=== PATIENT | male | born 1940 | race African-American/Black ===

== ENCOUNTER 2016-07-28 17:50 | Inpatient (IN) | payer MEDICARE, OTHER ==
[~2016-07-28] VITALS: Ht 170.2 cm; Wt 78.5 kg
[~2016-07-28 17:50] MED LIST: DILT180C64 PO; FAMO40TA4 PO; FENO134C PO; NIAC10002 PO; TELM80TA5 PO
[2016-07-28 18:26] LABS: BASO % 1 % (0-3); EOS % 0 % (0-3); HEMATOCRIT 35.8 % (39.0-53.0); HEMOGLOBIN 11.7 g/dL (13.0-17.5); LYMPH % 11 % (24-48); MEAN CORPUSCULAR HEMOGLOBIN 28 pg (25-35); MEAN CORPUSCULAR HGB CONC 33 g/dL (31-37); MEAN CORPUSCULAR VOLUME 85 fL (79-100); MONO % 11 % (0-9); NEUT % 78 % (31-73); PLATELET COUNT 336 x10^3/uL (140-400); RED BLOOD COUNT 4.19 x10^6/uL (4.30-5.70); RED CELL DISTRIBUTION WIDTH 14.9 % (11.5-14.5); WHITE BLOOD COUNT 8.9 x10^3/uL (4.0-11.0)
[2016-07-28] MEDS ORDERED: HEPARIN for IV BOLUS 10,000 UNIT/10 ML VIAL. IV ONE (18:30)
[2016-07-28] MEDS ORDERED: HEPARIN for IV BOLUS 10,000 UNIT/10 ML VIAL. IV PRN (18:30)
[2016-07-28] MEDS ORDERED: ASPIRIN 81 MG TAB.CHEW PO ONE (18:30)
[2016-07-28] MEDS ORDERED: NITROGLYCERIN SUBLINGUAL 0.4 MG BOTTLE OF 25. SL PRN (18:30)
[2016-07-28] MEDS ORDERED: IOHEXOL 350 MG/ML 100ML VIAL. ONE (18:36)
[2016-07-28] MEDS ORDERED: IOHEXOL 350 MG/ML 100ML VIAL. IV ONE (18:45)
[2016-07-28] MEDS ORDERED: CONTRAST GIVEN MC PRN (18:45)
[2016-07-28 18:48] LABS: CALCIUM 9.1 mg/dL (8.5-10.1); CREATININE 2.9 mg/dL (0.7-1.3); GFR 25.9; POTASSIUM 4.5 mmol/L (3.5-5.1)
[2016-07-28 18:57] LABS: INR 1.2 (0.8-1.1); PROTHROMBIN TIME PATIENT 14.7 SEC (11.7-14.0)
[2016-07-28] MEDS ORDERED: IV NORMAL SALINE 1000ML BAG 1,000 ML IV ONE (19:00)
[2016-07-28] MEDS ORDERED: NITROGLYCERIN PREMIX 250 ML IV ONE (19:00)
[2016-07-28] MEDS ORDERED: IV NORMAL SALINE 1000ML BAG 1,000 ML IV SCH (19:14)
[2016-07-28] MEDS ORDERED: MORPHINE SULFATE 4 MG/ML DISP.SYRIN. IV PRN (19:15)
[2016-07-28] MEDS ORDERED: ACETAMINOPHEN 325 MG TABLET. PO PRN (19:15)
[2016-07-28] MEDS ORDERED: ONDANSETRON PF 4 MG/2 ML VIAL. IV PRN (19:15)
--- NOTE | 2016-07-28 19:25 | PHYS DOC ---
Past Medical History Past Medical History: A-Fib, GERD, Hypertension, Kidney Stone, Other Additional Past Medical Histor: chronic kidney disease Past Surgical History: Other Additional Past Surgical Histo: hernia repair, shoulder, foot Alcohol Use: None Drug Use: None Adult General Chief Complaint Chief Complaint: CHEST PAIN HPI HPI Patient is a 76 year old male who presents with chest discomfort. Patient said since awaking this morning he has had a dull ache on the left side of his chest that radiates to his back. When asked about shortness of breath, he says it does not wear any worse than it usually is. No clear inciting or mitigating factors. He has taken a baby aspirin today as well as an oxycodone with insufficient relief. Patient reports she has had similar symptoms to a lesser degree in the past, but not this bad. He denies cardiac history other than A. fib. He is a smoker. Review of Systems Review of Systems Constitutional: Denies fever or chills Eyes: Denies change in visual acuity or eye pain HENT: Denies nasal congestion or sore throat Respiratory: Shortness of breath at baseline Cardiovascular: L chest ache GI: Denies abdominal pain, nausea, vomiting, bloody stools or diarrhea : Denies dysuria or hematuria Musculoskeletal: Pain across upper back Integument: Denies rash or skin lesions Neurologic: Denies headache, focal weakness or sensory changes Current Medications Current Medications Current Medications Medications (Trade) Dose Ordered Sig/Prabha Start Time Stop Time Status Last Admin Dose Admin Acetaminophen (Tylenol) 650 mg PRN Q4HRS PRN 07/28/16 19:15 07/29/16 19:14 Aspirin (Children'S Aspirin) 324 mg 1X ONCE 07/28/16 18:30 07/28/16 18:31 DC 07/28/16 18:27 324 MG Heparin Sodium (Porcine) 1,950 unit PRN Q6HRS PRN 07/28/16 18:30 Heparin Sodium (Porcine) 4000 unit 4,000 unit 1X ONCE 07/28/16 18:30 07/28/16 18:32 DC Heparin Sodium/ Dextrose 500 ml @ 0 mls/hr CONT PRN 07/28/16 18:30 Info (Do NOT chart on this entry -- for MONITORING) 1 each PRN DAILY PRN 07/28/16 18:45 07/30/16 18:44 Iohexol (Omnipaque 350 Mg/ml) 90 ml 1X ONCE 07/28/16 18:45 07/28/16 18:46 DC 07/28/16 18:45 90 ML Iohexol 100 ml 100 ml STK-MED ONCE 07/28/16 18:36 07/28/16 18:37 DC Morphine Sulfate 4 mg 4 mg PRN Q2HR PRN 07/28/16 19:15 07/29/16 19:14 Nitroglycerin (Nitrostat) 0.4 mg PRN Q5MIN PRN 07/28/16 18:30 07/29/16 18:29 07/28/16 18:27 0.4 MG Nitroglycerin/ Dextrose (Nitroglycerin Drip) 250 ml @ 0 mls/hr 1X ONCE 07/28/16 19:00 07/28/16 19:01 DC 07/28/16 19:15 1.5 MLS/HR Ondansetron HCl (Zofran) 4 mg PRN Q8HRS PRN 07/28/16 19:15 07/29/16 19:14 Sodium Chloride (Iv Sodium Chloride 0.9% 1000ml Bag) 1,000 ml @ 125 mls/hr Q8H 07/28/16 19:14 07/29/16 19:13 Allergies Allergies Allergies Coded Allergies Type Severity Reaction Last Updated Verified No Known Drug Allergies 02/12/14 No Physical Exam Physical Exam Constitutional: Well developed, well nourished, no acute distress, non-toxic appearance HENT: Normocephalic, atraumatic, bilateral external ears normal Eyes: EOMI, conjunctiva normal, no discharge Neck: Normal range of motion, no stridor Cardiovascular: Heart rate normal, regular rhythm, no murmur; equal radial pulses b/l Lungs & Thorax: Bilateral breath sounds clear to auscultation Abdomen: Bowel sounds normal, soft, non-distended, no TTP Skin: Warm, dry, no erythema, no rash Back: No tenderness, no deformity or skin lesion Extremities: No obvious deformity, no edema Neurologic: Alert and oriented X 3, no gross deficits noted Psychologic: Affect normal, judgement normal, mood normal Current Patient Data Vital Signs Vital Signs Date Time Temp Pulse Resp B/P Pulse Ox O2 Delivery O2 Flow Rate FiO2 07/28/16 18:46 87 20 148/73 92 Nasal Cannula 3 07/28/16 17:55 98.5 98.5 Lab Values Laboratory Tests Test 07/28/16 18:05 07/28/16 18:13 White Blood Count 8.9x10^3/uL (4.0-11.0) Red Blood Count 4.19x10^6/uL (4.30-5.70) L Hemoglobin 11.7g/dL (13.0-17.5) L Hematocrit 35.8% (39.0-53.0) L Mean Corpuscular Volume 85fL (79-100) Mean Corpuscular Hemoglobin 28pg (25-35) Mean Corpuscular Hemoglobin Concent 33g/dL (31-37) Red Cell Distribution Width 14.9% (11.5-14.5) H Platelet Count 336x10^3/uL (140-400) Neutrophils (%) (Auto) 78% (31-73) H Lymphocytes (%) (Auto) 11% (24-48) L Monocytes (%) (Auto) 11% (0-9) H Eosinophils (%) (Auto) 0% (0-3) Basophils (%) (Auto) 1% (0-3) Neutrophils # (Auto) 6.9x10^3uL (1.8-7.7) Lymphocytes # (Auto) 1.0x10^3/uL (1.0-4.8) Monocytes # (Auto) 0.9x10^3/uL (0.0-1.1) Eosinophils # (Auto) 0.0x10^3/uL (0.0-0.7) Basophils # (Auto) 0.0x10^3/uL (0.0-0.2) Prothrombin Time 14.7SEC (11.7-14.0) H Prothrombin Time INR 1.2 (0.8-1.1) H PTT 31SEC (24-38) Sodium Level 140mmol/L (136-145) Potassium Level 4.5mmol/L (3.5-5.1) Chloride Level 104mmol/L (98-107) Carbon Dioxide Level 22mmol/L (21-32) Anion Gap 14 (6-14) Blood Urea Nitrogen 27mg/dL (8-26) H Creatinine 2.9mg/dL (0.7-1.3) H Estimated GFR (Cockcroft-Gault) 25.9 Glucose Level 134mg/dL (70-99) H Calcium Level 9.1mg/dL (8.5-10.1) Troponin I Quantitative 4.362ng/mL (0.000-0.055) TV-Iso-X-Type Natriuretic Peptide 1842pg/mL (0-124) H POC Troponin I 3.25ng/ml (<0.08) Laboratory Tests 07/28/16 18:05 Laboratory Tests 07/28/16 18:05 EKG EKG EKG (my read): sinus rhythm, rate 84, RBBB, 1mm ST elevation in aVR, ST depression in leads I/V2-6, scattered TWI; no prior to compare Radiology/Procedures Radiology/Procedures CXR (my read): Diffuse interstitial markings CTA chest: IMPRESSION No acute abnormality is seen. Course & Med Decision Making Course & Med Decision Making Pertinent Labs and Imaging studies reviewed. (See chart for details) Patient is 76-year-old male who presents with chest pain radiating to his back. Concern for ACS, aortic dissection also on differential. EKG concerning with ST depression and flipped T waves. Does have [address] elevation in aVR, but does not meet criteria for STEMI activation. Aspirin, nitroglycerin, EKG, chest x-ray , labs, CTA chest ordered. I spoke emergently with Dr. Dawn; will heparanize after CTA assuming no dissection seen. CTA results as above. [id number] troponin 3.25, troponin from lab results at 4.362. Labs also notable for elevated creatinine. I spoke again with Dr. Dawn; will hydrate patient overnight with tentative plan for catheter lab tomorrow morning. I discussed the results with patient and the plan. Discussed with Dr. Avery (covering for Dr. Amin); will admit under his care for further evaluation and treatment. Dragon Disclaimer Dragon Disclaimer This electronic medical record was generated, in whole or in part, using a voice recognition dictation system. Departure Departure Impression: Primary Impression: Non-ST elevation IN (NSTEMI) Disposition: 09 ADMITTED INPATIENT Admitting Physician: Shruthi Avery Condition: GUARDED Referrals: SEGUNDO AMIN MD (PCP) LISA ROSS MD Jul 28, 2016 19:25
--- NOTE | 2016-07-28 19:31 | RAD ---
PROCEDURE CTA of the chest without and with contrast 07/28/2016 HISTORY Burning chest and back pain since this morning. TECHNIQUE Unenhanced contiguous, 2 millimeter axial sections were obtained through the chest. After the intravenous administration of 90 cc of Omnipaque 350, contiguous, 0.625 millimeter axial sections were obtained through the chest and upper abdomen. Multiplanar 3D MIP and volume rendered 3D reconstructed images were obtained. One or more of the following individualized dose reduction techniques were utilized for this study: 1. Automated exposure control. 2. Adjustment of the mA and/or kV according to patient size. 3. Use of iterative reconstruction technique. FINDINGS The unenhanced images demonstrate scattered atherosclerotic plaque formation involving the thoracic aorta and its branches. Scattered atherosclerotic plaque formation is seen involving the coronary arteries. Calcified right hilar and mediastinal lymph nodes are seen which measure 3 millimeters to 1.5 centimeters in size. On the post-contrast images mild to moderate atheromatous/atherosclerotic plaque formation is seen involving the thoracic aorta and its branches. The thoracic aorta is tortuous but tapers normally. No dissection or aneurysm is seen. The origins of the brachiocephalic, left common carotid and left subclavian arteries from the thoracic aortic arch are patent. Enlarged hilar and mediastinal lymph nodes are seen which measure 1 centimeter to 2 centimeters in size. They may be reactive. There is mild cardiomegaly. No filling defect is seen within the visualized portions of either pulmonary artery. Moderate bullous emphysematous changes are seen involving both lungs, particularly both upper lobes. Dependent subsegmental atelectasis is seen bilaterally. No area of consolidation is noted. No pneumothorax or pleural effusion is seen. Images through the upper abdomen demonstrate multiple low-attenuation lesions scattered throughout both kidneys. These measure 5 millimeters to 10 centimeters in size. They likely represent cysts. IMPRESSION No acute abnormality is seen. Electronically signed by: Nabil Schumacher MD (Jul 28, 2016 19:30:19)
[2016-07-28] MEDS: HEPARIN 25,000UTS/500ML PREMIX 500 ML IV PRN (19:45)
--- NOTE | 2016-07-28 20:15 | ACF ---
Admit Criteria Forms Admit Criteria Forms Admit Criteria Forms MYOCARDIAL INFARCTION Clinical Indications for Admission to Inpatient Care (Place 'X' for any and all applicable criteria): Admission is indicated for ANY ONE of the following (1)(2)(3)(4): [X]I. Acute [place] [ ]II. Contraindications and/or Inappropriate clinical situations for Observational Care in patients with Myocardial Infarction, when ANY ONE of the following is required: [ ]a) Patient with High risk of cardiac embolism (e.g, patients with previous cardiac embolism, LVEF < 40%, age >75 and patients with prosthetic valve) 18 [ ]b) Patient with Moderate risk including DM patient, CAD and patient aged 65-75 18 [ ]c) Patient with any change in cardiac biomarker especially troponin should be managed as high risk in an inpatient setting 19 [ ]d) Physician judgement irrespective of ECG and other diagnostic findings 20 [ ]III.General contraindications and/or Inappropriate clinical situations for Observational Care in patients with Myocardial Infarction, when ANY ONE of the following is required: [ ]a) Prediction of prolongation of LOS based on ANY ONE of the following may be considered as a contraindication for observational care 2, 3, 4, 5, 6, 7, 8, 9, 10, 11 [ ]i) Age > 65 yrs. [ ]ii) Patient arriving by ambulance [ ]iii) Patient with high acuity [ ]iv) Patient requiring vital sign monitoring [ ]v) Patient on IV medication [ ]b) Systolic blood pressures 180mmHg 3,12 [ ]c) Patient with altered mental status including delirium and other alteration of consciousness, (3) [ ]d) Patient whose discharge disposition will be to a intermediate home or rehabilitation home should not be managed in Emergency Department Observation Unit. CMS rule requires 3 days hospital stay before such placement. 3,13 [ ]e) Patient with failure to thrive due to broad array of etiologies 3 ,16,17 [ ]f) Inability to ambulate 3,14 Extended stay beyond goal length of stay may be needed for (1)(18)(20)(24)(25): [ ]a) Hemodynamic instability, persisting symptoms after intensive medical management, or recurring severe, prolonged symptoms [ ]b) Intravascular procedural complications such as acute vessel closure, stent thrombosis, stent malposition, or vessel dissection (26)(27)(28) [ ]c) Extravascular procedural complications such as retroperitoneal hematoma , pericardial effusion, or cardiac tamponade [ ]d) Entry site complications causing bleeding, hematoma or distal ischemia and requiring ongoing monitoring, surgical repair or surgical thrombectomy(29) [ ]e) Dangerous arrhythmia [ ]f) Complicated percutaneous coronary intervention (e.g., unsuccessful percutaneous coronary intervention or percutaneous coronary intervention of non- [place] vessel) [ ]g) Urgent or emergent surgery for complications of [place] (e.g., ventricular rupture, valvular insufficiency) [ ]h) Surgical revascularization via coronary artery bypass graft [ ]i) Heart failure (e.g., pulmonary edema) [ ]j) Unstable pulmonary comorbidities, including COPD or pneumonia (31) [ ]k) Acute renal failure The original [employer] content created by [email or web address] has been revised. The portions of the content which have been revised are identified through the use of italic text or in bold, and [facility] has neither reviewed nor approved the modified material. All other unmodified content is copyright [facility] Please see references footnoted in the original [facility] edition 2016 TRESA GROSS Jul 28, 2016 20:15
[2016-07-28 20:30] VITALS: BP 108/67
[2016-07-28 21:00] VITALS: BP 135/66
[2016-07-28 22:00] VITALS: BP 122/67
[2016-07-28] MEDS ORDERED: FUROSEMIDE 20 MG/2 ML VIAL IVP ONE (22:15)
[2016-07-28] MEDS ORDERED: IPRATRPIUM/ALBUTEROL 0.5/2.5MG 3 ML NEBU. ONE (22:49)
[2016-07-28 23:00] VITALS: BP 122/69
[2016-07-28] MEDS ORDERED: TAMS0.4C2 PO (23:21)
[2016-07-28] MEDS ORDERED: DOXA4TAB3 PO (23:21)
[2016-07-28] MEDS ORDERED: ONDA4TAB12 PO (23:21)
[2016-07-28] MEDS ORDERED: OXYC-323 PO (23:21)
[2016-07-28] MEDS ORDERED: AMLO10TA2 PO (23:21)
[2016-07-28] MEDS: IPRATRPIUM/ALBUTEROL 0.5/2.5MG 3 ML NEBU. NEB SCH (23:32)
[2016-07-28 23:45] LABS: HCO3 ABG 23 mmol/L (21-28); PCO2 ABG 38 mmHg (35-46); SAT O2 ABG 85 % (92-99)
[2016-07-28 23:55] LABS: FIO2 ABG 100; PO2 ABG 50 mmHg (65-108)
[2016-07-29] VITALS (26 sets, daily range): BP systolic 108–145; BP diastolic 59–75
[2016-07-29] MEDS ORDERED: FUROSEMIDE 20 MG/2 ML VIAL IVP ONE ×3 (00:30→15:00)
[2016-07-29] MEDS: LORAZEPAM 0.5 MG TABLET. PO PRN (01:05)
[2016-07-29] MEDS ORDERED: IV NORMAL SALINE 1000ML BAG 1,000 ML IV SCH ×2 (01:15→05:30)
[2016-07-29 05:16] LABS: BASO % 1 % (0-3); EOS % 0 % (0-3); HEMATOCRIT 35.8 % (39.0-53.0); HEMOGLOBIN 11.4 g/dL (13.0-17.5); LYMPH # 0.8 x10^3/uL (1.0-4.8); LYMPH % 9 % (24-48); MEAN CORPUSCULAR HEMOGLOBIN 27 pg (25-35); MEAN CORPUSCULAR HGB CONC 32 g/dL (31-37); MEAN CORPUSCULAR VOLUME 86 fL (79-100); MONO % 9 % (0-9); NEUT % 82 % (31-73); PLATELET COUNT 318 x10^3/uL (140-400); RED BLOOD COUNT 4.18 x10^6/uL (4.30-5.70); RED CELL DISTRIBUTION WIDTH 14.8 % (11.5-14.5); WHITE BLOOD COUNT 9.7 x10^3/uL (4.0-11.0)
[2016-07-29 05:38] LABS: CALCIUM 8.7 mg/dL (8.5-10.1); CREATININE 2.8 mg/dL (0.7-1.3); GFR 26.9; POTASSIUM 4.8 mmol/L (3.5-5.1)
[2016-07-29 05:41] LABS: MAGNESIUM 2.3 mg/dL (1.8-2.4)
[2016-07-29 05:48] LABS: CHOLESTEROL/HDL RATIO 6.9
[2016-07-29] MEDS: IPRATRPIUM/ALBUTEROL 0.5/2.5MG 3 ML NEBU. NEB SCH ×4 (08:03→19:27)
--- NOTE | 2016-07-29 08:27 | RAD ---
Examination: Ultrasound kidneys History: History of stage III renal disease, renal cyst Comparison: 06/20/2010 Findings: The right kidney measures 12.0 x 6.1 x 7.0 cm. The left kidney measures 15.3 x 8.7 x 1.1 cm The visualized urinary bladder is mildly distended. Bilateral ureteral jets are identified. There is a cystic structure identified in the right kidney measuring 3.6 x 3.5 x 2.2 cm. There is a large cystic structure identified in the left kidney measures 11.2 x 10.2 x 6.5 cm. There is a 6.3 mm echogenicity identified in the inferior right kidney likely an intrarenal collecting system calculus No evidence of hydronephrosis. Impression: 1. Bilateral renal cysts with the largest measuring 11.2 cm on the left, which is mildly increased compared to prior exam. 2. 6.3 mm intrarenal collecting system calculus identified in the right kidney. No evidence of hydronephrosis.
--- NOTE | 2016-07-29 08:59 | RAD ---
Examination: Ultrasound bilateral lower extremity venous duplex History: History of shortness of breath Comparison: None available Technique: Grayscale, color Doppler 2-D, spectral waveform analysis of the bilateral lower extremity venous system was performed Findings: The visualized common femoral vein, superficial femoral vein, popliteal vein demonstrate normal compression augmentation of flow. The visualized calf veins are patent. Impression: No evidence of deep venous thrombosis identified in the visualized bilateral lower extremity venous system.
--- NOTE | 2016-07-29 09:14 | EKG ---
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
[2016-07-29] MEDS ORDERED: ONDANSETRON ODT 4 MG TAB.RAPDIS PO PRN (09:30)
[2016-07-29] MEDS ORDERED: OXYCODONE/APAP 5/325 TABLET. PO PRN (09:30)
--- NOTE | 2016-07-29 09:31 | RAD ---
Examination: Single frontal view the chest. History: History of atrial fibrillation, left chest pain Comparison: 09/26/2004 Findings: The cardiomediastinal silhouette demonstrates mild cardiomegaly. Emphysematous changes identified in the bilateral lungs. There is prominence of bilateral interstitial lung markings likely chronic fibrosis given CT findings. Impression: Diffuse prominent appearing bilateral interstitial lung markings likely interstitial fibrosis.
[2016-07-29 09:35] LABS: HCO3 ABG 23 mmol/L (21-28); PCO2 ABG 38 mmHg (35-46); PO2 ABG 69 mmHg (65-108); SAT O2 ABG 94 % (92-99)
[2016-07-29] MEDS ORDERED: ASPI81TA9 PO (09:39)
[2016-07-29 09:41] LABS: FIO2 ABG 100
[2016-07-29] MEDS: ASPIRIN 325 MG TABLET PO SCH (10:07)
[2016-07-29] MEDS: DOXAZOSIN MESYLATE 4 MG TABLET PO SCH (10:08)
[2016-07-29] MEDS: METOPROLOL TART IMMED RELEASE 25 MG TABLET PO SCH ×2 (10:08→20:49)
--- NOTE | 2016-07-29 10:20 | RAD ---
Examination: Single frontal view the chest. History: History of wheezing Comparison: 08/14/2016 Findings: Mild cardiomegaly is unchanged. Mild increase in prominence of diffuse bilateral interstitial lung markings likely chronic interstitial changes with overlying congestive changes with interval increase in patchy bibasal lung airspace opacities likely atelectasis or infiltrate. Trace bilateral pleural effusions Impression: 1. Interval mild increase in bilateral interstitial lung markings likely chronic interstitial changes with overlying mild congestive changes. 2. Mild bibasal lung airspace opacities likely atelectasis or infiltrates. Follow-up to resolution. 3. Trace bilateral pleural effusions.
--- NOTE | 2016-07-29 10:27 | EKG ---
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
--- NOTE | 2016-07-29 11:21 | PDOC ---
Provider Note Provider Note Pt seen in ICU .H&P dictated. #[id number]. spoke with cardiology . SHARLA KOWALSKI MD Jul 29, 2016 11:21
--- NOTE | 2016-07-29 11:50 | PDOC2 ---
CONSULT Date of Consult Date of Consult DATE: 07/29/16 TIME: 11:39 Reason for Consult Reason for Consult: Chest pain Referring Physician Referring Physician: Dr. Avery Identification/Chief Complaint Chief Complaint Chest pain History of Present Illness Reason for Visit: The patient is a 76-year-old male with episodes of chest pain that brought him to the emergency room last night. The patient states he has had 3-4 days of the discomfort. It increased last night and so he came to the emergency room. He describes it as a pain in his left upper chest that goes through his chest and is most severe in his back between his shoulder blades. The patient EKG showed a sinus rhythm with ST segment depression consistent with ischemia but not an ST elevated myocardial infarction. CT scanning of his chest showed no aortic dissection and the patient was started on aspirin and heparin. Overnight his pain has improved but he has had increasing shortness of breath requiring higher levels of oxygen. 20 mg of Lasix improved his shortness of breath but he also has kidney injury with a initial initial creatinine of 2.9. He was discharged from approximately a week ago after being followed for reported renal stones. In addition his d-dimer is elevated at 3.38. Initial report of an echocardiogram done this morning shows an ejection fraction mildly decreased at 45%. Overall the patient reports being more comfortable today. He continues however to be short of breath. Past Medical History Cardiovascular: HTN Musculoskeletal: low back pain Renal/: Chronic renal insuff Past Surgical History Past Surgical History: No pertinent history Family History Family History: Hypertension Social History Quit Current Problem List Problem List Problems Medical Problems: (1) Non-ST elevation [place] (NSTEMI) Status: Acute Current Medications Current Medications Current Medications Aspirin (Children'S Aspirin) 324 mg 1X ONCE PO Last administered on 07/28/16 18:27; Start 07/28/16 at 18:30; Stop 07/28/16 at 18:31; Status DC Nitroglycerin (Nitrostat) 0.4 mg PRN Q5MIN PRN SL CP RATING > 1/10 Last administered on 07/28/16 18:27; Start 07/28/16 at 18:30; Stop 07/29/16 at 18:29 Heparin Sodium (Porcine) 4000 unit 4,000 unit 1X ONCE IV Last administered on 07/28/16 19:43; Start 07/28/16 at 18:30; Stop 07/28/16 at 18:32; Status DC Heparin Sodium/ Dextrose 500 ml @ 0 mls/hr CONT PRN IV SEE I/O RECORD Last administered on 07/28/16 19:45; Start 07/28/16 at 18:30 Heparin Sodium (Porcine) 1,950 unit PRN Q6HRS PRN IV FOR UFH LEVEL LESS THAN 0.2 Last administered on 07/29/16 05:33; Start 07/28/16 at 18:30 Iohexol (Omnipaque 350 Mg/ml) 90 ml 1X ONCE IV Last administered on 07/28/16 18:45; Start 07/28/16 at 18:45; Stop 07/28/16 at 18:46; Status DC Info (Do NOT chart on this entry -- for MONITORING) 1 each PRN DAILY PRN MC SEE COMMENTS; Start 07/28/16 at 18:45; Stop 07/30/16 at 18:44 Iohexol 100 ml 100 ml STK-MED ONCE .ROUTE ; Start 07/28/16 at 18:36; Stop at 18:37; Status DC Nitroglycerin/ Dextrose 250 ml @ 0 mls/hr 1X ONCE IV Last administered on 19:15; Start 07/28/16 at 19:00; Stop 07/28/16 at 19:01; Status DC Sodium Chloride (Iv Sodium Chloride 0.9% 1000ml Bag) 1,000 ml @ 1,000 mls/hr 1X ONCE IV Last administered on 07/28/16 19:00; Start 07/28/16 at 19:00; Stop 07/28/16 at 19:59; Status DC Ondansetron HCl (Zofran) 4 mg PRN Q8HRS PRN IV NAUSEA/VOMITING; Start 07/28/16 at 19:15; Stop 07/29/16 at 19:14 Morphine Sulfate 4 mg 4 mg PRN Q2HR PRN IV PAIN Last administered on 07/28/16 23:32; Start 07/28/16 at 19:15; Stop 07/29/16 at 19:14 Sodium Chloride (Iv Sodium Chloride 0.9% 1000ml Bag) 1,000 ml @ 125 mls/hr Q8H IV Last administered on 07/28/16 19:14; Start 07/28/16 at 19:14; Stop 07/29/16 at 01:16; Status DC Acetaminophen (Tylenol) 650 mg PRN Q4HRS PRN PO FEVER; Start 07/28/16 at 19:15; Stop 07/29/16 at 19:14 Furosemide (Lasix) 20 mg 1X ONCE IVP Last administered on 07/28/16 22:41; Start 07/28/16 at 22:15; Stop 07/28/16 at 22:16; Status DC Albuterol/ Ipratropium (Duoneb) 3 ml STK-MED ONCE .ROUTE ; Start 07/28/16 at 22: 49; Stop 07/28/16 at 22:50; Status DC Albuterol/ Ipratropium (Duoneb) 3 ml RTQID NEB Last administered on 07/29/16 08 :03; Start 07/29/16 at 08:00 Lorazepam (Ativan) 0.25 mg PRN Q6HRS PRN PO ANXIETY / AGITATION Last administered on 07/29/16 01:05; Start 07/28/16 at 23:00 Furosemide (Lasix) 20 mg 1X ONCE IVP Last administered on 07/29/16 01:04; Start 07/29/16 at 00:30; Stop 07/29/16 at 00:31; Status DC Furosemide 20 mg 20 mg 1X ONCE IVP ; Start 07/29/16 at 01:00; Stop 07/29/16 at 01 :01; Status DC Sodium Chloride 1,000 ml @ 80 mls/hr [id number] IV ; Start 07/29/16 at 01:15; Stop 07/29/16 at 01:29; Status DC Sodium Chloride (Iv Sodium Chloride 0.9% 1000ml Bag) 1,000 ml @ 80 mls/hr [id number] IV Last administered on 07/29/16 05:48; Start 07/29/16 at 05:30 Aspirin (Lionel Aspirin) 325 mg [id number] PO Last administered on 07/29/16 10: 07; Start 07/29/16 at 09:45 Metoprolol Tartrate (Lopressor) 12.5 mg BID PO Last administered on 07/29/16 10 :08; Start 07/29/16 at 09:45 Doxazosin Mesylate (Cardura) 4 mg DAILY PO Last administered on 07/29/16t 10:08 ; Start 07/29/16 at 09:00 Ondansetron HCl (Zofran Odt) 4 mg PRN Q8HRS PRN PO NAUSEA/VOMITING; Start at 09:30 Oxycodone/ Acetaminophen (Percocet 5/325) 1 tab PRN Q6HRS PRN PO PAIN; Start at 09:30 Tamsulosin HCl (Flomax) 0.4 mg HS PO ; Start 07/29/16 at 21:00 Famotidine 40 mg 40 mg HS PO ; Start 07/29/16 at 21:00 Nitroglycerin/ Dextrose (Nitroglycerin Drip) 250 ml @ 0 mls/hr CONT PRN IV SEE I/O RECORD; Start 07/29/16 at 09:45 Atorvastatin Calcium (Lipitor) 20 mg QHS PO ; Start 07/29/16 at 21:00 Losartan Potassium (Cozaar) 50 mg DAILY PO ; Start 07/29/16 at 11:15 Active Scripts Active Reported Aspirin Ec (Aspirin) 81 Mg Tablet.dr 81 Mg PO DAILY Amlodipine Besylate 10 Mg Tablet 10 Mg PO DAILY Percocet 5-325 Mg Tablet (Oxycodone/Acetaminophen) 1 Each Tablet 1 Tab PO PRN Q6HRS PRN Doxazosin Mesylate 4 Mg Tablet 1 Tab PO DAILY Tamsulosin Hcl 0.4 Mg Cap.er.24h 1 Cap PO DAILY Ondansetron Odt (Ondansetron) 4 Mg Tab.rapdis 1 Tab PO PRN Q8HRS PRN Famotidine 40 Mg Tablet 40 Mg PO HS Telmisartan 80 Mg Tablet 80 Mg PO Allergies Allergies: Coded Allergies: No Known Drug Allergies (Unverified , 02/12/14) ROS Respiratory: YES: Shortness of breath Cardiovascular: yes Chest Pain Genitourinary: YES Flank Pain Physical Exam General: mild distress Lungs: Clear to auscultation Heart: Regular rate Abdomen: Normal bowel sounds Vitals VITALS Vital Signs Date Time Temp Pulse Resp B/P Pulse Ox O2 Delivery O2 Flow Rate FiO2 07/29/16 10:08 80 137/65 07/29/16 10:00 34 91 NonRebreather Mask 07/29/16 08:03 15.0 07/29/16 07:00 97.9 97.9 Labs Labs Laboratory Tests Test 07/28/16 18:05 07/28/16 18:13 07/28/16 23:45 07/29/16 04:30 White Blood Count 8.9x10^3/uL (4.0-11.0) 9.7x10^3/uL (4.0-11.0) Red Blood Count 4.19x10^6/uL (4.30-5.70) 4.18x10^6/uL (4.30-5.70) Hemoglobin 11.7g/dL (13.0-17.5) 11.4g/dL (13.0-17.5) Hematocrit 35.8% (39.0-53.0) 35.8% (39.0-53.0) Mean Corpuscular Volume 85fL (79-100) 86fL (79-100) Mean Corpuscular Hemoglobin 28pg (25-35) 27pg (25-35) Mean Corpuscular Hemoglobin Concent 33g/dL (31-37) 32g/dL (31-37) Red Cell Distribution Width 14.9% (11.5-14.5) 14.8% (11.5-14.5) Platelet Count 336x10^3/uL (140-400) 318x10^3/uL (140-400) Neutrophils (%) (Auto) 78% (31-73) 82% (31-73) Lymphocytes (%) (Auto) 11% (24-48) 9% (24-48) Monocytes (%) (Auto) 11% (0-9) 9% (0-9) Eosinophils (%) (Auto) 0% (0-3) 0% (0-3) Basophils (%) (Auto) 1% (0-3) 1% (0-3) Neutrophils # (Auto) 6.9x10^3uL (1.8-7.7) 7.9x10^3uL (1.8-7.7) Lymphocytes # (Auto) 1.0x10^3/uL (1.0-4.8) 0.8x10^3/uL (1.0-4.8) Monocytes # (Auto) 0.9x10^3/uL (0.0-1.1) 0.9x10^3/uL (0.0-1.1) Eosinophils # (Auto) 0.0x10^3/uL (0.0-0.7) 0.0x10^3/uL (0.0-0.7) Basophils # (Auto) 0.0x10^3/uL (0.0-0.2) 0.0x10^3/uL (0.0-0.2) Prothrombin Time 14.7SEC (11.7-14.0) Prothromb Time International Ratio 1.2 (0.8-1.1) Activated Partial Thromboplast Time 31SEC (24-38) Sodium Level 140mmol/L (136-145) 139mmol/L (136-145) Potassium Level 4.5mmol/L (3.5-5.1) 4.8mmol/L (3.5-5.1) Chloride Level 104mmol/L (98-107) 105mmol/L (98-107) Carbon Dioxide Level 22mmol/L (21-32) 22mmol/L (21-32) Anion Gap 14 (6-14) 12 (6-14) Blood Urea Nitrogen 27mg/dL (8-26) 25mg/dL (8-26) Creatinine 2.9mg/dL (0.7-1.3) 2.8mg/dL (0.7-1.3) Estimated GFR (Cockcroft-Gault) 25.9 26.9 Glucose Level 134mg/dL (70-99) 128mg/dL (70-99) Calcium Level 9.1mg/dL (8.5-10.1) 8.7mg/dL (8.5-10.1) Troponin I Quantitative 4.362ng/mL (0.000-0.055) 21.220ng/mL (0.000-0.055) YL-Dec-T-Type Natriuretic Peptide 1842pg/mL (0-124) Bedside Troponin I 3.25ng/ml (<0.08) O2 Saturation 85% (92-99) Arterial Blood pH 7.40 (7.35-7.45) Arterial Blood pCO2 at Patient Temp 38mmHg (35-46) Arterial Blood pO2 at Patient Temp 50mmHg (65-108) Arterial Blood HCO3 23mmol/L (21-28) Arterial Blood Base Excess -2mmol/L (-3-3) FiO2 100 D-Dimer (Rachel) 3.38ug/mlFEU (0.00-0.50) Heparin Anti-Xa Act, Unfractionated 0.14IU/mL (0.30-0.70) Magnesium Level 2.3mg/dL (1.8-2.4) Triglycerides Level 111mg/dL (0-150) Cholesterol Level 193mg/dL (0-200) LDL Cholesterol, Calculated 143mg/dL (0-100) VLDL Cholesterol, Calculated 22mg/dL (0-40) HDL Cholesterol 28mg/dL (40-60) Cholesterol/HDL Ratio 6.9 Test 07/29/16 09:22 O2 Saturation 94% (92-99) Arterial Blood pH 7.40 (7.35-7.45) Arterial Blood pCO2 at Patient Temp 38mmHg (35-46) Arterial Blood pO2 at Patient Temp 69mmHg (65-108) Arterial Blood HCO3 23mmol/L (21-28) Arterial Blood Base Excess -1mmol/L (-3-3) FiO2 100 Laboratory Tests Test 07/28/16 18:05 07/28/16 18:13 07/28/16 23:45 07/29/16 04:30 White Blood Count 8.9x10^3/uL (4.0-11.0) 9.7x10^3/uL (4.0-11.0) Red Blood Count 4.19x10^6/uL (4.30-5.70) 4.18x10^6/uL (4.30-5.70) Hemoglobin 11.7g/dL (13.0-17.5) 11.4g/dL (13.0-17.5) Hematocrit 35.8% (39.0-53.0) 35.8% (39.0-53.0) Mean Corpuscular Volume 85fL (79-100) 86fL (79-100) Mean Corpuscular Hemoglobin 28pg (25-35) 27pg (25-35) Mean Corpuscular Hemoglobin Concent 33g/dL (31-37) 32g/dL (31-37) Red Cell Distribution Width 14.9% (11.5-14.5) 14.8% (11.5-14.5) Platelet Count 336x10^3/uL (140-400) 318x10^3/uL (140-400) Neutrophils (%) (Auto) 78% (31-73) 82% (31-73) Lymphocytes (%) (Auto) 11% (24-48) 9% (24-48) Monocytes (%) (Auto) 11% (0-9) 9% (0-9) Eosinophils (%) (Auto) 0% (0-3) 0% (0-3) Basophils (%) (Auto) 1% (0-3) 1% (0-3) Neutrophils # (Auto) 6.9x10^3uL (1.8-7.7) 7.9x10^3uL (1.8-7.7) Lymphocytes # (Auto) 1.0x10^3/uL (1.0-4.8) 0.8x10^3/uL (1.0-4.8) Monocytes # (Auto) 0.9x10^3/uL (0.0-1.1) 0.9x10^3/uL (0.0-1.1) Eosinophils # (Auto) 0.0x10^3/uL (0.0-0.7) 0.0x10^3/uL (0.0-0.7) Basophils # (Auto) 0.0x10^3/uL (0.0-0.2) 0.0x10^3/uL (0.0-0.2) Prothrombin Time 14.7SEC (11.7-14.0) Prothromb Time International Ratio 1.2 (0.8-1.1) Activated Partial Thromboplast Time 31SEC (24-38) Sodium Level 140mmol/L (136-145) 139mmol/L (136-145) Potassium Level 4.5mmol/L (3.5-5.1) 4.8mmol/L (3.5-5.1) Chloride Level 104mmol/L (98-107) 105mmol/L (98-107) Carbon Dioxide Level 22mmol/L (21-32) 22mmol/L (21-32) Anion Gap 14 (6-14) 12 (6-14) Blood Urea Nitrogen 27mg/dL (8-26) 25mg/dL (8-26) Creatinine 2.9mg/dL (0.7-1.3) 2.8mg/dL (0.7-1.3) Estimated GFR (Cockcroft-Gault) 25.9 26.9 Glucose Level 134mg/dL (70-99) 128mg/dL (70-99) Calcium Level 9.1mg/dL (8.5-10.1) 8.7mg/dL (8.5-10.1) Troponin I Quantitative 4.362ng/mL (0.000-0.055) 21.220ng/mL (0.000-0.055) VO-Cwy-X-Type Natriuretic Peptide 1842pg/mL (0-124) Bedside Troponin I 3.25ng/ml (<0.08) O2 Saturation 85% (92-99) Arterial Blood pH 7.40 (7.35-7.45) Arterial Blood pCO2 at Patient Temp 38mmHg (35-46) Arterial Blood pO2 at Patient Temp 50mmHg (65-108) Arterial Blood HCO3 23mmol/L (21-28) Arterial Blood Base Excess -2mmol/L (-3-3) FiO2 100 D-Dimer (Rachel) 3.38ug/mlFEU (0.00-0.50) Heparin Anti-Xa Act, Unfractionated 0.14IU/mL (0.30-0.70) Magnesium Level 2.3mg/dL (1.8-2.4) Triglycerides Level 111mg/dL (0-150) Cholesterol Level 193mg/dL (0-200) LDL Cholesterol, Calculated 143mg/dL (0-100) VLDL Cholesterol, Calculated 22mg/dL (0-40) HDL Cholesterol 28mg/dL (40-60) Cholesterol/HDL Ratio 6.9 Test 07/29/16 09:22 O2 Saturation 94% (92-99) Arterial Blood pH 7.40 (7.35-7.45) Arterial Blood pCO2 at Patient Temp 38mmHg (35-46) Arterial Blood pO2 at Patient Temp 69mmHg (65-108) Arterial Blood HCO3 23mmol/L (21-28) Arterial Blood Base Excess -1mmol/L (-3-3) FiO2 [address] scan of the chest shows no dissection. Assessment/Plan Assessment/Plan 1. Chest pain. Non-ST elevated myocardial infarction. Pain has largely resolved. CT chest scan shows no dissection. Patient has been treated with heparin and aspirin and is being started on beta blockers. The patient will require cardiac catheterization but will have the renal service evaluate his kidney disease prior to further contrast unless his pain increases. Shortness of breath is not consistent with an ejection fraction of 45%. D-dimer is elevated and a VQ scan looking for possible PE is pending. 2. Chronic kidney disease with reported kidney stones. Creatinine this morning is 2.8. Patient was recently admitted at for kidney stones and will attempt to obtain old records. Renal consult has been requested. 3. Hypoxia. Pulmonary echocardiogram shows an ejection fraction of 45%. Improved with low-dose Lasix. VQ scan is pending. Continuing on anticoagulation. Pulmonary consult is pending. Thank you for allowing us to participate in the care of your patient. VENTURA GHOTRA MD Jul 29, 2016 11:50
--- NOTE | 2016-07-29 12:53 | CARD ---
APPROVED REPORT EXAM: Two-dimensional and M-mode echocardiogram with Doppler and color Doppler. Other Information Quality : Average Rhythm : NSR INDICATION Chest Pain 2D DIMENSIONS Left Atrium(2D)4.0 (1.6-4.0cm)IVSd1.1 (0.7-1.1cm) Aortic Root(2D)3.0 (2.0-3.7cm)LVDd5.7 (3.9-5.9cm) LVOT Diameter2.2 (1.8-2.4cm)PWd1.1 (0.7-1.1cm) LVDs4.5 (2.5-4.0cm)FS (%) 21.2 % SV67.5 ml Aortic Valve AoV Peak Bruce.120.1cm/sAoV VTI20.1cm AO Peak GR.5.8mmHgLVOT VTI 16.04cm AO Mean GR.4mmHgAVA (VTI)3.10cm2 Mitral Valve MV E Bzfykjst64.0cm/sMV E Peak Gr.123mmHg MV DECEL [id number] A Wwuqgbkc42.2cm/s MV E Mean Gr.2mmHgMV [id number] E/A Ratio2.1MV A [id number] MVA (PHT)6.11cm2 TDI Lateral E' P. V11.97cm/sMedial E' P. V5.28cm/s E/Lateral E'6.7E/Medial E'15.2 Tricuspid Valve TR P. [id number]/sRAP [id number] TR Peak Gr.64hpIbUKWM05tlFd LEFT VENTRICLE The left ventricle is normal size. There is borderline to mild concentric left ventricular hypertroph y. Left ventricle systolic function is low normal. The Ejection Fraction is estimated at 50%. There i s mild basal posterior hypokinesis. The left ventricular diastolic function and filling is normal for age. RIGHT VENTRICLE The right ventricle is normal size. The right ventricular systolic function is normal. ATRIA The left atrium size is normal. The right atrium size is normal. The interatrial septum is intact wit h no evidence for an atrial septal defect or patent foramen ovale as noted on 2-D or Doppler imaging. AORTIC VALVE The aortic valve is normal in structure and function. The aortic valve is trileaflet. Doppler and Col or Flow revealed no significant aortic regurgitation. There is no significant aortic valvular stenosi s. MITRAL VALVE The mitral valve is normal in structure. There is no mitral valve stenosis. Doppler and Color Flow re vealed eccentric moderate mitral regurgitation. TRICUSPID VALVE The tricuspid valve is normal in structure and function. Doppler and Color Flow revealed mild to mode rate tricuspid regurgitation. The PA pressure was estimated at 39 mmHg. There is no tricuspid valve s tenosis. PULMONIC VALVE The pulmonic valve is not well visualized. Doppler and Color Flow revealed no pulmonic valvular regur gitation. There is no pulmonic valvular stenosis. GREAT VESSELS The aortic root is normal in size. The IVC is normal in size and collapses >50% with inspiration. PERICARDIAL EFFUSION There is no evidence of significant pericardial effusion. Critical Notification Date: 07/29/2016 Time: 09:04 Other Discipline : CATRACHITO Watts Critical Value: Yes <Conclusion> The left ventricle is normal size. Left ventricle systolic function is low normal. The Ejection Fraction is estimated at 50%. There is mild basal posterior hypokinesis. There is borderline to mild concentric left ventricular hypertrophy. There is no significant aortic valvular stenosis. Doppler and Color Flow revealed no significant aortic regurgitation. Doppler and Color Flow revealed eccentric moderate mitral regurgitation. Doppler and Color Flow revealed mild to moderate tricuspid regurgitation. The PA pressure was estimated at 39 mmHg.
[2016-07-29] MEDS: LOSARTAN POTASSIUM 50 MG TABLET. PO SCH (14:17)
--- NOTE | 2016-07-29 14:32 | HP ---
ADMIT DATE: 07/28/2016 LOCATION: 104 ICU. REASON FOR ADMISSION TO THE HOSPITAL: Pain in the chest, non-STEMI. HISTORY OF PRESENT ILLNESS: The patient is a 76-year-old male, patient of Dr. Segundo Amin. The patient has a history of atrial fibrillation, sees Dr. Gauthier, Cardiology at ; hypertension and chronic kidney disease stage 3 and he was at Emergency Room last week, had some kidney stones. The patient has a history of kidney problems, sees .A renal doctor. He was having pain since Sunday in the back and then came to the Emergency Room. He had a slightly elevated troponin and ST depression and the patient was seen in the Emergency Room, had a CT angiogram of the chest, negative for PE. Venous Doppler was negative. Ultrasound of the kidney shows no hydronephrosis, was admitted to the ICU. The patient was having shortness of breath, was seen by Pulmonology, was placed on oxygen mask, getting breathing treatments. PAST MEDICAL HISTORY: As mentioned above, atrial fibrillation, reflux disease, hypertension, kidney stones. PAST SURGICAL HISTORY: Hernia repair, surgery on the shoulder and the foot, chronic kidney disease. ALLERGIES: No known drug allergies. MEDICATIONS AT HOME: He is on 325 mg of aspirin, amlodipine 10 mg daily, telmisartan 80 mg daily, Cardura 4 mg daily, Pepcid 40 mg daily, Zofran for nausea, oxycodone for pain, Flomax 0.4 for prostate. PERSONAL HISTORY: Smoked for at least 50 years, 1 pack, still smokes. Denies alcohol or street drugs. FAMILY HISTORY: Positive for hypertension, heart disease. REVIEW OF SYSTEMS: A 14-system review: CARDIAC: Complains of pain in the back. GASTROINTESTINAL: No nausea or vomiting. NEUROLOGICAL: No weakness. There is some back pain, there is some kidney stones. Rest of the 14 systems was reviewed and negative. PHYSICAL EXAMINATION: GENERAL: The patient is in the ICU on oxygen mask, slight problem with breathing. VITAL SIGNS: Temperature 98, pulse 78, respirations 22, blood pressure 108/67, on ____ Ventimask, now 92% saturation. HEENT: Head is atraumatic. Pupils equal. Oral cavity, slight congestion, posterior pharynx. NECK: Supple. Thyroid not enlarged. JVD not elevated. CHEST: Symmetrical. CARDIOVASCULAR: S1, S2. No murmurs. LUNGS: Bilateral wheezing with crackles. ABDOMEN: Soft, bowel sounds present, no mass palpable. EXTERNAL GENITALIA: No Jamil. RECTAL: Deferred. EXTREMITIES: No calf tenderness, no edema. Pulses 1+. NEUROLOGIC: Cranial nerves intact. Power 5/5 in all extremities. LABORATORY DATA: Shows a white count of 9, hemoglobin 11.7, platelets 336. Electrolytes show sodium 140, potassium 4.5, chloride 104, bicarb 22, BUN 14, creatinine 2.9. BNP was 1842. INR is 1.2. Blood gas; pH 7.43, pCO2 38, pO2 50, 85% saturation on 100% initially. Chest x-ray shows bilateral interstitial lung markings. CT angiogram of chest negative for PE. Venous Doppler negative for pulmonary embolism. Ultrasound of the kidneys; no hydronephrosis, some kidney stones small, less than 5 mm. EKG report is not available. Echo was done, report is pending. FINAL IMPRESSION: 1. Chest pain, non-ST elevation myocardial infarction. 2. Chronic emphysema. 3. Chronic atrial fibrillation. 4. Chronic kidney disease, between stage 3 and 4. 5. Benign prostatic hyperplasia. 6. Hypertension. 7. Kidney stones. 8. Respiratory failure secondary to combination of emphysema and heart attack. PLAN: At this time, admit to hospital, seen by Cardiology, started on heparin drip, was given aspirin, beta blockers, cholesterol and ATNOINETTE inhibitors and also renal consult and pulmonary consult, oxygen, Ventimask breathing treatments, DuoNeb and the patient is started on heparin for anticoagulation and see how the patient's condition improves. Discussed with Dr. Yanez, Cardiology and at some point would need a cardiac cath once his condition stabilizes. SHARLA KOWALSKI MD DR: FARRUKH/moise JOB#: [id number] / [id number] SEGUNDO Mcrae MD
--- NOTE | 2016-07-29 15:59 | PDOC ---
PULMONARY PROGRESS NOTES Vitals Vital Signs Date Time Temp Pulse Resp B/P Pulse Ox O2 Delivery O2 Flow Rate FiO2 07/29/16 15:00 74 25 135/66 94 BiPAP/CPAP 07/29/16 14:00 8.0 07/29/16 12:00 98.0 98.0 Labs Laboratory Tests Test 07/28/16 18:05 07/28/16 18:13 07/28/16 23:45 07/29/16 04:30 White Blood Count 8.9x10^3/uL (4.0-11.0) 9.7x10^3/uL (4.0-11.0) Red Blood Count 4.19x10^6/uL (4.30-5.70) 4.18x10^6/uL (4.30-5.70) Hemoglobin 11.7g/dL (13.0-17.5) 11.4g/dL (13.0-17.5) Hematocrit 35.8% (39.0-53.0) 35.8% (39.0-53.0) Mean Corpuscular Volume 85fL (79-100) 86fL (79-100) Mean Corpuscular Hemoglobin 28pg (25-35) 27pg (25-35) Mean Corpuscular Hemoglobin Concent 33g/dL (31-37) 32g/dL (31-37) Red Cell Distribution Width 14.9% (11.5-14.5) 14.8% (11.5-14.5) Platelet Count 336x10^3/uL (140-400) 318x10^3/uL (140-400) Neutrophils (%) (Auto) 78% (31-73) 82% (31-73) Lymphocytes (%) (Auto) 11% (24-48) 9% (24-48) Monocytes (%) (Auto) 11% (0-9) 9% (0-9) Eosinophils (%) (Auto) 0% (0-3) 0% (0-3) Basophils (%) (Auto) 1% (0-3) 1% (0-3) Neutrophils # (Auto) 6.9x10^3uL (1.8-7.7) 7.9x10^3uL (1.8-7.7) Lymphocytes # (Auto) 1.0x10^3/uL (1.0-4.8) 0.8x10^3/uL (1.0-4.8) Monocytes # (Auto) 0.9x10^3/uL (0.0-1.1) 0.9x10^3/uL (0.0-1.1) Eosinophils # (Auto) 0.0x10^3/uL (0.0-0.7) 0.0x10^3/uL (0.0-0.7) Basophils # (Auto) 0.0x10^3/uL (0.0-0.2) 0.0x10^3/uL (0.0-0.2) Prothrombin Time 14.7SEC (11.7-14.0) Prothromb Time International Ratio 1.2 (0.8-1.1) Activated Partial Thromboplast Time 31SEC (24-38) Sodium Level 140mmol/L (136-145) 139mmol/L (136-145) Potassium Level 4.5mmol/L (3.5-5.1) 4.8mmol/L (3.5-5.1) Chloride Level 104mmol/L (98-107) 105mmol/L (98-107) Carbon Dioxide Level 22mmol/L (21-32) 22mmol/L (21-32) Anion Gap 14 (6-14) 12 (6-14) Blood Urea Nitrogen 27mg/dL (8-26) 25mg/dL (8-26) Creatinine 2.9mg/dL (0.7-1.3) 2.8mg/dL (0.7-1.3) Estimated GFR (Cockcroft-Gault) 25.9 26.9 Glucose Level 134mg/dL (70-99) 128mg/dL (70-99) Calcium Level 9.1mg/dL (8.5-10.1) 8.7mg/dL (8.5-10.1) Troponin I Quantitative 4.362ng/mL (0.000-0.055) 21.220ng/mL (0.000-0.055) PM-Wtx-C-Type Natriuretic Peptide 1842pg/mL (0-124) Bedside Troponin I 3.25ng/ml (<0.08) O2 Saturation 85% (92-99) Arterial Blood pH 7.40 (7.35-7.45) Arterial Blood pCO2 at Patient Temp 38mmHg (35-46) Arterial Blood pO2 at Patient Temp 50mmHg (65-108) Arterial Blood HCO3 23mmol/L (21-28) Arterial Blood Base Excess -2mmol/L (-3-3) FiO2 100 D-Dimer (Rachel) 3.38ug/mlFEU (0.00-0.50) Heparin Anti-Xa Act, Unfractionated 0.14IU/mL (0.30-0.70) Magnesium Level 2.3mg/dL (1.8-2.4) Triglycerides Level 111mg/dL (0-150) Cholesterol Level 193mg/dL (0-200) LDL Cholesterol, Calculated 143mg/dL (0-100) VLDL Cholesterol, Calculated 22mg/dL (0-40) HDL Cholesterol 28mg/dL (40-60) Cholesterol/HDL Ratio 6.9 Test 07/29/16 09:22 07/29/16 11:35 O2 Saturation 94% (92-99) Arterial Blood pH 7.40 (7.35-7.45) Arterial Blood pCO2 at Patient Temp 38mmHg (35-46) Arterial Blood pO2 at Patient Temp 69mmHg (65-108) Arterial Blood HCO3 23mmol/L (21-28) Arterial Blood Base Excess -1mmol/L (-3-3) FiO2 100 Heparin Anti-Xa Act, Unfractionated 0.31IU/mL (0.30-0.70) Laboratory Tests Test 07/28/16 18:05 07/28/16 18:13 07/28/16 23:45 07/29/16 04:30 White Blood Count 8.9x10^3/uL (4.0-11.0) 9.7x10^3/uL (4.0-11.0) Red Blood Count 4.19x10^6/uL (4.30-5.70) 4.18x10^6/uL (4.30-5.70) Hemoglobin 11.7g/dL (13.0-17.5) 11.4g/dL (13.0-17.5) Hematocrit 35.8% (39.0-53.0) 35.8% (39.0-53.0) Mean Corpuscular Volume 85fL (79-100) 86fL (79-100) Mean Corpuscular Hemoglobin 28pg (25-35) 27pg (25-35) Mean Corpuscular Hemoglobin Concent 33g/dL (31-37) 32g/dL (31-37) Red Cell Distribution Width 14.9% (11.5-14.5) 14.8% (11.5-14.5) Platelet Count 336x10^3/uL (140-400) 318x10^3/uL (140-400) Neutrophils (%) (Auto) 78% (31-73) 82% (31-73) Lymphocytes (%) (Auto) 11% (24-48) 9% (24-48) Monocytes (%) (Auto) 11% (0-9) 9% (0-9) Eosinophils (%) (Auto) 0% (0-3) 0% (0-3) Basophils (%) (Auto) 1% (0-3) 1% (0-3) Neutrophils # (Auto) 6.9x10^3uL (1.8-7.7) 7.9x10^3uL (1.8-7.7) Lymphocytes # (Auto) 1.0x10^3/uL (1.0-4.8) 0.8x10^3/uL (1.0-4.8) Monocytes # (Auto) 0.9x10^3/uL (0.0-1.1) 0.9x10^3/uL (0.0-1.1) Eosinophils # (Auto) 0.0x10^3/uL (0.0-0.7) 0.0x10^3/uL (0.0-0.7) Basophils # (Auto) 0.0x10^3/uL (0.0-0.2) 0.0x10^3/uL (0.0-0.2) Prothrombin Time 14.7SEC (11.7-14.0) Prothromb Time International Ratio 1.2 (0.8-1.1) Activated Partial Thromboplast Time 31SEC (24-38) Sodium Level 140mmol/L (136-145) 139mmol/L (136-145) Potassium Level 4.5mmol/L (3.5-5.1) 4.8mmol/L (3.5-5.1) Chloride Level 104mmol/L (98-107) 105mmol/L (98-107) Carbon Dioxide Level 22mmol/L (21-32) 22mmol/L (21-32) Anion Gap 14 (6-14) 12 (6-14) Blood Urea Nitrogen 27mg/dL (8-26) 25mg/dL (8-26) Creatinine 2.9mg/dL (0.7-1.3) 2.8mg/dL (0.7-1.3) Estimated GFR (Cockcroft-Gault) 25.9 26.9 Glucose Level 134mg/dL (70-99) 128mg/dL (70-99) Calcium Level 9.1mg/dL (8.5-10.1) 8.7mg/dL (8.5-10.1) Troponin I Quantitative 4.362ng/mL (0.000-0.055) 21.220ng/mL (0.000-0.055) OM-Fik-D-Type Natriuretic Peptide 1842pg/mL (0-124) Bedside Troponin I 3.25ng/ml (<0.08) O2 Saturation 85% (92-99) Arterial Blood pH 7.40 (7.35-7.45) Arterial Blood pCO2 at Patient Temp 38mmHg (35-46) Arterial Blood pO2 at Patient Temp 50mmHg (65-108) Arterial Blood HCO3 23mmol/L (21-28) Arterial Blood Base Excess -2mmol/L (-3-3) FiO2 100 D-Dimer (Rachel) 3.38ug/mlFEU (0.00-0.50) Heparin Anti-Xa Act, Unfractionated 0.14IU/mL (0.30-0.70) Magnesium Level 2.3mg/dL (1.8-2.4) Triglycerides Level 111mg/dL (0-150) Cholesterol Level 193mg/dL (0-200) LDL Cholesterol, Calculated 143mg/dL (0-100) VLDL Cholesterol, Calculated 22mg/dL (0-40) HDL Cholesterol 28mg/dL (40-60) Cholesterol/HDL Ratio 6.9 Test 07/29/16 09:22 07/29/16 11:35 O2 Saturation 94% (92-99) Arterial Blood pH 7.40 (7.35-7.45) Arterial Blood pCO2 at Patient Temp 38mmHg (35-46) Arterial Blood pO2 at Patient Temp 69mmHg (65-108) Arterial Blood HCO3 23mmol/L (21-28) Arterial Blood Base Excess -1mmol/L (-3-3) FiO2 100 Heparin Anti-Xa Act, Unfractionated 0.31IU/mL (0.30-0.70) Medications Active Scripts Medications Dose Route/Sig Days Date Category Aspirin Ec (Aspirin) 81 Mg Tablet.dr 81 Mg PO DAILY 07/29/16 Reported Amlodipine Besylate 10 Mg Tablet 10 Mg PO DAILY 07/28/16 Reported Percocet 5-325 Mg Tablet (Oxycodone/Acetaminophen) 1 Each Tablet 1 Tab PO PRN Q6HRS PRN 07/28/16 Reported Doxazosin Mesylate 4 Mg Tablet 1 Tab PO DAILY 07/28/16 Reported Tamsulosin Hcl 0.4 Mg Cap.er.24h 1 Cap PO DAILY 07/28/16 Reported Ondansetron Odt (Ondansetron) 4 Mg Tab.rapdis 1 Tab PO PRN Q8HRS PRN 07/28/16 Reported Famotidine 40 Mg Tablet 40 Mg PO HS 02/12/14 Reported Telmisartan 80 Mg Tablet 80 Mg PO 02/12/14 Reported Impression . ACUTE RESP FAILURE SEC TO IN, BULLOUS EMPHYSEMA, FIBROSIS WILL ADD STEROIDS THANKS GAURAV FERRARI MD Jul 29, 2016 15:59
[2016-07-29] MEDS: methylPREDNISolone SOD SUCC PF 125 MG/2 ML VIAL. IV SCH ×2 (16:28→21:41)
[2016-07-29] MEDS: NITROGLYCERIN PREMIX 250 ML IV PRN (16:28)
[2016-07-29] MEDS: HEPARIN 25,000UTS/500ML PREMIX 500 ML IV PRN (16:30)
[2016-07-29] MEDS: ATORVASTATIN CALCIUM 20 MG TABLET PO SCH (20:49)
[2016-07-29] MEDS: TAMSULOSIN 0.4 MG CAP.ER.24H. PO SCH (20:49)
[2016-07-29] MEDS ORDERED: FAMOTIDINE 20 MG TABLET. PO SCH (21:00)
[2016-07-30] VITALS (15 sets, daily range): BP systolic 102–133; BP diastolic 53–76
[2016-07-30] MEDS: ALBUTEROL SULFATE 2.5 MG/3 ML NEBU. IH PRN ×2 (03:39→21:34)
[2016-07-30] MEDS: LORAZEPAM 0.5 MG TABLET. PO PRN ×3 (03:57→19:19)
[2016-07-30] MEDS: methylPREDNISolone SOD SUCC PF 125 MG/2 ML VIAL. IV SCH ×3 (06:18→22:21)
[2016-07-30 06:44] LABS: BASO % 0 % (0-3); EOS % 0 % (0-3); HEMATOCRIT 32.8 % (39.0-53.0); HEMOGLOBIN 10.7 g/dL (13.0-17.5); LYMPH # 0.5 x10^3/uL (1.0-4.8); LYMPH % 5 % (24-48); MEAN CORPUSCULAR HEMOGLOBIN 27 pg (25-35); MEAN CORPUSCULAR HGB CONC 33 g/dL (31-37); MEAN CORPUSCULAR VOLUME 84 fL (79-100); MONO % 2 % (0-9); NEUT % 92 % (31-73); PLATELET COUNT 330 x10^3/uL (140-400); RED BLOOD COUNT 3.92 x10^6/uL (4.30-5.70); WHITE BLOOD COUNT 10.6 x10^3/uL (4.0-11.0)
[2016-07-30 06:55] LABS: CALCIUM 8.6 mg/dL (8.5-10.1); CREATININE 3.1 mg/dL (0.7-1.3); MAGNESIUM 2.2 mg/dL (1.8-2.4); POTASSIUM 4.5 mmol/L (3.5-5.1)
[2016-07-30] MEDS: LOSARTAN POTASSIUM 50 MG TABLET. PO SCH (07:35)
[2016-07-30] MEDS: ASPIRIN 325 MG TABLET PO SCH (07:35)
[2016-07-30] MEDS: METOPROLOL TART IMMED RELEASE 25 MG TABLET PO SCH ×2 (07:36→20:20)
[2016-07-30] MEDS: DOXAZOSIN MESYLATE 4 MG TABLET PO SCH (07:36)
[2016-07-30 07:43] LABS: ANISOCYTOSIS SLIGHT; PLT ESTIMATE ADEQUATE (ADEQUATE)
--- NOTE | 2016-07-30 07:44 | PDOC ---
PROGRESS NOTES Subjective Subjective Patient seen and examined. The patient denies chest pain, remains SOB. Objective Objective Vital Signs Date Time Temp Pulse Resp B/P Pulse Ox O2 Delivery O2 Flow Rate FiO2 07/30/16 07:36 86 119/65 07/30/16 07:00 98.4 29 91 Nasal Cannula 10.0 98.4 Intake and Output 07/30/16 07:00 Intake Total 2163 ml Output Total 1300 ml Balance 863 ml Intake Oral 1080 ml IV Total 1083 ml Output Urine Total 1300 ml Physical Exam Abdomen: Normal bowel sounds Heart: Regular rate General: Other (mild to moderate distress from SOB) Lungs: Other (decreased breath sounds) Assessment Assessment Problems Medical Problems: (1) Non-ST elevation CT (NSTEMI) Status: Acute Assessment/Plan Assessment/Plan 1. Chest pain. Non-ST elevated myocardial infarction. Pain has resolved. CT chest scan shows no dissection. Patient has been treated with heparin and aspirin and is being started on low dose beta blockers. Echocardiogram unofficial reading shows an ejection fraction estimated at 50% with moderate mitral regurgitation. D-dimer was elevated with the patient was unable to perform a VQ scan yesterday secondary to shortness of breath. We'll continue present medications including heparin. The patient will require cardiac catheterization in the next several days. Will keep nothing by mouth overnight and reevaluate renal function and the patient's ability to lie flat tomorrow. This was discussed with the patient. 2. Chronic kidney disease with reported kidney stones. Patient was recently admitted at for kidney stones and will attempt to obtain old records. Renal consult has been requested. Monitoring lab. 3. Hypoxia. 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 Start on steroids yesterday by the pulmonary service. Comment Review of Relevant I have reviewed the following items janeen (where applicable) has been applied. Labs Laboratory Tests Test 07/28/16 18:05 07/28/16 18:13 07/28/16 22:00 07/28/16 23:45 White Blood Count 8.9x10^3/uL (4.0-11.0) Red Blood Count 4.19x10^6/uL (4.30-5.70) Hemoglobin 11.7g/dL (13.0-17.5) Hematocrit 35.8% (39.0-53.0) Mean Corpuscular Volume 85fL (79-100) Mean Corpuscular Hemoglobin 28pg (25-35) Mean Corpuscular Hemoglobin Concent 33g/dL (31-37) Red Cell Distribution Width 14.9% (11.5-14.5) Platelet Count 336x10^3/uL (140-400) Neutrophils (%) (Auto) 78% (31-73) Lymphocytes (%) (Auto) 11% (24-48) Monocytes (%) (Auto) 11% (0-9) Eosinophils (%) (Auto) 0% (0-3) Basophils (%) (Auto) 1% (0-3) Neutrophils # (Auto) 6.9x10^3uL (1.8-7.7) Lymphocytes # (Auto) 1.0x10^3/uL (1.0-4.8) Monocytes # (Auto) 0.9x10^3/uL (0.0-1.1) Eosinophils # (Auto) 0.0x10^3/uL (0.0-0.7) Basophils # (Auto) 0.0x10^3/uL (0.0-0.2) Prothrombin Time 14.7SEC (11.7-14.0) Prothromb Time International Ratio 1.2 (0.8-1.1) Activated Partial Thromboplast Time 31SEC (24-38) Sodium Level 140mmol/L (136-145) Potassium Level 4.5mmol/L (3.5-5.1) Chloride Level 104mmol/L (98-107) Carbon Dioxide Level 22mmol/L (21-32) Anion Gap 14 (6-14) Blood Urea Nitrogen 27mg/dL (8-26) Creatinine 2.9mg/dL (0.7-1.3) Estimated GFR (Cockcroft-Gault) 25.9 Glucose Level 134mg/dL (70-99) Calcium Level 9.1mg/dL (8.5-10.1) Troponin I Quantitative 4.362ng/mL (0.000-0.055) DK-Zjw-F-Type Natriuretic Peptide 1842pg/mL (0-124) Bedside Troponin I 3.25ng/ml (<0.08) Nasal Screen MRSA (PCR) Negative (Negative) O2 Saturation 85% (92-99) Arterial Blood pH 7.40 (7.35-7.45) Arterial Blood pCO2 at Patient Temp 38mmHg (35-46) Arterial Blood pO2 at Patient Temp 50mmHg (65-108) Arterial Blood HCO3 23mmol/L (21-28) Arterial Blood Base Excess -2mmol/L (-3-3) FiO2 100 Test 07/29/16 04:30 07/29/16 09:22 07/29/16 11:35 07/29/16 17:40 White Blood Count 9.7x10^3/uL (4.0-11.0) Red Blood Count 4.18x10^6/uL (4.30-5.70) Hemoglobin 11.4g/dL (13.0-17.5) Hematocrit 35.8% (39.0-53.0) Mean Corpuscular Volume 86fL (79-100) Mean Corpuscular Hemoglobin 27pg (25-35) Mean Corpuscular Hemoglobin Concent 32g/dL (31-37) Red Cell Distribution Width 14.8% (11.5-14.5) Platelet Count 318x10^3/uL (140-400) Neutrophils (%) (Auto) 82% (31-73) Lymphocytes (%) (Auto) 9% (24-48) Monocytes (%) (Auto) 9% (0-9) Eosinophils (%) (Auto) 0% (0-3) Basophils (%) (Auto) 1% (0-3) Neutrophils # (Auto) 7.9x10^3uL (1.8-7.7) Lymphocytes # (Auto) 0.8x10^3/uL (1.0-4.8) Monocytes # (Auto) 0.9x10^3/uL (0.0-1.1) Eosinophils # (Auto) 0.0x10^3/uL (0.0-0.7) Basophils # (Auto) 0.0x10^3/uL (0.0-0.2) D-Dimer (Rachel) 3.38ug/mlFEU (0.00-0.50) Heparin Anti-Xa Act, Unfractionated 0.14IU/mL (0.30-0.70) 0.31IU/mL (0.30-0.70) 0.21IU/mL (0.30-0.70) Sodium Level 139mmol/L (136-145) Potassium Level 4.8mmol/L (3.5-5.1) Chloride Level 105mmol/L (98-107) Carbon Dioxide Level 22mmol/L (21-32) Anion Gap 12 (6-14) Blood Urea Nitrogen 25mg/dL (8-26) Creatinine 2.8mg/dL (0.7-1.3) Estimated GFR (Cockcroft-Gault) 26.9 Glucose Level 128mg/dL (70-99) Calcium Level 8.7mg/dL (8.5-10.1) Magnesium Level 2.3mg/dL (1.8-2.4) Troponin I Quantitative 21.220ng/mL (0.000-0.055) Triglycerides Level 111mg/dL (0-150) Cholesterol Level 193mg/dL (0-200) LDL Cholesterol, Calculated 143mg/dL (0-100) VLDL Cholesterol, Calculated 22mg/dL (0-40) HDL Cholesterol 28mg/dL (40-60) Cholesterol/HDL Ratio 6.9 O2 Saturation 94% (92-99) Arterial Blood pH 7.40 (7.35-7.45) Arterial Blood pCO2 at Patient Temp 38mmHg (35-46) Arterial Blood pO2 at Patient Temp 69mmHg (65-108) Arterial Blood HCO3 23mmol/L (21-28) Arterial Blood Base Excess -1mmol/L (-3-3) FiO2 100 Erythrocyte Sedimentation Rate 107 (0-15) Test 07/30/16 00:40 07/30/16 06:30 Heparin Anti-Xa Act, Unfractionated 0.33IU/mL (0.30-0.70) 0.37IU/mL (0.30-0.70) White Blood Count 10.6x10^3/uL (4.0-11.0) Red Blood Count 3.92x10^6/uL (4.30-5.70) Hemoglobin 10.7g/dL (13.0-17.5) Hematocrit 32.8% (39.0-53.0) Mean Corpuscular Volume 84fL (79-100) Mean Corpuscular Hemoglobin 27pg (25-35) Mean Corpuscular Hemoglobin Concent 33g/dL (31-37) Red Cell Distribution Width 15.0% (11.5-14.5) Platelet Count 330x10^3/uL (140-400) Neutrophils (%) (Auto) 92% (31-73) Lymphocytes (%) (Auto) 5% (24-48) Monocytes (%) (Auto) 2% (0-9) Eosinophils (%) (Auto) 0% (0-3) Basophils (%) (Auto) 0% (0-3) Neutrophils # (Auto) 9.8x10^3uL (1.8-7.7) Lymphocytes # (Auto) 0.5x10^3/uL (1.0-4.8) Monocytes # (Auto) 0.2x10^3/uL (0.0-1.1) Eosinophils # (Auto) 0.0x10^3/uL (0.0-0.7) Basophils # (Auto) 0.0x10^3/uL (0.0-0.2) Sodium Level 137mmol/L (136-145) Potassium Level 4.5mmol/L (3.5-5.1) Chloride Level 103mmol/L (98-107) Carbon Dioxide Level 20mmol/L (21-32) Anion Gap 14 (6-14) Blood Urea Nitrogen 35mg/dL (8-26) Creatinine 3.1mg/dL (0.7-1.3) Estimated GFR (Cockcroft-Gault) 24.0 Glucose Level 166mg/dL (70-99) Calcium Level 8.6mg/dL (8.5-10.1) Magnesium Level 2.2mg/dL (1.8-2.4) Laboratory Tests Test 07/29/16 09:22 07/29/16 11:35 07/29/16 17:40 07/30/16 00:40 O2 Saturation 94% (92-99) Arterial Blood pH 7.40 (7.35-7.45) Arterial Blood pCO2 at Patient Temp 38mmHg (35-46) Arterial Blood pO2 at Patient Temp 69mmHg (65-108) Arterial Blood HCO3 23mmol/L (21-28) Arterial Blood Base Excess -1mmol/L (-3-3) FiO2 100 Heparin Anti-Xa Act, Unfractionated 0.31IU/mL (0.30-0.70) 0.21IU/mL (0.30-0.70) 0.33IU/mL (0.30-0.70) Erythrocyte Sedimentation Rate 107 (0-15) Test 07/30/16 06:30 White Blood Count 10.6x10^3/uL (4.0-11.0) Red Blood Count 3.92x10^6/uL (4.30-5.70) Hemoglobin 10.7g/dL (13.0-17.5) Hematocrit 32.8% (39.0-53.0) Mean Corpuscular Volume 84fL (79-100) Mean Corpuscular Hemoglobin 27pg (25-35) Mean Corpuscular Hemoglobin Concent 33g/dL (31-37) Red Cell Distribution Width 15.0% (11.5-14.5) Platelet Count 330x10^3/uL (140-400) Neutrophils (%) (Auto) 92% (31-73) Lymphocytes (%) (Auto) 5% (24-48) Monocytes (%) (Auto) 2% (0-9) Eosinophils (%) (Auto) 0% (0-3) Basophils (%) (Auto) 0% (0-3) Neutrophils # (Auto) 9.8x10^3uL (1.8-7.7) Lymphocytes # (Auto) 0.5x10^3/uL (1.0-4.8) Monocytes # (Auto) 0.2x10^3/uL (0.0-1.1) Eosinophils # (Auto) 0.0x10^3/uL (0.0-0.7) Basophils # (Auto) 0.0x10^3/uL (0.0-0.2) Heparin Anti-Xa Act, Unfractionated 0.37IU/mL (0.30-0.70) Sodium Level 137mmol/L (136-145) Potassium Level 4.5mmol/L (3.5-5.1) Chloride Level 103mmol/L (98-107) Carbon Dioxide Level 20mmol/L (21-32) Anion Gap 14 (6-14) Blood Urea Nitrogen 35mg/dL (8-26) Creatinine 3.1mg/dL (0.7-1.3) Estimated GFR (Cockcroft-Gault) 24.0 Glucose Level 166mg/dL (70-99) Calcium Level 8.6mg/dL (8.5-10.1) Magnesium Level 2.2mg/dL (1.8-2.4) Medications Current Medications Aspirin (Children'S Aspirin) 324 mg 1X ONCE PO Last administered on 07/28/16 18:27; Start 07/28/16 at 18:30; Stop 07/28/16 at 18:31; Status DC Nitroglycerin (Nitrostat) 0.4 mg PRN Q5MIN PRN SL CP RATING > 1/10 Last administered on 07/28/16 18:27; Start 07/28/16 at 18:30; Stop 07/29/16 at 18:29; Status DC Heparin Sodium (Porcine) 4000 unit 4,000 unit 1X ONCE IV Last administered on 07/28/16 19:43; Start 07/28/16 at 18:30; Stop 07/28/16 at 18:32; Status DC Heparin Sodium/ Dextrose 500 ml @ 0 mls/hr CONT PRN IV SEE I/O RECORD Last administered on 07/29/16 16:30; Start 07/28/16 at 18:30 Heparin Sodium (Porcine) 1,950 unit PRN Q6HRS PRN IV FOR UFH LEVEL LESS THAN 0.2 Last administered on 07/29/16 05:33; Start 07/28/16 at 18:30 Iohexol (Omnipaque 350 Mg/ml) 90 ml 1X ONCE IV Last administered on 07/28/16 18:45; Start 07/28/16 at 18:45; Stop 07/28/16 at 18:46; Status DC Info (Do NOT chart on this entry -- for MONITORING) 1 each PRN DAILY PRN MC SEE COMMENTS; Start 07/28/16 at 18:45; Stop 07/30/16 at 18:44 Iohexol 100 ml 100 ml STK-MED ONCE .ROUTE ; Start 07/28/16 at 18:36; Stop at 18:37; Status DC Nitroglycerin/ Dextrose 250 ml @ 0 mls/hr 1X ONCE IV Last administered on 19:15; Start 07/28/16 at 19:00; Stop 07/28/16 at 19:01; Status DC Sodium Chloride (Iv Sodium Chloride 0.9% 1000ml Bag) 1,000 ml @ 1,000 mls/hr 1X ONCE IV Last administered on 07/28/16 19:00; Start 07/28/16 at 19:00; Stop 07/28/16 at 19:59; Status DC Ondansetron HCl (Zofran) 4 mg PRN Q8HRS PRN IV NAUSEA/VOMITING; Start 07/28/16 at 19:15; Stop 07/29/16 at 19:14; Status DC Morphine Sulfate 4 mg 4 mg PRN Q2HR PRN IV PAIN Last administered on 07/28/16 23:32; Start 07/28/16 at 19:15; Stop 07/29/16 at 19:14; Status DC Sodium Chloride (Iv Sodium Chloride 0.9% 1000ml Bag) 1,000 ml @ 125 mls/hr Q8H IV Last administered on 07/28/16 19:14; Start 07/28/16 at 19:14; Stop 07/29/16 at 01:16; Status DC Acetaminophen (Tylenol) 650 mg PRN Q4HRS PRN PO FEVER; Start 07/28/16 at 19:15; Stop 07/29/16 at 19:14; Status DC Furosemide (Lasix) 20 mg 1X ONCE IVP Last administered on 07/28/16 22:41; Start 07/28/16 at 22:15; Stop 07/28/16 at 22:16; Status DC Albuterol/ Ipratropium (Duoneb) 3 ml STK-MED ONCE .ROUTE ; Start 07/28/16 at 22: 49; Stop 07/28/16 at 22:50; Status DC Albuterol/ Ipratropium (Duoneb) 3 ml RTQID NEB Last administered on 07/29/16 19 :27; Start 07/29/16 at 08:00 Lorazepam (Ativan) 0.25 mg PRN Q6HRS PRN PO ANXIETY / AGITATION Last administered on 07/30/16 03:57; Start 07/28/16 at 23:00 Furosemide (Lasix) 20 mg 1X ONCE IVP Last administered on 07/29/16 01:04; Start 07/29/16 at 00:30; Stop 07/29/16 at 00:31; Status DC Furosemide 20 mg 20 mg 1X ONCE IVP ; Start 07/29/16 at 01:00; Stop 07/29/16 at 01 :01; Status DC Sodium Chloride 1,000 ml @ 80 mls/hr [id number] IV ; Start 07/29/16 at 01:15; Stop 07/29/16 at 01:29; Status DC Sodium Chloride (Iv Sodium Chloride 0.9% 1000ml Bag) 1,000 ml @ 80 mls/hr [id number] IV Last administered on 07/29/16 05:48; Start 07/29/16 at 05:30; Stop at 14:30; Status DC Aspirin (Lionel Aspirin) 325 mg [id number] PO Last administered on 07/30/16 07: 35; Start 07/29/16 at 09:45 Metoprolol Tartrate (Lopressor) 12.5 mg BID PO Last administered on 07/30/16 07 :36; Start 07/29/16 at 09:45 Doxazosin Mesylate (Cardura) 4 mg DAILY PO Last administered on 07/30/16 07:36 ; Start 07/29/16 at 09:00 Ondansetron HCl (Zofran Odt) 4 mg PRN Q8HRS PRN PO NAUSEA/VOMITING; Start at 09:30 Oxycodone/ Acetaminophen (Percocet 5/325) 1 tab PRN Q6HRS PRN PO PAIN; Start at 09:30 Tamsulosin HCl (Flomax) 0.4 mg HS PO Last administered on 07/29/16 20:49; Start 07/29/16 at 21:00 Famotidine 40 mg 40 mg HS PO Last administered on 07/29/16 20:49; Start at 21:00 Nitroglycerin/ Dextrose (Nitroglycerin Drip) 250 ml @ 0 mls/hr CONT PRN IV SEE I/O RECORD Last administered on 07/29/16 16:28; Start 07/29/16 at 09:45 Atorvastatin Calcium (Lipitor) 20 mg QHS PO Last administered on 07/29/16 20:49 ; Start 07/29/16 at 21:00 Losartan Potassium (Cozaar) 50 mg DAILY PO Last administered on 07/30/16 07:35 ; Start 07/29/16 at 11:15 Furosemide (Lasix) 20 mg 1X ONCE IVP Last administered on 07/29/16 15:27; Start 07/29/16 at 15:00; Stop 07/29/16 at 15:04; Status DC Methylprednisolone Sodium Succinate (Solu-Medrol 125mg Vial) 125 mg Q8HRS IV Last administered on 07/30/16 06:18; Start 07/29/16 at 16:00 Albuterol Sulfate (Ventolin Neb Soln) 2.5 mg PRN Q2HR PRN IH SHORTNESS OF BREATH Last administered on 07/30/16 03:39; Start 07/30/16 at 03:30 Active Scripts Active Reported Aspirin Ec (Aspirin) 81 Mg Tablet.dr 81 Mg PO DAILY Amlodipine Besylate 10 Mg Tablet 10 Mg PO DAILY Percocet 5-325 Mg Tablet (Oxycodone/Acetaminophen) 1 Each Tablet 1 Tab PO PRN Q6HRS PRN Doxazosin Mesylate 4 Mg Tablet 1 Tab PO DAILY Tamsulosin Hcl 0.4 Mg Cap.er.24h 1 Cap PO DAILY Ondansetron Odt (Ondansetron) 4 Mg Tab.rapdis 1 Tab PO PRN Q8HRS PRN Famotidine 40 Mg Tablet 40 Mg PO HS Telmisartan 80 Mg Tablet 80 Mg PO Vitals/I & O Vital Sign - Last 24 Hours 07/29/16 07/29/16 07/29/16 07/29/16 08:00 08:00 08:03 09:00 Pulse 81 80 Resp 34 34 B/P 140/70 137/65 Pulse Ox 93 95 95 O2 Delivery NonRebreather Mask Non-Rebreather NonRebreather Mask NonRebreather Mask O2 Flow Rate 15.0 15.0 07/29/16 07/29/16 07/29/16 07/29/16 10:00 10:08 10:08 11:00 Pulse 86 80 80 74 Resp 34 34 B/P 136/64 137/65 137/65 110/64 Pulse Ox 91 91 O2 Delivery NonRebreather Mask NonRebreather Mask 07/29/16 07/29/16 07/29/16 07/29/16 12:00 12:00 12:14 12:53 Temp 98.0 98.0 Pulse 70 Resp 24 B/P 111/61 Pulse Ox 96 97 96 O2 Delivery BiPAP/CPAP Bi-pap BiPAP/CPAP 07/29/16 07/29/16 07/29/16 07/29/16 13:00 14:00 14:17 15:00 Pulse 77 81 77 74 Resp 25 28 25 B/P 116/59 130/68 116/59 135/66 Pulse Ox 95 87 94 O2 Delivery BiPAP/CPAP Nasal Cannula BiPAP/CPAP O2 Flow Rate 8.0 07/29/16 07/29/16 07/29/16 07/29/16 16:00 16:00 17:00 18:00 Temp 99.2 99.2 Pulse 86 78 87 Resp 25 25 28 B/P 140/63 135/62 135/63 Pulse Ox 90 92 91 O2 Delivery Non-Rebreather NonRebreather Mask NonRebreather Mask NonRebreather Mask 07/29/16 07/29/16 07/29/16 07/29/16 19:00 20:00 20:00 20:49 Temp 99.2 99.2 Pulse 78 74 84 Resp 25 19 B/P 124/67 133/64 133/64 Pulse Ox 91 94 O2 Delivery NonRebreather Mask Non-Rebreather NonRebreather Mask O2 Flow Rate 8.0 8.0 8.0 07/29/16 07/29/16 07/29/16 07/30/16 21:00 22:00 23:00 00:00 Pulse 83 76 72 Resp 33 23 23 B/P 137/66 110/65 109/63 Pulse Ox 95 92 92 O2 Delivery NonRebreather Mask NonRebreather Mask NonRebreather Mask Non- Rebreather O2 Flow Rate 8.0 8.0 8.0 8.0 07/30/16 07/30/16 07/30/16 07/30/16 00:00 00:00 01:00 02:00 Temp 99.0 99.0 Pulse 80 74 74 70 Resp 33 28 28 31 B/P 119/64 119/63 119/63 102/53 Pulse Ox 92 97 97 97 O2 Delivery NonRebreather Mask NonRebreather Mask NonRebreather Mask NonRebreather Mask O2 Flow Rate 8.0 8.0 8.0 8.0 07/30/16 07/30/16 07/30/16 07/30/16 03:00 03:39 04:00 04:00 Temp 99.0 99.0 Pulse 68 84 Resp 28 21 B/P 103/54 119/66 Pulse Ox 95 93 92 O2 Delivery NonRebreather Mask NonRebreather Mask Non-Rebreather NonRebreather Mask O2 Flow Rate 8.0 15.0 8.0 8.0 07/30/16 07/30/16 07/30/16 07/30/16 05:00 06:00 07:00 07:35 Temp 98.4 98.4 Pulse 79 82 80 79 Resp 28 28 29 B/P 123/65 119/65 119/65 119/65 Pulse Ox 92 92 91 O2 Delivery Nasal Cannula Nasal Cannula Nasal Cannula O2 Flow Rate 10.0 10.0 10.0 07/30/16 07/30/16 07:36 07:36 Pulse 86 86 B/P 119/65 119/65 Intake and Output 07/29/16 07/29/16 07/30/16 15:00 23:00 07:00 Intake Total 710 ml 483 ml 970 ml Output Total 700 ml 300 ml 300 ml Balance 10 ml 183 ml 670 ml VENTURA GHOTRA MD Jul 30, 2016 07:44
[2016-07-30] MEDS: IPRATRPIUM/ALBUTEROL 0.5/2.5MG 3 ML NEBU. NEB SCH ×4 (08:42→19:22)
--- NOTE | 2016-07-30 11:08 | CONS ---
DATE OF CONSULTATION: 07/29/2016 ATTENDING PHYSICIAN: Shruthi Avery MD REASON FOR CONSULTATION: The patient seen in pulmonary consultation at the request of Dr. Avery for acute respiratory failure requiring noninvasive ventilation. HISTORY OF PRESENT ILLNESS: The patient is a 76-year-old male that presented to [facility] with chest pain, was evaluated, had a non-ST segment elevation myocardial infarction. The patient is currently being followed by Cardiology. Throughout the day, he became more short of breath, he became severely hypoxic, in fact last I was called with his clinical presentation. He had an arterial blood gas revealing a pH of 7.40, PaCO2 of 38, and pO2 of 50. The patient was placed on 100% FiO2 with no significant improvement in ____ tachypneic. He was then placed on BiPAP. His repeat arterial blood gas revealed pH of 7.40, PaCO2 of 38, and pO2 of 69. I reviewed his chest x-ray and chest x-ray and CT of the chest. The patient had a CT angiogram to rule out aortic dissection. There was no evidence of dissection. There was enlarged hilar mediastinal adenopathy. There was no filling defects seen ____ the portion of either pulmonary arteries. There was bullous emphysematous changes and some areas that to me look like there is pulmonary fibrosis. The patient currently smokes. He was not on oxygen supplementation. He is currently on BiPAP. I took him off of his BiPAP. 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 PAST MEDICAL HISTORY: 1. COPD. 2. Tobacco dependent. 3. Atrial fibrillation. 4. Hypertension. 5. Kidney stone. 6. Chronic kidney disease. PAST SURGICAL HISTORY: Status post hernia repair and shoulder surgery. ALLERGIES: No known drug allergies. HOME MEDICATIONS: List was reviewed. FAMILY, SOCIAL HISTORY: Continues to smoke, has been smoking 1 pack of cigarettes a day for over 50 years, denies any illicit drugs or significant alcohol intake. FAMILY HISTORY: Hypertension and coronary artery disease. REVIEW OF SYSTEMS: As indicated above, otherwise, a 10-point system was reviewed and negative. PHYSICAL EXAMINATION: VITAL SIGNS: The patient required BiPAP, his O2 saturation was anywhere between 87% and 94%. HEENT: Eyes, the sclerae were nonicteric. NECK: Jugular venous distention, was not elevated. No lymphadenopathy. CHEST: Full expansion. LUNGS: Fine crackles compatible with fibrosis, no wheezes. CARDIOVASCULAR: Regular rate and rhythm with S1, S2, no S3. ABDOMEN: Soft, nontender and nondistended. EXTREMITIES: No clubbing, cyanosis or edema. NEUROLOGIC: The patient was awake, alert, following commands. A detailed neuro exam was not performed. LABORATORY DATA: White count was normal. Hemoglobin and hematocrit were noted. D-dimer was elevated. Electrolytes were noted. BUN and creatinine were elevated. IMAGING STUDIES: As indicated above. IMPRESSION: 1. Acute respiratory failure, multifactorial secondary to recent non-ST segment elevation myocardial infarction, severe bullous emphysema and pulmonary fibrosis. 2. Chronic obstructive pulmonary disease with exacerbation. 3. Chronic atrial fibrillation. 4. Chronic kidney disease. 5. Benign prostatic hyperplasia. 6. Hypertension. 7. Kidney stones. PLAN: 1. Recommend continue BiPAP. 2. Diurese. 3. We will initiate steroids, hopefully this will help some of his pulmonary symptoms. 4. Check sedimentation rate 5. The patient instructed on the importance of discontinuing tobacco use. I do appreciate the privilege in sharing the patient's care, total cumulative critical care time of 40 minutes. GAURAV FERRARI MD DR: OSMAN/moise JOB#: [id number] / [id number]
--- NOTE | 2016-07-30 11:09 | CONS ---
DATE OF CONSULTATION: REQUESTING PHYSICIAN: Hospitalist. REASON FOR CONSULTATION: Renal failure. HISTORY OF PRESENT ILLNESS: This is a 76-year-old gentleman who presents to the hospital with chest pain. This felt to be ____ from myocardial function. There was also concern for possibility of aortic dissection. With this in mind, he underwent CT angiogram. This was not revealed. He has had continued shortness of breath. He continues on IV fluid at [address] angiogram was not done for PE protocol. They attempted VQ scan, but the patient was unable to ____. At this time, he remains short of breath. The patient is felt to have nephrolithiasis although one kidney, apparently evaluated at ____ [facility] one week prior to this evaluation leading to subsequent discharge with pain medications and "____." Due to increased level of azotemia, Nephrology evaluation requested. PAST MEDICAL HISTORY: Hypertension, back pain, nephrolithiasis. ALLERGIES: None. MEDICATIONS: Noted. FAMILY HISTORY: Noncontributory. SOCIAL HISTORY: The patient resides independently. REVIEW OF SYSTEMS: No headaches, sinus problem, nasal drainage, epistaxis, change in vision or hearing. No difficulty swallowing. No fever, chills, cough, sputum production, or hemoptysis. He did present with chest pain. He does have ongoing shortness of breath. He cannot lie flat ____ orthopnea. No abdominal pain or upper or lower gastrointestinal blood loss. No nausea, vomiting, diarrhea, seizures or malignancies. PHYSICAL EXAMINATION: GENERAL: The patient is awake, conversant. HEENT: Clear, oxygen mask in place. NECK: No increased JVD. No thyromegaly, mass, or adenopathy. LUNGS: Clear anteriorly. CARDIAC: Without S3 or rub. ABDOMEN: Soft, nontender, no bruits. EXTREMITIES: Without edema. NEUROLOGIC: Nonfocal localizing. PSYCHIATRIC: Fair attention to detail, appropriate affect. LABORATORY DATA: White count 8.9, hemoglobin 11.7, hematocrit 35.8. Sodium 139, potassium 4.8, chloride 105, CO2 of 22, BUN 25, creatinine 2.8, GFR 26.9, troponin 21.22. IMPRESSION: 1. 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 2. Acute myocardial infarction. 3. Shortness of breath, likely due to pulmonary edema, cardiac decompensation. RECOMMENDATIONS: 1. He is to continue on IV fluid. 2. Maintain fluid and electrolyte balance. We will follow. ANTONIO REYES MD DR: SHREYA/moise JOB#: [id number] / [id number]
--- NOTE | 2016-07-30 11:49 | PDOC ---
PULMONARY PROGRESS NOTES Subjective PT FEELS BETTER COUGH SOME PRODUCTIVE Vitals Vital Signs Date Time Temp Pulse Resp B/P Pulse Ox O2 Delivery O2 Flow Rate FiO2 07/30/16 11:00 74 24 125/60 89 Nasal Cannula 10.0 07/30/16 07:00 98.4 98.4 ROS: No Nausea, No Chest Pain, No Abdominal Pain, No Increase Cough General: Alert Lungs: Crackles Cardiovascular: S1, S2 Abdomen: Soft Neuro Exam: Alert Extremities: No Edema Skin: Warm Labs Laboratory Tests Test 07/28/16 18:05 07/28/16 18:13 07/28/16 22:00 07/28/16 23:45 White Blood Count 8.9x10^3/uL (4.0-11.0) Red Blood Count 4.19x10^6/uL (4.30-5.70) Hemoglobin 11.7g/dL (13.0-17.5) Hematocrit 35.8% (39.0-53.0) Mean Corpuscular Volume 85fL (79-100) Mean Corpuscular Hemoglobin 28pg (25-35) Mean Corpuscular Hemoglobin Concent 33g/dL (31-37) Red Cell Distribution Width 14.9% (11.5-14.5) Platelet Count 336x10^3/uL (140-400) Neutrophils (%) (Auto) 78% (31-73) Lymphocytes (%) (Auto) 11% (24-48) Monocytes (%) (Auto) 11% (0-9) Eosinophils (%) (Auto) 0% (0-3) Basophils (%) (Auto) 1% (0-3) Neutrophils # (Auto) 6.9x10^3uL (1.8-7.7) Lymphocytes # (Auto) 1.0x10^3/uL (1.0-4.8) Monocytes # (Auto) 0.9x10^3/uL (0.0-1.1) Eosinophils # (Auto) 0.0x10^3/uL (0.0-0.7) Basophils # (Auto) 0.0x10^3/uL (0.0-0.2) Prothrombin Time 14.7SEC (11.7-14.0) Prothromb Time International Ratio 1.2 (0.8-1.1) Activated Partial Thromboplast Time 31SEC (24-38) Sodium Level 140mmol/L (136-145) Potassium Level 4.5mmol/L (3.5-5.1) Chloride Level 104mmol/L (98-107) Carbon Dioxide Level 22mmol/L (21-32) Anion Gap 14 (6-14) Blood Urea Nitrogen 27mg/dL (8-26) Creatinine 2.9mg/dL (0.7-1.3) Estimated GFR (Cockcroft-Gault) 25.9 Glucose Level 134mg/dL (70-99) Calcium Level 9.1mg/dL (8.5-10.1) Troponin I Quantitative 4.362ng/mL (0.000-0.055) CX-Dsh-Q-Type Natriuretic Peptide 1842pg/mL (0-124) Bedside Troponin I 3.25ng/ml (<0.08) Nasal Screen MRSA (PCR) Negative (Negative) O2 Saturation 85% (92-99) Arterial Blood pH 7.40 (7.35-7.45) Arterial Blood pCO2 at Patient Temp 38mmHg (35-46) Arterial Blood pO2 at Patient Temp 50mmHg (65-108) Arterial Blood HCO3 23mmol/L (21-28) Arterial Blood Base Excess -2mmol/L (-3-3) FiO2 100 Test 07/29/16 04:30 07/29/16 09:22 07/29/16 11:35 07/29/16 17:40 White Blood Count 9.7x10^3/uL (4.0-11.0) Red Blood Count 4.18x10^6/uL (4.30-5.70) Hemoglobin 11.4g/dL (13.0-17.5) Hematocrit 35.8% (39.0-53.0) Mean Corpuscular Volume 86fL (79-100) Mean Corpuscular Hemoglobin 27pg (25-35) Mean Corpuscular Hemoglobin Concent 32g/dL (31-37) Red Cell Distribution Width 14.8% (11.5-14.5) Platelet Count 318x10^3/uL (140-400) Neutrophils (%) (Auto) 82% (31-73) Lymphocytes (%) (Auto) 9% (24-48) Monocytes (%) (Auto) 9% (0-9) Eosinophils (%) (Auto) 0% (0-3) Basophils (%) (Auto) 1% (0-3) Neutrophils # (Auto) 7.9x10^3uL (1.8-7.7) Lymphocytes # (Auto) 0.8x10^3/uL (1.0-4.8) Monocytes # (Auto) 0.9x10^3/uL (0.0-1.1) Eosinophils # (Auto) 0.0x10^3/uL (0.0-0.7) Basophils # (Auto) 0.0x10^3/uL (0.0-0.2) D-Dimer (Rachel) 3.38ug/mlFEU (0.00-0.50) Heparin Anti-Xa Act, Unfractionated 0.14IU/mL (0.30-0.70) 0.31IU/mL (0.30-0.70) 0.21IU/mL (0.30-0.70) Sodium Level 139mmol/L (136-145) Potassium Level 4.8mmol/L (3.5-5.1) Chloride Level 105mmol/L (98-107) Carbon Dioxide Level 22mmol/L (21-32) Anion Gap 12 (6-14) Blood Urea Nitrogen 25mg/dL (8-26) Creatinine 2.8mg/dL (0.7-1.3) Estimated GFR (Cockcroft-Gault) 26.9 Glucose Level 128mg/dL (70-99) Calcium Level 8.7mg/dL (8.5-10.1) Magnesium Level 2.3mg/dL (1.8-2.4) Troponin I Quantitative 21.220ng/mL (0.000-0.055) Triglycerides Level 111mg/dL (0-150) Cholesterol Level 193mg/dL (0-200) LDL Cholesterol, Calculated 143mg/dL (0-100) VLDL Cholesterol, Calculated 22mg/dL (0-40) HDL Cholesterol 28mg/dL (40-60) Cholesterol/HDL Ratio 6.9 O2 Saturation 94% (92-99) Arterial Blood pH 7.40 (7.35-7.45) Arterial Blood pCO2 at Patient Temp 38mmHg (35-46) Arterial Blood pO2 at Patient Temp 69mmHg (65-108) Arterial Blood HCO3 23mmol/L (21-28) Arterial Blood Base Excess -1mmol/L (-3-3) FiO2 100 Erythrocyte Sedimentation Rate 107 (0-15) Test 07/30/16 00:40 07/30/16 06:30 Heparin Anti-Xa Act, Unfractionated 0.33IU/mL (0.30-0.70) 0.37IU/mL (0.30-0.70) White Blood Count 10.6x10^3/uL (4.0-11.0) Red Blood Count 3.92x10^6/uL (4.30-5.70) Hemoglobin 10.7g/dL (13.0-17.5) Hematocrit 32.8% (39.0-53.0) Mean Corpuscular Volume 84fL (79-100) Mean Corpuscular Hemoglobin 27pg (25-35) Mean Corpuscular Hemoglobin Concent 33g/dL (31-37) Red Cell Distribution Width 15.0% (11.5-14.5) Platelet Count 330x10^3/uL (140-400) Neutrophils (%) (Auto) 92% (31-73) Lymphocytes (%) (Auto) 5% (24-48) Monocytes (%) (Auto) 2% (0-9) Eosinophils (%) (Auto) 0% (0-3) Basophils (%) (Auto) 0% (0-3) Neutrophils # (Auto) 9.8x10^3uL (1.8-7.7) Lymphocytes # (Auto) 0.5x10^3/uL (1.0-4.8) Monocytes # (Auto) 0.2x10^3/uL (0.0-1.1) Eosinophils # (Auto) 0.0x10^3/uL (0.0-0.7) Basophils # (Auto) 0.0x10^3/uL (0.0-0.2) Segmented Neutrophils % 94% (35-66) Band Neutrophils % 1% (0-9) Lymphocytes % 3% (24-48) Monocytes % 2% (0-10) Platelet Estimate Adequate (ADEQUATE) Anisocytosis Slight Sodium Level 137mmol/L (136-145) Potassium Level 4.5mmol/L (3.5-5.1) Chloride Level 103mmol/L (98-107) Carbon Dioxide Level 20mmol/L (21-32) Anion Gap 14 (6-14) Blood Urea Nitrogen 35mg/dL (8-26) Creatinine 3.1mg/dL (0.7-1.3) Estimated GFR (Cockcroft-Gault) 24.0 Glucose Level 166mg/dL (70-99) Calcium Level 8.6mg/dL (8.5-10.1) Magnesium Level 2.2mg/dL (1.8-2.4) Laboratory Tests Test 07/29/16 17:40 07/30/16 00:40 07/30/16 06:30 Erythrocyte Sedimentation Rate 107 (0-15) Heparin Anti-Xa Act, Unfractionated 0.21IU/mL (0.30-0.70) 0.33IU/mL (0.30-0.70) 0.37IU/mL (0.30-0.70) White Blood Count 10.6x10^3/uL (4.0-11.0) Red Blood Count 3.92x10^6/uL (4.30-5.70) Hemoglobin 10.7g/dL (13.0-17.5) Hematocrit 32.8% (39.0-53.0) Mean Corpuscular Volume 84fL (79-100) Mean Corpuscular Hemoglobin 27pg (25-35) Mean Corpuscular Hemoglobin Concent 33g/dL (31-37) Red Cell Distribution Width 15.0% (11.5-14.5) Platelet Count 330x10^3/uL (140-400) Neutrophils (%) (Auto) 92% (31-73) Lymphocytes (%) (Auto) 5% (24-48) Monocytes (%) (Auto) 2% (0-9) Eosinophils (%) (Auto) 0% (0-3) Basophils (%) (Auto) 0% (0-3) Neutrophils # (Auto) 9.8x10^3uL (1.8-7.7) Lymphocytes # (Auto) 0.5x10^3/uL (1.0-4.8) Monocytes # (Auto) 0.2x10^3/uL (0.0-1.1) Eosinophils # (Auto) 0.0x10^3/uL (0.0-0.7) Basophils # (Auto) 0.0x10^3/uL (0.0-0.2) Segmented Neutrophils % 94% (35-66) Band Neutrophils % 1% (0-9) Lymphocytes % 3% (24-48) Monocytes % 2% (0-10) Platelet Estimate Adequate (ADEQUATE) Anisocytosis Slight Sodium Level 137mmol/L (136-145) Potassium Level 4.5mmol/L (3.5-5.1) Chloride Level 103mmol/L (98-107) Carbon Dioxide Level 20mmol/L (21-32) Anion Gap 14 (6-14) Blood Urea Nitrogen 35mg/dL (8-26) Creatinine 3.1mg/dL (0.7-1.3) Estimated GFR (Cockcroft-Gault) 24.0 Glucose Level 166mg/dL (70-99) Calcium Level 8.6mg/dL (8.5-10.1) Magnesium Level 2.2mg/dL (1.8-2.4) Medications Active Scripts Medications Dose Route/Sig Days Date Category Aspirin Ec (Aspirin) 81 Mg Tablet.dr 81 Mg PO DAILY 07/29/16 Reported Amlodipine Besylate 10 Mg Tablet 10 Mg PO DAILY 07/28/16 Reported Percocet 5-325 Mg Tablet (Oxycodone/Acetaminophen) 1 Each Tablet 1 Tab PO PRN Q6HRS PRN 07/28/16 Reported Doxazosin Mesylate 4 Mg Tablet 1 Tab PO DAILY 07/28/16 Reported Tamsulosin Hcl 0.4 Mg Cap.er.24h 1 Cap PO DAILY 07/28/16 Reported Ondansetron Odt (Ondansetron) 4 Mg Tab.rapdis 1 Tab PO PRN Q8HRS PRN 07/28/16 Reported Famotidine 40 Mg Tablet 40 Mg PO HS 02/12/14 Reported Telmisartan 80 Mg Tablet 80 Mg PO 02/12/14 Reported Impression . 1. Acute respiratory failure, multifactorial secondary to recent non-ST segment elevation myocardial infarction, severe bullous emphysema and pulmonary fibrosis. 2. Chronic obstructive pulmonary disease with exacerbation. 3. Chronic atrial fibrillation. 4. Chronic kidney disease. 5. Benign prostatic hyperplasia. 6. Hypertension. 7. Kidney stones 8. NON STEMI Plan . 1. prn continue BiPAP, antibx nebs 2. Diurese per card 3. We will initiate steroids, hopefully this will help some of his pulmonary symptoms, sed rate elevated 4. ok to transfer out of icu 5. The patient instructed on the importance of discontinuing tobacco use. GAURAV FERRARI MD Jul 30, 2016 11:49
[2016-07-30] MEDS: HEPARIN 25,000UTS/500ML PREMIX 500 ML IV PRN (12:32)
[2016-07-30] MEDS: DOXYCYCLINE HYCLATE 100 MG TABLET PO SCH ×2 (13:00→20:19)
--- NOTE | 2016-07-30 13:22 | PDOC ---
PROGRESS NOTES Subjective Subjective seen in ICU ,less sob on nasal canula Objective Objective Vital Signs Date Time Temp Pulse Resp B/P Pulse Ox O2 Delivery O2 Flow Rate FiO2 07/30/16 11:00 74 24 125/60 89 Nasal Cannula 10.0 07/30/16 07:00 98.4 98.4 Intake and Output 07/30/16 07:00 Intake Total 2163 ml Output Total 1300 ml Balance 863 ml Intake Oral 1080 ml IV Total 1083 ml Output Urine Total 1300 ml Physical Exam Abdomen: Normal bowel sounds Heart: Regular rate General: Other (mild to moderate distress from SOB) Lungs: Other (decreased breath sounds) MUSCULOSKELETAL: No deformity Neck: Supple Neuro: Normal speech Psych/Mental Status: Mental status NL Skin: No breakdown Diagnosis Problem List Problems Medical Problems: (1) Non-ST elevation RI (NSTEMI) Status: Acute Assessment Assessment Problems Medical Problems: (1) Non-ST elevation RI (NSTEMI) Status: Acute FINAL IMPRESSION: 1. Chest pain, non-ST elevation myocardial infarction. 2. Chronic emphysema. 3. ? Chronic atrial fibrillation. 4. Chronic kidney disease, between stage 3 and 4. 5. Benign prostatic hyperplasia. 6. Hypertension. 7. Kidney stones. 8. Respiratory failure secondary to combination of emphysema and heart attack. PLAN: on oxygen nasal canula pt condition improving . CTA -neg for PE Pul fibrosisi and ILD. cr 3.2 after contrast. echo 50% ejf. renal consult. cardiac cath soon. spoke with pulmonary today. At this time, admit to hospital, seen by Cardiology, started on heparin drip, was given aspirin, beta blockers, cholesterol and ANTOINETTE inhibitors and also renal consult and pulmonary consult, oxygen, Ventimask breathing treatments, DuoNeb and the patient is started on heparin for anticoagulation and see how the patient's condition improves. Discussed with Cardiology and at some point would need a cardiac cath once his condition stabilizes. Problems: Plan Plan of Care Problems Medical Problems: (1) Non-ST elevation RI (NSTEMI) Status: Acute Comment Review of Relevant I have reviewed the following items janeen (where applicable) has been applied. Labs Laboratory Tests Test 07/29/16 17:40 07/30/16 00:40 07/30/16 06:30 Erythrocyte Sedimentation Rate 107 (0-15) Heparin Anti-Xa Act, Unfractionated 0.21IU/mL (0.30-0.70) 0.33IU/mL (0.30-0.70) 0.37IU/mL (0.30-0.70) White Blood Count 10.6x10^3/uL (4.0-11.0) Red Blood Count 3.92x10^6/uL (4.30-5.70) Hemoglobin 10.7g/dL (13.0-17.5) Hematocrit 32.8% (39.0-53.0) Mean Corpuscular Volume 84fL (79-100) Mean Corpuscular Hemoglobin 27pg (25-35) Mean Corpuscular Hemoglobin Concent 33g/dL (31-37) Red Cell Distribution Width 15.0% (11.5-14.5) Platelet Count 330x10^3/uL (140-400) Neutrophils (%) (Auto) 92% (31-73) Lymphocytes (%) (Auto) 5% (24-48) Monocytes (%) (Auto) 2% (0-9) Eosinophils (%) (Auto) 0% (0-3) Basophils (%) (Auto) 0% (0-3) Neutrophils # (Auto) 9.8x10^3uL (1.8-7.7) Lymphocytes # (Auto) 0.5x10^3/uL (1.0-4.8) Monocytes # (Auto) 0.2x10^3/uL (0.0-1.1) Eosinophils # (Auto) 0.0x10^3/uL (0.0-0.7) Basophils # (Auto) 0.0x10^3/uL (0.0-0.2) Segmented Neutrophils % 94% (35-66) Band Neutrophils % 1% (0-9) Lymphocytes % 3% (24-48) Monocytes % 2% (0-10) Platelet Estimate Adequate (ADEQUATE) Anisocytosis Slight Sodium Level 137mmol/L (136-145) Potassium Level 4.5mmol/L (3.5-5.1) Chloride Level 103mmol/L (98-107) Carbon Dioxide Level 20mmol/L (21-32) Anion Gap 14 (6-14) Blood Urea Nitrogen 35mg/dL (8-26) Creatinine 3.1mg/dL (0.7-1.3) Estimated GFR (Cockcroft-Gault) 24.0 Glucose Level 166mg/dL (70-99) Calcium Level 8.6mg/dL (8.5-10.1) Magnesium Level 2.2mg/dL (1.8-2.4) Medications Current Medications Albuterol Sulfate (Ventolin Neb Soln) 2.5 mg PRN Q2HR PRN IH SHORTNESS OF BREATH Last administered on 07/30/16 03:39; Start 07/30/16 at 03:30 Atorvastatin Calcium (Lipitor) 20 mg QHS PO Last administered on 07/29/16 20:49 ; Start 07/29/16 at 21:00 Doxycycline Hyclate (Vibra-Tab) 100 mg BID PO Last administered on 07/30/16 13: 00; Start 07/30/16 at 14:00 Famotidine (Pepcid) 20 mg HS PO ; Start 07/30/16 at 21:00 Famotidine (Pepcid) 40 mg HS PO Last administered on 07/29/16 20:49; Start 07/29 at 21:00; Stop 07/30/16 at 07:52; Status DC Furosemide (Lasix) 20 mg 1X ONCE IVP Last administered on 07/29/16 15:27; Start 07/29/16 at 15:00; Stop 07/29/16 at 15:04; Status DC Methylprednisolone Sodium Succinate (Solu-Medrol 125mg Vial) 125 mg Q8HRS IV Last administered on 07/30/16 13:00; Start 07/29/16 at 16:00 Tamsulosin HCl (Flomax) 0.4 mg HS PO Last administered on 07/29/16 20:49; Start 07/29/16 at 21:00 Vitals/I & O Vital Sign - Last 24 Hours 07/29/16 07/29/16 07/29/16 07/29/16 14:00 14:17 15:00 16:00 Pulse 81 77 74 Resp 28 25 B/P 130/68 116/59 135/66 Pulse Ox 87 94 O2 Delivery Nasal Cannula BiPAP/CPAP Non-Rebreather O2 Flow Rate 8.0 07/29/16 07/29/16 07/29/16 07/29/16 16:00 17:00 18:00 19:00 Temp 99.2 99.2 Pulse 86 78 87 78 Resp 25 28 25 B/P 140/63 135/62 135/63 124/67 Pulse Ox 90 92 91 91 O2 Delivery NonRebreather Mask NonRebreather Mask NonRebreather Mask NonRebreather Mask O2 Flow Rate 8.0 07/29/16 07/29/16 07/29/16 07/29/16 20:00 20:00 20:49 21:00 Temp 99.2 99.2 Pulse 74 84 83 Resp 19 33 B/P 133/64 133/64 137/66 Pulse Ox 94 95 O2 Delivery Non-Rebreather NonRebreather Mask NonRebreather Mask O2 Flow Rate 8.0 8.0 8.0 07/29/16 07/29/16 07/30/16 07/30/16 22:00 23:00 00:00 00:00 Temp 99.0 99.0 Pulse 76 72 80 Resp 33 B/P 110/65 109/63 119/64 Pulse Ox 92 92 92 O2 Delivery NonRebreather Mask NonRebreather Mask Non-Rebreather NonRebreather Mask O2 Flow Rate 8.0 8.0 8.0 8.0 07/30/16 07/30/16 07/30/16 07/30/16 00:00 01:00 02:00 03:00 Pulse 74 74 70 68 Resp 31 28 B/P 119/63 119/63 102/53 103/54 Pulse Ox 97 97 97 95 O2 Delivery NonRebreather Mask NonRebreather Mask NonRebreather Mask NonRebreather Mask O2 Flow Rate 8.0 8.0 8.0 8.0 07/30/16 07/30/16 07/30/16 07/30/16 03:39 04:00 04:00 05:00 Temp 99.0 99.0 Pulse 84 79 Resp 21 28 B/P 119/66 123/65 Pulse Ox 93 92 92 O2 Delivery NonRebreather Mask Non-Rebreather NonRebreather Mask Nasal Cannula O2 Flow Rate 15.0 8.0 8.0 10.0 07/30/16 07/30/16 07/30/16 07/30/16 06:00 07:00 07:35 07:36 Temp 98.4 98.4 Pulse 82 80 79 86 Resp 28 29 B/P 119/65 119/65 119/65 119/65 Pulse Ox 92 91 O2 Delivery Nasal Cannula Nasal Cannula O2 Flow Rate 10.0 10.0 07/30/16 07/30/16 07/30/16 07/30/16 07:36 08:00 08:00 08:42 Pulse 86 77 Resp 27 B/P 119/65 119/65 Pulse Ox 89 90 O2 Delivery Nasal Cannula Non-Rebreather Simple Mask O2 Flow Rate 12.0 12.0 10.0 07/30/16 07/30/16 07/30/16 07/30/16 09:00 10:00 10:59 11:00 Pulse 77 79 74 Resp 25 23 24 B/P 118/62 120/63 125/60 Pulse Ox 98 90 88 89 O2 Delivery Nasal Cannula Nasal Cannula Nasal Cannula O2 Flow Rate 10.0 10.0 10.0 Intake and Output 07/29/16 07/29/16 07/30/16 15:00 23:00 07:00 Intake Total 710 ml 483 ml 970 ml Output Total 700 ml 300 ml 300 ml Balance 10 ml 183 ml 670 ml SHARLA KOWALSKI MD Jul 30, 2016 13:22
--- NOTE | 2016-07-30 13:28 | PDOC ---
PROGRESS NOTES Subjective Subjective SEEN IN FOLLOW UP OF CKD4 Objective Objective Vital Signs Date Time Temp Pulse Resp B/P Pulse Ox O2 Delivery O2 Flow Rate FiO2 07/30/16 11:00 74 24 125/60 89 Nasal Cannula 10.0 07/30/16 07:00 98.4 98.4 Intake and Output 07/30/16 07:00 Intake Total 2163 ml Output Total 1300 ml Balance 863 ml Intake Oral 1080 ml IV Total 1083 ml Output Urine Total 1300 ml Physical Exam Abdomen: Normal bowel sounds, Soft, No tenderness, No hepatosplenomegaly, No masses Heart: Regular rate, Normal S1, Normal S2, No murmurs, Gallops Extremities: No clubbing, No cyanosis, No edema, Normal pulses, No tenderness/ swelling General: Alert, Oriented X3, Cooperative, No acute distress Lungs: Clear to auscultation, Normal air movement Psych/Mental Status: Mental status NL, Mood NL Diagnosis RENAL FAILURE: Chronic (CKD stage IV), Other (DUE TO HTN) Assessment Assessment Problems Medical Problems: (1) Non-ST elevation MS (NSTEMI) Status: Acute Plan Plan of Care OVERALL BETTER, RENAL FUNCTION WORSENING SLIGHTLY. CONT FLUID BALANCE PER CARDIOPULMONARY DEMANDS. Comment Review of Relevant I have reviewed the following items janeen (where applicable) has been applied. Labs Laboratory Tests Test 07/28/16 18:05 07/28/16 18:13 07/28/16 22:00 07/28/16 23:45 White Blood Count 8.9x10^3/uL (4.0-11.0) Red Blood Count 4.19x10^6/uL (4.30-5.70) Hemoglobin 11.7g/dL (13.0-17.5) Hematocrit 35.8% (39.0-53.0) Mean Corpuscular Volume 85fL (79-100) Mean Corpuscular Hemoglobin 28pg (25-35) Mean Corpuscular Hemoglobin Concent 33g/dL (31-37) Red Cell Distribution Width 14.9% (11.5-14.5) Platelet Count 336x10^3/uL (140-400) Neutrophils (%) (Auto) 78% (31-73) Lymphocytes (%) (Auto) 11% (24-48) Monocytes (%) (Auto) 11% (0-9) Eosinophils (%) (Auto) 0% (0-3) Basophils (%) (Auto) 1% (0-3) Neutrophils # (Auto) 6.9x10^3uL (1.8-7.7) Lymphocytes # (Auto) 1.0x10^3/uL (1.0-4.8) Monocytes # (Auto) 0.9x10^3/uL (0.0-1.1) Eosinophils # (Auto) 0.0x10^3/uL (0.0-0.7) Basophils # (Auto) 0.0x10^3/uL (0.0-0.2) Prothrombin Time 14.7SEC (11.7-14.0) Prothromb Time International Ratio 1.2 (0.8-1.1) Activated Partial Thromboplast Time 31SEC (24-38) Sodium Level 140mmol/L (136-145) Potassium Level 4.5mmol/L (3.5-5.1) Chloride Level 104mmol/L (98-107) Carbon Dioxide Level 22mmol/L (21-32) Anion Gap 14 (6-14) Blood Urea Nitrogen 27mg/dL (8-26) Creatinine 2.9mg/dL (0.7-1.3) Estimated GFR (Cockcroft-Gault) 25.9 Glucose Level 134mg/dL (70-99) Calcium Level 9.1mg/dL (8.5-10.1) Troponin I Quantitative 4.362ng/mL (0.000-0.055) SZ-Bva-W-Type Natriuretic Peptide 1842pg/mL (0-124) Bedside Troponin I 3.25ng/ml (<0.08) Nasal Screen MRSA (PCR) Negative (Negative) O2 Saturation 85% (92-99) Arterial Blood pH 7.40 (7.35-7.45) Arterial Blood pCO2 at Patient Temp 38mmHg (35-46) Arterial Blood pO2 at Patient Temp 50mmHg (65-108) Arterial Blood HCO3 23mmol/L (21-28) Arterial Blood Base Excess -2mmol/L (-3-3) FiO2 100 Test 07/29/16 04:30 07/29/16 09:22 07/29/16 11:35 07/29/16 17:40 White Blood Count 9.7x10^3/uL (4.0-11.0) Red Blood Count 4.18x10^6/uL (4.30-5.70) Hemoglobin 11.4g/dL (13.0-17.5) Hematocrit 35.8% (39.0-53.0) Mean Corpuscular Volume 86fL (79-100) Mean Corpuscular Hemoglobin 27pg (25-35) Mean Corpuscular Hemoglobin Concent 32g/dL (31-37) Red Cell Distribution Width 14.8% (11.5-14.5) Platelet Count 318x10^3/uL (140-400) Neutrophils (%) (Auto) 82% (31-73) Lymphocytes (%) (Auto) 9% (24-48) Monocytes (%) (Auto) 9% (0-9) Eosinophils (%) (Auto) 0% (0-3) Basophils (%) (Auto) 1% (0-3) Neutrophils # (Auto) 7.9x10^3uL (1.8-7.7) Lymphocytes # (Auto) 0.8x10^3/uL (1.0-4.8) Monocytes # (Auto) 0.9x10^3/uL (0.0-1.1) Eosinophils # (Auto) 0.0x10^3/uL (0.0-0.7) Basophils # (Auto) 0.0x10^3/uL (0.0-0.2) D-Dimer (Rachel) 3.38ug/mlFEU (0.00-0.50) Heparin Anti-Xa Act, Unfractionated 0.14IU/mL (0.30-0.70) 0.31IU/mL (0.30-0.70) 0.21IU/mL (0.30-0.70) Sodium Level 139mmol/L (136-145) Potassium Level 4.8mmol/L (3.5-5.1) Chloride Level 105mmol/L (98-107) Carbon Dioxide Level 22mmol/L (21-32) Anion Gap 12 (6-14) Blood Urea Nitrogen 25mg/dL (8-26) Creatinine 2.8mg/dL (0.7-1.3) Estimated GFR (Cockcroft-Gault) 26.9 Glucose Level 128mg/dL (70-99) Calcium Level 8.7mg/dL (8.5-10.1) Magnesium Level 2.3mg/dL (1.8-2.4) Troponin I Quantitative 21.220ng/mL (0.000-0.055) Triglycerides Level 111mg/dL (0-150) Cholesterol Level 193mg/dL (0-200) LDL Cholesterol, Calculated 143mg/dL (0-100) VLDL Cholesterol, Calculated 22mg/dL (0-40) HDL Cholesterol 28mg/dL (40-60) Cholesterol/HDL Ratio 6.9 O2 Saturation 94% (92-99) Arterial Blood pH 7.40 (7.35-7.45) Arterial Blood pCO2 at Patient Temp 38mmHg (35-46) Arterial Blood pO2 at Patient Temp 69mmHg (65-108) Arterial Blood HCO3 23mmol/L (21-28) Arterial Blood Base Excess -1mmol/L (-3-3) FiO2 100 Erythrocyte Sedimentation Rate 107 (0-15) Test 07/30/16 00:40 07/30/16 06:30 Heparin Anti-Xa Act, Unfractionated 0.33IU/mL (0.30-0.70) 0.37IU/mL (0.30-0.70) White Blood Count 10.6x10^3/uL (4.0-11.0) Red Blood Count 3.92x10^6/uL (4.30-5.70) Hemoglobin 10.7g/dL (13.0-17.5) Hematocrit 32.8% (39.0-53.0) Mean Corpuscular Volume 84fL (79-100) Mean Corpuscular Hemoglobin 27pg (25-35) Mean Corpuscular Hemoglobin Concent 33g/dL (31-37) Red Cell Distribution Width 15.0% (11.5-14.5) Platelet Count 330x10^3/uL (140-400) Neutrophils (%) (Auto) 92% (31-73) Lymphocytes (%) (Auto) 5% (24-48) Monocytes (%) (Auto) 2% (0-9) Eosinophils (%) (Auto) 0% (0-3) Basophils (%) (Auto) 0% (0-3) Neutrophils # (Auto) 9.8x10^3uL (1.8-7.7) Lymphocytes # (Auto) 0.5x10^3/uL (1.0-4.8) Monocytes # (Auto) 0.2x10^3/uL (0.0-1.1) Eosinophils # (Auto) 0.0x10^3/uL (0.0-0.7) Basophils # (Auto) 0.0x10^3/uL (0.0-0.2) Segmented Neutrophils % 94% (35-66) Band Neutrophils % 1% (0-9) Lymphocytes % 3% (24-48) Monocytes % 2% (0-10) Platelet Estimate Adequate (ADEQUATE) Anisocytosis Slight Sodium Level 137mmol/L (136-145) Potassium Level 4.5mmol/L (3.5-5.1) Chloride Level 103mmol/L (98-107) Carbon Dioxide Level 20mmol/L (21-32) Anion Gap 14 (6-14) Blood Urea Nitrogen 35mg/dL (8-26) Creatinine 3.1mg/dL (0.7-1.3) Estimated GFR (Cockcroft-Gault) 24.0 Glucose Level 166mg/dL (70-99) Calcium Level 8.6mg/dL (8.5-10.1) Magnesium Level 2.2mg/dL (1.8-2.4) Laboratory Tests Test 07/29/16 17:40 07/30/16 00:40 07/30/16 06:30 Erythrocyte Sedimentation Rate 107 (0-15) Heparin Anti-Xa Act, Unfractionated 0.21IU/mL (0.30-0.70) 0.33IU/mL (0.30-0.70) 0.37IU/mL (0.30-0.70) White Blood Count 10.6x10^3/uL (4.0-11.0) Red Blood Count 3.92x10^6/uL (4.30-5.70) Hemoglobin 10.7g/dL (13.0-17.5) Hematocrit 32.8% (39.0-53.0) Mean Corpuscular Volume 84fL (79-100) Mean Corpuscular Hemoglobin 27pg (25-35) Mean Corpuscular Hemoglobin Concent 33g/dL (31-37) Red Cell Distribution Width 15.0% (11.5-14.5) Platelet Count 330x10^3/uL (140-400) Neutrophils (%) (Auto) 92% (31-73) Lymphocytes (%) (Auto) 5% (24-48) Monocytes (%) (Auto) 2% (0-9) Eosinophils (%) (Auto) 0% (0-3) Basophils (%) (Auto) 0% (0-3) Neutrophils # (Auto) 9.8x10^3uL (1.8-7.7) Lymphocytes # (Auto) 0.5x10^3/uL (1.0-4.8) Monocytes # (Auto) 0.2x10^3/uL (0.0-1.1) Eosinophils # (Auto) 0.0x10^3/uL (0.0-0.7) Basophils # (Auto) 0.0x10^3/uL (0.0-0.2) Segmented Neutrophils % 94% (35-66) Band Neutrophils % 1% (0-9) Lymphocytes % 3% (24-48) Monocytes % 2% (0-10) Platelet Estimate Adequate (ADEQUATE) Anisocytosis Slight Sodium Level 137mmol/L (136-145) Potassium Level 4.5mmol/L (3.5-5.1) Chloride Level 103mmol/L (98-107) Carbon Dioxide Level 20mmol/L (21-32) Anion Gap 14 (6-14) Blood Urea Nitrogen 35mg/dL (8-26) Creatinine 3.1mg/dL (0.7-1.3) Estimated GFR (Cockcroft-Gault) 24.0 Glucose Level 166mg/dL (70-99) Calcium Level 8.6mg/dL (8.5-10.1) Magnesium Level 2.2mg/dL (1.8-2.4) Medications Current Medications Aspirin (Children'S Aspirin) 324 mg 1X ONCE PO Last administered on 07/28/16t 18:27; Start 07/28/16 at 18:30; Stop 07/28/16 at 18:31; Status DC Nitroglycerin (Nitrostat) 0.4 mg PRN Q5MIN PRN SL CP RATING > 1/10 Last administered on 07/28/16 18:27; Start 07/28/16 at 18:30; Stop 07/29/16 at 18:29; Status DC Heparin Sodium (Porcine) 4000 unit 4,000 unit 1X ONCE IV Last administered on 07/28/16 19:43; Start 07/28/16 at 18:30; Stop 07/28/16 at 18:32; Status DC Heparin Sodium/ Dextrose 500 ml @ 0 mls/hr CONT PRN IV SEE I/O RECORD Last administered on 07/30/16 12:32; Start 07/28/16 at 18:30 Heparin Sodium (Porcine) 1,950 unit PRN Q6HRS PRN IV FOR UFH LEVEL LESS THAN 0.2 Last administered on 07/29/16 05:33; Start 07/28/16 at 18:30 Iohexol (Omnipaque 350 Mg/ml) 90 ml 1X ONCE IV Last administered on 07/28/16 18:45; Start 07/28/16 at 18:45; Stop 07/28/16 at 18:46; Status DC Info (Do NOT chart on this entry -- for MONITORING) 1 each PRN DAILY PRN MC SEE COMMENTS; Start 07/28/16 at 18:45; Stop 07/30/16 at 18:44 Iohexol 100 ml 100 ml STK-MED ONCE .ROUTE ; Start 07/28/16 at 18:36; Stop at 18:37; Status DC Nitroglycerin/ Dextrose 250 ml @ 0 mls/hr 1X ONCE IV Last administered on 19:15; Start 07/28/16 at 19:00; Stop 07/28/16 at 19:01; Status DC Sodium Chloride (Iv Sodium Chloride 0.9% 1000ml Bag) 1,000 ml @ 1,000 mls/hr 1X ONCE IV Last administered on 07/28/16 19:00; Start 07/28/16 at 19:00; Stop 07/28/16 at 19:59; Status DC Ondansetron HCl (Zofran) 4 mg PRN Q8HRS PRN IV NAUSEA/VOMITING; Start 07/28/16 at 19:15; Stop 07/29/16 at 19:14; Status DC Morphine Sulfate 4 mg 4 mg PRN Q2HR PRN IV PAIN Last administered on 07/28/16 23:32; Start 07/28/16 at 19:15; Stop 07/29/16 at 19:14; Status DC Sodium Chloride (Iv Sodium Chloride 0.9% 1000ml Bag) 1,000 ml @ 125 mls/hr Q8H IV Last administered on 07/28/16 19:14; Start 07/28/16 at 19:14; Stop 07/29/16 at 01:16; Status DC Acetaminophen (Tylenol) 650 mg PRN Q4HRS PRN PO FEVER; Start 07/28/16 at 19:15; Stop 07/29/16 at 19:14; Status DC Furosemide (Lasix) 20 mg 1X ONCE IVP Last administered on 07/28/16 22:41; Start 07/28/16 at 22:15; Stop 07/28/16 at 22:16; Status DC Albuterol/ Ipratropium (Duoneb) 3 ml STK-MED ONCE .ROUTE ; Start 07/28/16 at 22: 49; Stop 07/28/16 at 22:50; Status DC Albuterol/ Ipratropium (Duoneb) 3 ml RTQID NEB Last administered on 07/30/16 10 :58; Start 07/29/16 at 08:00 Lorazepam (Ativan) 0.25 mg PRN Q6HRS PRN PO ANXIETY / AGITATION Last administered on 07/30/16 03:57; Start 07/28/16 at 23:00 Furosemide (Lasix) 20 mg 1X ONCE IVP Last administered on 07/29/16 01:04; Start 07/29/16 at 00:30; Stop 07/29/16 at 00:31; Status DC Furosemide 20 mg 20 mg 1X ONCE IVP ; Start 07/29/16 at 01:00; Stop 07/29/16 at 01 :01; Status DC Sodium Chloride 1,000 ml @ 80 mls/hr [id number] IV ; Start 07/29/16 at 01:15; Stop 07/29/16 at 01:29; Status DC Sodium Chloride (Iv Sodium Chloride 0.9% 1000ml Bag) 1,000 ml @ 80 mls/hr [id number] IV Last administered on 07/29/16 05:48; Start 07/29/16 at 05:30; Stop at 14:30; Status DC Aspirin (Lionel Aspirin) 325 mg [id number] PO Last administered on 07/30/16 07: 35; Start 07/29/16 at 09:45 Metoprolol Tartrate (Lopressor) 12.5 mg BID PO Last administered on 07/30/16 07 :36; Start 07/29/16 at 09:45 Doxazosin Mesylate (Cardura) 4 mg DAILY PO Last administered on 07/30/16 07:36 ; Start 07/29/16 at 09:00 Ondansetron HCl (Zofran Odt) 4 mg PRN Q8HRS PRN PO NAUSEA/VOMITING; Start at 09:30 Oxycodone/ Acetaminophen (Percocet 5/325) 1 tab PRN Q6HRS PRN PO PAIN; Start at 09:30 Tamsulosin HCl (Flomax) 0.4 mg HS PO Last administered on 07/29/16 20:49; Start 07/29/16 at 21:00 Famotidine 40 mg 40 mg HS PO Last administered on 07/29/16 20:49; Start at 21:00; Stop 07/30/16 at 07:52; Status DC Nitroglycerin/ Dextrose (Nitroglycerin Drip) 250 ml @ 0 mls/hr CONT PRN IV SEE I/O RECORD Last administered on 07/29/16 16:28; Start 07/29/16 at 09:45 Atorvastatin Calcium (Lipitor) 20 mg QHS PO Last administered on 07/29/16 20:49 ; Start 07/29/16 at 21:00 Losartan Potassium (Cozaar) 50 mg DAILY PO Last administered on 07/30/16 07:35 ; Start 07/29/16 at 11:15 Furosemide (Lasix) 20 mg 1X ONCE IVP Last administered on 07/29/16 15:27; Start 07/29/16 at 15:00; Stop 07/29/16 at 15:04; Status DC Methylprednisolone Sodium Succinate (Solu-Medrol 125mg Vial) 125 mg Q8HRS IV Last administered on 07/30/16 13:00; Start 07/29/16 at 16:00 Albuterol Sulfate (Ventolin Neb Soln) 2.5 mg PRN Q2HR PRN IH SHORTNESS OF BREATH Last administered on 07/30/16 03:39; Start 07/30/16 at 03:30 Famotidine (Pepcid) 20 mg HS PO ; Start 07/30/16 at 21:00 Doxycycline Hyclate (Vibra-Tab) 100 mg BID PO Last administered on 07/30/16 13: 00; Start 07/30/16 at 14:00 Active Scripts Active Reported Aspirin Ec (Aspirin) 81 Mg Tablet.dr 81 Mg PO DAILY Amlodipine Besylate 10 Mg Tablet 10 Mg PO DAILY Percocet 5-325 Mg Tablet (Oxycodone/Acetaminophen) 1 Each Tablet 1 Tab PO PRN Q6HRS PRN Doxazosin Mesylate 4 Mg Tablet 1 Tab PO DAILY Tamsulosin Hcl 0.4 Mg Cap.er.24h 1 Cap PO DAILY Ondansetron Odt (Ondansetron) 4 Mg Tab.rapdis 1 Tab PO PRN Q8HRS PRN Famotidine 40 Mg Tablet 40 Mg PO HS Telmisartan 80 Mg Tablet 80 Mg PO Vitals/I & O Vital Sign - Last 24 Hours 07/29/16 07/29/16 07/29/16 07/29/16 14:00 14:17 15:00 16:00 Pulse 81 77 74 Resp 25 B/P 130/68 116/59 135/66 Pulse Ox 87 94 O2 Delivery Nasal Cannula BiPAP/CPAP Non-Rebreather O2 Flow Rate 8.0 07/29/16 07/29/16 07/29/16 07/29/16 16:00 17:00 18:00 19:00 Temp 99.2 99.2 Pulse 86 78 87 78 Resp 25 25 28 25 B/P 140/63 135/62 135/63 124/67 Pulse Ox 90 92 91 91 O2 Delivery NonRebreather Mask NonRebreather Mask NonRebreather Mask NonRebreather Mask O2 Flow Rate 8.0 07/29/16 07/29/16 07/29/16 07/29/16 20:00 20:00 20:49 21:00 Temp 99.2 99.2 Pulse 74 84 83 Resp 19 33 B/P 133/64 133/64 137/66 Pulse Ox 94 95 O2 Delivery Non-Rebreather NonRebreather Mask NonRebreather Mask O2 Flow Rate 8.0 8.0 8.0 07/29/16 07/29/16 07/30/16 07/30/16 22:00 23:00 00:00 00:00 Temp 99.0 99.0 Pulse 76 72 80 Resp 23 23 33 B/P 110/65 109/63 119/64 Pulse Ox 92 92 92 O2 Delivery NonRebreather Mask NonRebreather Mask Non-Rebreather NonRebreather Mask O2 Flow Rate 8.0 8.0 8.0 8.0 07/30/16 07/30/16 07/30/16 07/30/16 00:00 01:00 02:00 03:00 Pulse 74 74 70 68 Resp 28 28 31 28 B/P 119/63 119/63 102/53 103/54 Pulse Ox 97 97 97 95 O2 Delivery NonRebreather Mask NonRebreather Mask NonRebreather Mask NonRebreather Mask O2 Flow Rate 8.0 8.0 8.0 8.0 07/30/16 07/30/16 07/30/16 07/30/16 03:39 04:00 04:00 05:00 Temp 99.0 99.0 Pulse 84 79 Resp 21 28 B/P 119/66 123/65 Pulse Ox 93 92 92 O2 Delivery NonRebreather Mask Non-Rebreather NonRebreather Mask Nasal Cannula O2 Flow Rate 15.0 8.0 8.0 10.0 07/30/16 07/30/16 07/30/16 07/30/16 06:00 07:00 07:35 07:36 Temp 98.4 98.4 Pulse 82 80 79 86 Resp 28 29 B/P 119/65 119/65 119/65 119/65 Pulse Ox 92 91 O2 Delivery Nasal Cannula Nasal Cannula O2 Flow Rate 10.0 10.0 07/30/16 07/30/16 07/30/16 07/30/16 07:36 08:00 08:00 08:42 Pulse 86 77 Resp 27 B/P 119/65 119/65 Pulse Ox 89 90 O2 Delivery Nasal Cannula Non-Rebreather Simple Mask O2 Flow Rate 12.0 12.0 10.0 07/30/16 07/30/16 07/30/16 07/30/16 09:00 10:00 10:59 11:00 Pulse 77 79 74 Resp 25 23 24 B/P 118/62 120/63 125/60 Pulse Ox 98 90 88 89 O2 Delivery Nasal Cannula Nasal Cannula Nasal Cannula O2 Flow Rate 10.0 10.0 10.0 Intake and Output 07/29/16 07/29/16 07/30/16 15:00 23:00 07:00 Intake Total 710 ml 483 ml 970 ml Output Total 700 ml 300 ml 300 ml Balance 10 ml 183 ml 670 ml ANTONIO REYES MD Jul 30, 2016 13:28
[2016-07-30] MEDS: NITROGLYCERIN PREMIX 250 ML IV PRN (19:19)
[2016-07-30] MEDS: TAMSULOSIN 0.4 MG CAP.ER.24H. PO SCH (20:19)
[2016-07-30] MEDS: ATORVASTATIN CALCIUM 20 MG TABLET PO SCH (20:19)
[2016-07-30] MEDS: FAMOTIDINE 20 MG TABLET. PO SCH (20:19)
[2016-07-30] MEDS ORDERED: FENTANYL PF 100 MCG/2 ML VIAL. IV PRN (23:00)
[2016-07-30] MEDS: LORAZEPAM 2 MG/ML VIAL IV PRN (23:11)
[2016-07-31] VITALS (13 sets, daily range): BP systolic 104–132; BP diastolic 46–71
[2016-07-31 04:44] LABS: BASO % 0 % (0-3); EOS % 0 % (0-3); HEMATOCRIT 31.6 % (39.0-53.0); HEMOGLOBIN 10.2 g/dL (13.0-17.5); LYMPH # 0.4 x10^3/uL (1.0-4.8); LYMPH % 3 % (24-48); MEAN CORPUSCULAR HEMOGLOBIN 27 pg (25-35); MEAN CORPUSCULAR HGB CONC 32 g/dL (31-37); MEAN CORPUSCULAR VOLUME 84 fL (79-100); MONO % 4 % (0-9); NEUT % 93 % (31-73); PLATELET COUNT 313 x10^3/uL (140-400); RED BLOOD COUNT 3.74 x10^6/uL (4.30-5.70); RED CELL DISTRIBUTION WIDTH 14.8 % (11.5-14.5); WHITE BLOOD COUNT 14.3 x10^3/uL (4.0-11.0)
[2016-07-31 04:57] LABS: CALCIUM 8.4 mg/dL (8.5-10.1); CREATININE 3.7 mg/dL (0.7-1.3); GFR 19.5; MAGNESIUM 2.2 mg/dL (1.8-2.4); POTASSIUM 4.5 mmol/L (3.5-5.1)
[2016-07-31] MEDS: methylPREDNISolone SOD SUCC PF 125 MG/2 ML VIAL. IV SCH ×3 (05:08→20:57)
[2016-07-31] MEDS: IPRATRPIUM/ALBUTEROL 0.5/2.5MG 3 ML NEBU. NEB SCH ×4 (07:54→19:21)
[2016-07-31] MEDS: HEPARIN 25,000UTS/500ML PREMIX 500 ML IV PRN (09:11)
--- NOTE | 2016-07-31 09:31 | PDOC ---
MALDONADOChuckyLC JACOB ACCOUNT MANAGEMENT ASSISTANT 07/31/16 0931: IM PROGRESS NOTES- Subjective Subjective no chest pain Objective Objective alert no distress Vitals Vital Signs Date Time Temp Pulse Resp B/P Pulse Ox O2 Delivery O2 Flow Rate FiO2 07/31/16 08:35 Non-Rebreather 10.0 07/31/16 08:00 97.4 86 20 118/68 96 97.4 Input & Output Intake and Output 07/31/16 07:00 Intake Total 1149 ml Output Total 765 ml Balance 384 ml Intake Oral 1010 ml IV Total 139 ml Output Urine Total 765 ml Physical Exam Physical Exam General appearance - alert, ill appearing, and in no distress Mental Status - alert, oriented to person, place, and time, affect appropriate to mood Head - normal Chest - clear to auscultation, no wheezes, rales or rhonchi Heart - S1 and S2 normal Abdomen - soft, nontender, nondistended, BS+ Neurological - no acute neurological deficit noted Musculoskeletal - no muscular tenderness noted Extremities - no pedal edema Skin - warm and dry Labs Laboratory Tests Test 07/29/16 09:22 07/29/16 11:35 07/29/16 17:40 07/30/16 00:40 O2 Saturation 94% (92-99) Arterial Blood pH 7.40 (7.35-7.45) Arterial Blood pCO2 at Patient Temp 38mmHg (35-46) Arterial Blood pO2 at Patient Temp 69mmHg (65-108) Arterial Blood HCO3 23mmol/L (21-28) Arterial Blood Base Excess -1mmol/L (-3-3) FiO2 100 Heparin Anti-Xa Act, Unfractionated 0.31IU/mL (0.30-0.70) 0.21IU/mL (0.30-0.70) 0.33IU/mL (0.30-0.70) Erythrocyte Sedimentation Rate 107 (0-15) Test 07/30/16 06:30 07/31/16 04:00 White Blood Count 10.6x10^3/uL (4.0-11.0) 14.3x10^3/uL (4.0-11.0) Red Blood Count 3.92x10^6/uL (4.30-5.70) 3.74x10^6/uL (4.30-5.70) Hemoglobin 10.7g/dL (13.0-17.5) 10.2g/dL (13.0-17.5) Hematocrit 32.8% (39.0-53.0) 31.6% (39.0-53.0) Mean Corpuscular Volume 84fL (79-100) 84fL (79-100) Mean Corpuscular Hemoglobin 27pg (25-35) 27pg (25-35) Mean Corpuscular Hemoglobin Concent 33g/dL (31-37) 32g/dL (31-37) Red Cell Distribution Width 15.0% (11.5-14.5) 14.8% (11.5-14.5) Platelet Count 330x10^3/uL (140-400) 313x10^3/uL (140-400) Neutrophils (%) (Auto) 92% (31-73) 93% (31-73) Lymphocytes (%) (Auto) 5% (24-48) 3% (24-48) Monocytes (%) (Auto) 2% (0-9) 4% (0-9) Eosinophils (%) (Auto) 0% (0-3) 0% (0-3) Basophils (%) (Auto) 0% (0-3) 0% (0-3) Neutrophils # (Auto) 9.8x10^3uL (1.8-7.7) 13.3x10^3uL (1.8-7.7) Lymphocytes # (Auto) 0.5x10^3/uL (1.0-4.8) 0.4x10^3/uL (1.0-4.8) Monocytes # (Auto) 0.2x10^3/uL (0.0-1.1) 0.6x10^3/uL (0.0-1.1) Eosinophils # (Auto) 0.0x10^3/uL (0.0-0.7) 0.0x10^3/uL (0.0-0.7) Basophils # (Auto) 0.0x10^3/uL (0.0-0.2) 0.0x10^3/uL (0.0-0.2) Segmented Neutrophils % 94% (35-66) Band Neutrophils % 1% (0-9) Lymphocytes % 3% (24-48) Monocytes % 2% (0-10) Platelet Estimate Adequate (ADEQUATE) Anisocytosis Slight Heparin Anti-Xa Act, Unfractionated 0.37IU/mL (0.30-0.70) 0.40IU/mL (0.30-0.70) Sodium Level 137mmol/L (136-145) 134mmol/L (136-145) Potassium Level 4.5mmol/L (3.5-5.1) 4.5mmol/L (3.5-5.1) Chloride Level 103mmol/L (98-107) 99mmol/L (98-107) Carbon Dioxide Level 20mmol/L (21-32) 23mmol/L (21-32) Anion Gap 14 (6-14) 12 (6-14) Blood Urea Nitrogen 35mg/dL (8-26) 51mg/dL (8-26) Creatinine 3.1mg/dL (0.7-1.3) 3.7mg/dL (0.7-1.3) Estimated GFR (Cockcroft-Gault) 24.0 19.5 Glucose Level 166mg/dL (70-99) 154mg/dL (70-99) Calcium Level 8.6mg/dL (8.5-10.1) 8.4mg/dL (8.5-10.1) Magnesium Level 2.2mg/dL (1.8-2.4) 2.2mg/dL (1.8-2.4) Laboratory Tests Test 07/31/16 04:00 White Blood Count 14.3x10^3/uL (4.0-11.0) Red Blood Count 3.74x10^6/uL (4.30-5.70) Hemoglobin 10.2g/dL (13.0-17.5) Hematocrit 31.6% (39.0-53.0) Mean Corpuscular Volume 84fL (79-100) Mean Corpuscular Hemoglobin 27pg (25-35) Mean Corpuscular Hemoglobin Concent 32g/dL (31-37) Red Cell Distribution Width 14.8% (11.5-14.5) Platelet Count 313x10^3/uL (140-400) Neutrophils (%) (Auto) 93% (31-73) Lymphocytes (%) (Auto) 3% (24-48) Monocytes (%) (Auto) 4% (0-9) Eosinophils (%) (Auto) 0% (0-3) Basophils (%) (Auto) 0% (0-3) Neutrophils # (Auto) 13.3x10^3uL (1.8-7.7) Lymphocytes # (Auto) 0.4x10^3/uL (1.0-4.8) Monocytes # (Auto) 0.6x10^3/uL (0.0-1.1) Eosinophils # (Auto) 0.0x10^3/uL (0.0-0.7) Basophils # (Auto) 0.0x10^3/uL (0.0-0.2) Heparin Anti-Xa Act, Unfractionated 0.40IU/mL (0.30-0.70) Sodium Level 134mmol/L (136-145) Potassium Level 4.5mmol/L (3.5-5.1) Chloride Level 99mmol/L (98-107) Carbon Dioxide Level 23mmol/L (21-32) Anion Gap 12 (6-14) Blood Urea Nitrogen 51mg/dL (8-26) Creatinine 3.7mg/dL (0.7-1.3) Estimated GFR (Cockcroft-Gault) 19.5 Glucose Level 154mg/dL (70-99) Calcium Level 8.4mg/dL (8.5-10.1) Magnesium Level 2.2mg/dL (1.8-2.4) Meds Current Medications Doxycycline Hyclate (Vibra-Tab) 100 mg BID PO Last administered on 07/30/16 20: 19; Start 07/30/16 at 14:00 Famotidine (Pepcid) 20 mg HS PO Last administered on 07/30/16 20:19; Start 07/30 at 21:00 Fentanyl Citrate (Fentanyl 2ml Vial) 25 mcg PRN Q2HR PRN IV SEVERE PAIN; Start 07/30/16 at 23:00 Lorazepam (Ativan) 0.5 mg PRN Q4HRS PRN IV ANXIETY / AGITATION Last administered on 3/5/17at 23:11; Start 07/30/16 at 23:00 Assessment Assessment Problems Medical Problems: (1) Non-ST elevation CA (NSTEMI) Status: Acute FINAL IMPRESSION: 1. Chest pain, acute non-ST elevation myocardial infarction with elevated troponin 2. AECOPD with undelrying bullous emphysema/ILD-fibrosis 3. Acute hypoxic respiratory failure with underlying COPD/ILD/ acute NSTEMI 4. ARF with Chronic kidney disease, between stage 3 and 4. 5. Benign prostatic hyperplasia. 6. Hypertension. 7. Kidney stones recently diagnosed at 8. steroid induced DM II with hyperglycemia 9, Afib chronic h/o 10. a/c systolic CHF POA EF 50% mod MR 11. acute bronchitis POA PLAN: acute NSTEMI cardiology consult Max troponin 21.220 ECHO EF 50% neg CT PE or dissection venous doppler negative cardiac cath is planned PT-cardiac rehab ordered Heparin/NTG infusions acute respiratory failure pulmonary consult Desat 07/30 evening-tolerated BIPAP 30 min, Non rebreather Sat 6.-84% acute bronchitis-doxycycline AECOPD-solumedrol 125mg IV bullous emphysema/ILD ARF with CKD nephrology consult Admit BUN 27 07/31 51 Cr 2.9 3.7 K 4.5 4.5 A/C systolic CHF with EF 50% mod MR daily wt Admit wt 183# 07/31 190.31 I/O hyperlipidemia LDL 142 anemia renal disease Admit Hgb 11.7 07/31 10.2 monitor DVT/GI prophylaxis Hep gtt Pepcid For further plan of care, please refer to the orders. RENAL FAILURE: Chronic (CKD stage IV), Other (DUE TO HTN) Plan Plan For more details regarding further plans, please refer to the orders. SEGUNDO STOCK MD 07/31/16 1002: IM PROGRESS NOTES- Assessment Assessment condition treatment,options d/w the patient extensively. The patient was seen and examined by me. Chart reviewed and plan of care formulated. Discussed with, reviewed and agree with FLORIST MANAGER's notes, plan of care and orders with modifications as necessary. For more details regarding further plans, please refer to the orders. LC RUSSELL APRN Jul 31, 2016 09:31 SEGUNDO STOCK MD Jul 31, 2016 10:02
[2016-07-31] MEDS: DOXYCYCLINE HYCLATE 100 MG TABLET PO SCH ×2 (09:58→20:57)
[2016-07-31] MEDS: ASPIRIN 325 MG TABLET PO SCH (09:59)
[2016-07-31] MEDS: METOPROLOL TART IMMED RELEASE 25 MG TABLET PO SCH ×2 (09:59→20:59)
[2016-07-31] MEDS: DOXAZOSIN MESYLATE 4 MG TABLET PO SCH (09:59)
[2016-07-31] MEDS: LOSARTAN POTASSIUM 50 MG TABLET. PO SCH (10:03)
[2016-07-31] MEDS: LORAZEPAM 0.5 MG TABLET. PO PRN (10:03)
--- NOTE | 2016-07-31 11:25 | PDOC ---
CARDIO Progress Notes Date and Time Date of Service Time of Evaluation 1114 Subjective Subjective: No Chest Pain, No Palpitations, No Dizziness, Other (dyspneic with NRB mask) Vitals Vitals Vital Signs Date Time Temp Pulse Resp B/P Pulse Ox O2 Delivery O2 Flow Rate FiO2 07/31/16 10:03 86 118/68 07/31/16 08:35 Non-Rebreather 10.0 07/31/16 08:00 97.4 20 96 97.4 Weight Weight [ ] Stability Assessment Stability Assess.: unstable for transfer (Intesive V. sign monit. req) Input and Output Intake and Output Intake and Output 07/31/16 07:00 Intake Total 1149 ml Output Total 765 ml Balance 384 ml Intake Oral 1010 ml IV Total 139 ml Output Urine Total 765 ml Laboratory Labs Laboratory Tests Test 07/31/16 04:00 White Blood Count 14.3x10^3/uL (4.0-11.0) Red Blood Count 3.74x10^6/uL (4.30-5.70) Hemoglobin 10.2g/dL (13.0-17.5) Hematocrit 31.6% (39.0-53.0) Mean Corpuscular Volume 84fL (79-100) Mean Corpuscular Hemoglobin 27pg (25-35) Mean Corpuscular Hemoglobin Concent 32g/dL (31-37) Red Cell Distribution Width 14.8% (11.5-14.5) Platelet Count 313x10^3/uL (140-400) Neutrophils (%) (Auto) 93% (31-73) Lymphocytes (%) (Auto) 3% (24-48) Monocytes (%) (Auto) 4% (0-9) Eosinophils (%) (Auto) 0% (0-3) Basophils (%) (Auto) 0% (0-3) Neutrophils # (Auto) 13.3x10^3uL (1.8-7.7) Lymphocytes # (Auto) 0.4x10^3/uL (1.0-4.8) Monocytes # (Auto) 0.6x10^3/uL (0.0-1.1) Eosinophils # (Auto) 0.0x10^3/uL (0.0-0.7) Basophils # (Auto) 0.0x10^3/uL (0.0-0.2) Heparin Anti-Xa Act, Unfractionated 0.40IU/mL (0.30-0.70) Sodium Level 134mmol/L (136-145) Potassium Level 4.5mmol/L (3.5-5.1) Chloride Level 99mmol/L (98-107) Carbon Dioxide Level 23mmol/L (21-32) Anion Gap 12 (6-14) Blood Urea Nitrogen 51mg/dL (8-26) Creatinine 3.7mg/dL (0.7-1.3) Estimated GFR (Cockcroft-Gault) 19.5 Glucose Level 154mg/dL (70-99) Calcium Level 8.4mg/dL (8.5-10.1) Magnesium Level 2.2mg/dL (1.8-2.4) Physical Exam HEENT: Neck Supple W Full Motion Chest: Symmetric LUNGS: Other (crackles all the way up posteriorly as well as anteriorly; exp wheezing present) Heart: S1S2, RRR, other (tele: SR with bigeminal PVCs) Abdomen: Soft N/T Extremities: 2+ Dorsalis Pedis, No Edema Neurology: alert, oriented, follow commands Assessment Assessment 1. NSTEMI troponin peaked @ 21.22 CT chest negative for dissection echo with mild basal posterior hypokinesis remains on heparin gtt, low dose beta-blockers, ARBs and statin therapy cardiac cath postponed today due to increased BUN/Cr of 51 and 3.7 ? benefit from temporary hemodialysis 2. acute CHF, likely systolic, LVEF 50% crackles all the way up posteriorly as well as anteriorly - unable to diurese due to renal function ? temp hemodialysis 3. acute respiratory failure with AECOPD currently on NRB mask with scattered exp wheezing - ? need to hold beta- blockers treated with abx and steroids 4. acute on CKD - 4 BUN and Cr increasing per nephrology 5. Hyperlipidemia LDLS = 143 has been started on statin therapy HUMA GRIGSBY APRN Jul 31, 2016 11:25
[2016-07-31] MEDS: INSULIN ASPART 300 UNITS/3 ML INSULN.PEN SQ SCH ×2 (12:15→16:30)
[2016-07-31] MEDS ORDERED: MAGNESIUM SULFATE 2GM 50 ML IV PRN (13:00)
--- NOTE | 2016-07-31 13:12 | PDOC ---
SUBJECTIVE ROS miryam/ ckd iii reportedly doing better today but still appears SOB CVS: + Orthopnea, no current CP RESP: + SOB, + SALEEM GI: no Nausea, no Vomiting : no Dysuria, no Urgency OBJECTIVE Vital Signs Vital Signs Date Time Temp Pulse Resp B/P Pulse Ox O2 Delivery O2 Flow Rate FiO2 07/31/16 11:50 95 NonRebreather Mask 15.0 07/31/16 11:49 82 22 121/70 07/31/16 08:00 97.4 97.4 I & 0 Intake and Output 07/31/16 07:00 Intake Total 1149 ml Output Total 765 ml Balance 384 ml Intake Oral 1010 ml IV Total 139 ml Output Urine Total 765 ml PHYSICAL EXAM Physical Exam GEN: Awake, Oriented x 3, In min- mod distress EYES: Vision Unchanged, Conjunctiva Normal EN: No EN Drainage, Mucous Membranes moist NECK: no JVD, + JVP, Supple, no Thyromegaly CVS: S1S2, ? Murmur, No Gallop, No Rub,no Edema RESP: + Rales, occ Rhonchi,min Acc. Muscle Use GI: BS + ve, NO Bruit, Non Tender, Non Distended : no CVA tenderness, no Suprapubic Tenderness DIAGNOSIS/ASSESSMENT Assessment & Plan MIRYAM - ? CAN from CTA; ? related to stone, ^ed ESR asso phenomenon. Current fluid and E-lyte status does not necessitate emergent need for dialysis, unless resp status worsens. Will re-evaluate for dialysis in the am. Upcoming need vs high risk for same was explained to pt and daughter. CKD III - HTnsive / NS Renal Cysts - Chronic kidney Stone - No reported [place], not sure he can lay flat for Nuc Med scan. ( was unable to do VQ scan either) NSTEMI - needs [facility] as discussed with Dr Dawn. no current ongoing CP. may have to proceed if CP reccurs. ANEMIA; no Aranap ordered yet. Transfuse needed HTN: Current BP meds as reviewed; remains on NTG gtt. Discussed Plan of Care with family (daughter) and Dr Dawn at bedside Problems: COMMENT/RELEVANT DATA Meds Current Medications Medications (Trade) Dose Ordered Sig/Prabha Start Time Stop Time Status Last Admin Dose Admin Acetaminophen (Tylenol) 650 mg PRN Q4HRS PRN 07/28/16 19:15 07/29/16 19:14 DC Albuterol Sulfate (Ventolin Neb Soln) 2.5 mg PRN Q2HR PRN 07/30/16 03:30 07/30/16 21:34 2.5 MG Albuterol/ Ipratropium (Duoneb) 3 ml RTQID 07/29/16 08:00 07/31/16 11:50 3 ML Aspirin (Lionel Aspirin) 325 mg [id number] 07/29/16 09:45 07/31/16 09:59 325 MG Aspirin (Children'S Aspirin) 324 mg 1X ONCE 07/28/16 18:30 07/28/16 18:31 DC 07/28/16 18:27 324 MG Atorvastatin Calcium (Lipitor) 20 mg QHS 07/29/16 21:00 07/30/16 20:19 20 MG Doxazosin Mesylate (Cardura) 4 mg DAILY 07/29/16 09:00 07/31/16 09:59 4 MG Doxycycline Hyclate (Vibra-Tab) 100 mg BID 07/30/16 14:00 07/31/16 09:58 100 MG Famotidine (Pepcid) 20 mg HS 07/30/16 21:00 07/30/16 20:19 20 MG Famotidine 40 mg 40 mg HS 07/29/16 21:00 07/30/16 07:52 DC 07/29/16 20:49 40 MG Fentanyl Citrate (Fentanyl 2ml Vial) 25 mcg PRN Q2HR PRN 07/30/16 23:00 Furosemide (Lasix) 20 mg 1X ONCE 07/29/16 15:00 07/29/16 15:04 DC 07/29/16 15:27 20 MG Furosemide 20 mg 20 mg 1X ONCE 07/29/16 01:00 07/29/16 01:01 DC Heparin Sodium (Porcine) 1,950 unit PRN Q6HRS PRN 07/28/16 18:30 07/29/16 05:33 1,950 UNIT Heparin Sodium (Porcine) 4000 unit 4,000 unit 1X ONCE 07/28/16 18:30 07/28/16 18:32 DC 07/28/16 19:43 4,000 UNIT Heparin Sodium/ Dextrose 500 ml @ 0 mls/hr CONT PRN 07/28/16 18:30 07/31/16 09:11 25.8 MLS/HR Info (Do NOT chart on this entry -- for MONITORING) 1 each PRN DAILY PRN 07/28/16 18:45 07/30/16 18:44 DC Insulin Aspart (Novolog) TIDAC 07/31/16 11:30 07/31/16 12:15 2 UNITS Iohexol (Omnipaque 350 Mg/ml) 100 ml STK-MED ONCE 07/28/16 18:36 07/28/16 18:37 DC Lorazepam (Ativan) 0.5 mg PRN Q4HRS PRN 07/30/16 23:00 07/30/16 23:11 0.5 MG Losartan Potassium (Cozaar) 50 mg DAILY 07/29/16 11:15 07/31/16 10:03 50 MG Methylprednisolone Sodium Succinate (Solu-Medrol 125mg Vial) 125 mg Q8HRS 07/29/16 16:00 07/31/16 05:08 125 MG Metoprolol Tartrate (Lopressor) 12.5 mg BID 07/29/16 09:45 07/31/16 09:59 12.5 MG Morphine Sulfate 4 mg PRN Q2HR PRN 07/28/16 19:15 07/29/16 19:14 DC 07/28/16 23:32 4 MG Nitroglycerin (Nitrostat) 0.4 mg PRN Q5MIN PRN 07/28/16 18:30 07/29/16 18:29 DC 07/28/16 18:27 0.4 MG Nitroglycerin/ Dextrose (Nitroglycerin Drip) 250 ml @ 0 mls/hr CONT PRN 07/29/16 09:45 07/30/16 19:19 9 MLS/HR Ondansetron HCl (Zofran Odt) 4 mg PRN Q8HRS PRN 07/29/16 09:30 Ondansetron HCl (Zofran) 4 mg PRN Q8HRS PRN 07/28/16 19:15 07/29/16 19:14 DC Oxycodone/ Acetaminophen (Percocet 5/325) 1 tab PRN Q6HRS PRN 07/29/16 09:30 07/30/16 23:03 DC 07/30/16 22:22 1 TAB Sodium Chloride (Iv Sodium Chloride 0.9% 1000ml Bag) 1,000 ml @ 80 mls/hr [id number] 07/29/16 05:30 07/29/16 14:30 DC 07/29/16 05:48 80 MLS/HR Tamsulosin HCl (Flomax) 0.4 mg HS 07/29/16 21:00 07/30/16 20:19 0.4 MG Lab Laboratory Tests Test 07/31/16 04:00 07/31/16 12:01 White Blood Count 14.3x10^3/uL (4.0-11.0) Red Blood Count 3.74x10^6/uL (4.30-5.70) Hemoglobin 10.2g/dL (13.0-17.5) Hematocrit 31.6% (39.0-53.0) Mean Corpuscular Volume 84fL (79-100) Mean Corpuscular Hemoglobin 27pg (25-35) Mean Corpuscular Hemoglobin Concent 32g/dL (31-37) Red Cell Distribution Width 14.8% (11.5-14.5) Platelet Count 313x10^3/uL (140-400) Neutrophils (%) (Auto) 93% (31-73) Lymphocytes (%) (Auto) 3% (24-48) Monocytes (%) (Auto) 4% (0-9) Eosinophils (%) (Auto) 0% (0-3) Basophils (%) (Auto) 0% (0-3) Neutrophils # (Auto) 13.3x10^3uL (1.8-7.7) Lymphocytes # (Auto) 0.4x10^3/uL (1.0-4.8) Monocytes # (Auto) 0.6x10^3/uL (0.0-1.1) Eosinophils # (Auto) 0.0x10^3/uL (0.0-0.7) Basophils # (Auto) 0.0x10^3/uL (0.0-0.2) Heparin Anti-Xa Act, Unfractionated 0.40IU/mL (0.30-0.70) Sodium Level 134mmol/L (136-145) Potassium Level 4.5mmol/L (3.5-5.1) Chloride Level 99mmol/L (98-107) Carbon Dioxide Level 23mmol/L (21-32) Anion Gap 12 (6-14) Blood Urea Nitrogen 51mg/dL (8-26) Creatinine 3.7mg/dL (0.7-1.3) Estimated GFR (Cockcroft-Gault) 19.5 Glucose Level 154mg/dL (70-99) Calcium Level 8.4mg/dL (8.5-10.1) Magnesium Level 2.2mg/dL (1.8-2.4) Glucose (Fingerstick) 187mg/dL (70-99) Other 1. Bilateral renal cysts with the largest measuring 11.2 cm on the left, which is mildly increased compared to prior exam. 2. 6.3 mm intrarenal collecting system calculus identified in the right kidney. No evidence of hydronephrosis. BERNICE CASTILLO MD Jul 31, 2016 13:12
[2016-07-31 13:26] LABS: % SAT IRON 14 % (15-34); IRON,SERUM 25 ug/dL (65-175)
--- NOTE | 2016-07-31 14:10 | PDOC ---
PULMONARY PROGRESS NOTES Subjective remains on 100%FIO2 Vitals Vital Signs Date Time Temp Pulse Resp B/P Pulse Ox O2 Delivery O2 Flow Rate FiO2 07/31/16 11:50 95 NonRebreather Mask 15.0 07/31/16 11:49 82 22 121/70 07/31/16 08:00 97.4 97.4 ROS: No Nausea, No Chest Pain, No Abdominal Pain, No Increase Cough General: Alert, Mild Distress Lungs: Crackles (bases) Cardiovascular: S1, S2 Abdomen: Soft Neuro Exam: Alert Extremities: No Edema Skin: Warm Labs Laboratory Tests Test 07/29/16 17:40 07/30/16 00:40 07/30/16 06:30 07/31/16 04:00 Erythrocyte Sedimentation Rate 107 (0-15) Heparin Anti-Xa Act, Unfractionated 0.21IU/mL (0.30-0.70) 0.33IU/mL (0.30-0.70) 0.37IU/mL (0.30-0.70) 0.40IU/mL (0.30-0.70) White Blood Count 10.6x10^3/uL (4.0-11.0) 14.3x10^3/uL (4.0-11.0) Red Blood Count 3.92x10^6/uL (4.30-5.70) 3.74x10^6/uL (4.30-5.70) Hemoglobin 10.7g/dL (13.0-17.5) 10.2g/dL (13.0-17.5) Hematocrit 32.8% (39.0-53.0) 31.6% (39.0-53.0) Mean Corpuscular Volume 84fL (79-100) 84fL (79-100) Mean Corpuscular Hemoglobin 27pg (25-35) 27pg (25-35) Mean Corpuscular Hemoglobin Concent 33g/dL (31-37) 32g/dL (31-37) Red Cell Distribution Width 15.0% (11.5-14.5) 14.8% (11.5-14.5) Platelet Count 330x10^3/uL (140-400) 313x10^3/uL (140-400) Neutrophils (%) (Auto) 92% (31-73) 93% (31-73) Lymphocytes (%) (Auto) 5% (24-48) 3% (24-48) Monocytes (%) (Auto) 2% (0-9) 4% (0-9) Eosinophils (%) (Auto) 0% (0-3) 0% (0-3) Basophils (%) (Auto) 0% (0-3) 0% (0-3) Neutrophils # (Auto) 9.8x10^3uL (1.8-7.7) 13.3x10^3uL (1.8-7.7) Lymphocytes # (Auto) 0.5x10^3/uL (1.0-4.8) 0.4x10^3/uL (1.0-4.8) Monocytes # (Auto) 0.2x10^3/uL (0.0-1.1) 0.6x10^3/uL (0.0-1.1) Eosinophils # (Auto) 0.0x10^3/uL (0.0-0.7) 0.0x10^3/uL (0.0-0.7) Basophils # (Auto) 0.0x10^3/uL (0.0-0.2) 0.0x10^3/uL (0.0-0.2) Segmented Neutrophils % 94% (35-66) Band Neutrophils % 1% (0-9) Lymphocytes % 3% (24-48) Monocytes % 2% (0-10) Platelet Estimate Adequate (ADEQUATE) Anisocytosis Slight Sodium Level 137mmol/L (136-145) 134mmol/L (136-145) Potassium Level 4.5mmol/L (3.5-5.1) 4.5mmol/L (3.5-5.1) Chloride Level 103mmol/L (98-107) 99mmol/L (98-107) Carbon Dioxide Level 20mmol/L (21-32) 23mmol/L (21-32) Anion Gap 14 (6-14) 12 (6-14) Blood Urea Nitrogen 35mg/dL (8-26) 51mg/dL (8-26) Creatinine 3.1mg/dL (0.7-1.3) 3.7mg/dL (0.7-1.3) Estimated GFR (Cockcroft-Gault) 24.0 19.5 Glucose Level 166mg/dL (70-99) 154mg/dL (70-99) Calcium Level 8.6mg/dL (8.5-10.1) 8.4mg/dL (8.5-10.1) Magnesium Level 2.2mg/dL (1.8-2.4) 2.2mg/dL (1.8-2.4) Reticulocyte Count (auto) 1.3% (0.5-2.5) Iron Level 25ug/dL (65-175) Total Iron Binding Capacity 176ug/dL (250-450) Iron Saturation 14% (15-34) Ferritin 250ng/mL (26-388) Test 07/31/16 12:01 Glucose (Fingerstick) 187mg/dL (70-99) Laboratory Tests Test 07/31/16 04:00 07/31/16 12:01 White Blood Count 14.3x10^3/uL (4.0-11.0) Red Blood Count 3.74x10^6/uL (4.30-5.70) Hemoglobin 10.2g/dL (13.0-17.5) Hematocrit 31.6% (39.0-53.0) Mean Corpuscular Volume 84fL (79-100) Mean Corpuscular Hemoglobin 27pg (25-35) Mean Corpuscular Hemoglobin Concent 32g/dL (31-37) Red Cell Distribution Width 14.8% (11.5-14.5) Platelet Count 313x10^3/uL (140-400) Neutrophils (%) (Auto) 93% (31-73) Lymphocytes (%) (Auto) 3% (24-48) Monocytes (%) (Auto) 4% (0-9) Eosinophils (%) (Auto) 0% (0-3) Basophils (%) (Auto) 0% (0-3) Neutrophils # (Auto) 13.3x10^3uL (1.8-7.7) Lymphocytes # (Auto) 0.4x10^3/uL (1.0-4.8) Monocytes # (Auto) 0.6x10^3/uL (0.0-1.1) Eosinophils # (Auto) 0.0x10^3/uL (0.0-0.7) Basophils # (Auto) 0.0x10^3/uL (0.0-0.2) Reticulocyte Count (auto) 1.3% (0.5-2.5) Heparin Anti-Xa Act, Unfractionated 0.40IU/mL (0.30-0.70) Sodium Level 134mmol/L (136-145) Potassium Level 4.5mmol/L (3.5-5.1) Chloride Level 99mmol/L (98-107) Carbon Dioxide Level 23mmol/L (21-32) Anion Gap 12 (6-14) Blood Urea Nitrogen 51mg/dL (8-26) Creatinine 3.7mg/dL (0.7-1.3) Estimated GFR (Cockcroft-Gault) 19.5 Glucose Level 154mg/dL (70-99) Calcium Level 8.4mg/dL (8.5-10.1) Magnesium Level 2.2mg/dL (1.8-2.4) Iron Level 25ug/dL (65-175) Total Iron Binding Capacity 176ug/dL (250-450) Iron Saturation 14% (15-34) Ferritin 250ng/mL (26-388) Glucose (Fingerstick) 187mg/dL (70-99) Medications Active Scripts Medications Dose Route/Sig Days Date Category Aspirin Ec (Aspirin) 81 Mg Tablet.dr 81 Mg PO DAILY 07/29/16 Reported Amlodipine Besylate 10 Mg Tablet 10 Mg PO DAILY 07/28/16 Reported Percocet 5-325 Mg Tablet (Oxycodone/Acetaminophen) 1 Each Tablet 1 Tab PO PRN Q6HRS PRN 07/28/16 Reported Doxazosin Mesylate 4 Mg Tablet 1 Tab PO DAILY 07/28/16 Reported Tamsulosin Hcl 0.4 Mg Cap.er.24h 1 Cap PO DAILY 07/28/16 Reported Ondansetron Odt (Ondansetron) 4 Mg Tab.rapdis 1 Tab PO PRN Q8HRS PRN 07/28/16 Reported Famotidine 40 Mg Tablet 40 Mg PO HS 02/12/14 Reported Telmisartan 80 Mg Tablet 80 Mg PO 02/12/14 Reported Impression . 1. 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 superimposed CHF (cxr worse /6) 2. Chronic obstructive pulmonary disease with exacerbation. 3. Chronic atrial fibrillation. 4. Chronic kidney disease. 5. Benign prostatic hyperplasia. 6. Hypertension. 7. Kidney stones 8. NON STEMI Plan . 1. 100%FIO2 / prn BiPAP, 2. d/w Dr Kenny and patient/family. We have to make a quick decision to help him breathe better. CXR today with worsening CHF/ will try IV lasix, If no improvement ,HD 3. High dose steroids, sed rate elevated 4. MIRYAM, suspect contrast induced 5. The patient instructed on the importance of discontinuing tobacco use 6. d/w RN 7. cath once stable ZACKARY FARFAN MD Jul 31, 2016 14:09
[2016-07-31] MEDS ORDERED: FUROSEMIDE 40 MG/4 ML VIAL IVP ONE ×2 (14:15)
[2016-07-31] MEDS: LORAZEPAM 2 MG/ML VIAL IV PRN ×2 (14:36→20:57)
--- NOTE | 2016-07-31 16:07 | RAD ---
EXAM: Chest one view. HISTORY: Interstitial lung disease versus congestive heart failure. COMPARISON: 07/28/2016, 07/29/2016. FINDINGS: A frontal view of the chest is obtained. Interstitial opacities with upper lobe and mid lung predominance correspond with cystic changes on prior CT. Right greater than left perihilar opacities have increased. Lung volumes are smaller. Small pleural effusions are suspected. There is no pneumothorax. The heart is not clearly enlarged given this projection. There is mild bilateral glenohumeral osteoarthritis with a loose body on the right. IMPRESSION: 1. Interstitial opacities bilaterally correspond with emphysematous changes versus cystic changes in the upper lobes, better demonstrated on CT. These may reflect either centrilobular emphysema, cystic lung diseases such as Langerhans cell histiocytosis, or combination thereof. There are increasing superimposed interstitial opacities consistent with pulmonary edema, possibly with pneumonia on the right.
[2016-07-31 16:51] LABS: BILIRUBIN,URINE NEGATIVE (NEG); GLUCOSE,URINE NEGATIVE (NEG); NITRITE,URINE NEGATIVE (NEG); PH,URINE 5.5; PROTEIN,URINE NEGATIVE (NEG-TRACE); UROBILINOGEN,URINE 0.2 mg/dL (0.2 mg/dL)
[2016-07-31 17:25] LABS: RBC,URINE 0 /HPF (0-2)
[2016-07-31 17:26] LABS: BACTERIA,URINE 0 /HPF (0-FEW); SQUAMOUS EPITHELIAL CELL,UR OCC /LPF; WBC,URINE OCC /HPF (0-4)
[2016-07-31] MEDS: FAMOTIDINE 20 MG TABLET. PO SCH (20:57)
[2016-07-31] MEDS: TAMSULOSIN 0.4 MG CAP.ER.24H. PO SCH (20:57)
[2016-07-31] MEDS: ATORVASTATIN CALCIUM 20 MG TABLET PO SCH (20:57)
[2016-07-31] MEDS: NITROGLYCERIN PREMIX 250 ML IV PRN (23:56)
[2016-08-01] VITALS (14 sets, daily range): BP systolic 91–132; BP diastolic 53–81
[2016-08-01] MEDS: LORAZEPAM 2 MG/ML VIAL IV PRN (00:53)
[2016-08-01 04:45] LABS: BASO % 0 % (0-3); EOS % 0 % (0-3); HEMATOCRIT 30.2 % (39.0-53.0); HEMOGLOBIN 9.7 g/dL (13.0-17.5); LYMPH # 0.4 x10^3/uL (1.0-4.8); LYMPH % 3 % (24-48); MEAN CORPUSCULAR HEMOGLOBIN 27 pg (25-35); MEAN CORPUSCULAR HGB CONC 32 g/dL (31-37); MEAN CORPUSCULAR VOLUME 85 fL (79-100); MONO % 4 % (0-9); NEUT % 92 % (31-73); PLATELET COUNT 321 x10^3/uL (140-400); RED BLOOD COUNT 3.58 x10^6/uL (4.30-5.70); RED CELL DISTRIBUTION WIDTH 14.9 % (11.5-14.5); WHITE BLOOD COUNT 12.8 x10^3/uL (4.0-11.0)
[2016-08-01 05:01] LABS: ALBUMIN 2.3 g/dL (3.4-5.0); CALCIUM 8.1 mg/dL (8.5-10.1); GFR 17.8; MAGNESIUM 2.4 mg/dL (1.8-2.4); PHOSPHORUS 7.2 mg/dL (2.6-4.7); POTASSIUM 4.7 mmol/L (3.5-5.1)
[2016-08-01] MEDS: HEPARIN 25,000UTS/500ML PREMIX 500 ML IV PRN (05:29)
[2016-08-01] MEDS: methylPREDNISolone SOD SUCC PF 125 MG/2 ML VIAL. IV SCH ×3 (05:30→21:58)
[2016-08-01] MEDS: INSULIN ASPART 300 UNITS/3 ML INSULN.PEN SQ SCH ×3 (07:30→16:30)
[2016-08-01] MEDS: IPRATRPIUM/ALBUTEROL 0.5/2.5MG 3 ML NEBU. NEB SCH ×3 (08:00→19:38)
[2016-08-01] MEDS: DOXAZOSIN MESYLATE 4 MG TABLET PO SCH (09:00)
[2016-08-01] MEDS: LOSARTAN POTASSIUM 50 MG TABLET. PO SCH (09:00)
[2016-08-01] MEDS: ASPIRIN 325 MG TABLET PO SCH (09:04)
[2016-08-01] MEDS: DOXYCYCLINE HYCLATE 100 MG TABLET PO SCH ×2 (09:05→21:58)
--- NOTE | 2016-08-01 09:07 | PDOC ---
LC RUSSELL WRAPPER OFF 08/01/16 0907: IM PROGRESS NOTES- Subjective Subjective no chest pain Objective Objective alert no distress Vitals Vital Signs Date Time Temp Pulse Resp B/P Pulse Ox O2 Delivery O2 Flow Rate FiO2 08/01/16 08:07 Nasal Cannula 15.0 08/01/16 08:02 90 08/01/16 07:29 97.4 79 23 120/57 97.4 Input & Output Intake and Output 08/01/16 07:00 Intake Total 973 ml Output Total 1600 ml Balance -627 ml Intake Oral 350 ml IV Total 623 ml Output Urine Total 1600 ml # Bowel Movements 1 Physical Exam Physical Exam General appearance - alert, ill appearing, and in no distress Mental Status - alert, oriented to person, place, and time, affect appropriate to mood Head - normal Chest - clear to auscultation, no wheezes, rales or rhonchi Heart - S1 and S2 normal Abdomen - soft, nontender, nondistended, BS+ Neurological - no acute neurological deficit noted Musculoskeletal - no muscular tenderness noted Extremities - no pedal edema Skin - warm and dry Labs Laboratory Tests Test 07/31/16 04:00 07/31/16 12:01 07/31/16 14:50 07/31/16 17:34 White Blood Count 14.3x10^3/uL (4.0-11.0) Red Blood Count 3.74x10^6/uL (4.30-5.70) Hemoglobin 10.2g/dL (13.0-17.5) Hematocrit 31.6% (39.0-53.0) Mean Corpuscular Volume 84fL (79-100) Mean Corpuscular Hemoglobin 27pg (25-35) Mean Corpuscular Hemoglobin Concent 32g/dL (31-37) Red Cell Distribution Width 14.8% (11.5-14.5) Platelet Count 313x10^3/uL (140-400) Neutrophils (%) (Auto) 93% (31-73) Lymphocytes (%) (Auto) 3% (24-48) Monocytes (%) (Auto) 4% (0-9) Eosinophils (%) (Auto) 0% (0-3) Basophils (%) (Auto) 0% (0-3) Neutrophils # (Auto) 13.3x10^3uL (1.8-7.7) Lymphocytes # (Auto) 0.4x10^3/uL (1.0-4.8) Monocytes # (Auto) 0.6x10^3/uL (0.0-1.1) Eosinophils # (Auto) 0.0x10^3/uL (0.0-0.7) Basophils # (Auto) 0.0x10^3/uL (0.0-0.2) Reticulocyte Count (auto) 1.3% (0.5-2.5) Heparin Anti-Xa Act, Unfractionated 0.40IU/mL (0.30-0.70) Sodium Level 134mmol/L (136-145) Potassium Level 4.5mmol/L (3.5-5.1) Chloride Level 99mmol/L (98-107) Carbon Dioxide Level 23mmol/L (21-32) Anion Gap 12 (6-14) Blood Urea Nitrogen 51mg/dL (8-26) Creatinine 3.7mg/dL (0.7-1.3) Estimated GFR (Cockcroft-Gault) 19.5 Glucose Level 154mg/dL (70-99) Calcium Level 8.4mg/dL (8.5-10.1) Magnesium Level 2.2mg/dL (1.8-2.4) Iron Level 25ug/dL (65-175) Total Iron Binding Capacity 176ug/dL (250-450) Iron Saturation 14% (15-34) Ferritin 250ng/mL (26-388) Procalcitonin 0.39ng/mL (0.00-0.10) Glucose (Fingerstick) 187mg/dL (70-99) 149mg/dL (70-99) Urine Color Yellow Urine Clarity Clear Urine pH 5.5 Urine Specific [place] 1.010 Urine Protein Negativemg/dL (NEG-TRACE) Urine Glucose (UA) Negativemg/dL (NEG) Urine Ketones (Stick) Negativemg/dL (NEG) Urine Blood Negative (NEG) Urine Nitrite Negative (NEG) Urine Bilirubin Negative (NEG) Urine Urobilinogen Dipstick 0.2mg/dL (0.2 mg/dL) Urine Leukocyte Esterase Negative (NEG) Urine RBC 0/HPF (0-2) Urine WBC Occ/HPF (0-4) Urine Squamous Epithelial Cells Occ/LPF Urine Bacteria 0/HPF (0-FEW) Urine Mucus Slight/LPF Test 08/01/16 04:20 08/01/16 06:00 08/01/16 07:38 White Blood Count 12.8x10^3/uL (4.0-11.0) Red Blood Count 3.58x10^6/uL (4.30-5.70) Hemoglobin 9.7g/dL (13.0-17.5) Hematocrit 30.2% (39.0-53.0) Mean Corpuscular Volume 85fL (79-100) Mean Corpuscular Hemoglobin 27pg (25-35) Mean Corpuscular Hemoglobin Concent 32g/dL (31-37) Red Cell Distribution Width 14.9% (11.5-14.5) Platelet Count 321x10^3/uL (140-400) Neutrophils (%) (Auto) 92% (31-73) Lymphocytes (%) (Auto) 3% (24-48) Monocytes (%) (Auto) 4% (0-9) Eosinophils (%) (Auto) 0% (0-3) Basophils (%) (Auto) 0% (0-3) Neutrophils # (Auto) 11.9x10^3uL (1.8-7.7) Lymphocytes # (Auto) 0.4x10^3/uL (1.0-4.8) Monocytes # (Auto) 0.5x10^3/uL (0.0-1.1) Eosinophils # (Auto) 0.0x10^3/uL (0.0-0.7) Basophils # (Auto) 0.0x10^3/uL (0.0-0.2) Sodium Level 136mmol/L (136-145) Potassium Level 4.7mmol/L (3.5-5.1) Chloride Level 101mmol/L (98-107) Carbon Dioxide Level 22mmol/L (21-32) Anion Gap 13 (6-14) Blood Urea Nitrogen 67mg/dL (8-26) Creatinine 4.0mg/dL (0.7-1.3) Estimated GFR (Cockcroft-Gault) 17.8 Glucose Level 137mg/dL (70-99) Calcium Level 8.1mg/dL (8.5-10.1) Phosphorus Level 7.2mg/dL (2.6-4.7) Magnesium Level 2.4mg/dL (1.8-2.4) Albumin 2.3g/dL (3.4-5.0) Heparin Anti-Xa Act, Unfractionated 0.44IU/mL (0.30-0.70) Glucose (Fingerstick) 138mg/dL (70-99) Laboratory Tests Test 07/31/16 12:01 07/31/16 14:50 07/31/16 17:34 08/01/16 04:20 Glucose (Fingerstick) 187mg/dL (70-99) 149mg/dL (70-99) Urine Color Yellow Urine Clarity Clear Urine pH 5.5 Urine Specific [place] 1.010 Urine Protein Negativemg/dL (NEG-TRACE) Urine Glucose (UA) Negativemg/dL (NEG) Urine Ketones (Stick) Negativemg/dL (NEG) Urine Blood Negative (NEG) Urine Nitrite Negative (NEG) Urine Bilirubin Negative (NEG) Urine Urobilinogen Dipstick 0.2mg/dL (0.2 mg/dL) Urine Leukocyte Esterase Negative (NEG) Urine RBC 0/HPF (0-2) Urine WBC Occ/HPF (0-4) Urine Squamous Epithelial Cells Occ/LPF Urine Bacteria 0/HPF (0-FEW) Urine Mucus Slight/LPF White Blood Count 12.8x10^3/uL (4.0-11.0) Red Blood Count 3.58x10^6/uL (4.30-5.70) Hemoglobin 9.7g/dL (13.0-17.5) Hematocrit 30.2% (39.0-53.0) Mean Corpuscular Volume 85fL (79-100) Mean Corpuscular Hemoglobin 27pg (25-35) Mean Corpuscular Hemoglobin Concent 32g/dL (31-37) Red Cell Distribution Width 14.9% (11.5-14.5) Platelet Count 321x10^3/uL (140-400) Neutrophils (%) (Auto) 92% (31-73) Lymphocytes (%) (Auto) 3% (24-48) Monocytes (%) (Auto) 4% (0-9) Eosinophils (%) (Auto) 0% (0-3) Basophils (%) (Auto) 0% (0-3) Neutrophils # (Auto) 11.9x10^3uL (1.8-7.7) Lymphocytes # (Auto) 0.4x10^3/uL (1.0-4.8) Monocytes # (Auto) 0.5x10^3/uL (0.0-1.1) Eosinophils # (Auto) 0.0x10^3/uL (0.0-0.7) Basophils # (Auto) 0.0x10^3/uL (0.0-0.2) Sodium Level 136mmol/L (136-145) Potassium Level 4.7mmol/L (3.5-5.1) Chloride Level 101mmol/L (98-107) Carbon Dioxide Level 22mmol/L (21-32) Anion Gap 13 (6-14) Blood Urea Nitrogen 67mg/dL (8-26) Creatinine 4.0mg/dL (0.7-1.3) Estimated GFR (Cockcroft-Gault) 17.8 Glucose Level 137mg/dL (70-99) Calcium Level 8.1mg/dL (8.5-10.1) Phosphorus Level 7.2mg/dL (2.6-4.7) Magnesium Level 2.4mg/dL (1.8-2.4) Albumin 2.3g/dL (3.4-5.0) Test 08/01/16 06:00 08/01/16 07:38 Heparin Anti-Xa Act, Unfractionated 0.44IU/mL (0.30-0.70) Glucose (Fingerstick) 138mg/dL (70-99) Meds Current Medications Furosemide (Lasix) 40 mg 1X ONCE IVP Last administered on 07/31/16 14:21; Start 07/31/16 at 14:15; Stop 07/31/16 at 14:18; Status DC Furosemide (Lasix) 40 mg 1X ONCE IVP ; Start 07/31/16 at 14:15; Stop 07/31/16 at 14:18; Status DC Insulin Aspart TIDAC SQ Last administered on 07/31/16 12:15; Start 07/31/16 at 11:30 Magnesium Sulfate/ Dextrose (Magnesium Sulfate PREMIX 2GM) 50 ml @ 25 mls/hr PRN DAILY PRN IV for Mag < 1.7 on am labs; Start 07/31/16 at 13:00 Assessment Assessment IMPRESSION: 1. Chest pain, acute non-ST elevation myocardial infarction with elevated troponin 2. AECOPD with undelrying bullous emphysema/ILD-fibrosis 3. Acute hypoxic respiratory failure with underlying COPD/ILD/ acute NSTEMI 4. 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 Benign prostatic hyperplasia. 6. Hypertension. 7. Kidney stone R intrarenal collect sx 6.3mm 8. steroid induced DM II with hyperglycemia 9. bilateral renal cyst 9, Afib chronic h/o 10. a/c systolic CHF POA EF 50% mod MR 11. acute bronchitis POA PLAN: acute NSTEMI cardiology consult Max troponin 21.220 ECHO EF 50% neg CT PE or dissection venous doppler negative cardiac cath is planned PT-cardiac rehab ordered Heparin/NTG infusions CC on hold due to ARF acute respiratory failure pulmonary consult Desat 07/30 evening-tolerated BIPAP 30 min, Non rebreather Sat 6.-84% acute bronchitis-doxycycline AECOPD-solumedrol 125mg IV bullous emphysema/ILD ESR elevated -steroids cardio note wheezing w/? hold BB- CHF, has agreed to HD, will continue BB ARF with CKD nephrology consult Admit BUN 27 08/01 67 Cr 2.9 4.0 K 4.5 4.7 Na 136 PO4 7.2 Has agreed to dialysis, consent completed. Await order from nephrology A/C systolic CHF with EF 50% mod MR daily wt Admit wt 183# 03/06 191# I/O to begin dialysis hyperlipidemia LDL 142 anemia renal disease Admit Hgb 11.7 08/01 9.7 monitor Fe 25 TIBC 176 FeSo4 14 Ferritn 250 DVT/GI prophylaxis Hep gtt Pepcid DM steroid induced FSBS no ssi BS 137-187 For further plan of care, please refer to the orders. condition treatment,options d/w the patient extensively. The patient was seen and examined by me. Chart reviewed and plan of care formulated. Discussed with, reviewed and agree with WEED INSPECTOR's notes, plan of care and orders with modifications as necessary. For more details regarding further plans, please refer to the orders. Plan Plan For more details regarding further plans, please refer to the orders. SEGUNDO STOCK MD 08/01/16 1000: IM PROGRESS NOTES- Assessment Assessment D/w patient,.He is agreeable to HD. The patient was seen and examined by me. Chart reviewed and plan of care formulated. Discussed with, reviewed and agree with WEED INSPECTOR's notes, plan of care and orders with modifications as necessary. For more details regarding further plans, please refer to the orders. LC RUSSELL APRN Aug 01, 2016 09:07 SEGUNDO STOCK MD Aug 01, 2016 10:00
--- NOTE | 2016-08-01 09:10 | PDOC ---
PULMONARY PROGRESS NOTES Subjective remains on 15 litres high flow canula Vitals Vital Signs Date Time Temp Pulse Resp B/P Pulse Ox O2 Delivery O2 Flow Rate FiO2 08/01/16 08:07 Nasal Cannula 15.0 08/01/16 08:02 90 08/01/16 07:29 97.4 79 23 120/57 97.4 ROS: No Nausea, No Chest Pain, No Abdominal Pain, No Increase Cough General: Alert Lungs: Crackles (bases) Cardiovascular: S1, S2 Abdomen: Soft Neuro Exam: Alert Extremities: No Edema Skin: Warm Labs Laboratory Tests Test 07/31/16 04:00 07/31/16 12:01 07/31/16 14:50 07/31/16 17:34 White Blood Count 14.3x10^3/uL (4.0-11.0) Red Blood Count 3.74x10^6/uL (4.30-5.70) Hemoglobin 10.2g/dL (13.0-17.5) Hematocrit 31.6% (39.0-53.0) Mean Corpuscular Volume 84fL (79-100) Mean Corpuscular Hemoglobin 27pg (25-35) Mean Corpuscular Hemoglobin Concent 32g/dL (31-37) Red Cell Distribution Width 14.8% (11.5-14.5) Platelet Count 313x10^3/uL (140-400) Neutrophils (%) (Auto) 93% (31-73) Lymphocytes (%) (Auto) 3% (24-48) Monocytes (%) (Auto) 4% (0-9) Eosinophils (%) (Auto) 0% (0-3) Basophils (%) (Auto) 0% (0-3) Neutrophils # (Auto) 13.3x10^3uL (1.8-7.7) Lymphocytes # (Auto) 0.4x10^3/uL (1.0-4.8) Monocytes # (Auto) 0.6x10^3/uL (0.0-1.1) Eosinophils # (Auto) 0.0x10^3/uL (0.0-0.7) Basophils # (Auto) 0.0x10^3/uL (0.0-0.2) Reticulocyte Count (auto) 1.3% (0.5-2.5) Heparin Anti-Xa Act, Unfractionated 0.40IU/mL (0.30-0.70) Sodium Level 134mmol/L (136-145) Potassium Level 4.5mmol/L (3.5-5.1) Chloride Level 99mmol/L (98-107) Carbon Dioxide Level 23mmol/L (21-32) Anion Gap 12 (6-14) Blood Urea Nitrogen 51mg/dL (8-26) Creatinine 3.7mg/dL (0.7-1.3) Estimated GFR (Cockcroft-Gault) 19.5 Glucose Level 154mg/dL (70-99) Calcium Level 8.4mg/dL (8.5-10.1) Magnesium Level 2.2mg/dL (1.8-2.4) Iron Level 25ug/dL (65-175) Total Iron Binding Capacity 176ug/dL (250-450) Iron Saturation 14% (15-34) Ferritin 250ng/mL (26-388) Procalcitonin 0.39ng/mL (0.00-0.10) Glucose (Fingerstick) 187mg/dL (70-99) 149mg/dL (70-99) Urine Color Yellow Urine Clarity Clear Urine pH 5.5 Urine Specific [place] 1.010 Urine Protein Negativemg/dL (NEG-TRACE) Urine Glucose (UA) Negativemg/dL (NEG) Urine Ketones (Stick) Negativemg/dL (NEG) Urine Blood Negative (NEG) Urine Nitrite Negative (NEG) Urine Bilirubin Negative (NEG) Urine Urobilinogen Dipstick 0.2mg/dL (0.2 mg/dL) Urine Leukocyte Esterase Negative (NEG) Urine RBC 0/HPF (0-2) Urine WBC Occ/HPF (0-4) Urine Squamous Epithelial Cells Occ/LPF Urine Bacteria 0/HPF (0-FEW) Urine Mucus Slight/LPF Test 08/01/16 04:20 08/01/16 06:00 08/01/16 07:38 White Blood Count 12.8x10^3/uL (4.0-11.0) Red Blood Count 3.58x10^6/uL (4.30-5.70) Hemoglobin 9.7g/dL (13.0-17.5) Hematocrit 30.2% (39.0-53.0) Mean Corpuscular Volume 85fL (79-100) Mean Corpuscular Hemoglobin 27pg (25-35) Mean Corpuscular Hemoglobin Concent 32g/dL (31-37) Red Cell Distribution Width 14.9% (11.5-14.5) Platelet Count 321x10^3/uL (140-400) Neutrophils (%) (Auto) 92% (31-73) Lymphocytes (%) (Auto) 3% (24-48) Monocytes (%) (Auto) 4% (0-9) Eosinophils (%) (Auto) 0% (0-3) Basophils (%) (Auto) 0% (0-3) Neutrophils # (Auto) 11.9x10^3uL (1.8-7.7) Lymphocytes # (Auto) 0.4x10^3/uL (1.0-4.8) Monocytes # (Auto) 0.5x10^3/uL (0.0-1.1) Eosinophils # (Auto) 0.0x10^3/uL (0.0-0.7) Basophils # (Auto) 0.0x10^3/uL (0.0-0.2) Sodium Level 136mmol/L (136-145) Potassium Level 4.7mmol/L (3.5-5.1) Chloride Level 101mmol/L (98-107) Carbon Dioxide Level 22mmol/L (21-32) Anion Gap 13 (6-14) Blood Urea Nitrogen 67mg/dL (8-26) Creatinine 4.0mg/dL (0.7-1.3) Estimated GFR (Cockcroft-Gault) 17.8 Glucose Level 137mg/dL (70-99) Calcium Level 8.1mg/dL (8.5-10.1) Phosphorus Level 7.2mg/dL (2.6-4.7) Magnesium Level 2.4mg/dL (1.8-2.4) Albumin 2.3g/dL (3.4-5.0) Heparin Anti-Xa Act, Unfractionated 0.44IU/mL (0.30-0.70) Glucose (Fingerstick) 138mg/dL (70-99) Laboratory Tests Test 07/31/16 12:01 07/31/16 14:50 07/31/16 17:34 08/01/16 04:20 Glucose (Fingerstick) 187mg/dL (70-99) 149mg/dL (70-99) Urine Color Yellow Urine Clarity Clear Urine pH 5.5 Urine Specific [place] 1.010 Urine Protein Negativemg/dL (NEG-TRACE) Urine Glucose (UA) Negativemg/dL (NEG) Urine Ketones (Stick) Negativemg/dL (NEG) Urine Blood Negative (NEG) Urine Nitrite Negative (NEG) Urine Bilirubin Negative (NEG) Urine Urobilinogen Dipstick 0.2mg/dL (0.2 mg/dL) Urine Leukocyte Esterase Negative (NEG) Urine RBC 0/HPF (0-2) Urine WBC Occ/HPF (0-4) Urine Squamous Epithelial Cells Occ/LPF Urine Bacteria 0/HPF (0-FEW) Urine Mucus Slight/LPF White Blood Count 12.8x10^3/uL (4.0-11.0) Red Blood Count 3.58x10^6/uL (4.30-5.70) Hemoglobin 9.7g/dL (13.0-17.5) Hematocrit 30.2% (39.0-53.0) Mean Corpuscular Volume 85fL (79-100) Mean Corpuscular Hemoglobin 27pg (25-35) Mean Corpuscular Hemoglobin Concent 32g/dL (31-37) Red Cell Distribution Width 14.9% (11.5-14.5) Platelet Count 321x10^3/uL (140-400) Neutrophils (%) (Auto) 92% (31-73) Lymphocytes (%) (Auto) 3% (24-48) Monocytes (%) (Auto) 4% (0-9) Eosinophils (%) (Auto) 0% (0-3) Basophils (%) (Auto) 0% (0-3) Neutrophils # (Auto) 11.9x10^3uL (1.8-7.7) Lymphocytes # (Auto) 0.4x10^3/uL (1.0-4.8) Monocytes # (Auto) 0.5x10^3/uL (0.0-1.1) Eosinophils # (Auto) 0.0x10^3/uL (0.0-0.7) Basophils # (Auto) 0.0x10^3/uL (0.0-0.2) Sodium Level 136mmol/L (136-145) Potassium Level 4.7mmol/L (3.5-5.1) Chloride Level 101mmol/L (98-107) Carbon Dioxide Level 22mmol/L (21-32) Anion Gap 13 (6-14) Blood Urea Nitrogen 67mg/dL (8-26) Creatinine 4.0mg/dL (0.7-1.3) Estimated GFR (Cockcroft-Gault) 17.8 Glucose Level 137mg/dL (70-99) Calcium Level 8.1mg/dL (8.5-10.1) Phosphorus Level 7.2mg/dL (2.6-4.7) Magnesium Level 2.4mg/dL (1.8-2.4) Albumin 2.3g/dL (3.4-5.0) Test 08/01/16 06:00 08/01/16 07:38 Heparin Anti-Xa Act, Unfractionated 0.44IU/mL (0.30-0.70) Glucose (Fingerstick) 138mg/dL (70-99) Medications Active Scripts Medications Dose Route/Sig Days Date Category Aspirin Ec (Aspirin) 81 Mg Tablet.dr 81 Mg PO DAILY 07/29/16 Reported Amlodipine Besylate 10 Mg Tablet 10 Mg PO DAILY 07/28/16 Reported Percocet 5-325 Mg Tablet (Oxycodone/Acetaminophen) 1 Each Tablet 1 Tab PO PRN Q6HRS PRN 07/28/16 Reported Doxazosin Mesylate 4 Mg Tablet 1 Tab PO DAILY 07/28/16 Reported Tamsulosin Hcl 0.4 Mg Cap.er.24h 1 Cap PO DAILY 07/28/16 Reported Ondansetron Odt (Ondansetron) 4 Mg Tab.rapdis 1 Tab PO PRN Q8HRS PRN 07/28/16 Reported Famotidine 40 Mg Tablet 40 Mg PO HS 02/12/14 Reported Telmisartan 80 Mg Tablet 80 Mg PO 02/12/14 Reported Impression . 1. 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 superimposed CHF (cxr worse 07/31) 2. Chronic obstructive pulmonary disease with exacerbation. 3. Chronic atrial fibrillation. 4. Acute MIRYAM on chronic kidney disease. 5. Benign prostatic hyperplasia. 6. Hypertension. 7. Kidney stones 8. NON STEMI Plan . 1. High flow oxygen/ prn BiPAP, 2. d/w Dr Kenny and patient/family. I strongly recommend proceeding with HD. CXR with worsening CHF/ no response to IV lasix, Pt agrees with ,HD 3. High dose steroids, sed rate elevated 4. MIRYAM, suspect contrast induced 5. The patient instructed on the importance of discontinuing tobacco use 6. d/w RN 7. cath once stable ZACKARY FARFAN MD Aug 01, 2016 09:10
[2016-08-01] MEDS: METOPROLOL TART IMMED RELEASE 25 MG TABLET PO SCH ×2 (09:16→21:58)
--- NOTE | 2016-08-01 09:34 | PDOC ---
SUBJECTIVE ROS MIRYAM/ ATN Still SOB CVS: +Orthopnea, no CP RESP: + SOB, no SALEEM (not ambulated per se) GI: no Nausea, no Vomiting; + Anorexia : no Dysuria, no Urgency OBJECTIVE Vital Signs Vital Signs Date Time Temp Pulse Resp B/P Pulse Ox O2 Delivery O2 Flow Rate FiO2 08/01/16 09:16 79 120/57 08/01/16 08:07 Nasal Cannula 15.0 08/01/16 08:02 90 08/01/16 07:29 97.4 23 97.4 I & 0 Intake and Output 08/01/16 07:00 Intake Total 973 ml Output Total 1600 ml Balance -627 ml Intake Oral 350 ml IV Total 623 ml Output Urine Total 1600 ml # Bowel Movements 1 PHYSICAL EXAM Physical Exam GEN: Awake, Oriented x 3, In min- mod distress EYES: Vision Unchanged, Conjunctiva Normal EN: No EN Drainage, Mucous Membranes moist NECK: no JVD, + JVP, Supple, no Thyromegaly CVS: S1S2, ? Murmur, No Gallop, No Rub,no Edema RESP: + diffuse Rales, occ Rhonchi,min Acc. Muscle Use GI: BS + ve, NO Bruit, Non Tender, Non Distended : no CVA tenderness, no Suprapubic Tenderness No Asterixis DIAGNOSIS/ASSESSMENT Assessment & Plan MIRYAM - ? CAN from CTA; ? ARDS related to stone passage, ^ed ESR asso phenomenon. BUN/ Creat continue to trend upwards - will proceed with Hd and pt is agreeable. Temp HD Cath today due to Heparin Dialysis as below F 180 NR 3.0 Hrs 3 K 2.5 Ca 140 Na 40 HC03 Qb 350 + Qd 500+ Heparin on gtt Uf 2-3 Kgs as tolerated May give 25-50 gms of 25% Albumin if needed to maintain Hemodynamic stability Treatment plan reviewed and discussed with cutter and presser CKD III - HTnsive / NS ^ed Phos - start binders. Hypoxia - D/w Dr Tobar, CXR was worse yest and some possibility of pulm edema has been raised so will attempt Uf with HD Renal Cysts - Chronic kidney Stone - No reported [place], not sure he can lay flat for Nuc Med scan. ( was unable to do VQ scan either) NSTEMI - needs LHC as discussed with Dr Dawn/ [employer] DIVING INSTRUCTOR. no current ongoing CP. defer timing of same to cardiology ANEMIA; Aranesp as ordered . Transfuse if needed HTN: Current BP meds as reviewed; remains on NTG gtt. Discussed Plan of Care with family (daughter) and Dr Amin at bedside COMMENT/RELEVANT DATA Meds Current Medications Medications (Trade) Dose Ordered Sig/Prabha Start Time Stop Time Status Last Admin Dose Admin Acetaminophen (Tylenol) 650 mg PRN Q4HRS PRN 07/28/16 19:15 07/29/16 19:14 DC Albuterol Sulfate (Ventolin Neb Soln) 2.5 mg PRN Q2HR PRN 07/30/16 03:30 07/30/16 21:34 2.5 MG Albuterol/ Ipratropium (Duoneb) 3 ml RTQID 07/29/16 08:00 07/31/16 19:21 3 ML Aspirin (Lionel Aspirin) 325 mg [id number] 07/29/16 09:45 08/01/16 09:04 325 MG Aspirin (Children'S Aspirin) 324 mg 1X ONCE 07/28/16 18:30 07/28/16 18:31 DC 07/28/16 18:27 324 MG Atorvastatin Calcium (Lipitor) 20 mg QHS 07/29/16 21:00 07/31/16 20:57 20 MG Doxazosin Mesylate (Cardura) 4 mg DAILY 07/29/16 09:00 07/31/16 09:59 4 MG Doxycycline Hyclate (Vibra-Tab) 100 mg BID 07/30/16 14:00 08/01/16 09:05 100 MG Famotidine (Pepcid) 20 mg HS 07/30/16 21:00 07/31/16 20:57 20 MG Famotidine 40 mg 40 mg HS 07/29/16 21:00 07/30/16 07:52 DC 07/29/16 20:49 40 MG Fentanyl Citrate (Fentanyl 2ml Vial) 25 mcg PRN Q2HR PRN 07/30/16 23:00 Furosemide (Lasix) 40 mg 1X ONCE 07/31/16 14:15 07/31/16 14:18 DC Furosemide 20 mg 20 mg 1X ONCE 07/29/16 01:00 07/29/16 01:01 DC Heparin Sodium (Porcine) 1,950 unit PRN Q6HRS PRN 07/28/16 18:30 07/29/16 05:33 1,950 UNIT Heparin Sodium (Porcine) 4000 unit 4,000 unit 1X ONCE 07/28/16 18:30 07/28/16 18:32 DC 07/28/16 19:43 4,000 UNIT Heparin Sodium/ Dextrose 500 ml @ 0 mls/hr CONT PRN 07/28/16 18:30 08/01/16 05:29 0 MLS/HR Info (Do NOT chart on this entry -- for MONITORING) 1 each PRN DAILY PRN 07/28/16 18:45 07/30/16 18:44 DC Insulin Aspart TIDAC 07/31/16 11:30 07/31/16 12:15 2 UNITS Iohexol (Omnipaque 350 Mg/ml) 100 ml STK-MED ONCE 07/28/16 18:36 07/28/16 18:37 DC Lorazepam (Ativan) 0.5 mg PRN Q4HRS PRN 07/30/16 23:00 08/01/16 00:53 0.5 MG Losartan Potassium (Cozaar) 50 mg DAILY 07/29/16 11:15 07/31/16 10:03 50 MG Magnesium Sulfate/ Dextrose (Magnesium Sulfate PREMIX 2GM) 50 ml @ 25 mls/hr PRN DAILY PRN 07/31/16 13:00 Methylprednisolone Sodium Succinate (Solu-Medrol 125mg Vial) 125 mg Q8HRS 07/29/16 16:00 08/01/16 05:30 125 MG Metoprolol Tartrate (Lopressor) 12.5 mg BID 07/29/16 09:45 08/01/16 09:16 12.5 MG Morphine Sulfate 4 mg PRN Q2HR PRN 07/28/16 19:15 07/29/16 19:14 DC 07/28/16 23:32 4 MG Nitroglycerin (Nitrostat) 0.4 mg PRN Q5MIN PRN 07/28/16 18:30 07/29/16 18:29 DC 07/28/16 18:27 0.4 MG Nitroglycerin/ Dextrose (Nitroglycerin Drip) 250 ml @ 0 mls/hr CONT PRN 07/29/16 09:45 07/31/16 23:56 9 MLS/HR Ondansetron HCl (Zofran Odt) 4 mg PRN Q8HRS PRN 07/29/16 09:30 Ondansetron HCl (Zofran) 4 mg PRN Q8HRS PRN 07/28/16 19:15 07/29/16 19:14 DC Oxycodone/ Acetaminophen (Percocet 5/325) 1 tab PRN Q6HRS PRN 07/29/16 09:30 07/30/16 23:03 DC 07/30/16 22:22 1 TAB Sodium Chloride (Iv Sodium Chloride 0.9% 1000ml Bag) 1,000 ml @ 80 mls/hr [id number] 07/29/16 05:30 07/29/16 14:30 DC 07/29/16 05:48 80 MLS/HR Tamsulosin HCl (Flomax) 0.4 mg HS 07/29/16 21:00 07/31/16 20:57 0.4 MG Lab Laboratory Tests Test 07/31/16 12:01 07/31/16 14:50 07/31/16 17:34 08/01/16 04:20 Glucose (Fingerstick) 187mg/dL (70-99) 149mg/dL (70-99) Urine Color Yellow Urine Clarity Clear Urine pH 5.5 Urine Specific Ophiem 1.010 Urine Protein Negativemg/dL (NEG-TRACE) Urine Glucose (UA) Negativemg/dL (NEG) Urine Ketones (Stick) Negativemg/dL (NEG) Urine Blood Negative (NEG) Urine Nitrite Negative (NEG) Urine Bilirubin Negative (NEG) Urine Urobilinogen Dipstick 0.2mg/dL (0.2 mg/dL) Urine Leukocyte Esterase Negative (NEG) Urine RBC 0/HPF (0-2) Urine WBC Occ/HPF (0-4) Urine Squamous Epithelial Cells Occ/LPF Urine Bacteria 0/HPF (0-FEW) Urine Mucus Slight/LPF White Blood Count 12.8x10^3/uL (4.0-11.0) Red Blood Count 3.58x10^6/uL (4.30-5.70) Hemoglobin 9.7g/dL (13.0-17.5) Hematocrit 30.2% (39.0-53.0) Mean Corpuscular Volume 85fL (79-100) Mean Corpuscular Hemoglobin 27pg (25-35) Mean Corpuscular Hemoglobin Concent 32g/dL (31-37) Red Cell Distribution Width 14.9% (11.5-14.5) Platelet Count 321x10^3/uL (140-400) Neutrophils (%) (Auto) 92% (31-73) Lymphocytes (%) (Auto) 3% (24-48) Monocytes (%) (Auto) 4% (0-9) Eosinophils (%) (Auto) 0% (0-3) Basophils (%) (Auto) 0% (0-3) Neutrophils # (Auto) 11.9x10^3uL (1.8-7.7) Lymphocytes # (Auto) 0.4x10^3/uL (1.0-4.8) Monocytes # (Auto) 0.5x10^3/uL (0.0-1.1) Eosinophils # (Auto) 0.0x10^3/uL (0.0-0.7) Basophils # (Auto) 0.0x10^3/uL (0.0-0.2) Sodium Level 136mmol/L (136-145) Potassium Level 4.7mmol/L (3.5-5.1) Chloride Level 101mmol/L (98-107) Carbon Dioxide Level 22mmol/L (21-32) Anion Gap 13 (6-14) Blood Urea Nitrogen 67mg/dL (8-26) Creatinine 4.0mg/dL (0.7-1.3) Estimated GFR (Cockcroft-Gault) 17.8 Glucose Level 137mg/dL (70-99) Calcium Level 8.1mg/dL (8.5-10.1) Phosphorus Level 7.2mg/dL (2.6-4.7) Magnesium Level 2.4mg/dL (1.8-2.4) Albumin 2.3g/dL (3.4-5.0) Test 08/01/16 06:00 08/01/16 07:38 Heparin Anti-Xa Act, Unfractionated 0.44IU/mL (0.30-0.70) Glucose (Fingerstick) 138mg/dL (70-99) BERNICE CASTILLO MD Aug 01, 2016 09:34
--- NOTE | 2016-08-01 10:08 | PDOC ---
CARDIO Progress Notes Date and Time Date of Service 08/01/2016 Time of Evaluation 1008 Subjective Subjective: No Chest Pain, No Palpitations, No Dizziness, Other (dyspneic with conversation ) Vitals Vitals Vital Signs Date Time Temp Pulse Resp B/P Pulse Ox O2 Delivery O2 Flow Rate FiO2 08/01/16 09:16 79 120/57 08/01/16 08:07 Nasal Cannula 15.0 08/01/16 08:02 90 08/01/16 07:29 97.4 23 97.4 Weight Weight [ ] Stability Assessment Stability Assess.: unstable for transfer (Intesive V. sign monit. req) Input and Output Intake and Output Intake and Output 08/01/16 07:00 Intake Total 973 ml Output Total 1600 ml Balance -627 ml Intake Oral 350 ml IV Total 623 ml Output Urine Total 1600 ml # Bowel Movements 1 Laboratory Labs Laboratory Tests Test 07/31/16 12:01 07/31/16 14:50 07/31/16 17:34 08/01/16 04:20 Glucose (Fingerstick) 187mg/dL (70-99) 149mg/dL (70-99) Urine Color Yellow Urine Clarity Clear Urine pH 5.5 Urine Specific [place] 1.010 Urine Protein Negativemg/dL (NEG-TRACE) Urine Glucose (UA) Negativemg/dL (NEG) Urine Ketones (Stick) Negativemg/dL (NEG) Urine Blood Negative (NEG) Urine Nitrite Negative (NEG) Urine Bilirubin Negative (NEG) Urine Urobilinogen Dipstick 0.2mg/dL (0.2 mg/dL) Urine Leukocyte Esterase Negative (NEG) Urine RBC 0/HPF (0-2) Urine WBC Occ/HPF (0-4) Urine Squamous Epithelial Cells Occ/LPF Urine Bacteria 0/HPF (0-FEW) Urine Mucus Slight/LPF White Blood Count 12.8x10^3/uL (4.0-11.0) Red Blood Count 3.58x10^6/uL (4.30-5.70) Hemoglobin 9.7g/dL (13.0-17.5) Hematocrit 30.2% (39.0-53.0) Mean Corpuscular Volume 85fL (79-100) Mean Corpuscular Hemoglobin 27pg (25-35) Mean Corpuscular Hemoglobin Concent 32g/dL (31-37) Red Cell Distribution Width 14.9% (11.5-14.5) Platelet Count 321x10^3/uL (140-400) Neutrophils (%) (Auto) 92% (31-73) Lymphocytes (%) (Auto) 3% (24-48) Monocytes (%) (Auto) 4% (0-9) Eosinophils (%) (Auto) 0% (0-3) Basophils (%) (Auto) 0% (0-3) Neutrophils # (Auto) 11.9x10^3uL (1.8-7.7) Lymphocytes # (Auto) 0.4x10^3/uL (1.0-4.8) Monocytes # (Auto) 0.5x10^3/uL (0.0-1.1) Eosinophils # (Auto) 0.0x10^3/uL (0.0-0.7) Basophils # (Auto) 0.0x10^3/uL (0.0-0.2) Sodium Level 136mmol/L (136-145) Potassium Level 4.7mmol/L (3.5-5.1) Chloride Level 101mmol/L (98-107) Carbon Dioxide Level 22mmol/L (21-32) Anion Gap 13 (6-14) Blood Urea Nitrogen 67mg/dL (8-26) Creatinine 4.0mg/dL (0.7-1.3) Estimated GFR (Cockcroft-Gault) 17.8 Glucose Level 137mg/dL (70-99) Calcium Level 8.1mg/dL (8.5-10.1) Phosphorus Level 7.2mg/dL (2.6-4.7) Magnesium Level 2.4mg/dL (1.8-2.4) Albumin 2.3g/dL (3.4-5.0) Test 08/01/16 06:00 08/01/16 07:38 Heparin Anti-Xa Act, Unfractionated 0.44IU/mL (0.30-0.70) Glucose (Fingerstick) 138mg/dL (70-99) Case Discussion Case Discussed with: Physician (PCP and nephrology) Review of Systems Pulmonary: Yes cough dry, Yes dyspnea Cardiovascular: No chest pain Physical Exam HEENT: Neck Supple W Full Motion Chest: Symmetric LUNGS: Other (crackles all the way up posteriorly as well as anteriorly; exp wheezing present) Heart: S1S2, RRR, other (tele: SR with bigeminal PVCs) Abdomen: Soft N/T Extremities: 2+ Dorsalis Pedis, No Edema Neurology: alert, oriented, follow commands Assessment Assessment 1. NSTEMI troponin peaked @ 21.22 CT chest negative for dissection echo with mild basal posterior hypokinesis remains on heparin gtt, low dose beta-blockers, ARBs and statin therapy cardiac cath has been delayed due to renal function will tentatively schedule for tomorrow and re-evaluate pt in a.m. to determine if he can lie flat dialysis later today 2. acute CHF, likely systolic, LVEF 50% crackles all the way up posteriorly as well as anteriorly - unable to diurese due to renal function on IV NTG to dialyze later today 3. acute respiratory failure with AECOPD O2 stats variable treated with abx and steroids 4. acute on CKD - 4 BUN and Cr increasing per nephrology temp dialysis cath to be placed 5. Hyperlipidemia LDLS = 143 has been started on statin therapy HUMA GRIGSBY APRN Aug 01, 2016 10:08
[2016-08-01] MEDS ORDERED: LIDOCAINE 1% / SOD BICARB 8.4% 20 ML VIAL. IJ ONE (10:30)
--- NOTE | 2016-08-01 11:17 | PDOC ---
Exam Net Development Manager Net Development Manager Angelica Workforce Development Assistant Workforce Development Assistant Lucrecia Flowers Pre-Procedure Diagnosis Pre-Procedure Diagnosis MIRYAM on CKD ---needs HD Post-Procedure Diagnosis Post-Procedure Diagnosis Same Procedure Performed Procedure Performed Sono/fluoro guided temp HDC insertion Type of Anesthesia Type of Anesthesia Local Estimated Blood Loss EBL: Minimal Drain/Tubes Drains/Tubes Rt IJ 14F 20cm Schon Temp HDC Condition of Patient Condition of Patient Stable. No apparent complication Disposition Disposition From IR return to 266. F/u with Renal. OK to use temp HDC. Full report to follow. TESFAYE DELANEY MD Aug 01, 2016 11:17
[2016-08-01] MEDS: CALCIUM ACETATE 667 MG CAPSULE PO SCH ×2 (12:22→17:32)
[2016-08-01] MEDS ORDERED: IV NORMAL SALINE 1000ML BAG 1,000 ML IV PRN (17:23)
[2016-08-01] MEDS ORDERED: DIALYSIS PATIENT. MC PRN ×2 (17:30)
[2016-08-01] MEDS ORDERED: 0.9 % SODIUM CHLORIDE 10 ML DISP.SYRIN. IV PRN ×2 (17:30)
[2016-08-01] MEDS ORDERED: DARBEPOETIN ALFA 60 MCG/0.3 ML DISP.SYRIN. SQ SCH (21:00)
[2016-08-01] MEDS: TAMSULOSIN 0.4 MG CAP.ER.24H. PO SCH (21:58)
[2016-08-01] MEDS: FAMOTIDINE 20 MG TABLET. PO SCH (21:59)
[2016-08-01] MEDS: ATORVASTATIN CALCIUM 20 MG TABLET PO SCH (21:59)
[2016-08-01] MEDS: ALBUTEROL SULFATE 2.5 MG/3 ML NEBU. IH PRN (22:20)
[2016-08-02] VITALS (17 sets, daily range): BP systolic 113–151; BP diastolic 56–82
[2016-08-02] MEDS: HEPARIN 25,000UTS/500ML PREMIX 500 ML IV PRN (01:21)
[2016-08-02 04:06] LABS: BASO % 0 % (0-3); EOS % 0 % (0-3); HEMATOCRIT 32.7 % (39.0-53.0); HEMOGLOBIN 10.8 g/dL (13.0-17.5); LYMPH # 0.4 x10^3/uL (1.0-4.8); LYMPH % 3 % (24-48); MEAN CORPUSCULAR HEMOGLOBIN 27 pg (25-35); MEAN CORPUSCULAR HGB CONC 33 g/dL (31-37); MEAN CORPUSCULAR VOLUME 82 fL (79-100); MONO % 5 % (0-9); NEUT % 91 % (31-73); PLATELET COUNT 373 x10^3/uL (140-400); RED CELL DISTRIBUTION WIDTH 14.9 % (11.5-14.5); WHITE BLOOD COUNT 12.3 x10^3/uL (4.0-11.0)
[2016-08-02 04:23] LABS: ALBUMIN 2.3 g/dL (3.4-5.0); CALCIUM 8.2 mg/dL (8.5-10.1); CREATININE 2.3 mg/dL (0.7-1.3); GFR 33.8; PHOSPHORUS 5.2 mg/dL (2.6-4.7); POTASSIUM 4.4 mmol/L (3.5-5.1)
[2016-08-02] MEDS: methylPREDNISolone SOD SUCC PF 125 MG/2 ML VIAL. IV SCH ×3 (07:08→22:09)
[2016-08-02] MEDS: INSULIN ASPART 300 UNITS/3 ML INSULN.PEN SQ SCH ×3 (07:30→16:30)
--- NOTE | 2016-08-02 07:39 | RAD ---
Ultrasound and fluoro guided right IJ temporary hemodialysis catheter Indication: 76-year-old male with acute kidney injury on chronic kidney disease. Temporary dialysis catheter insertion has been requested for hemodialysis. Fluoro time: 0.1 Kerma-Area Product: 1 Gycm2 Anesthesia: Local only Sterility: All elements of maximal sterile barrier technique, including the use of a cap, mask, sterile gown, sterile gloves, large sterile sheet, appropriate hand hygiene, and 2% chlorhexidine for cutaneous antisepsis (or acceptable alternative antiseptic per current guidelines) were utilized. Procedure: Informed consent was obtained from the patient. He was placed supine on the angiography table. Preliminary ultrasound examination of right neck revealed patency of right internal jugular vein, which was documented with a single hard copy ultrasound image. Right neck was then prepped and draped in the usual sterile fashion, utilizing all elements of maximal sterile barrier technique, as described above. Using aseptic technique, local anesthesia, direct ultrasound guidance, and the micropuncture system, successful percutaneous entry was achieved into right internal jugular vein. The right IJ venostomy tract was then dilated and a 14 Cymraes 20cm Schon temporary hemodialysis catheter was easily advanced centrally over an angiographic guidewire, and was positioned with its tip at the level of upper right atrium utilizing fluoroscopic guidance. This catheter was documented to flush and aspirate normally, was packed, and was secured at the right neck exit site utilizing suture and sterile dressing. Patient tolerated the procedure well without apparent complication. Satisfactory position of the dialysis catheter was confirmed with a single fluoroscopic spot image. Impression: Successful, uneventful ultrasound and fluoro guided placement of right IJ 14 Cymraes 20cm Schon temporary hemodialysis catheter, as described.
[2016-08-02] MEDS: IPRATRPIUM/ALBUTEROL 0.5/2.5MG 3 ML NEBU. NEB SCH ×4 (07:56→19:32)
[2016-08-02] MEDS: CALCIUM ACETATE 667 MG CAPSULE PO SCH ×3 (08:00→17:00)
--- NOTE | 2016-08-02 08:09 | PDOC ---
MIESHANIDIALC COMMUNITY MIDWIFE 08/02/16 0809: IM PROGRESS NOTES- Subjective Subjective breathing some better, no chest pain, wanting to go home as soon as possible Objective Objective alert no distress Vitals Vital Signs Date Time Temp Pulse Resp B/P Pulse Ox O2 Delivery O2 Flow Rate FiO2 08/02/16 03:00 98.5 71 16 120/68 92 Nasal Cannula 14.0 98.5 Input & Output Intake and Output 08/02/16 07:00 Intake Total 2209 ml Output Total 2320 ml Balance -111 ml Intake Oral 1330 ml IV Total 879 ml Output Urine Total 2320 ml Physical Exam Physical Exam General appearance - alert, ill appearing, and in no distress Mental Status - alert, oriented to person, place, and time, affect appropriate to mood Head - normal Chest - clear to auscultation, no wheezes, rales or rhonchi Heart - S1 and S2 normal Abdomen - soft, nontender, nondistended, BS+ Neurological - no acute neurological deficit noted Musculoskeletal - no muscular tenderness noted Extremities - no pedal edema Skin - warm and dry Labs Laboratory Tests Test 07/31/16 12:01 07/31/16 14:50 07/31/16 17:34 08/01/16 04:20 Glucose (Fingerstick) 187mg/dL (70-99) 149mg/dL (70-99) Urine Color Yellow Urine Clarity Clear Urine pH 5.5 Urine Specific [place] 1.010 Urine Protein Negativemg/dL (NEG-TRACE) Urine Glucose (UA) Negativemg/dL (NEG) Urine Ketones (Stick) Negativemg/dL (NEG) Urine Blood Negative (NEG) Urine Nitrite Negative (NEG) Urine Bilirubin Negative (NEG) Urine Urobilinogen Dipstick 0.2mg/dL (0.2 mg/dL) Urine Leukocyte Esterase Negative (NEG) Urine RBC 0/HPF (0-2) Urine WBC Occ/HPF (0-4) Urine Squamous Epithelial Cells Occ/LPF Urine Bacteria 0/HPF (0-FEW) Urine Mucus Slight/LPF White Blood Count 12.8x10^3/uL (4.0-11.0) Red Blood Count 3.58x10^6/uL (4.30-5.70) Hemoglobin 9.7g/dL (13.0-17.5) Hematocrit 30.2% (39.0-53.0) Mean Corpuscular Volume 85fL (79-100) Mean Corpuscular Hemoglobin 27pg (25-35) Mean Corpuscular Hemoglobin Concent 32g/dL (31-37) Red Cell Distribution Width 14.9% (11.5-14.5) Platelet Count 321x10^3/uL (140-400) Neutrophils (%) (Auto) 92% (31-73) Lymphocytes (%) (Auto) 3% (24-48) Monocytes (%) (Auto) 4% (0-9) Eosinophils (%) (Auto) 0% (0-3) Basophils (%) (Auto) 0% (0-3) Neutrophils # (Auto) 11.9x10^3uL (1.8-7.7) Lymphocytes # (Auto) 0.4x10^3/uL (1.0-4.8) Monocytes # (Auto) 0.5x10^3/uL (0.0-1.1) Eosinophils # (Auto) 0.0x10^3/uL (0.0-0.7) Basophils # (Auto) 0.0x10^3/uL (0.0-0.2) Sodium Level 136mmol/L (136-145) Potassium Level 4.7mmol/L (3.5-5.1) Chloride Level 101mmol/L (98-107) Carbon Dioxide Level 22mmol/L (21-32) Anion Gap 13 (6-14) Blood Urea Nitrogen 67mg/dL (8-26) Creatinine 4.0mg/dL (0.7-1.3) Estimated GFR (Cockcroft-Gault) 17.8 Glucose Level 137mg/dL (70-99) Calcium Level 8.1mg/dL (8.5-10.1) Phosphorus Level 7.2mg/dL (2.6-4.7) Magnesium Level 2.4mg/dL (1.8-2.4) Albumin 2.3g/dL (3.4-5.0) Test 08/01/16 06:00 08/01/16 07:38 08/01/16 11:50 08/01/16 14:35 Heparin Anti-Xa Act, Unfractionated 0.44IU/mL (0.30-0.70) 0.55IU/mL (0.30-0.70) Glucose (Fingerstick) 138mg/dL (70-99) 175mg/dL (70-99) Test 08/01/16 17:30 08/02/16 03:38 Glucose (Fingerstick) 154mg/dL (70-99) White Blood Count 12.3x10^3/uL (4.0-11.0) Red Blood Count 4.00x10^6/uL (4.30-5.70) Hemoglobin 10.8g/dL (13.0-17.5) Hematocrit 32.7% (39.0-53.0) Mean Corpuscular Volume 82fL (79-100) Mean Corpuscular Hemoglobin 27pg (25-35) Mean Corpuscular Hemoglobin Concent 33g/dL (31-37) Red Cell Distribution Width 14.9% (11.5-14.5) Platelet Count 373x10^3/uL (140-400) Neutrophils (%) (Auto) 91% (31-73) Lymphocytes (%) (Auto) 3% (24-48) Monocytes (%) (Auto) 5% (0-9) Eosinophils (%) (Auto) 0% (0-3) Basophils (%) (Auto) 0% (0-3) Neutrophils # (Auto) 11.2x10^3uL (1.8-7.7) Lymphocytes # (Auto) 0.4x10^3/uL (1.0-4.8) Monocytes # (Auto) 0.7x10^3/uL (0.0-1.1) Eosinophils # (Auto) 0.0x10^3/uL (0.0-0.7) Basophils # (Auto) 0.0x10^3/uL (0.0-0.2) Heparin Anti-Xa Act, Unfractionated 0.46IU/mL (0.30-0.70) Sodium Level 138mmol/L (136-145) Potassium Level 4.4mmol/L (3.5-5.1) Chloride Level 101mmol/L (98-107) Carbon Dioxide Level 27mmol/L (21-32) Anion Gap 10 (6-14) Blood Urea Nitrogen 40mg/dL (8-26) Creatinine 2.3mg/dL (0.7-1.3) Estimated GFR (Cockcroft-Gault) 33.8 Glucose Level 145mg/dL (70-99) Calcium Level 8.2mg/dL (8.5-10.1) Phosphorus Level 5.2mg/dL (2.6-4.7) Magnesium Level 2.2mg/dL (1.8-2.4) Albumin 2.3g/dL (3.4-5.0) Laboratory Tests Test 08/01/16 11:50 08/01/16 14:35 08/01/16 17:30 08/02/16 03:38 Glucose (Fingerstick) 175mg/dL (70-99) 154mg/dL (70-99) Heparin Anti-Xa Act, Unfractionated 0.55IU/mL (0.30-0.70) 0.46IU/mL (0.30-0.70) White Blood Count 12.3x10^3/uL (4.0-11.0) Red Blood Count 4.00x10^6/uL (4.30-5.70) Hemoglobin 10.8g/dL (13.0-17.5) Hematocrit 32.7% (39.0-53.0) Mean Corpuscular Volume 82fL (79-100) Mean Corpuscular Hemoglobin 27pg (25-35) Mean Corpuscular Hemoglobin Concent 33g/dL (31-37) Red Cell Distribution Width 14.9% (11.5-14.5) Platelet Count 373x10^3/uL (140-400) Neutrophils (%) (Auto) 91% (31-73) Lymphocytes (%) (Auto) 3% (24-48) Monocytes (%) (Auto) 5% (0-9) Eosinophils (%) (Auto) 0% (0-3) Basophils (%) (Auto) 0% (0-3) Neutrophils # (Auto) 11.2x10^3uL (1.8-7.7) Lymphocytes # (Auto) 0.4x10^3/uL (1.0-4.8) Monocytes # (Auto) 0.7x10^3/uL (0.0-1.1) Eosinophils # (Auto) 0.0x10^3/uL (0.0-0.7) Basophils # (Auto) 0.0x10^3/uL (0.0-0.2) Sodium Level 138mmol/L (136-145) Potassium Level 4.4mmol/L (3.5-5.1) Chloride Level 101mmol/L (98-107) Carbon Dioxide Level 27mmol/L (21-32) Anion Gap 10 (6-14) Blood Urea Nitrogen 40mg/dL (8-26) Creatinine 2.3mg/dL (0.7-1.3) Estimated GFR (Cockcroft-Gault) 33.8 Glucose Level 145mg/dL (70-99) Calcium Level 8.2mg/dL (8.5-10.1) Phosphorus Level 5.2mg/dL (2.6-4.7) Magnesium Level 2.2mg/dL (1.8-2.4) Albumin 2.3g/dL (3.4-5.0) Meds Current Medications Calcium Acetate (Phoslo) 1,334 mg TIDWMEALS PO Last administered on 08/01/16 17 :32; Start 08/01/16 at 12:00 Darbepoetin Aleksey (Aranesp) 60 mcg WEEKLYHS SQ Last administered on 08/01/16 21: 59; Start 08/01/16 at 21:00 Heparin Sodium (Porcine) 2,500 unit 1X ONCE INT CAT Last administered on 11:17; Start 08/01/16 at 10:30; Stop 08/01/16 at 10:31; Status DC Heparin Sodium/ Sodium Chloride 60 unit 60 unit 1X ONCE IV Last administered on 08/01/16 11:16; Start 08/01/16 at 10:30; Stop 08/01/16 at 10:31; Status DC Info (PHARMACY MONITORING -- do not chart) 1 each PRN DAILY PRN MC SEE COMMENTS ; Start 08/01/16 at 17:30 Info (PHARMACY MONITORING -- do not chart) 1 each PRN DAILY PRN MC SEE COMMENTS ; Start 08/01/16 at 17:30 Iron Sucrose/ Sodium Chloride (Venofer/Iv Sodium Chloride 0.9% 100ml) 110 ml @ 55 mls/hr 3X/WEEK IV ; Start 08/02/16 at 09:00; Stop 08/11/16 at 10:59 Lidocaine/Sodium Bicarbonate (Buffered Lidocaine 1%) 3 ml 1X ONCE IJ Last administered on 08/01/16t 11:16; Start 08/01/16 at 10:30; Stop 08/01/16 at 10:31; Status DC Sodium Chloride (Iv Sodium Chloride 0.9% 1000ml Bag) 1,000 ml @ 1,000 mls/hr Q1H PRN IV hypotension; Start 08/01/16 at 17:23; Stop 08/01/16 at 23:22; Status DC Sodium Chloride (Normal Saline Flush) 10 ml 1X PRN PRN IV AP catheter pack; Start 08/01/16 at 17:30; Stop 08/02/16 at 17:29 Sodium Chloride (Normal Saline Flush) 10 ml 1X PRN PRN IV TRACTION POWER ENGINEER catheter pack; Start 08/01/16 at 17:30; Stop 08/02/16 at 17:29 Assessment Assessment IMPRESSION: 1. Chest pain, acute non-ST elevation myocardial infarction with elevated troponin 2. AECOPD with undelrying bullous emphysema/ILD-fibrosis 3. Acute hypoxic respiratory failure with underlying COPD/ILD/ acute NSTEMI 4. 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 Benign prostatic hyperplasia. 6. Hypertension. 7. Kidney stone R intrarenal collect sx 6.3mm 8. steroid induced DM II with hyperglycemia 9. bilateral renal cyst 9, Afib chronic h/o 10. a/c systolic CHF POA EF 50% mod MR 11. acute bronchitis POA PLAN: acute NSTEMI cardiology consult Max troponin 21.220 ECHO EF 50% neg CT PE or dissection venous doppler negative cardiac cath is planned PT-cardiac rehab ordered Heparin/NTG infusions CC pending 08/02/16 acute respiratory failure pulmonary consult Desat 07/30 evening-tolerated BIPAP 30 min, Non rebreather Sat 6.-84% acute bronchitis-doxycycline AECOPD-solumedrol 125mg IV bullous emphysema/ILD ESR elevated -steroids cardio note wheezing w/? hold BB- CHF, has agreed to HD, will continue BB improved after dialysis ARF with CKD nephrology consult Admit BUN 27 08/02 40 Cr 2.9 2.3 K 4.5 4.4 Na 138 03/07/17) PO4 7.2 2.2 Has agreed to dialysis, consent completed. Await order from nephrology Phoslo 1334mg tid 08/01/16 A/C systolic CHF with EF 50% mod MR daily wt Admit wt 183# 08/02 194# I/O to begin dialysis -HD initiated 08/01 with temp HDC placed 08/01 +ARB/BB hyperlipidemia LDL 142 on atorvastin anemia renal disease Admit Hgb 11.7 08/02 10.8 monitor Fe 25 TIBC 176 FeSo4 14 Ferritn 250 Venofer 200mg IV 3x/wk for 5 doses DVT/GI prophylaxis Hep gtt Pepcid DM steroid induced FSBS no ssi BS 130-175 leukocytosis steroid induced Admit WBC 8.9 08/02 12.3 For further plan of care, please refer to the orders. Plan Plan For more details regarding further plans, please refer to the orders. SEGUNDO STOCK MD 08/02/16 0949: IM PROGRESS NOTES- Assessment Assessment Patient went for cardiac cath. Chart reviewed and plan of care formulated. Discussed with, reviewed and agree with MAGAZINE REPAIRER's notes, plan of care and orders with modifications as necessary. For more details regarding further plans, please refer to the orders. LC RUSSELL APRN Aug 02, 2016 08:09 SEGUNDO STOCK MD Aug 02, 2016 09:49
[2016-08-02] MEDS: DOXAZOSIN MESYLATE 4 MG TABLET PO SCH (09:00)
[2016-08-02] MEDS: LOSARTAN POTASSIUM 50 MG TABLET. PO SCH (09:00)
[2016-08-02] MEDS: METOPROLOL TART IMMED RELEASE 25 MG TABLET PO SCH ×2 (09:00→22:11)
[2016-08-02] MEDS ORDERED: IOHEXOL 300 MG/ML 100ML VIAL. ONE ×3 (09:15→10:17)
[2016-08-02] MEDS ORDERED: LIDOCAINE 2% 20 ML VIAL. ONE (09:15)
[2016-08-02] MEDS ORDERED: FENTANYL PF 100 MCG/2 ML VIAL. ONE (09:39)
[2016-08-02] MEDS ORDERED: MIDAZOLAM HCL 2 MG/2 ML VIAL. ONE (09:40)
--- NOTE | 2016-08-02 09:49 | PDOC ---
MODERATE SEDATION ASSESSMENT RISKS/ALTERNATIVES Risks/Alternatives Risks and alternatives of this type of sedation and procedure discussed with: RISK/ALTERNATIVES: Patient H & P ON CHART H & P H & P on chart and reviewed for co-morbid conditions and appropriate labs. H&P ON CHART: Yes STATUS PREG STATUS ASSESSED: N/A MEDS/ALLERGIES REVIEWED Meds/Allergies Reviewed Medications and Allergies including time and route of recently administered narcotics and sedatives. MEDS/ALLERGIES REVIEWED: Yes ASA RATING ASA RATING: III AIRWAY ASSESSMENT Airway Assessment Airway patency, oral function limitations, presence of caps, crowns, dentures, partials, and ability to extend neck assessed. AIRWAY ASSESSMENT: Yes MALLAMPATI SCORE MALLAMPATI SCORE: III PRE-SEDATION ASSESSMENT PRE-SEDATION ASSESSMENT: Yes VENTURA GHOTRA MD Aug 02, 2016 09:49
[2016-08-02] MEDS ORDERED: LIDOCAINE 2% 20 ML VIAL. IJ ONE (10:00)
[2016-08-02] MEDS ORDERED: IOHEXOL 300 MG/ML 100ML VIAL. IART ONE (10:00)
[2016-08-02] MEDS ORDERED: MIDAZOLAM HCL 2 MG/2 ML VIAL. IV ONE (10:00)
[2016-08-02] MEDS ORDERED: CONTRAST GIVEN MC PRN (10:00)
[2016-08-02] MEDS ORDERED: FENTANYL PF 100 MCG/2 ML VIAL. IV ONE (10:00)
[2016-08-02] MEDS ORDERED: BIVALIRUDIN 250 MG VIAL IV ONE ×2 (10:15→10:17)
[2016-08-02] MEDS ORDERED: TIROFIBAN 12.5MG -0.9% NS 250 ML IV ONE (10:40)
[2016-08-02] MEDS ORDERED: NITROGLYCERIN 200 MCG/2 ML SYRINGE FOR CATH/VASC LAB. ONE (10:56)
[2016-08-02] MEDS ORDERED: TICAGRELOR 90 MG TABLET. ONE (10:58)
[2016-08-02] MEDS ORDERED: TIROFIBAN 5MG -0.9% NS 100 ML IV ONE ×2 (11:00→11:15)
[2016-08-02] MEDS ORDERED: TICAGRELOR 90 MG TABLET. PO ONE (11:00)
[2016-08-02] MEDS ORDERED: NITROGLYCERIN 200 MCG/2 ML SYRINGE FOR CATH/VASC LAB. IART ONE (11:00)
[2016-08-02] MEDS ORDERED: NS IV ONE (11:00)
[2016-08-02] MEDS ORDERED: TIROFIBAN IV ONE (11:00)
[2016-08-02] MEDS ORDERED: TIROFIBAN 12.5MG -0.9% NS 250 ML IV PRN ×2 (11:15→11:30)
[2016-08-02] MEDS ORDERED: ASPIRIN 81 MG TAB.CHEW PO ONE (11:15)
--- NOTE | 2016-08-02 11:18 | PDOC4 ---
Operative Note Operative Note Brief cath note. LV: 122/30, AO: 128/68 Greater than 95% mid LCX lesion. No other significant lesions. 3.5 x 18 bare metal stent to LCX with 0% residual. Post cath meds of Brilenta and 81 mg ASA. Discussed with the patient. No complications. Full report to follow. VENTURA GHOTRA MD Aug 02, 2016 11:18
[2016-08-02] MEDS ORDERED: FENTANYL PF 100 MCG/2 ML VIAL. IV PRN (11:30)
[2016-08-02] MEDS ORDERED: AMIODARONE 150 MG in IV DEXTROSE 5% 100 ML IV PRN (11:30)
[2016-08-02] MEDS ORDERED: 0.9 % SODIUM CHLORIDE 10 ML DISP.SYRIN. IV PRN ×3 (11:30→19:45)
[2016-08-02] MEDS ORDERED: ATROPINE 0.5 MG/5 ML DISP.SYRIN. IV PRN (11:30)
[2016-08-02] MEDS ORDERED: CYCLOBENZAPRINE 10 MG TABLET. PO PRN (11:30)
[2016-08-02] MEDS ORDERED: NITROGLYCERIN SUBLINGUAL 0.4 MG BOTTLE OF 25. SL PRN (11:30)
[2016-08-02] MEDS ORDERED: ACETAMINOPHEN 325 MG TABLET. PO PRN (11:30)
[2016-08-02] MEDS ORDERED: LIDOCAINE 2% 100 MG/5 ML DISP.SYRIN. IV PRN (11:30)
[2016-08-02] MEDS: DOXYCYCLINE HYCLATE 100 MG TABLET PO SCH ×2 (12:46→22:08)
--- NOTE | 2016-08-02 13:41 | PDOC ---
SUBJECTIVE ROS MIRYAM/ ATN (CAN) Doing much better overall ; had LHC today with PCI CVS: no Orthopnea, no CP RESP: min SOB, min SALEEM GI: no Nausea, no Vomiting : no Dysuria, no Urgency OBJECTIVE Vital Signs Vital Signs Date Time Temp Pulse Resp B/P Pulse Ox O2 Delivery O2 Flow Rate FiO2 08/02/16 11:38 98 Nasal Cannula 8.0 08/02/16 11:25 98.2 82 14 144/74 98.2 I & 0 Intake and Output 08/02/16 07:00 Intake Total 2209 ml Output Total 2320 ml Balance -111 ml Intake Oral 1330 ml IV Total 879 ml Output Urine Total 2320 ml PHYSICAL EXAM Physical Exam GEN: Awake, Oriented x 3, In min distress EYES: Vision Unchanged, Conjunctiva Normal EN: No EN Drainage, Mucous Membranes moist NECK: no JVD, + JVP, Supple, no Thyromegaly CVS: S1S2, ? Murmur, No Gallop, No Rub,no Edema RESP: + few Rales, occ Rhonchi,min Acc. Muscle Use GI: BS + ve, NO Bruit, Non Tender, Non Distended : no CVA tenderness, no Suprapubic Tenderness DIAGNOSIS/ASSESSMENT MIRYAM - ? CAN from CTA; Dialysis as below F 180 NR 3.0 Hrs 3 K 2.5 Ca 140 Na 30 HC03 Qb 350 + Qd 500+ Heparin on gtt Uf 2-3 Kgs as tolerated May give 25-50 gms of 25% Albumin if needed to maintain Hemodynamic stability Treatment plan reviewed and discussed with county ordinary CKD III - HTnsive / NS ^ed Phos - better after starting binders. Hypoxia - better after Uf. CXR on sunday to reval CHF.Currenlty much improved. Can lay flat too Renal Cysts - Chronic kidney Stone - No reported [place], not sure he can lay flat for Nuc Med scan. ( was unable to do VQ scan either) NSTEMI - S/p LHC and PCI ANEMIA; Aranesp as ordered . Transfuse if needed HTN: Current BP meds as reviewed; remains on NTG gtt. Discussed Plan of Care with Pt at bedside COMMENT/RELEVANT DATA Meds Current Medications Medications (Trade) Dose Ordered Sig/Prabha Start Time Stop Time Status Last Admin Dose Admin Acetaminophen (Tylenol) 650 mg PRN Q6HRS PRN 08/02/16 11:30 Albuterol Sulfate (Ventolin Neb Soln) 2.5 mg PRN Q2HR PRN 07/30/16 03:30 08/01/16 22:20 2.5 MG Albuterol/ Ipratropium (Duoneb) 3 ml RTQID 07/29/16 08:00 08/02/16 11:38 3 ML Amiodarone HCl/ Dextrose (Cordarone) 103 ml @ 10 mls/min 1X PRN PRN 08/02/16 11:30 Aspirin (Lionel Aspirin) 325 mg DAILYWBKFT 07/29/16 09:45 08/02/16 11:25 DC 08/01/16 09:04 325 MG Aspirin (Children'S Aspirin) 324 mg 1X ONCE 07/28/16 18:30 07/28/16 18:31 DC 07/28/16 18:27 324 MG Aspirin (Ecotrin) 81 mg DAILYWBKFT 08/03/16 08:00 Aspirin 81 mg 81 mg 1X ONCE 08/02/16 11:15 08/02/16 11:16 DC 08/02/16 11:11 81 MG Atorvastatin Calcium (Lipitor) 20 mg QHS 08/02/16 21:00 Cancel Atropine Sulfate 0.5 mg PRN 1X PRN 08/02/16 11:30 Bivalirudin (Angiomax) 250 mg 1X ONCE 08/02/16 10:15 08/02/16 10:24 DC 08/02/16 11:09 250 MG Calcium Acetate (Phoslo) 1,334 mg TIDWMEALS 08/01/16 12:00 08/02/16 12:46 1,334 MG Cyclobenzaprine HCl (Flexeril) 10 mg PRN TID PRN 08/02/16 11:30 Darbepoetin Aleksey (Aranesp) 60 mcg WEEKLYHS 08/01/16 21:00 08/01/16 21:59 60 MCG Doxazosin Mesylate (Cardura) 4 mg DAILY 07/29/16 09:00 07/31/16 09:59 4 MG Doxycycline Hyclate (Vibra-Tab) 100 mg BID 07/30/16 14:00 08/02/16 12:46 100 MG Famotidine (Pepcid) 20 mg HS 07/30/16 21:00 08/01/16 21:59 20 MG Famotidine 40 mg 40 mg HS 07/29/16 21:00 07/30/16 07:52 DC 07/29/16 20:49 40 MG Fentanyl Citrate (Fentanyl 2ml Vial) 50 mcg PRN Q1HR PRN 08/02/16 11:30 Furosemide (Lasix) 40 mg 1X ONCE 07/31/16 14:15 07/31/16 14:18 DC 07/31/16 14:21 40 MG Furosemide 40 mg 40 mg 1X ONCE 07/31/16 14:15 07/31/16 14:18 DC Heparin Sodium (Porcine) 2,500 unit 1X ONCE 08/01/16 10:30 08/01/16 10:31 DC 08/01/16 11:17 2,500 UNIT Heparin Sodium (Porcine) 4000 unit 4,000 unit 1X ONCE 07/28/16 18:30 07/28/16 18:32 DC 07/28/16 19:43 4,000 UNIT Heparin Sodium/ Dextrose 500 ml @ 0 mls/hr CONT PRN 07/28/16 18:30 08/02/16 01:21 0 MLS/HR Heparin Sodium/ Sodium Chloride 1,000 unit 1X ONCE 08/02/16 10:00 08/02/16 10:01 DC 08/02/16 11:09 1,000 UNIT Heparin Sodium/ Sodium Chloride 60 unit 60 unit 1X ONCE 08/01/16 10:30 08/01/16 10:31 DC 08/01/16 11:16 60 UNIT Info (Do NOT chart on this entry -- for MONITORING) 1 each PRN DAILY PRN 08/02/16 10:00 08/04/16 09:59 Info (PHARMACY MONITORING -- do not chart) 1 each PRN DAILY PRN 08/01/16 17:30 Insulin Aspart TIDAC 07/31/16 11:30 08/01/16 12:27 2 UNITS Iohexol (Omnipaque 300 Mg/ml) 100 ml STK-MED ONCE 08/02/16 10:17 08/02/16 10:18 DC Iohexol (Omnipaque 350 Mg/ml) 100 ml STK-MED ONCE 07/28/16 18:36 07/28/16 18:37 DC Iron Sucrose/ Sodium Chloride (Venofer/Iv Sodium Chloride 0.9% 100ml) 110 ml @ 55 mls/hr 3X/WEEK 08/02/16 09:00 08/11/16 10:59 Lidocaine HCl 100 mg 1X PRN PRN 08/02/16 11:30 Lidocaine/Sodium Bicarbonate (Buffered Lidocaine 1%) 3 ml 1X ONCE 08/01/16 10:30 08/01/16 10:31 DC 08/01/16 11:16 3 ML Lorazepam (Ativan) 0.5 mg PRN Q4HRS PRN 07/30/16 23:00 08/01/16 00:53 0.5 MG Losartan Potassium (Cozaar) 50 mg DAILY 08/03/16 09:00 Magnesium Sulfate/ Dextrose (Magnesium Sulfate PREMIX 2GM) 50 ml @ 25 mls/hr PRN DAILY PRN 07/31/16 13:00 Methylprednisolone Sodium Succinate (Solu-Medrol 125mg Vial) 125 mg Q8HRS 07/29/16 16:00 08/02/16 07:08 125 MG Metoprolol Tartrate (Lopressor) 12.5 mg BID 07/29/16 09:45 08/01/16 21:58 12.5 MG Midazolam HCl (Versed) 2 mg 1X ONCE 08/02/16 10:00 08/02/16 10:01 DC Morphine Sulfate 4 mg PRN Q2HR PRN 07/28/16 19:15 07/29/16 19:14 DC 07/28/16 23:32 4 MG Nitroglycerin (Nitroglycerin) 200 mcg 1X ONCE 08/02/16 11:00 08/02/16 11:01 DC 08/02/16 11:10 200 MCG Nitroglycerin (Nitrostat) 0.4 mg PRN Q5MIN PRN 07/28/16 18:30 07/29/16 18:29 DC 07/28/16 18:27 0.4 MG Nitroglycerin 0.4 mg 0.4 mg PRN Q5MIN PRN 08/02/16 11:30 Nitroglycerin/ Dextrose (Nitroglycerin Drip) 250 ml @ 0 mls/hr CONT PRN 07/29/16 09:45 07/31/16 23:56 9 MLS/HR Ondansetron HCl (Zofran Odt) 4 mg PRN Q8HRS PRN 07/29/16 09:30 Ondansetron HCl (Zofran) 4 mg PRN Q8HRS PRN 07/28/16 19:15 07/29/16 19:14 DC Oxycodone/ Acetaminophen (Percocet 5/325) 1 tab PRN Q6HRS PRN 07/29/16 09:30 07/30/16 23:03 DC 07/30/16 22:22 1 TAB Sodium Chloride (Iv Sodium Chloride 0.9% 1000ml Bag) 1,000 ml @ 1,000 mls/hr Q1H PRN 08/01/16 17:23 08/01/16 23:22 DC Sodium Chloride (Normal Saline Flush) 10 ml 1X PRN PRN 08/01/16 17:30 08/02/16 17:29 Sodium Chloride 3 ml 3 ml QSHIFT PRN 08/02/16 11:30 Tamsulosin HCl (Flomax) 0.4 mg HS 07/29/16 21:00 08/01/16 21:58 0.4 MG Ticagrelor (Brilinta) 90 mg BID 08/03/16 09:00 Tirofiban/Sodium Chloride (Aggrastat 12.5 Mg/250 ml Premix) 250 ml @ 0 mls/hr CONT PRN 08/02/16 11:30 08/03/16 05:29 Tirofiban/Sodium Chloride (Aggrastat 5 Mg/ 100 ml Premix) 100 ml @ 1,200 mls/hr 1X ONCE 08/02/16 11:15 08/02/16 11:19 DC Lab Laboratory Tests Test 08/01/16 14:35 08/01/16 17:30 08/02/16 03:38 08/02/16 08:06 Heparin Anti-Xa Act, Unfractionated 0.55IU/mL (0.30-0.70) 0.46IU/mL (0.30-0.70) Glucose (Fingerstick) 154mg/dL (70-99) 134mg/dL (70-99) White Blood Count 12.3x10^3/uL (4.0-11.0) Red Blood Count 4.00x10^6/uL (4.30-5.70) Hemoglobin 10.8g/dL (13.0-17.5) Hematocrit 32.7% (39.0-53.0) Mean Corpuscular Volume 82fL (79-100) Mean Corpuscular Hemoglobin 27pg (25-35) Mean Corpuscular Hemoglobin Concent 33g/dL (31-37) Red Cell Distribution Width 14.9% (11.5-14.5) Platelet Count 373x10^3/uL (140-400) Neutrophils (%) (Auto) 91% (31-73) Lymphocytes (%) (Auto) 3% (24-48) Monocytes (%) (Auto) 5% (0-9) Eosinophils (%) (Auto) 0% (0-3) Basophils (%) (Auto) 0% (0-3) Neutrophils # (Auto) 11.2x10^3uL (1.8-7.7) Lymphocytes # (Auto) 0.4x10^3/uL (1.0-4.8) Monocytes # (Auto) 0.7x10^3/uL (0.0-1.1) Eosinophils # (Auto) 0.0x10^3/uL (0.0-0.7) Basophils # (Auto) 0.0x10^3/uL (0.0-0.2) Sodium Level 138mmol/L (136-145) Potassium Level 4.4mmol/L (3.5-5.1) Chloride Level 101mmol/L (98-107) Carbon Dioxide Level 27mmol/L (21-32) Anion Gap 10 (6-14) Blood Urea Nitrogen 40mg/dL (8-26) Creatinine 2.3mg/dL (0.7-1.3) Estimated GFR (Cockcroft-Gault) 33.8 Glucose Level 145mg/dL (70-99) Calcium Level 8.2mg/dL (8.5-10.1) Phosphorus Level 5.2mg/dL (2.6-4.7) Magnesium Level 2.2mg/dL (1.8-2.4) Albumin 2.3g/dL (3.4-5.0) Test 08/02/16 11:51 Glucose (Fingerstick) 136mg/dL (70-99) BERNICE CASTILLO MD Aug 02, 2016 13:40
--- NOTE | 2016-08-02 13:57 | EKG ---
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
--- NOTE | 2016-08-02 14:25 | CARD ---
APPROVED REPORT Procedures Left heart catheterization. Selective coronary angiogram. Bare metal stent placement to the left circumflex vessel. The patient is a 76-year-old male who was admitted to the hospital with a non-ST elevated myocardial infarction. He had coexisting problems of acute renal failure and respiratory failure. After these pr oblems were treated, a cardiac catheterization was recommended. Risks and benefits were discussed wit h the patient. He agreed to proceed. After informed consent was obtained the patient was brought to the heart catheterization lab. The are a of the right femoral artery was prepared in the usual manner with Betadine, sterile draping and loc al anesthetic. An 18-gauge needle was used to enter the right femoral artery, a wire placed and a 6 F rench sheath placed over the wire. With the assistance of an angled wire, a 6 [place] JL4 diagnostic catheter was advanced the ascending aorta. This was used to engage the left coronary system and seque ntial injections in various views were obtained. Using an exchange wire a 6 [place] Jason right mane gnostic catheter was advanced the ascending aorta. It was then used to engage the right coronary jeanne ry and sequential injections in various views were obtained. Review of the images showed a subtotal m id left circumflex lesion. We proceeded to revascularize this lesion. Angiomax as per the protocol was administered. A 6 [place] XB 3.5 guide was advanced the ascending aor ta. This was then used to engage the left system. The left circumflex lesion was a complex lesion ini tially a PT choice wire would not cross the lesion. It was then crossed with a Hi-Torque wire. Initia l inflation was with a 3.0 x 15 Trek balloon with 2 inflations at 8 louisa for 20 seconds. A 3.5 x 18 Mu ltiLink vision bare metal stent was then deployed with one inflation at 15 louisa for 15 seconds. There was some distal embolization after the stent inflation. This was treated with IC NTG and the patient also was given Aggrastat. This resolved approximately 10 minutes. Final injection showed 0% residual lesion. This system was removed from the patient. A pigtail catheter was then advanced the ascending aorta. It was then advanced to the left ventricle. Pressures were obtained. No left ventricular gram was performed. Pullback pressures were measured. The catheter was removed from the patient. Injection the sheath showed normal placement. The sheath was removed and sealed with an Angio-Seal product. Th e patient was moved to the holding area in stable condition. Findings. Hemodynamics. LV pressure of 122/30, aortic root pressure 120/68. Coronaries. Left main. The left main had no lesions and was a large vessel. Left anterior descending. The LAD was a moderate size vessel with normal distribution. It had a mid 1 5% lesion. Left circumflex. The left circumflex was a large dominant vessel. It had a greater than 95% lesion ne ar the obtuse marginal 1 branch. Right coronary artery. The right coronary was a moderate size nondominant vessel. It had a proximal 3 5% lesion and a mid 30% lesion. <Conclusion> Severe single-vessel coronary disease in the left circumflex artery. Mild to moderate disease in the LAD and right coronary artery. Successful bare metal stent placement in the left circumflex lesion decreasing a 95% lesion to 0%.
--- NOTE | 2016-08-02 15:02 | PDOC ---
PULMONARY PROGRESS NOTES Subjective much better after HD Vitals Vital Signs Date Time Temp Pulse Resp B/P Pulse Ox O2 Delivery O2 Flow Rate FiO2 08/02/16 11:38 98 Nasal Cannula 8.0 08/02/16 11:25 98.2 82 14 144/74 98.2 General: Alert, No acute distress Lungs: Other (decrease bs) Cardiovascular: S1, S2 Abdomen: Soft Neuro Exam: Alert Extremities: No Edema Skin: Warm Labs Laboratory Tests Test 07/31/16 17:34 08/01/16 04:20 08/01/16 06:00 08/01/16 07:38 Glucose (Fingerstick) 149mg/dL (70-99) 138mg/dL (70-99) White Blood Count 12.8x10^3/uL (4.0-11.0) Red Blood Count 3.58x10^6/uL (4.30-5.70) Hemoglobin 9.7g/dL (13.0-17.5) Hematocrit 30.2% (39.0-53.0) Mean Corpuscular Volume 85fL (79-100) Mean Corpuscular Hemoglobin 27pg (25-35) Mean Corpuscular Hemoglobin Concent 32g/dL (31-37) Red Cell Distribution Width 14.9% (11.5-14.5) Platelet Count 321x10^3/uL (140-400) Neutrophils (%) (Auto) 92% (31-73) Lymphocytes (%) (Auto) 3% (24-48) Monocytes (%) (Auto) 4% (0-9) Eosinophils (%) (Auto) 0% (0-3) Basophils (%) (Auto) 0% (0-3) Neutrophils # (Auto) 11.9x10^3uL (1.8-7.7) Lymphocytes # (Auto) 0.4x10^3/uL (1.0-4.8) Monocytes # (Auto) 0.5x10^3/uL (0.0-1.1) Eosinophils # (Auto) 0.0x10^3/uL (0.0-0.7) Basophils # (Auto) 0.0x10^3/uL (0.0-0.2) Sodium Level 136mmol/L (136-145) Potassium Level 4.7mmol/L (3.5-5.1) Chloride Level 101mmol/L (98-107) Carbon Dioxide Level 22mmol/L (21-32) Anion Gap 13 (6-14) Blood Urea Nitrogen 67mg/dL (8-26) Creatinine 4.0mg/dL (0.7-1.3) Estimated GFR (Cockcroft-Gault) 17.8 Glucose Level 137mg/dL (70-99) Calcium Level 8.1mg/dL (8.5-10.1) Phosphorus Level 7.2mg/dL (2.6-4.7) Magnesium Level 2.4mg/dL (1.8-2.4) Albumin 2.3g/dL (3.4-5.0) Heparin Anti-Xa Act, Unfractionated 0.44IU/mL (0.30-0.70) Test 08/01/16 11:50 08/01/16 14:35 08/01/16 17:30 08/02/16 03:38 Glucose (Fingerstick) 175mg/dL (70-99) 154mg/dL (70-99) Heparin Anti-Xa Act, Unfractionated 0.55IU/mL (0.30-0.70) 0.46IU/mL (0.30-0.70) White Blood Count 12.3x10^3/uL (4.0-11.0) Red Blood Count 4.00x10^6/uL (4.30-5.70) Hemoglobin 10.8g/dL (13.0-17.5) Hematocrit 32.7% (39.0-53.0) Mean Corpuscular Volume 82fL (79-100) Mean Corpuscular Hemoglobin 27pg (25-35) Mean Corpuscular Hemoglobin Concent 33g/dL (31-37) Red Cell Distribution Width 14.9% (11.5-14.5) Platelet Count 373x10^3/uL (140-400) Neutrophils (%) (Auto) 91% (31-73) Lymphocytes (%) (Auto) 3% (24-48) Monocytes (%) (Auto) 5% (0-9) Eosinophils (%) (Auto) 0% (0-3) Basophils (%) (Auto) 0% (0-3) Neutrophils # (Auto) 11.2x10^3uL (1.8-7.7) Lymphocytes # (Auto) 0.4x10^3/uL (1.0-4.8) Monocytes # (Auto) 0.7x10^3/uL (0.0-1.1) Eosinophils # (Auto) 0.0x10^3/uL (0.0-0.7) Basophils # (Auto) 0.0x10^3/uL (0.0-0.2) Sodium Level 138mmol/L (136-145) Potassium Level 4.4mmol/L (3.5-5.1) Chloride Level 101mmol/L (98-107) Carbon Dioxide Level 27mmol/L (21-32) Anion Gap 10 (6-14) Blood Urea Nitrogen 40mg/dL (8-26) Creatinine 2.3mg/dL (0.7-1.3) Estimated GFR (Cockcroft-Gault) 33.8 Glucose Level 145mg/dL (70-99) Calcium Level 8.2mg/dL (8.5-10.1) Phosphorus Level 5.2mg/dL (2.6-4.7) Magnesium Level 2.2mg/dL (1.8-2.4) Albumin 2.3g/dL (3.4-5.0) Test 08/02/16 08:06 08/02/16 11:51 Glucose (Fingerstick) 134mg/dL (70-99) 136mg/dL (70-99) Laboratory Tests Test 08/01/16 17:30 08/02/16 03:38 08/02/16 08:06 08/02/16 11:51 Glucose (Fingerstick) 154mg/dL (70-99) 134mg/dL (70-99) 136mg/dL (70-99) White Blood Count 12.3x10^3/uL (4.0-11.0) Red Blood Count 4.00x10^6/uL (4.30-5.70) Hemoglobin 10.8g/dL (13.0-17.5) Hematocrit 32.7% (39.0-53.0) Mean Corpuscular Volume 82fL (79-100) Mean Corpuscular Hemoglobin 27pg (25-35) Mean Corpuscular Hemoglobin Concent 33g/dL (31-37) Red Cell Distribution Width 14.9% (11.5-14.5) Platelet Count 373x10^3/uL (140-400) Neutrophils (%) (Auto) 91% (31-73) Lymphocytes (%) (Auto) 3% (24-48) Monocytes (%) (Auto) 5% (0-9) Eosinophils (%) (Auto) 0% (0-3) Basophils (%) (Auto) 0% (0-3) Neutrophils # (Auto) 11.2x10^3uL (1.8-7.7) Lymphocytes # (Auto) 0.4x10^3/uL (1.0-4.8) Monocytes # (Auto) 0.7x10^3/uL (0.0-1.1) Eosinophils # (Auto) 0.0x10^3/uL (0.0-0.7) Basophils # (Auto) 0.0x10^3/uL (0.0-0.2) Heparin Anti-Xa Act, Unfractionated 0.46IU/mL (0.30-0.70) Sodium Level 138mmol/L (136-145) Potassium Level 4.4mmol/L (3.5-5.1) Chloride Level 101mmol/L (98-107) Carbon Dioxide Level 27mmol/L (21-32) Anion Gap 10 (6-14) Blood Urea Nitrogen 40mg/dL (8-26) Creatinine 2.3mg/dL (0.7-1.3) Estimated GFR (Cockcroft-Gault) 33.8 Glucose Level 145mg/dL (70-99) Calcium Level 8.2mg/dL (8.5-10.1) Phosphorus Level 5.2mg/dL (2.6-4.7) Magnesium Level 2.2mg/dL (1.8-2.4) Albumin 2.3g/dL (3.4-5.0) Medications Active Scripts Medications Dose Route/Sig Days Date Category Aspirin Ec (Aspirin) 81 Mg Tablet.dr 81 Mg PO DAILY 07/29/16 Reported Amlodipine Besylate 10 Mg Tablet 10 Mg PO DAILY 07/28/16 Reported Percocet 5-325 Mg Tablet (Oxycodone/Acetaminophen) 1 Each Tablet 1 Tab PO PRN Q6HRS PRN 07/28/16 Reported Doxazosin Mesylate 4 Mg Tablet 1 Tab PO DAILY 07/28/16 Reported Tamsulosin Hcl 0.4 Mg Cap.er.24h 1 Cap PO DAILY 07/28/16 Reported Ondansetron Odt (Ondansetron) 4 Mg Tab.rapdis 1 Tab PO PRN Q8HRS PRN 07/28/16 Reported Famotidine 40 Mg Tablet 40 Mg PO HS 02/12/14 Reported Telmisartan 80 Mg Tablet 80 Mg PO 02/12/14 Reported Impression . 1. 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 superimposed CHF (cxr worse 07/31) 2. Chronic obstructive pulmonary disease with exacerbation. 3. Chronic atrial fibrillation. 4. Acute MIRYAM on chronic kidney disease. 5. Benign prostatic hyperplasia. 6. Hypertension. 7. Kidney stones 8. NON STEMI 9. s/p cath , oozing of blood from HD catheter and epistaxis Plan . 1. s/p HD, much improved. off BiPAP, 2. continue with HD. f/u CXR 3. taper steroids, sed rate elevated 4. MIRYAM, suspect contrast induced 5. The patient instructed on the importance of discontinuing tobacco use 6. d/w RN 7. s/p cath , oozing of blood from HD catheter and epistaxis. cardiology following ZACKARY FARFAN MD Aug 02, 2016 15:02
[2016-08-02] MEDS: NITROGLYCERIN PREMIX 250 ML IV PRN (15:19)
[2016-08-02 17:16] LABS: HEP B SURFACE ABDY Non Reactive (.)
[2016-08-02] MEDS ORDERED: SODIUM CHLORIDE 0.65% NASAL SPRAY 45ML BOTTLE. NS PRN (19:00)
[2016-08-02] MEDS ORDERED: IV NORMAL SALINE 1000ML BAG 1,000 ML IV PRN ×2 (19:32)
[2016-08-02] MEDS ORDERED: DIPHENHYDRAMINE 50 MG/ML VIAL IV PRN ×2 (19:45)
[2016-08-02] MEDS ORDERED: ACETAMINOPHEN 500 MG TABLET PO PRN (19:45)
[2016-08-02] MEDS ORDERED: DIALYSIS PATIENT. MC PRN (19:45)
[2016-08-02 20:20] LABS: HEMATOCRIT 29.2 % (39.0-53.0); HEMOGLOBIN 9.6 g/dL (13.0-17.5)
[2016-08-02] MEDS ORDERED: ATORVASTATIN CALCIUM 20 MG TABLET PO SCH (21:00)
[2016-08-02] MEDS: IRON SUCROSE COMPLEX 200 MG in IV NORMAL SALINE 100ML 100 ML IV SCH (21:03)
[2016-08-02] MEDS: ATORVASTATIN CALCIUM 20 MG TABLET PO SCH (22:07)
[2016-08-02] MEDS: TAMSULOSIN 0.4 MG CAP.ER.24H. PO SCH (22:08)
[2016-08-02] MEDS: FAMOTIDINE 20 MG TABLET. PO SCH (22:08)
--- NOTE | 2016-08-02 22:35 | EKG ---
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
[2016-08-03 03:00] VITALS: BP 126/67
[2016-08-03 04:50] LABS: BASO % 0 % (0-3); EOS % 0 % (0-3); HEMATOCRIT 30.8 % (39.0-53.0); HEMOGLOBIN 10.1 g/dL (13.0-17.5); LYMPH # 0.3 x10^3/uL (1.0-4.8); LYMPH % 2 % (24-48); MEAN CORPUSCULAR HEMOGLOBIN 27 pg (25-35); MEAN CORPUSCULAR HGB CONC 33 g/dL (31-37); MEAN CORPUSCULAR VOLUME 83 fL (79-100); MONO % 7 % (0-9); NEUT % 91 % (31-73); PLATELET COUNT 341 x10^3/uL (140-400); RED BLOOD COUNT 3.72 x10^6/uL (4.30-5.70); RED CELL DISTRIBUTION WIDTH 14.7 % (11.5-14.5); WHITE BLOOD COUNT 14.2 x10^3/uL (4.0-11.0)
[2016-08-03 05:11] LABS: ALBUMIN 2.2 g/dL (3.4-5.0); CALCIUM 8.5 mg/dL (8.5-10.1); CREATININE 2.2 mg/dL (0.7-1.3); GFR 35.6; POTASSIUM 4.2 mmol/L (3.5-5.1)
[2016-08-03] MEDS: methylPREDNISolone SOD SUCC PF 125 MG/2 ML VIAL. IV SCH (05:31)
--- NOTE | 2016-08-03 06:50 | EKG ---
[facility] [address] [place] [address] Test Date: 2016-08-03 Test Time: 06:42:07 Pat Name: RUKHSANA GOMEZ Department: Room: 266 1 Gender: M Commission Associate: DEJAN : 1940 Requested By: VENTURA GHOTRA Order Number: [id number] Reading MD: Measurements Intervals [place] Rate: 61 P: 31 MT: 142 QRS: 156 QRSD: 136 T: 38 QT: 492 QTc: 497 Interpretive Statements SINUS RHYTHM VENTRICULAR PREMATURE COMPLEX(ES) ATRIAL PREMATURE COMPLEX(ES) LEFT ATRIAL ABNORMALITY RIGHT BUNDLE BRANCH BLOCK CONSIDER RIGHT VENTRICULAR HYPERTROPHY ABNORMAL ECG RI6.01 Compared to ECG 07/29/2016 09:20:15 Atrial abnormality now present Right bundle-branch block now present Right-axis deviation no longer present Early repolarization no longer present Possible ischemia no longer present
[2016-08-03] MEDS: IPRATRPIUM/ALBUTEROL 0.5/2.5MG 3 ML NEBU. NEB SCH ×4 (07:26→20:24)
[2016-08-03 07:40] VITALS: BP 122/60
[2016-08-03] MEDS: ASPIRIN ENTERIC COATED 81 MG TABLET.DR. PO SCH ×2 (08:00→13:24)
--- NOTE | 2016-08-03 08:22 | PDOC ---
SUBJECTIVE ROS MIRYAM/ CKD III Doigna nd feeling much better today CVS: no Orthopnea, no CP RESP: min SOB, min SALEEM GI: no Nausea, no Vomiting : no Dysuria, no Urgency OBJECTIVE Vital Signs Vital Signs Date Time Temp Pulse Resp B/P Pulse Ox O2 Delivery O2 Flow Rate FiO2 08/03/16 07:26 98 Nasal Cannula 2.0 08/03/16 03:00 98.1 73 20 126/67 98.1 I & 0 Intake and Output 08/03/16 07:00 Intake Total 1512 ml Output Total 1020 ml Balance 492 ml Intake Oral 970 ml IV Total 542 ml Output Urine Total 1020 ml PHYSICAL EXAM Physical Exam GEN: Awake, Oriented x 3, In min distress EYES: Vision Unchanged, Conjunctiva Normal EN: No EN Drainage, Mucous Membranes moist NECK: no JVD, + JVP, Supple, no Thyromegaly CVS: S1S2, ? Murmur, No Gallop, No Rub,no Edema RESP: + few Crackles, no Rhonchi,min Acc. Muscle Use GI: BS + ve, NO Bruit, Non Tender, Non Distended : no CVA tenderness, no Suprapubic Tenderness DIAGNOSIS/ASSESSMENT MIRYAM/ ATN - ? CAN from CTA; Dialysis as below F 180 NR 3.0 Hrs 3 K 2.5 Ca 140 Na 30 HC03 Qb 350 + Qd 500+ Heparin none Uf 1-2 Kgs as tolerated May give 25-50 gms of 25% Albumin if needed to maintain Hemodynamic stability Treatment plan reviewed and discussed with resource management planner CKD III - HTnsive / NS - baseline Creat is approx 1.8ish pre MIRYAM; Needs Permacath prior to starting Plavix etc ^ed Phos - better after starting binders. Renal diet education Hypoxia - resolved Renal Cysts - Chronic kidney Stone - No reported [place], URO eval as OP (at [facility] or here) NSTEMI - S/p LHC and PCI ANEMIA; Aranesp as ordered . Transfuse if needed HTN: Current BP meds as reviewed; defer to Cardiology to optimize - Hold ANTOINETTE-i / ARb for now due to MIRYAM - May resume once off of HD Discussed Plan of Care with Pt at bedside COMMENT/RELEVANT DATA Meds Current Medications Medications (Trade) Dose Ordered Sig/Prabha Start Time Stop Time Status Last Admin Dose Admin Acetaminophen (Tylenol) 500 mg 1X PRN PRN 08/02/16 19:45 08/03/16 19:44 Albuterol Sulfate (Ventolin Neb Soln) 2.5 mg PRN Q2HR PRN 07/30/16 03:30 08/01/16 22:20 2.5 MG Albuterol/ Ipratropium (Duoneb) 3 ml RTQID 07/29/16 08:00 08/03/16 07:26 3 ML Amiodarone HCl/ Dextrose (Cordarone) 103 ml @ 10 mls/min 1X PRN PRN 08/02/16 11:30 Aspirin (Lionel Aspirin) 325 mg DAILYWBKFT 07/29/16 09:45 08/02/16 11:25 DC 08/01/16 09:04 325 MG Aspirin (Children'S Aspirin) 324 mg 1X ONCE 07/28/16 18:30 07/28/16 18:31 DC 07/28/16 18:27 324 MG Aspirin (Ecotrin) 81 mg DAILYWBKFT 08/03/16 08:00 Aspirin 81 mg 81 mg 1X ONCE 08/02/16 11:15 08/02/16 11:16 DC 08/02/16 11:11 81 MG Atorvastatin Calcium (Lipitor) 20 mg QHS 08/02/16 21:00 Cancel Atropine Sulfate 0.5 mg PRN 1X PRN 08/02/16 11:30 Bivalirudin (Angiomax) 250 mg 1X ONCE 08/02/16 10:15 08/02/16 10:24 DC 08/02/16 11:09 250 MG Calcium Acetate (Phoslo) 1,334 mg TIDWMEALS 08/01/16 12:00 08/02/16 12:46 1,334 MG Cyclobenzaprine HCl (Flexeril) 10 mg PRN TID PRN 08/02/16 11:30 Darbepoetin Aleksey (Aranesp) 60 mcg WEEKLYHS 08/01/16 21:00 08/01/16 21:59 60 MCG Diphenhydramine HCl (Benadryl) 25 mg 1X PRN PRN 08/02/16 19:45 08/03/16 19:44 Doxazosin Mesylate (Cardura) 4 mg DAILY 07/29/16 09:00 07/31/16 09:59 4 MG Doxycycline Hyclate (Vibra-Tab) 100 mg BID 07/30/16 14:00 08/02/16 22:08 100 MG Famotidine (Pepcid) 20 mg Q48H 08/02/16 21:00 08/02/16 22:08 20 MG Famotidine 40 mg 40 mg HS 07/29/16 21:00 07/30/16 07:52 DC 07/29/16 20:49 40 MG Fentanyl Citrate (Fentanyl 2ml Vial) 50 mcg PRN Q1HR PRN 08/02/16 11:30 Furosemide (Lasix) 40 mg 1X ONCE 07/31/16 14:15 07/31/16 14:18 DC 07/31/16 14:21 40 MG Furosemide 40 mg 40 mg 1X ONCE 07/31/16 14:15 07/31/16 14:18 DC Heparin Sodium (Porcine) 2,500 unit 1X ONCE 08/01/16 10:30 08/01/16 10:31 DC 08/01/16 11:17 2,500 UNIT Heparin Sodium (Porcine) 4000 unit 4,000 unit 1X ONCE 07/28/16 18:30 07/28/16 18:32 DC 07/28/16 19:43 4,000 UNIT Heparin Sodium/ Dextrose 500 ml @ 0 mls/hr CONT PRN 07/28/16 18:30 08/02/16 01:21 0 MLS/HR Heparin Sodium/ Sodium Chloride 1,000 unit 1X ONCE 08/02/16 10:00 08/02/16 10:01 DC 08/02/16 11:09 1,000 UNIT Info (Do NOT chart on this entry -- for MONITORING) 1 each PRN DAILY PRN 08/02/16 10:00 08/04/16 09:59 Info (PHARMACY MONITORING -- do not chart) 1 each PRN DAILY PRN 08/02/16 19:45 UNV Insulin Aspart TIDAC 07/31/16 11:30 08/01/16 12:27 2 UNITS Iohexol (Omnipaque 300 Mg/ml) 100 ml STK-MED ONCE 08/02/16 10:17 08/02/16 10:18 DC Iohexol (Omnipaque 350 Mg/ml) 100 ml STK-MED ONCE 07/28/16 18:36 07/28/16 18:37 DC Iron Sucrose/ Sodium Chloride (Venofer/Iv Sodium Chloride 0.9% 100ml) 110 ml @ 55 mls/hr 3X/WEEK 08/02/16 09:00 08/11/16 10:59 08/02/16 21:03 55 MLS/HR Lidocaine HCl 100 mg 1X PRN PRN 08/02/16 11:30 Lidocaine/Sodium Bicarbonate (Buffered Lidocaine 1%) 3 ml 1X ONCE 08/01/16 10:30 08/01/16 10:31 DC 08/01/16 11:16 3 ML Lorazepam (Ativan) 0.5 mg PRN Q4HRS PRN 07/30/16 23:00 08/01/16 00:53 0.5 MG Losartan Potassium (Cozaar) 50 mg DAILY 08/03/16 09:00 Magnesium Sulfate/ Dextrose (Magnesium Sulfate PREMIX 2GM) 50 ml @ 25 mls/hr PRN DAILY PRN 07/31/16 13:00 Methylprednisolone Sodium Succinate (Solu-Medrol 125mg Vial) 125 mg Q8HRS 07/29/16 16:00 08/03/16 05:31 125 MG Metoprolol Tartrate (Lopressor) 12.5 mg BID 07/29/16 09:45 08/02/16 22:11 12.5 MG Midazolam HCl (Versed) 2 mg 1X ONCE 08/02/16 10:00 08/02/16 10:01 DC Morphine Sulfate 4 mg PRN Q2HR PRN 07/28/16 19:15 07/29/16 19:14 DC 07/28/16 23:32 4 MG Nitroglycerin (Nitroglycerin) 200 mcg 1X ONCE 08/02/16 11:00 08/02/16 11:01 DC 08/02/16 11:10 200 MCG Nitroglycerin (Nitrostat) 0.4 mg PRN Q5MIN PRN 07/28/16 18:30 07/29/16 18:29 DC 07/28/16 18:27 0.4 MG Nitroglycerin 0.4 mg 0.4 mg PRN Q5MIN PRN 08/02/16 11:30 Nitroglycerin/ Dextrose (Nitroglycerin Drip) 250 ml @ 0 mls/hr CONT PRN 07/29/16 09:45 08/02/16 15:19 9 MLS/HR Ondansetron HCl (Zofran Odt) 4 mg PRN Q8HRS PRN 07/29/16 09:30 Ondansetron HCl (Zofran) 4 mg PRN Q8HRS PRN 07/28/16 19:15 07/29/16 19:14 DC Oxycodone/ Acetaminophen (Percocet 5/325) 1 tab PRN Q6HRS PRN 07/29/16 09:30 07/30/16 23:03 DC 07/30/16 22:22 1 TAB Sodium Chloride (Iv Sodium Chloride 0.9% 1000ml Bag) 1,000 ml @ 400 mls/hr Q2H30M PRN 08/02/16 19:32 08/03/16 07:31 DC Sodium Chloride (Normal Saline Flush) 10 ml 1X PRN PRN 08/02/16 19:45 08/03/16 19:44 Sodium Chloride (Saline Mist Nasal) 1 nataliya PRN Q1HR PRN 08/02/16 19:00 Sodium Chloride 10 ml 10 ml 1X PRN PRN 08/02/16 19:45 08/03/16 19:44 Sodium Chloride 3 ml 3 ml QSHIFT PRN 08/02/16 11:30 Tamsulosin HCl (Flomax) 0.4 mg HS 07/29/16 21:00 08/02/16 22:08 0.4 MG Ticagrelor (Brilinta) 90 mg BID 08/03/16 09:00 Tirofiban/Sodium Chloride (Aggrastat 12.5 Mg/250 ml Premix) 250 ml @ 0 mls/hr CONT PRN 08/02/16 11:30 08/03/16 05:29 DC Tirofiban/Sodium Chloride (Aggrastat 5 Mg/ 100 ml Premix) 100 ml @ 1,200 mls/hr 1X ONCE 08/02/16 11:15 08/02/16 11:19 DC Lab Laboratory Tests Test 08/02/16 11:51 08/02/16 17:19 08/02/16 20:00 08/02/16 22:28 Glucose (Fingerstick) 136mg/dL (70-99) 154mg/dL (70-99) 122mg/dL (70-99) Hemoglobin 9.6g/dL (13.0-17.5) Hematocrit 29.2% (39.0-53.0) Test 08/03/16 04:10 White Blood Count 14.2x10^3/uL (4.0-11.0) Red Blood Count 3.72x10^6/uL (4.30-5.70) Hemoglobin 10.1g/dL (13.0-17.5) Hematocrit 30.8% (39.0-53.0) Mean Corpuscular Volume 83fL (79-100) Mean Corpuscular Hemoglobin 27pg (25-35) Mean Corpuscular Hemoglobin Concent 33g/dL (31-37) Red Cell Distribution Width 14.7% (11.5-14.5) Platelet Count 341x10^3/uL (140-400) Neutrophils (%) (Auto) 91% (31-73) Lymphocytes (%) (Auto) 2% (24-48) Monocytes (%) (Auto) 7% (0-9) Eosinophils (%) (Auto) 0% (0-3) Basophils (%) (Auto) 0% (0-3) Neutrophils # (Auto) 13.0x10^3uL (1.8-7.7) Lymphocytes # (Auto) 0.3x10^3/uL (1.0-4.8) Monocytes # (Auto) 0.9x10^3/uL (0.0-1.1) Eosinophils # (Auto) 0.0x10^3/uL (0.0-0.7) Basophils # (Auto) 0.0x10^3/uL (0.0-0.2) Heparin Anti-Xa Act, Unfractionated < 0.10IU/mL (0.30-0.70) Sodium Level 139mmol/L (136-145) Potassium Level 4.2mmol/L (3.5-5.1) Chloride Level 104mmol/L (98-107) Carbon Dioxide Level 25mmol/L (21-32) Anion Gap 10 (6-14) Blood Urea Nitrogen 33mg/dL (8-26) Creatinine 2.2mg/dL (0.7-1.3) Estimated GFR (Cockcroft-Gault) 35.6 Glucose Level 194mg/dL (70-99) Calcium Level 8.5mg/dL (8.5-10.1) Phosphorus Level 4.0mg/dL (2.6-4.7) Magnesium Level 1.9mg/dL (1.8-2.4) Albumin 2.2g/dL (3.4-5.0) BERNICE CASTILLO MD Aug 03, 2016 08:22
--- NOTE | 2016-08-03 08:49 | RAD ---
EXAM: Chest one view. HISTORY: Congestive heart failure. COMPARISON: 07/31/2016. FINDINGS: A frontal view of the chest is obtained. A right internal jugular hemodialysis catheter has its tip in the right atrium. Previously noted interstitial and airspace infiltrates have improved. The more confluent opacity at the right hilum has almost completely resolved with small residual nodular opacity along the minor fissure. There is no pneumothorax or clear pleural effusion. The heart is mildly enlarged. 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 IMPRESSION: 1. Interval improvement in previously noted pulmonary edema. 2. The right perihilar opacity has also completely resolved with a small residual nodule. Follow-up to resolution is recommended. 3. Mild cardiomegaly.
--- NOTE | 2016-08-03 08:56 | PDOC ---
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: IM PROGRESS NOTES- Subjective Subjective wanting to go home Objective Objective alert no distress Vitals Vital Signs Date Time Temp Pulse Resp B/P Pulse Ox O2 Delivery O2 Flow Rate FiO2 08/03/16 07:26 98 Nasal Cannula 2.0 08/03/16 03:00 98.1 73 20 126/67 98.1 Input & Output Intake and Output 08/03/16 07:00 Intake Total 1512 ml Output Total 1020 ml Balance 492 ml Intake Oral 970 ml IV Total 542 ml Output Urine Total 1020 ml Physical Exam Physical Exam General appearance - alert, ill appearing, and in no distress Mental Status - alert, oriented to person, place, and time, affect appropriate to mood Head - normal Chest - clear to auscultation, no wheezes, rales or rhonchi Heart - S1 and S2 normal Abdomen - soft, nontender, nondistended, BS+ Neurological - no acute neurological deficit noted Musculoskeletal - no muscular tenderness noted Extremities - no pedal edema Skin - warm and dry Labs Laboratory Tests Test 08/01/16 11:50 08/01/16 14:35 08/01/16 17:30 08/02/16 03:38 Glucose (Fingerstick) 175mg/dL (70-99) 154mg/dL (70-99) Heparin Anti-Xa Act, Unfractionated 0.55IU/mL (0.30-0.70) 0.46IU/mL (0.30-0.70) Hepatitis B Surface Antigen Negative (Negative) Hepatitis B Surface Antibody Non reactive (.) Hepatitis B Core IgM Antibody Negative (Negative) White Blood Count 12.3x10^3/uL (4.0-11.0) Red Blood Count 4.00x10^6/uL (4.30-5.70) Hemoglobin 10.8g/dL (13.0-17.5) Hematocrit 32.7% (39.0-53.0) Mean Corpuscular Volume 82fL (79-100) Mean Corpuscular Hemoglobin 27pg (25-35) Mean Corpuscular Hemoglobin Concent 33g/dL (31-37) Red Cell Distribution Width 14.9% (11.5-14.5) Platelet Count 373x10^3/uL (140-400) Neutrophils (%) (Auto) 91% (31-73) Lymphocytes (%) (Auto) 3% (24-48) Monocytes (%) (Auto) 5% (0-9) Eosinophils (%) (Auto) 0% (0-3) Basophils (%) (Auto) 0% (0-3) Neutrophils # (Auto) 11.2x10^3uL (1.8-7.7) Lymphocytes # (Auto) 0.4x10^3/uL (1.0-4.8) Monocytes # (Auto) 0.7x10^3/uL (0.0-1.1) Eosinophils # (Auto) 0.0x10^3/uL (0.0-0.7) Basophils # (Auto) 0.0x10^3/uL (0.0-0.2) Sodium Level 138mmol/L (136-145) Potassium Level 4.4mmol/L (3.5-5.1) Chloride Level 101mmol/L (98-107) Carbon Dioxide Level 27mmol/L (21-32) Anion Gap 10 (6-14) Blood Urea Nitrogen 40mg/dL (8-26) Creatinine 2.3mg/dL (0.7-1.3) Estimated GFR (Cockcroft-Gault) 33.8 Glucose Level 145mg/dL (70-99) Calcium Level 8.2mg/dL (8.5-10.1) Phosphorus Level 5.2mg/dL (2.6-4.7) Magnesium Level 2.2mg/dL (1.8-2.4) Albumin 2.3g/dL (3.4-5.0) Test 08/02/16 08:06 08/02/16 11:51 08/02/16 17:19 08/02/16 20:00 Glucose (Fingerstick) 134mg/dL (70-99) 136mg/dL (70-99) 154mg/dL (70-99) Hemoglobin 9.6g/dL (13.0-17.5) Hematocrit 29.2% (39.0-53.0) Test 08/02/16 22:28 08/03/16 04:10 Glucose (Fingerstick) 122mg/dL (70-99) White Blood Count 14.2x10^3/uL (4.0-11.0) Red Blood Count 3.72x10^6/uL (4.30-5.70) Hemoglobin 10.1g/dL (13.0-17.5) Hematocrit 30.8% (39.0-53.0) Mean Corpuscular Volume 83fL (79-100) Mean Corpuscular Hemoglobin 27pg (25-35) Mean Corpuscular Hemoglobin Concent 33g/dL (31-37) Red Cell Distribution Width 14.7% (11.5-14.5) Platelet Count 341x10^3/uL (140-400) Neutrophils (%) (Auto) 91% (31-73) Lymphocytes (%) (Auto) 2% (24-48) Monocytes (%) (Auto) 7% (0-9) Eosinophils (%) (Auto) 0% (0-3) Basophils (%) (Auto) 0% (0-3) Neutrophils # (Auto) 13.0x10^3uL (1.8-7.7) Lymphocytes # (Auto) 0.3x10^3/uL (1.0-4.8) Monocytes # (Auto) 0.9x10^3/uL (0.0-1.1) Eosinophils # (Auto) 0.0x10^3/uL (0.0-0.7) Basophils # (Auto) 0.0x10^3/uL (0.0-0.2) Heparin Anti-Xa Act, Unfractionated < 0.10IU/mL (0.30-0.70) Sodium Level 139mmol/L (136-145) Potassium Level 4.2mmol/L (3.5-5.1) Chloride Level 104mmol/L (98-107) Carbon Dioxide Level 25mmol/L (21-32) Anion Gap 10 (6-14) Blood Urea Nitrogen 33mg/dL (8-26) Creatinine 2.2mg/dL (0.7-1.3) Estimated GFR (Cockcroft-Gault) 35.6 Glucose Level 194mg/dL (70-99) Calcium Level 8.5mg/dL (8.5-10.1) Phosphorus Level 4.0mg/dL (2.6-4.7) Magnesium Level 1.9mg/dL (1.8-2.4) Albumin 2.2g/dL (3.4-5.0) Laboratory Tests Test 08/02/16 11:51 08/02/16 17:19 08/02/16 20:00 08/02/16 22:28 Glucose (Fingerstick) 136mg/dL (70-99) 154mg/dL (70-99) 122mg/dL (70-99) Hemoglobin 9.6g/dL (13.0-17.5) Hematocrit 29.2% (39.0-53.0) Test 08/03/16 04:10 White Blood Count 14.2x10^3/uL (4.0-11.0) Red Blood Count 3.72x10^6/uL (4.30-5.70) Hemoglobin 10.1g/dL (13.0-17.5) Hematocrit 30.8% (39.0-53.0) Mean Corpuscular Volume 83fL (79-100) Mean Corpuscular Hemoglobin 27pg (25-35) Mean Corpuscular Hemoglobin Concent 33g/dL (31-37) Red Cell Distribution Width 14.7% (11.5-14.5) Platelet Count 341x10^3/uL (140-400) Neutrophils (%) (Auto) 91% (31-73) Lymphocytes (%) (Auto) 2% (24-48) Monocytes (%) (Auto) 7% (0-9) Eosinophils (%) (Auto) 0% (0-3) Basophils (%) (Auto) 0% (0-3) Neutrophils # (Auto) 13.0x10^3uL (1.8-7.7) Lymphocytes # (Auto) 0.3x10^3/uL (1.0-4.8) Monocytes # (Auto) 0.9x10^3/uL (0.0-1.1) Eosinophils # (Auto) 0.0x10^3/uL (0.0-0.7) Basophils # (Auto) 0.0x10^3/uL (0.0-0.2) Heparin Anti-Xa Act, Unfractionated < 0.10IU/mL (0.30-0.70) Sodium Level 139mmol/L (136-145) Potassium Level 4.2mmol/L (3.5-5.1) Chloride Level 104mmol/L (98-107) Carbon Dioxide Level 25mmol/L (21-32) Anion Gap 10 (6-14) Blood Urea Nitrogen 33mg/dL (8-26) Creatinine 2.2mg/dL (0.7-1.3) Estimated GFR (Cockcroft-Gault) 35.6 Glucose Level 194mg/dL (70-99) Calcium Level 8.5mg/dL (8.5-10.1) Phosphorus Level 4.0mg/dL (2.6-4.7) Magnesium Level 1.9mg/dL (1.8-2.4) Albumin 2.2g/dL (3.4-5.0) Meds Current Medications Acetaminophen (Tylenol) 500 mg 1X PRN PRN PO MILD PAIN / TEMP; Start 08/02/16 at 19:45; Stop 08/03/16 at 19:44 Acetaminophen (Tylenol) 650 mg PRN Q6HRS PRN PO MILD PAIN / TEMP; Start at 11:30 Amiodarone HCl/ Dextrose (Cordarone) 103 ml @ 10 mls/min 1X PRN PRN IV FOR VENTRICULAR TACHYCARDIA; Start 08/02/16 at 11:30 Aspirin (Ecotrin) 81 mg DAILYWBKFT PO ; Start 08/03/16 at 08:00 Aspirin 81 mg 81 mg 1X ONCE PO Last administered on 08/02/16t 11:11; Start 08/02 at 11:15; Stop 08/02/16 at 11:16; Status DC Atorvastatin Calcium (Lipitor) 20 mg QHS PO ; Start 08/02/16 at 21:00; Status Cancel Atropine Sulfate 0.5 mg PRN 1X PRN IV BRADYCARDIA; Start 08/02/16 at 11:30 Bivalirudin (Angiomax) 250 mg STK-MED ONCE IV ; Start 08/02/16 at 10:17; Stop 08/02/16 at 10:18; Status DC Bivalirudin 250 mg 250 mg 1X ONCE IV Last administered on 08/02/16t 11:09; Start 08/02/16 at 10:15; Stop 08/02/16 at 10:24; Status DC Cyclobenzaprine HCl (Flexeril) 10 mg PRN TID PRN PO MUSCLE SPASMS; Start at 11:30 Diphenhydramine HCl (Benadryl) 25 mg 1X PRN PRN IV ITCHING; Start 08/02/16 at 19 :45; Stop 08/03/16 at 19:44 Diphenhydramine HCl (Benadryl) 25 mg 1X PRN PRN IV ITCHING; Start 08/02/16 at 19 :45; Stop 08/03/16 at 19:44 Famotidine (Pepcid) 20 mg Q48H PO Last administered on 08/02/16 22:08; Start at 21:00 Fentanyl Citrate (Fentanyl 2ml Vial) 50 mcg PRN Q1HR PRN IV MODERATE OR SEVERE PAIN; Start 08/02/16 at 11:30 Fentanyl Citrate (Fentanyl 2ml Vial) 100 mcg 1X ONCE IV Last administered on 10:00; Start 08/02/16 at 10:00; Stop 08/02/16 at 10:01; Status DC Fentanyl Citrate (Fentanyl 2ml Vial) 100 mcg STK-MED ONCE .ROUTE ; Start at 09:39; Stop 08/02/16 at 09:40; Status DC Heparin Sodium/ Sodium Chloride 500 ml @ As Directed STK-MED ONCE .ROUTE ; Start 08/02/16 at 09:22; Stop 08/02/16 at 09:23; Status DC Heparin Sodium/ Sodium Chloride 1,000 ml @ As Directed STK-MED ONCE .ROUTE ; Start 08/02/16 at 09:15; Stop 08/02/16 at 09:16; Status DC Heparin Sodium/ Sodium Chloride 1,000 unit 1X ONCE IART Last administered on 11:09; Start 08/02/16 at 10:00; Stop 08/02/16 at 10:01; Status DC Heparin Sodium/ Sodium Chloride 1,000 unit 1X ONCE IART Last administered on 11:09; Start 08/02/16 at 10:00; Stop 08/02/16 at 10:01; Status DC Info (Do NOT chart on this entry -- for MONITORING) 1 each PRN DAILY PRN MC SEE COMMENTS; Start 08/02/16 at 10:00; Stop 08/04/16 at 09:59 Info (PHARMACY MONITORING -- do not chart) 1 each PRN DAILY PRN MC SEE COMMENTS ; Start 08/02/16 at 19:45; Status UNV Iohexol (Omnipaque 300 Mg/ml) 100 ml 1X ONCE IART Last administered on 11:10; Start 08/02/16 at 10:00; Stop 08/02/16 at 10:01; Status DC Iohexol (Omnipaque 300 Mg/ml) 100 ml STK-MED ONCE .ROUTE ; Start 08/02/16 at 10: 17; Stop 08/02/16 at 10:18; Status DC Iohexol 100 ml 100 ml STK-MED ONCE .ROUTE ; Start 08/02/16 at 09:15; Stop at 09:16; Status DC Iohexol 100 ml 100 ml STK-MED ONCE .ROUTE ; Start 08/02/16 at 09:21; Stop at 09:22; Status DC Iron Sucrose/ Sodium Chloride (Venofer/Iv Sodium Chloride 0.9% 100ml) 110 ml @ 55 mls/hr 3X/WEEK IV Last administered on 08/02/16 21:03; Start 08/02/16 at 09: 00; Stop 08/11/16 at 10:59 Lidocaine HCl 20 ml 1X ONCE IJ Last administered on 08/02/16 11:13; Start 08/02 at 10:00; Stop 08/02/16 at 10:01; Status DC Lidocaine HCl 20 ml STK-MED ONCE .ROUTE ; Start 08/02/16 at 09:15; Stop 08/02/16 at 09:16; Status DC Lidocaine HCl 100 mg 1X PRN PRN IV FOR VENTRICULAR TACHYCARDIA; Start 08/02/16 at 11:30 Losartan Potassium (Cozaar) 50 mg DAILY PO ; Start 08/03/16 at 09:00 Methylprednisolone Sodium Succinate (Solu-Medrol 125mg Vial) 80 mg Q8HRS IV ; Start 08/03/16 at 14:00 Midazolam HCl (Versed) 2 mg 1X ONCE IV ; Start 08/02/16 at 10:00; Stop 08/02/16 at 10:01; Status DC Midazolam HCl (Versed) 2 mg STK-MED ONCE .ROUTE ; Start 08/02/16 at 09:40; Stop 08/02/16 at 09:41; Status DC Nitroglycerin (Nitroglycerin) 200 mcg 1X ONCE IART Last administered on t 11:10; Start 08/02/16 at 11:00; Stop 08/02/16 at 11:01; Status DC Nitroglycerin (Nitroglycerin) 200 mcg STK-MED ONCE .ROUTE ; Start 08/02/16 at 10: 56; Stop 08/02/16 at 10:57; Status DC Nitroglycerin 0.4 mg 0.4 mg PRN Q5MIN PRN SL CHEST PAIN; Start 08/02/16 at 11:30 Sodium Chloride (Iv Sodium Chloride 0.9% 1000ml Bag) 1,000 ml @ 400 mls/hr Q2H30M PRN IV PATENCY; Start 08/02/16 at 19:32; Stop 08/03/16 at 07:31; Status DC Sodium Chloride (Iv Sodium Chloride 0.9% 1000ml Bag) 1,000 ml @ 1,000 mls/hr Q1H PRN IV hypotension; Start 08/02/16 at 19:32; Stop 08/03/16 at 01:31; Status DC Sodium Chloride (Normal Saline Flush) 10 ml 1X PRN PRN IV AP catheter pack; Start 08/02/16 at 19:45; Stop 08/03/16 at 19:44 Sodium Chloride 10 ml 10 ml 1X PRN PRN IV DIRECTOR OF TRAUMA catheter pack; Start 08/02/16 at 19 :45; Stop 08/03/16 at 19:44 Sodium Chloride 1 nataliya 1 nataliya PRN Q1HR PRN NS NASAL CONGESTION; Start 08/02/16 at 19:00 Sodium Chloride 3 ml 3 ml QSHIFT PRN IV AFTER MEDS AND BLOOD DRAWS; Start at 11:30 Ticagrelor (Brilinta) 90 mg BID PO ; Start 08/03/16 at 09:00 Ticagrelor (Brilinta) 90 mg STK-MED ONCE .ROUTE ; Start 08/02/16 at 10:58; Stop 08/02/16 at 10:59; Status DC Ticagrelor (Brilinta) 180 mg 1X ONCE PO Last administered on 08/02/16 11:11; Start 08/02/16 at 11:00; Stop 08/02/16 at 11:04; Status DC Tirofiban/Sodium Chloride 100 ml @ 1,200 mls/hr 1X ONCE IV ; Start 08/02/16 at 11:00; Stop 08/02/16 at 11:00; Status DC Tirofiban/Sodium Chloride 250 ml @ As Directed STK-MED ONCE IV ; Start 08/02/16 at 10:40; Stop 08/02/16 at 10:41; Status DC Tirofiban/Sodium Chloride 250 ml @ 0 mls/hr CONT PRN IV PER PROTOCOL Last administered on 08/02/16t 11:16; Start 08/02/16 at 11:15 Tirofiban/Sodium Chloride (Aggrastat 12.5 Mg/250 ml Premix) 250 ml @ 0 mls/hr CONT PRN IV PER PROTOCOL; Start 08/02/16 at 11:30; Stop 08/03/16 at 05:29; Status DC Tirofiban/Sodium Chloride (Aggrastat 5 Mg/ 100 ml Premix) 22 ml @ 264 mls/hr 1X ONCE IV ; Start 08/02/16 at 11:00; Stop 08/02/16 at 11:04; Status DC Tirofiban/Sodium Chloride (Aggrastat 5 Mg/ 100 ml Premix) 100 ml @ 1,200 mls/ hr 1X ONCE IV ; Start 08/02/16 at 11:15; Stop 08/02/16 at 11:19; Status DC Assessment Assessment IMPRESSION: 1. Chest pain, acute non-ST elevation myocardial infarction with elevated troponin s/p bare metal stent L Cx08/02/16 2. AECOPD with undelrying bullous emphysema/ILD-fibrosis 3. Acute hypoxic respiratory failure with underlying COPD/ILD/ acute NSTEMI 4. 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 Benign prostatic hyperplasia. 6. Hypertension. 7. Kidney stone R intrarenal collect sx 6.3mm 8. steroid induced DM II with hyperglycemia 9. bilateral renal cyst 9, Afib chronic h/o 10. a/c systolic CHF POA EF 50% mod MR 11. acute bronchitis POA PLAN: acute NSTEMI cardiology consult Max troponin 21.220 ECHO EF 50% neg CT PE or dissection venous doppler negative cardiac cath is planned PT-cardiac rehab ordered Heparin/NTG infusions CC 08/02/16- LAD 15%, LCx >95% stenosis near OM, bare metal stent placed reduced to 0%, RCA non dominant 35% and 30% stenosis Heparin gtt stopped 08/02 Brilinta 90mg bid NTG gtt continues acute respiratory failure pulmonary consult Desat 07/30 evening-tolerated BIPAP 30 min, Non rebreather Sat 6.-84% acute bronchitis-doxycycline since 07/30 AECOPD-Solumedrol 125mg IV q8hr since 07/30--Decrease to 62.5mg q 8hr today, plan home with tapering steroids bullous emphysema/ILD ESR elevated -steroids cardio note wheezing w/? hold BB- CHF, has agreed to HD, will continue BB improved after dialysis ARF with CKD nephrology consult Admit BUN 27 08/03 33 Cr 2.9 2.2 K 4.5 4.2 Na 139 08/01/16) PO4 7.2 4.0 Has agreed to dialysis, consent completed. Await order from nephrology Phoslo 1334mg tid 08/01/16 Perma cath to be placed today A/C systolic CHF with EF 50% mod MR daily wt Admit wt 183# 08/02 194# I/O to begin dialysis -HD initiated 08/01 with temp HDC placed 08/01 +ARB/BB hyperlipidemia LDL 142 on atorvastin anemia renal disease Admit Hgb 11.7 08/03 10.1 monitor Fe 25 TIBC 176 FeSo4 14 Ferritn 250 Venofer 200mg IV 3x/wk for 5 doses DVT/GI prophylaxis Hep gtt Pepcid DM steroid induced FSBS no ssi BS 122-194 leukocytosis steroid induced Admit WBC 8.9 08/03 14.2 For further plan of care, please refer to the orders. Bleeding post procedure-1 dose Brilinta given +anticoags during procedure. If procedure held today, will need Heparin infusion until Perma cath placed. Plan Plan For more details regarding further plans, please refer to the orders. SEGUNDO STOCK MD 08/03/16 1054: IM PROGRESS NOTES- Assessment Assessment The patient was seen and examined by me. Chart reviewed and plan of care formulated. Discussed with, reviewed and agree with EMOTIONAL SUPPORT TEACHER's notes, plan of care and orders with modifications as necessary. For more details regarding further plans, please refer to the orders. LC RUSSELL APRN Aug 03, 2016 08:56 SEGUNDO STOCK MD Aug 03, 2016 10:54
[2016-08-03] MEDS: TICAGRELOR 90 MG TABLET. PO SCH ×2 (09:00→13:24)
[2016-08-03] MEDS ORDERED: LOSARTAN POTASSIUM 50 MG TABLET. PO SCH (09:00)
[2016-08-03] MEDS: INSULIN ASPART 300 UNITS/3 ML INSULN.PEN SQ SCH ×3 (09:34→18:01)
[2016-08-03] MEDS: CALCIUM ACETATE 667 MG CAPSULE PO SCH ×4 (10:19→18:01)
[2016-08-03] MEDS: DOXYCYCLINE HYCLATE 100 MG TABLET PO SCH ×2 (10:20→22:00)
[2016-08-03] MEDS: METOPROLOL TART IMMED RELEASE 25 MG TABLET PO SCH ×2 (10:20→22:00)
[2016-08-03] MEDS: DOXAZOSIN MESYLATE 4 MG TABLET PO SCH (10:22)
--- NOTE | 2016-08-03 11:21 | PDOC ---
PULMONARY PROGRESS NOTES Subjective much better after HD Vitals Vital Signs Date Time Temp Pulse Resp B/P Pulse Ox O2 Delivery O2 Flow Rate FiO2 08/03/16 10:22 73 126/67 08/03/16 07:40 98.2 18 98 Room Air 98.2 08/03/16 07:26 2.0 General: Alert, No acute distress Lungs: Other (decrease bs) Cardiovascular: S1, S2 Abdomen: Soft Neuro Exam: Alert Extremities: No Edema Skin: Warm Labs Laboratory Tests Test 08/01/16 11:50 08/01/16 14:35 08/01/16 17:30 08/02/16 03:38 Glucose (Fingerstick) 175mg/dL (70-99) 154mg/dL (70-99) Heparin Anti-Xa Act, Unfractionated 0.55IU/mL (0.30-0.70) 0.46IU/mL (0.30-0.70) Hepatitis B Surface Antigen Negative (Negative) Hepatitis B Surface Antibody Non reactive (.) Hepatitis B Core IgM Antibody Negative (Negative) White Blood Count 12.3x10^3/uL (4.0-11.0) Red Blood Count 4.00x10^6/uL (4.30-5.70) Hemoglobin 10.8g/dL (13.0-17.5) Hematocrit 32.7% (39.0-53.0) Mean Corpuscular Volume 82fL (79-100) Mean Corpuscular Hemoglobin 27pg (25-35) Mean Corpuscular Hemoglobin Concent 33g/dL (31-37) Red Cell Distribution Width 14.9% (11.5-14.5) Platelet Count 373x10^3/uL (140-400) Neutrophils (%) (Auto) 91% (31-73) Lymphocytes (%) (Auto) 3% (24-48) Monocytes (%) (Auto) 5% (0-9) Eosinophils (%) (Auto) 0% (0-3) Basophils (%) (Auto) 0% (0-3) Neutrophils # (Auto) 11.2x10^3uL (1.8-7.7) Lymphocytes # (Auto) 0.4x10^3/uL (1.0-4.8) Monocytes # (Auto) 0.7x10^3/uL (0.0-1.1) Eosinophils # (Auto) 0.0x10^3/uL (0.0-0.7) Basophils # (Auto) 0.0x10^3/uL (0.0-0.2) Sodium Level 138mmol/L (136-145) Potassium Level 4.4mmol/L (3.5-5.1) Chloride Level 101mmol/L (98-107) Carbon Dioxide Level 27mmol/L (21-32) Anion Gap 10 (6-14) Blood Urea Nitrogen 40mg/dL (8-26) Creatinine 2.3mg/dL (0.7-1.3) Estimated GFR (Cockcroft-Gault) 33.8 Glucose Level 145mg/dL (70-99) Calcium Level 8.2mg/dL (8.5-10.1) Phosphorus Level 5.2mg/dL (2.6-4.7) Magnesium Level 2.2mg/dL (1.8-2.4) Albumin 2.3g/dL (3.4-5.0) Test 08/02/16 08:06 08/02/16 11:51 08/02/16 17:19 08/02/16 20:00 Glucose (Fingerstick) 134mg/dL (70-99) 136mg/dL (70-99) 154mg/dL (70-99) Hemoglobin 9.6g/dL (13.0-17.5) Hematocrit 29.2% (39.0-53.0) Test 08/02/16 22:28 08/03/16 04:10 Glucose (Fingerstick) 122mg/dL (70-99) White Blood Count 14.2x10^3/uL (4.0-11.0) Red Blood Count 3.72x10^6/uL (4.30-5.70) Hemoglobin 10.1g/dL (13.0-17.5) Hematocrit 30.8% (39.0-53.0) Mean Corpuscular Volume 83fL (79-100) Mean Corpuscular Hemoglobin 27pg (25-35) Mean Corpuscular Hemoglobin Concent 33g/dL (31-37) Red Cell Distribution Width 14.7% (11.5-14.5) Platelet Count 341x10^3/uL (140-400) Neutrophils (%) (Auto) 91% (31-73) Lymphocytes (%) (Auto) 2% (24-48) Monocytes (%) (Auto) 7% (0-9) Eosinophils (%) (Auto) 0% (0-3) Basophils (%) (Auto) 0% (0-3) Neutrophils # (Auto) 13.0x10^3uL (1.8-7.7) Lymphocytes # (Auto) 0.3x10^3/uL (1.0-4.8) Monocytes # (Auto) 0.9x10^3/uL (0.0-1.1) Eosinophils # (Auto) 0.0x10^3/uL (0.0-0.7) Basophils # (Auto) 0.0x10^3/uL (0.0-0.2) Heparin Anti-Xa Act, Unfractionated < 0.10IU/mL (0.30-0.70) Sodium Level 139mmol/L (136-145) Potassium Level 4.2mmol/L (3.5-5.1) Chloride Level 104mmol/L (98-107) Carbon Dioxide Level 25mmol/L (21-32) Anion Gap 10 (6-14) Blood Urea Nitrogen 33mg/dL (8-26) Creatinine 2.2mg/dL (0.7-1.3) Estimated GFR (Cockcroft-Gault) 35.6 Glucose Level 194mg/dL (70-99) Calcium Level 8.5mg/dL (8.5-10.1) Phosphorus Level 4.0mg/dL (2.6-4.7) Magnesium Level 1.9mg/dL (1.8-2.4) Albumin 2.2g/dL (3.4-5.0) Laboratory Tests Test 08/02/16 11:51 08/02/16 17:19 08/02/16 20:00 08/02/16 22:28 Glucose (Fingerstick) 136mg/dL (70-99) 154mg/dL (70-99) 122mg/dL (70-99) Hemoglobin 9.6g/dL (13.0-17.5) Hematocrit 29.2% (39.0-53.0) Test 08/03/16 04:10 White Blood Count 14.2x10^3/uL (4.0-11.0) Red Blood Count 3.72x10^6/uL (4.30-5.70) Hemoglobin 10.1g/dL (13.0-17.5) Hematocrit 30.8% (39.0-53.0) Mean Corpuscular Volume 83fL (79-100) Mean Corpuscular Hemoglobin 27pg (25-35) Mean Corpuscular Hemoglobin Concent 33g/dL (31-37) Red Cell Distribution Width 14.7% (11.5-14.5) Platelet Count 341x10^3/uL (140-400) Neutrophils (%) (Auto) 91% (31-73) Lymphocytes (%) (Auto) 2% (24-48) Monocytes (%) (Auto) 7% (0-9) Eosinophils (%) (Auto) 0% (0-3) Basophils (%) (Auto) 0% (0-3) Neutrophils # (Auto) 13.0x10^3uL (1.8-7.7) Lymphocytes # (Auto) 0.3x10^3/uL (1.0-4.8) Monocytes # (Auto) 0.9x10^3/uL (0.0-1.1) Eosinophils # (Auto) 0.0x10^3/uL (0.0-0.7) Basophils # (Auto) 0.0x10^3/uL (0.0-0.2) Heparin Anti-Xa Act, Unfractionated < 0.10IU/mL (0.30-0.70) Sodium Level 139mmol/L (136-145) Potassium Level 4.2mmol/L (3.5-5.1) Chloride Level 104mmol/L (98-107) Carbon Dioxide Level 25mmol/L (21-32) Anion Gap 10 (6-14) Blood Urea Nitrogen 33mg/dL (8-26) Creatinine 2.2mg/dL (0.7-1.3) Estimated GFR (Cockcroft-Gault) 35.6 Glucose Level 194mg/dL (70-99) Calcium Level 8.5mg/dL (8.5-10.1) Phosphorus Level 4.0mg/dL (2.6-4.7) Magnesium Level 1.9mg/dL (1.8-2.4) Albumin 2.2g/dL (3.4-5.0) Medications Active Scripts Medications Dose Route/Sig Days Date Category Aspirin Ec (Aspirin) 81 Mg Tablet.dr 81 Mg PO DAILY 07/29/16 Reported Amlodipine Besylate 10 Mg Tablet 10 Mg PO DAILY 07/28/16 Reported Percocet 5-325 Mg Tablet (Oxycodone/Acetaminophen) 1 Each Tablet 1 Tab PO PRN Q6HRS PRN 07/28/16 Reported Doxazosin Mesylate 4 Mg Tablet 1 Tab PO DAILY 07/28/16 Reported Tamsulosin Hcl 0.4 Mg Cap.er.24h 1 Cap PO DAILY 07/28/16 Reported Ondansetron Odt (Ondansetron) 4 Mg Tab.rapdis 1 Tab PO PRN Q8HRS PRN 07/28/16 Reported Famotidine 40 Mg Tablet 40 Mg PO HS 02/12/14 Reported Telmisartan 80 Mg Tablet 80 Mg PO 02/12/14 Reported Impression . 1. 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 superimposed CHF (cxr worse 07/31), sig improved 08/03 2. Chronic obstructive pulmonary disease with exacerbation. 3. Chronic atrial fibrillation. 4. Acute MIRYAM on chronic kidney disease. 5. Benign prostatic hyperplasia. 6. Hypertension. 7. Kidney stones 8. NON STEMI 9. s/p cath , Severe single-vessel coronary disease in the left circumflex artery. Mild to moderate disease in the LAD and right coronary artery. Successful bare metal stent placement in the left circumflex lesion decreasing a 95% lesion to 0%. Plan . 1. s/p HD, much improved. off BiPAP, only on 2 litres canula 2. continue with HD. f/u CXR much improved 3. taper steroids, sed rate elevated 4. MIRYAM, suspect contrast induced 5. The patient instructed on the importance of discontinuing tobacco use 6. d/w RN 7. follow cardiology recommendations ZACKARY FARFAN MD Aug 03, 2016 11:21
[2016-08-03 11:30] VITALS: BP 125/56
--- NOTE | 2016-08-03 12:01 | PDOC ---
CARDIO Progress Notes Date and Time Date of Service 08/03/16 Time of Evaluation 1215 Subjective Subjective: No Chest Pain, No shortness of breath, No Palpitations, No Dizziness, Other (feeling much better since have HD) Vitals Vitals Vital Signs Date Time Temp Pulse Resp B/P Pulse Ox O2 Delivery O2 Flow Rate FiO2 08/03/16 10:22 73 126/67 08/03/16 07:40 98.2 18 98 Room Air 98.2 08/03/16 07:26 2.0 Weight Weight [ ] Input and Output Intake and Output Intake and Output 08/03/16 07:00 Intake Total 1512 ml Output Total 1020 ml Balance 492 ml Intake Oral 970 ml IV Total 542 ml Output Urine Total 1020 ml Laboratory Labs Laboratory Tests Test 08/02/16 17:19 08/02/16 20:00 08/02/16 22:28 08/03/16 04:10 Glucose (Fingerstick) 154mg/dL (70-99) 122mg/dL (70-99) Hemoglobin 9.6g/dL (13.0-17.5) 10.1g/dL (13.0-17.5) Hematocrit 29.2% (39.0-53.0) 30.8% (39.0-53.0) White Blood Count 14.2x10^3/uL (4.0-11.0) Red Blood Count 3.72x10^6/uL (4.30-5.70) Mean Corpuscular Volume 83fL (79-100) Mean Corpuscular Hemoglobin 27pg (25-35) Mean Corpuscular Hemoglobin Concent 33g/dL (31-37) Red Cell Distribution Width 14.7% (11.5-14.5) Platelet Count 341x10^3/uL (140-400) Neutrophils (%) (Auto) 91% (31-73) Lymphocytes (%) (Auto) 2% (24-48) Monocytes (%) (Auto) 7% (0-9) Eosinophils (%) (Auto) 0% (0-3) Basophils (%) (Auto) 0% (0-3) Neutrophils # (Auto) 13.0x10^3uL (1.8-7.7) Lymphocytes # (Auto) 0.3x10^3/uL (1.0-4.8) Monocytes # (Auto) 0.9x10^3/uL (0.0-1.1) Eosinophils # (Auto) 0.0x10^3/uL (0.0-0.7) Basophils # (Auto) 0.0x10^3/uL (0.0-0.2) Heparin Anti-Xa Act, Unfractionated < 0.10IU/mL (0.30-0.70) Sodium Level 139mmol/L (136-145) Potassium Level 4.2mmol/L (3.5-5.1) Chloride Level 104mmol/L (98-107) Carbon Dioxide Level 25mmol/L (21-32) Anion Gap 10 (6-14) Blood Urea Nitrogen 33mg/dL (8-26) Creatinine 2.2mg/dL (0.7-1.3) Estimated GFR (Cockcroft-Gault) 35.6 Glucose Level 194mg/dL (70-99) Calcium Level 8.5mg/dL (8.5-10.1) Phosphorus Level 4.0mg/dL (2.6-4.7) Magnesium Level 1.9mg/dL (1.8-2.4) Albumin 2.2g/dL (3.4-5.0) Case Discussion Case Discussed with: Physician (PCP and nephrology) Review of Systems Pulmonary: Yes cough dry, Yes dyspnea Cardiovascular: No chest pain Physical Exam HEENT: Neck Supple W Full Motion Chest: Symmetric LUNGS: Clear to Auscultation Heart: S1S2, RRR, other (tele: SR with PVC's ) Abdomen: Soft N/T Extremities: 2+ Dorsalis Pedis, No Edema, Other (right groin arteriotomy site CDI with neurovascular status intact) Neurology: alert, oriented, follow commands Assessment Assessment 1. NSTEMI/ CAD s/p BMS to LCx risk stratification modification cardiac rehab referral secondary prevention including DAPT with ASA and Brilinta Hold ANTOINETTE/ARB due to MIRYAM 2. acute CHF, likely systolic, LVEF 50% compensated. fluid offloading in HD per nephrology 3. acute respiratory failure with AECOPD per pulm 4. 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 5. Hyperlipidemia LDLS = 143 statin MELQUIADES SOTO APRN Aug 03, 2016 12:01
[2016-08-03] MEDS ORDERED: IV NORMAL SALINE 1000ML BAG 1,000 ML IV PRN (13:14)
[2016-08-03] MEDS ORDERED: DIPHENHYDRAMINE 50 MG/ML VIAL IV PRN ×2 (13:15)
[2016-08-03] MEDS ORDERED: ACETAMINOPHEN 500 MG TABLET PO PRN (13:15)
[2016-08-03] MEDS ORDERED: ALBUMIN HUMAN 25% 200 ML IV PRN (13:15)
[2016-08-03] MEDS ORDERED: LABETALOL 20 MG/4 ML DISP.SYRIN. IVP PRN (13:15)
[2016-08-03] MEDS ORDERED: DIALYSIS PATIENT. MC PRN (13:15)
[2016-08-03] MEDS ORDERED: CLONIDINE HCL 0.1 MG TABLET PO PRN (13:15)
[2016-08-03] MEDS ORDERED: methylPREDNISolone SOD SUCC PF 125 MG/2 ML VIAL. IV SCH ×3 (14:00→21:00)
[2016-08-03 17:12] VITALS: BP 134/76
[2016-08-03 19:23] VITALS: BP 112/68
[2016-08-03] MEDS: ATORVASTATIN CALCIUM 20 MG TABLET PO SCH (21:55)
[2016-08-03] MEDS: TAMSULOSIN 0.4 MG CAP.ER.24H. PO SCH (21:55)
[2016-08-03 23:00] VITALS: BP 135/74
[2016-08-04 03:16] VITALS: BP 127/71
[2016-08-04 05:22] LABS: BASO % 0 % (0-3); EOS % 0 % (0-3); HEMATOCRIT 33.9 % (39.0-53.0); HEMOGLOBIN 10.9 g/dL (13.0-17.5); LYMPH # 0.6 x10^3/uL (1.0-4.8); LYMPH % 4 % (24-48); MEAN CORPUSCULAR HEMOGLOBIN 27 pg (25-35); MEAN CORPUSCULAR HGB CONC 32 g/dL (31-37); MEAN CORPUSCULAR VOLUME 83 fL (79-100); MONO % 7 % (0-9); NEUT % 89 % (31-73); PLATELET COUNT 343 x10^3/uL (140-400); RED BLOOD COUNT 4.08 x10^6/uL (4.30-5.70); RED CELL DISTRIBUTION WIDTH 14.4 % (11.5-14.5); WHITE BLOOD COUNT 15.5 x10^3/uL (4.0-11.0)
[2016-08-04 05:41] LABS: ALBUMIN 2.3 g/dL (3.4-5.0); CALCIUM 8.7 mg/dL (8.5-10.1); CREATININE 2.4 mg/dL (0.7-1.3); GFR 32.2; PHOSPHORUS 3.7 mg/dL (2.6-4.7); POTASSIUM 4.5 mmol/L (3.5-5.1)
[2016-08-04] MEDS: IPRATRPIUM/ALBUTEROL 0.5/2.5MG 3 ML NEBU. NEB SCH ×3 (06:59→15:31)
[2016-08-04 07:00] VITALS: BP 141/75
[2016-08-04] MEDS: INSULIN ASPART 300 UNITS/3 ML INSULN.PEN SQ SCH ×3 (07:30→16:30)
--- NOTE | 2016-08-04 07:56 | PDOC ---
SUBJECTIVE ROS MIRYAM/ ATN Feeling much better today CVS: no Orthopnea, no CP RESP: no SOB, no SALEEM GI: no Nausea, no Vomiting : no Dysuria, no Urgency OBJECTIVE Vital Signs Vital Signs Date Time Temp Pulse Resp B/P Pulse Ox O2 Delivery O2 Flow Rate FiO2 08/04/16 06:59 96 Room Air 08/04/16 03:16 98.9 67 18 127/71 98.9 08/03/16 20:08 2.0 I & 0 Intake and Output 08/04/16 07:00 Intake Total 960 ml Output Total 1000 ml Balance -40 ml Intake Oral 920 ml IV Total 40 ml Output Urine Total 1000 ml # Bowel Movements 1 PHYSICAL EXAM Physical Exam GEN: Awake, Oriented x 3, In min distress EYES: Vision Unchanged, Conjunctiva Normal EN: No EN Drainage, Mucous Membranes moist NECK: no JVD, + JVP, Supple, no Thyromegaly CVS: S1S2, ? Murmur, No Gallop, No Rub,no Edema RESP: + few Crackles, no Rhonchi,min Acc. Muscle Use GI: BS + ve, NO Bruit, Non Tender, Non Distended : no CVA tenderness, no Suprapubic Tenderness DIAGNOSIS/ASSESSMENT MIRYAM/ ATN - ? CAN from CTA; Current fluid and E-lyte status does not necessitate emergent need for dialysis. Will re-evaluate for dialysis in the am and continue on TTSat schedule. (S/p HD x 3), Next HD in am. CKD III - HTnsive / NS - baseline Creat is approx 1.8ish pre MIRYAM; Permacath later today ^ed Phos - better after starting binders. Renal diet education Renal Cysts - Chronic kidney Stone - No reported [place], URO eval as OP (at [facility] or here) NSTEMI - S/p LHC and PCI - No on Brilinta ANEMIA; Aranesp as ordered . Transfuse if needed HTN: Current BP meds as reviewed; defer to Cardiology to optimize - Hold ANTOINETTE-i / ARb for now due to MIRYAM - May resume once off of HD OK to D/c home once Permacath in place and OP HD has been setup Discussed Plan of Care with Pt at bedside COMMENT/RELEVANT DATA Meds Current Medications Medications (Trade) Dose Ordered Sig/Prabha Start Time Stop Time Status Last Admin Dose Admin Acetaminophen (Tylenol) 500 mg 1X PRN PRN 08/03/16 13:15 08/04/16 13:14 Albumin Human (Albuminar) 200 ml @ 200 mls/hr 1X PRN PRN 08/03/16 13:15 08/03/16 19:14 DC Albuterol Sulfate (Ventolin Neb Soln) 2.5 mg PRN Q2HR PRN 07/30/16 03:30 08/01/16 22:20 2.5 MG Albuterol/ Ipratropium (Duoneb) 3 ml RTQID 07/29/16 08:00 08/04/16 06:59 3 ML Amiodarone HCl/ Dextrose (Cordarone) 103 ml @ 10 mls/min 1X PRN PRN 08/02/16 11:30 Aspirin (Lionel Aspirin) 325 mg [id number] 07/29/16 09:45 08/02/16 11:25 DC 08/01/16 09:04 325 MG Aspirin (Children'S Aspirin) 324 mg 1X ONCE 07/28/16 18:30 07/28/16 18:31 DC 07/28/16 18:27 324 MG Aspirin (Ecotrin) 81 mg DAILYWBKFT 08/03/16 08:00 08/03/16 13:24 81 MG Aspirin 81 mg 81 mg 1X ONCE 08/02/16 11:15 08/02/16 11:16 DC 08/02/16 11:11 81 MG Atorvastatin Calcium (Lipitor) 20 mg QHS 08/02/16 21:00 Cancel Atropine Sulfate 0.5 mg PRN 1X PRN 08/02/16 11:30 Bivalirudin (Angiomax) 250 mg 1X ONCE 08/02/16 10:15 08/02/16 10:24 DC 08/02/16 11:09 250 MG Calcium Acetate (Phoslo) 1,334 mg TIDWMEALS 08/01/16 12:00 08/03/16 18:01 1,334 MG Clonidine HCl (Catapres) 0.1 mg 1X PRN PRN 08/03/16 13:15 08/04/16 13:14 Cyclobenzaprine HCl (Flexeril) 10 mg PRN TID PRN 08/02/16 11:30 Darbepoetin Aleksey (Aranesp) 60 mcg WEEKLYHS 08/01/16 21:00 08/01/16 21:59 60 MCG Diphenhydramine HCl (Benadryl) 25 mg 1X PRN PRN 08/03/16 13:15 08/04/16 13:14 Doxazosin Mesylate (Cardura) 4 mg DAILY 07/29/16 09:00 08/03/16 10:22 4 MG Doxycycline Hyclate (Vibra-Tab) 100 mg BID 07/30/16 14:00 08/03/16 22:00 100 MG Famotidine (Pepcid) 20 mg Q48H 08/02/16 21:00 08/02/16 22:08 20 MG Famotidine 40 mg 40 mg HS 07/29/16 21:00 07/30/16 07:52 DC 07/29/16 20:49 40 MG Fentanyl Citrate (Fentanyl 2ml Vial) 50 mcg PRN Q1HR PRN 08/02/16 11:30 Furosemide (Lasix) 40 mg 1X ONCE 07/31/16 14:15 07/31/16 14:18 DC 07/31/16 14:21 40 MG Furosemide 40 mg 40 mg 1X ONCE 07/31/16 14:15 07/31/16 14:18 DC Heparin Sodium (Porcine) 2,500 unit 1X ONCE 08/01/16 10:30 08/01/16 10:31 DC 08/01/16 11:17 2,500 UNIT Heparin Sodium (Porcine) 4000 unit 4,000 unit 1X ONCE 07/28/16 18:30 07/28/16 18:32 DC 07/28/16 19:43 4,000 UNIT Heparin Sodium/ Dextrose 500 ml @ 0 mls/hr CONT PRN 07/28/16 18:30 08/02/16 01:21 0 MLS/HR Heparin Sodium/ Sodium Chloride 1,000 unit 1X ONCE 08/02/16 10:00 08/02/16 10:01 DC 08/02/16 11:09 1,000 UNIT Info (Do NOT chart on this entry -- for MONITORING) 1 each PRN DAILY PRN 08/02/16 10:00 08/04/16 09:59 Info (PHARMACY MONITORING -- do not chart) 1 each PRN DAILY PRN 08/03/16 13:15 UNV Insulin Aspart TIDAC 07/31/16 11:30 08/03/16 13:15 3 UNITS Iohexol (Omnipaque 300 Mg/ml) 100 ml STK-MED ONCE 08/02/16 10:17 08/02/16 10:18 DC Iohexol (Omnipaque 350 Mg/ml) 100 ml STK-MED ONCE 07/28/16 18:36 07/28/16 18:37 DC Iron Sucrose/ Sodium Chloride (Venofer/Iv Sodium Chloride 0.9% 100ml) 110 ml @ 55 mls/hr 3X/WEEK 08/02/16 09:00 08/11/16 10:59 08/02/16 21:03 55 MLS/HR Labetalol HCl (Normodyne) 10 mg PRN Q1HR PRN 08/03/16 13:15 08/04/16 13:14 Lidocaine HCl 100 mg 1X PRN PRN 08/02/16 11:30 Lidocaine/Sodium Bicarbonate (Buffered Lidocaine 1%) 3 ml 1X ONCE 08/01/16 10:30 08/01/16 10:31 DC 08/01/16 11:16 3 ML Lorazepam (Ativan) 0.5 mg PRN Q4HRS PRN 07/30/16 23:00 08/01/16 00:53 0.5 MG Losartan Potassium (Cozaar) 50 mg DAILY 08/03/16 09:00 08/03/16 13:45 DC 08/03/16 10:21 50 MG Magnesium Sulfate/ Dextrose (Magnesium Sulfate PREMIX 2GM) 50 ml @ 25 mls/hr PRN DAILY PRN 07/31/16 13:00 Methylprednisolone Sodium Succinate (Solu-Medrol 125mg Vial) 62.5 mg Q8HRS 08/03/16 14:00 08/03/16 14:00 DC Methylprednisolone Sodium Succinate 62.5 mg 62.5 mg BID 08/03/16 21:00 08/03/16 21:55 62.5 MG Metoprolol Tartrate (Lopressor) 12.5 mg BID 07/29/16 09:45 08/03/16 22:00 12.5 MG Midazolam HCl (Versed) 2 mg 1X ONCE 08/02/16 10:00 08/02/16 10:01 DC Morphine Sulfate 4 mg PRN Q2HR PRN 07/28/16 19:15 07/29/16 19:14 DC 07/28/16 23:32 4 MG Nitroglycerin (Nitroglycerin) 200 mcg 1X ONCE 08/02/16 11:00 08/02/16 11:01 DC 08/02/16 11:10 200 MCG Nitroglycerin (Nitrostat) 0.4 mg PRN Q5MIN PRN 07/28/16 18:30 07/29/16 18:29 DC 07/28/16 18:27 0.4 MG Nitroglycerin 0.4 mg 0.4 mg PRN Q5MIN PRN 08/02/16 11:30 Nitroglycerin/ Dextrose (Nitroglycerin Drip) 250 ml @ 0 mls/hr CONT PRN 07/29/16 09:45 08/03/16 13:23 DC 08/02/16 15:19 9 MLS/HR Ondansetron HCl (Zofran Odt) 4 mg PRN Q8HRS PRN 07/29/16 09:30 Ondansetron HCl (Zofran) 4 mg PRN Q8HRS PRN 07/28/16 19:15 07/29/16 19:14 DC Oxycodone/ Acetaminophen (Percocet 5/325) 1 tab PRN Q6HRS PRN 07/29/16 09:30 07/30/16 23:03 DC 07/30/16 22:22 1 TAB Sodium Chloride 1,000 ml @ 1,000 mls/hr Q1H PRN 08/03/16 13:14 08/03/16 19:13 DC Sodium Chloride (Iv Sodium Chloride 0.9% 1000ml Bag) 1,000 ml @ 400 mls/hr Q2H30M PRN 08/02/16 19:32 08/03/16 07:31 DC Sodium Chloride (Normal Saline Flush) 10 ml 1X PRN PRN 08/02/16 19:45 08/03/16 19:44 DC Sodium Chloride (Saline Mist Nasal) 1 nataliya PRN Q1HR PRN 08/02/16 19:00 Sodium Chloride 10 ml 10 ml 1X PRN PRN 08/02/16 19:45 08/03/16 19:44 DC Sodium Chloride 3 ml 3 ml QSHIFT PRN 08/02/16 11:30 Tamsulosin HCl (Flomax) 0.4 mg HS 07/29/16 21:00 08/03/16 21:55 0.4 MG Ticagrelor (Brilinta) 90 mg BID 08/03/16 09:00 08/03/16 13:24 90 MG Tirofiban/Sodium Chloride (Aggrastat 12.5 Mg/250 ml Premix) 250 ml @ 0 mls/hr CONT PRN 08/02/16 11:30 08/03/16 05:29 DC Tirofiban/Sodium Chloride (Aggrastat 5 Mg/ 100 ml Premix) 100 ml @ 1,200 mls/hr 1X ONCE 08/02/16 11:15 08/02/16 11:19 DC Lab Laboratory Tests Test 08/03/16 12:11 08/03/16 17:59 08/03/16 21:06 08/04/16 03:55 Glucose (Fingerstick) 216mg/dL (70-99) 114mg/dL (70-99) 116mg/dL (70-99) Sodium Level 142mmol/L (136-145) Potassium Level 4.5mmol/L (3.5-5.1) Chloride Level 104mmol/L (98-107) Carbon Dioxide Level 28mmol/L (21-32) Anion Gap 10 (6-14) Blood Urea Nitrogen 36mg/dL (8-26) Creatinine 2.4mg/dL (0.7-1.3) Estimated GFR (Cockcroft-Gault) 32.2 Glucose Level 123mg/dL (70-99) Calcium Level 8.7mg/dL (8.5-10.1) Phosphorus Level 3.7mg/dL (2.6-4.7) Magnesium Level 2.0mg/dL (1.8-2.4) Albumin 2.3g/dL (3.4-5.0) Test 08/04/16 03:58 White Blood Count 15.5x10^3/uL (4.0-11.0) Red Blood Count 4.08x10^6/uL (4.30-5.70) Hemoglobin 10.9g/dL (13.0-17.5) Hematocrit 33.9% (39.0-53.0) Mean Corpuscular Volume 83fL (79-100) Mean Corpuscular Hemoglobin 27pg (25-35) Mean Corpuscular Hemoglobin Concent 32g/dL (31-37) Red Cell Distribution Width 14.4% (11.5-14.5) Platelet Count 343x10^3/uL (140-400) Neutrophils (%) (Auto) 89% (31-73) Lymphocytes (%) (Auto) 4% (24-48) Monocytes (%) (Auto) 7% (0-9) Eosinophils (%) (Auto) 0% (0-3) Basophils (%) (Auto) 0% (0-3) Neutrophils # (Auto) 13.8x10^3uL (1.8-7.7) Lymphocytes # (Auto) 0.6x10^3/uL (1.0-4.8) Monocytes # (Auto) 1.1x10^3/uL (0.0-1.1) Eosinophils # (Auto) 0.0x10^3/uL (0.0-0.7) Basophils # (Auto) 0.0x10^3/uL (0.0-0.2) BERNICE CASTILLO MD Aug 04, 2016 07:56
[2016-08-04] MEDS: CALCIUM ACETATE 667 MG CAPSULE PO SCH ×3 (08:00→17:00)
--- NOTE | 2016-08-04 08:16 | PDOC ---
MIESHANIDIALC STAFF FIELD ENGINEER 08/04/16 0816: IM PROGRESS NOTES- Subjective Subjective wanting to go home, ambulatory in room Objective Objective alert no distress Vitals Vital Signs Date Time Temp Pulse Resp B/P Pulse Ox O2 Delivery O2 Flow Rate FiO2 08/04/16 06:59 96 Room Air 08/04/16 03:16 98.9 67 18 127/71 98.9 08/03/16 20:08 2.0 Input & Output Intake and Output 08/04/16 07:00 Intake Total 960 ml Output Total 1000 ml Balance -40 ml Intake Oral 920 ml IV Total 40 ml Output Urine Total 1000 ml # Bowel Movements 1 Physical Exam Physical Exam General appearance - alert, well appearing, and in no distress Mental Status - alert, oriented to person, place, and time, affect appropriate to mood Head - normal Chest - clear to auscultation, no wheezes, rales or rhonchi Heart - S1 and S2 normal Abdomen - soft, nontender, nondistended, BS+ Neurological - no acute neurological deficit noted Musculoskeletal - no muscular tenderness noted Extremities - no pedal edema Skin - warm and dry Labs Laboratory Tests Test 08/02/16 11:51 08/02/16 17:19 08/02/16 20:00 08/02/16 22:28 Glucose (Fingerstick) 136mg/dL (70-99) 154mg/dL (70-99) 122mg/dL (70-99) Hemoglobin 9.6g/dL (13.0-17.5) Hematocrit 29.2% (39.0-53.0) Test 08/03/16 04:10 08/03/16 12:11 08/03/16 17:59 08/03/16 21:06 White Blood Count 14.2x10^3/uL (4.0-11.0) Red Blood Count 3.72x10^6/uL (4.30-5.70) Hemoglobin 10.1g/dL (13.0-17.5) Hematocrit 30.8% (39.0-53.0) Mean Corpuscular Volume 83fL (79-100) Mean Corpuscular Hemoglobin 27pg (25-35) Mean Corpuscular Hemoglobin Concent 33g/dL (31-37) Red Cell Distribution Width 14.7% (11.5-14.5) Platelet Count 341x10^3/uL (140-400) Neutrophils (%) (Auto) 91% (31-73) Lymphocytes (%) (Auto) 2% (24-48) Monocytes (%) (Auto) 7% (0-9) Eosinophils (%) (Auto) 0% (0-3) Basophils (%) (Auto) 0% (0-3) Neutrophils # (Auto) 13.0x10^3uL (1.8-7.7) Lymphocytes # (Auto) 0.3x10^3/uL (1.0-4.8) Monocytes # (Auto) 0.9x10^3/uL (0.0-1.1) Eosinophils # (Auto) 0.0x10^3/uL (0.0-0.7) Basophils # (Auto) 0.0x10^3/uL (0.0-0.2) Heparin Anti-Xa Act, Unfractionated < 0.10IU/mL (0.30-0.70) Sodium Level 139mmol/L (136-145) Potassium Level 4.2mmol/L (3.5-5.1) Chloride Level 104mmol/L (98-107) Carbon Dioxide Level 25mmol/L (21-32) Anion Gap 10 (6-14) Blood Urea Nitrogen 33mg/dL (8-26) Creatinine 2.2mg/dL (0.7-1.3) Estimated GFR (Cockcroft-Gault) 35.6 Glucose Level 194mg/dL (70-99) Calcium Level 8.5mg/dL (8.5-10.1) Phosphorus Level 4.0mg/dL (2.6-4.7) Magnesium Level 1.9mg/dL (1.8-2.4) Albumin 2.2g/dL (3.4-5.0) Glucose (Fingerstick) 216mg/dL (70-99) 114mg/dL (70-99) 116mg/dL (70-99) Test 08/04/16 03:55 08/04/16 03:58 Sodium Level 142mmol/L (136-145) Potassium Level 4.5mmol/L (3.5-5.1) Chloride Level 104mmol/L (98-107) Carbon Dioxide Level 28mmol/L (21-32) Anion Gap 10 (6-14) Blood Urea Nitrogen 36mg/dL (8-26) Creatinine 2.4mg/dL (0.7-1.3) Estimated GFR (Cockcroft-Gault) 32.2 Glucose Level 123mg/dL (70-99) Calcium Level 8.7mg/dL (8.5-10.1) Phosphorus Level 3.7mg/dL (2.6-4.7) Magnesium Level 2.0mg/dL (1.8-2.4) Albumin 2.3g/dL (3.4-5.0) White Blood Count 15.5x10^3/uL (4.0-11.0) Red Blood Count 4.08x10^6/uL (4.30-5.70) Hemoglobin 10.9g/dL (13.0-17.5) Hematocrit 33.9% (39.0-53.0) Mean Corpuscular Volume 83fL (79-100) Mean Corpuscular Hemoglobin 27pg (25-35) Mean Corpuscular Hemoglobin Concent 32g/dL (31-37) Red Cell Distribution Width 14.4% (11.5-14.5) Platelet Count 343x10^3/uL (140-400) Neutrophils (%) (Auto) 89% (31-73) Lymphocytes (%) (Auto) 4% (24-48) Monocytes (%) (Auto) 7% (0-9) Eosinophils (%) (Auto) 0% (0-3) Basophils (%) (Auto) 0% (0-3) Neutrophils # (Auto) 13.8x10^3uL (1.8-7.7) Lymphocytes # (Auto) 0.6x10^3/uL (1.0-4.8) Monocytes # (Auto) 1.1x10^3/uL (0.0-1.1) Eosinophils # (Auto) 0.0x10^3/uL (0.0-0.7) Basophils # (Auto) 0.0x10^3/uL (0.0-0.2) Laboratory Tests Test 08/03/16 12:11 08/03/16 17:59 08/03/16 21:06 08/04/16 03:55 Glucose (Fingerstick) 216mg/dL (70-99) 114mg/dL (70-99) 116mg/dL (70-99) Sodium Level 142mmol/L (136-145) Potassium Level 4.5mmol/L (3.5-5.1) Chloride Level 104mmol/L (98-107) Carbon Dioxide Level 28mmol/L (21-32) Anion Gap 10 (6-14) Blood Urea Nitrogen 36mg/dL (8-26) Creatinine 2.4mg/dL (0.7-1.3) Estimated GFR (Cockcroft-Gault) 32.2 Glucose Level 123mg/dL (70-99) Calcium Level 8.7mg/dL (8.5-10.1) Phosphorus Level 3.7mg/dL (2.6-4.7) Magnesium Level 2.0mg/dL (1.8-2.4) Albumin 2.3g/dL (3.4-5.0) Test 08/04/16 03:58 White Blood Count 15.5x10^3/uL (4.0-11.0) Red Blood Count 4.08x10^6/uL (4.30-5.70) Hemoglobin 10.9g/dL (13.0-17.5) Hematocrit 33.9% (39.0-53.0) Mean Corpuscular Volume 83fL (79-100) Mean Corpuscular Hemoglobin 27pg (25-35) Mean Corpuscular Hemoglobin Concent 32g/dL (31-37) Red Cell Distribution Width 14.4% (11.5-14.5) Platelet Count 343x10^3/uL (140-400) Neutrophils (%) (Auto) 89% (31-73) Lymphocytes (%) (Auto) 4% (24-48) Monocytes (%) (Auto) 7% (0-9) Eosinophils (%) (Auto) 0% (0-3) Basophils (%) (Auto) 0% (0-3) Neutrophils # (Auto) 13.8x10^3uL (1.8-7.7) Lymphocytes # (Auto) 0.6x10^3/uL (1.0-4.8) Monocytes # (Auto) 1.1x10^3/uL (0.0-1.1) Eosinophils # (Auto) 0.0x10^3/uL (0.0-0.7) Basophils # (Auto) 0.0x10^3/uL (0.0-0.2) Meds Current Medications Acetaminophen (Tylenol) 500 mg 1X PRN PRN PO MILD PAIN / TEMP; Start 08/03/16 at 13:15; Stop 08/04/16 at 13:14 Albumin Human (Albuminar) 200 ml @ 200 mls/hr 1X PRN PRN IV Hypotension; Start 08/03/16 at 13:15; Stop 08/03/16 at 19:14; Status DC Clonidine HCl (Catapres) 0.1 mg 1X PRN PRN PO SBP > 180; Start 08/03/16 at 13:15 ; Stop 08/04/16 at 13:14 Diphenhydramine HCl (Benadryl) 25 mg 1X PRN PRN IV ITCHING; Start 08/03/16 at 13 :15; Stop 08/04/16 at 13:14 Diphenhydramine HCl (Benadryl) 25 mg 1X PRN PRN IV ITCHING; Start 08/03/16 at 13 :15; Stop 08/04/16 at 13:14 Info (PHARMACY MONITORING -- do not chart) 1 each PRN DAILY PRN MC SEE COMMENTS ; Start 08/03/16 at 13:15; Status UNV Labetalol HCl (Normodyne) 10 mg PRN Q1HR PRN IVP SBP > 180; Start 08/03/16 at 13 :15; Stop 08/04/16 at 13:14 Losartan Potassium (Cozaar) 50 mg DAILY PO Last administered on 08/03/16t 10:21 ; Start 08/03/16 at 09:00; Stop 08/03/16 at 13:45; Status DC Methylprednisolone Sodium Succinate (Solu-Medrol 125mg Vial) 62.5 mg Q8HRS IV ; Start 08/03/16 at 14:00; Stop 08/03/16 at 14:00; Status DC Methylprednisolone Sodium Succinate (Solu-Medrol 125mg Vial) 62.5 mg Q8HRS IV ; Start 08/03/16 at 14:00; Stop 08/03/16 at 14:00; Status DC Methylprednisolone Sodium Succinate 62.5 mg 62.5 mg BID IV Last administered on 08/03/16t 21:55; Start 08/03/16 at 21:00 Sodium Chloride 1,000 ml @ 1,000 mls/hr Q1H PRN IV hypotension; Start 08/03/16 at 13:14; Stop 08/03/16 at 19:13; Status DC Ticagrelor (Brilinta) 90 mg BID PO Last administered on 08/03/16t 13:24; Start 08/03/16 at 09:00 Assessment Assessment IMPRESSION: 1. Chest pain, acute non-ST elevation myocardial infarction with elevated troponin s/p bare metal stent L Cx08/02/16 2. AECOPD with undelrying bullous emphysema/ILD-fibrosis 3. Acute hypoxic respiratory failure with underlying COPD/ILD/ acute NSTEMI 4. 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 Benign prostatic hyperplasia. 6. Hypertension. 7. Kidney stone R intrarenal collect sx 6.3mm 8. steroid induced DM II with hyperglycemia 9. bilateral renal cyst 9, Afib chronic h/o 10. a/c systolic CHF POA EF 50% mod MR 11. acute bronchitis POA PLAN: acute NSTEMI cardiology consult Max troponin 21.220 ECHO EF 50% neg CT PE or dissection venous doppler negative cardiac cath is planned PT-cardiac rehab ordered at discharge Heparin/NTG infusions CC 08/02/16- LAD 15%, LCx >95% stenosis near OM, bare metal stent placed reduced to 0%, RCA non dominant 35% and 30% stenosis Heparin gtt stopped 08/02 Brilinta 90mg bid 1st 24 hours per cardiology -required due to bare metal stent NTG gtt DC 08/03/16 acute respiratory failure pulmonary consult Desat 07/30 evening-tolerated BIPAP 30 min, Non rebreather Sat 6.-84% acute bronchitis-doxycycline since 07/30 AECOPD-Solumedrol 125mg IV q8hr since 07/30--Decrease to 62.5mg q 8hr 08/03, plan home with tapering steroids -Decrease tombg IV q12h 08/04-oral at discharge bullous emphysema/ILD ESR elevated -steroids cardio note wheezing w/? hold BB- CHF, has agreed to HD, will continue BB improved after dialysis CXR 08/03 - Right perihilar opacity resolved with a small residual nodule. ARF with CKD nephrology consult Admit BUN 27 08/04 36 / Cr 2.9 2.4 K 4.5 4.5 Na 142 08/01/16) PO4 7.2 3.7 Has agreed to dialysis, consent completed. Await order from nephrology Phoslo 1334mg tid 08/01/16 Perma cath pending-IR wanted Brilinta held x 24 hours prior to procedure, Cardiology -could not stop Brilinta until 24hour post stent placed A/C systolic CHF with EF 50% mod MR daily wt Admit wt 183# 08/04 173# I/O to begin dialysis -HD initiated 08/01 with temp HDC placed 08/01 +ARB stopped due to ARF/BB continued Continue HD out patient TTS hyperlipidemia LDL 142 on atorvastin anemia renal disease Admit Hgb 11.7 08/04 10.9 monitor Fe 25 TIBC 176 FeSo4 14 Ferritn 250 Venofer 200mg IV 3x/wk for 5 doses DVT/GI prophylaxis Hep gtt-stopped Brilinta post CC Pepcid DM steroid induced FSBS no ssi BS 114-216 leukocytosis steroid induced Admit WBC 8.9 08/04 15.5 For more details regarding further plans, please refer to the orders. Await decision regarding Permacath and removing temporary dialysis cath while dosed with Brilinta. Will initiate DC home. Plan outpatient Cardiac rehab. Please see DC orders. Plan Plan For more details regarding further plans, please refer to the orders. SEGUNDO STOCK MD 08/04/16 0944: IM PROGRESS NOTES- Assessment Assessment Patient is getting Permacath. Taper steroids. Chart reviewed and plan of care formulated. Discussed with, reviewed and agree with WATER LEAK REPAIRER's notes, plan of care and orders with modifications as necessary. For more details regarding further plans, please refer to the orders. LC RUSSELL APRN Aug 04, 2016 08:16 SEGUNDO STOCK MD Aug 04, 2016 09:44
--- NOTE | 2016-08-04 08:20 | DISCH ---
DISCHARGE INSTRUCTIONS Condition on Discharge Condition on Discharge: Stable Activity After Discharge Activity Instructions for Disc: Activity as tolerated Diet after Discharge Diet after Discharge: Cardiac Wound Incision Care Other wound/incision instructi: Keep permacath dressing dry. Community/Resources/Services Services at Discharge: Outpatient Therapy (Cardiac Rehab ) Contacting the DRJameel after DC Call your doctor for: Concerns you may have Follow-Up Follow up with: Dr. Brennan Conn Follow Up With: Dr. Dawn per his instructions. Dr. Harding per renal discharge instructions Treatment/Equipment after DC Infusion Equipment, home use: PortaCath (Dialysis ) LC RUSSELL APRN Aug 04, 2016 08:19
[2016-08-04] MEDS ORDERED: FAMO20TA5 PO (08:28)
[2016-08-04] MEDS ORDERED: TICA90TA PO (08:28)
[2016-08-04] MEDS ORDERED: NITR0.4T SL (08:28)
[2016-08-04] MEDS ORDERED: ATOR20TA58 PO (08:28)
[2016-08-04] MEDS ORDERED: METO25TA4 PO (08:28)
[2016-08-04] MEDS ORDERED: Calcium Acetate PO (08:28)
[2016-08-04] MEDS ORDERED: PRED-220 PO (08:34)
[2016-08-04] MEDS ORDERED: LIDOCAINE 1%/EPI 1:100,000 20 ML VIAL. ONE (08:59)
[2016-08-04] MEDS ORDERED: HEPARIN for IV BOLUS 10,000 UNIT/10 ML VIAL. ONE (08:59)
[2016-08-04] MEDS ORDERED: methylPREDNISolone SOD SUCC PF 40 MG/ML VIAL. IV SCH (09:00)
[2016-08-04] MEDS ORDERED: MIDAZOLAM HCL/PF 5 MG/5 ML VIAL ONE (09:06)
[2016-08-04] MEDS ORDERED: FENTANYL PF 250 MCG/5 ML VIAL. ONE (09:06)
[2016-08-04] MEDS ORDERED: CEFAZOLIN 1GM IVPB FOR OMNI 50 ML IV ONE (09:06)
[2016-08-04 09:16] LABS: INR 1.3 (0.8-1.1); PROTHROMBIN TIME PATIENT 15.8 SEC (11.7-14.0)
[2016-08-04 09:37] VITALS: BP 141/72
[2016-08-04] MEDS ORDERED: MIDAZOLAM HCL/PF 5 MG/5 ML VIAL IV ONE (09:45)
[2016-08-04] MEDS ORDERED: LIDOCAINE 1%/EPI 1:100,000 20 ML VIAL. IJ ONE (09:45)
[2016-08-04] MEDS ORDERED: FENTANYL PF 250 MCG/5 ML VIAL. IV ONE (09:45)
--- NOTE | 2016-08-04 09:51 | RAD ---
EXAM: Chest 2 views. HISTORY: Congestive heart failure. COMPARISON: 08/03/2016. FINDINGS: Frontal and lateral views of the chest are obtained. A right internal jugular hemodialysis catheter has its tip in the right atrium. There are emphysematous changes in the apices. There are no confluent infiltrates. A nodular opacity persists adjacent to the right minor fissure but appear smaller. There is no pneumothorax or pleural effusion. The heart is not enlarged. IMPRESSION: 1. The nodule adjacent to the right minor fissure persists but appears smaller. Attention on further follow-up. 2. Biapical emphysema.
--- NOTE | 2016-08-04 09:51 | PDOC ---
MODERATE SEDATION ASSESSMENT RISKS/ALTERNATIVES Risks/Alternatives Risks and alternatives of this type of sedation and procedure discussed with: RISK/ALTERNATIVES: Patient H & P ON CHART H & P H & P on chart and reviewed for co-morbid conditions and appropriate labs. H&P ON CHART: Yes STATUS PREG STATUS ASSESSED: N/A MEDS/ALLERGIES REVIEWED Meds/Allergies Reviewed Medications and Allergies including time and route of recently administered narcotics and sedatives. MEDS/ALLERGIES REVIEWED: Yes ASA RATING ASA RATING: III AIRWAY ASSESSMENT Airway Assessment Airway patency, oral function limitations, presence of caps, crowns, dentures, partials, and ability to extend neck assessed. AIRWAY ASSESSMENT: Yes MALLAMPATI SCORE MALLAMPATI SCORE: II PRE-SEDATION ASSESSMENT PRE-SEDATION ASSESSMENT: Yes TESFAYE DELANEY MD Aug 04, 2016 09:51
--- NOTE | 2016-08-04 09:55 | PDOC ---
Exam Washer Off Washer Off Angelica Die Attacher Die Attacher F Ndumbu Pre-Procedure Diagnosis Pre-Procedure Diagnosis MIRYAM on CKD---needs ongoing HD. Conversion from temp to tunneled HDC requested by Renal. Post-Procedure Diagnosis Post-Procedure Diagnosis Same Procedure Performed Procedure Performed Removal rt IJ temp HDC Insertion rt IJ tunneled HDC---new access Type of Anesthesia Type of Anesthesia Local + Mod sedation Estimated Blood Loss EBL: Minimal Specimens Specimans 14F 20cm Schon rt IJ temp HDC removed and discarded Drain/Tubes Drains/Tubes Rt IJ 15.5F 24cm DuraMax tunneled HDC Condition of Patient Condition of Patient Stable. No apparent complication. Disposition Disposition From IR return to 266. F/u with Renal. OK to use tunneled HDC. Full report to follow. TESFAYE DELANEY MD Aug 04, 2016 09:55
--- NOTE | 2016-08-04 10:49 | RAD ---
CT of the chest without contrast, 07/27/2016: History: Abnormal chest radiograph, perihilar nodule Noncontrast scans were obtained as requested. Comparison is made to a study from 07/28/2016. There are extensive emphysematous changes in the lungs. There are scattered linear and groundglass opacities in both lungs probably predominantly due to scarring. Interlobular septal thickening in the lung bases on the previous study which has largely resolved. This probably represented interstitial edema. No pulmonary mass is evident. No true pulmonary nodule is seen in the region of the resolving opacity near the right minor fissure seen on previous chest radiographs. Several calcified granulomata are present in the right lung. There appears to be a trace amount of left-sided pleural fluid, probably residual from the recent episode of congestive heart failure. A right jugular catheter extends to the level of the atriocaval junction. There is calcific plaquing of the aorta and coronary arteries. There are calcified mediastinal and right hilar lymph nodes compatible with old granulomatous disease. No definite noncalcified adenopathy is evident. Bilateral renal cysts are present. A small unchanged low-density lesion in the inferior aspect of the right lobe of liver may also be a cyst. There is now radiopaque material within the gallbladder compatible with vicarious excretion of previous IV contrast. This can be seen in patients with renal insufficiency or after large contrast loads. IMPRESSION: 1. Moderate emphysema with scattered pulmonary opacities which are probably predominantly due to scarring. 2. Resolution of previously seen interlobular septal thickening compatible with resolution of pulmonary edema. 3. Trace amount of residual left-sided pleural fluid. 4. Coronary artery disease. PQRS Compliance Statement: One or more of the following individualized dose reduction techniques were utilized for this examination: 1. Automated exposure control 2. Adjustment of the mA and/or kV according to patient size 3. Use of iterative reconstruction technique
[2016-08-04 11:00] VITALS: BP 125/63
--- NOTE | 2016-08-04 11:02 | PDOC ---
CARDIO Progress Notes Date and Time Date of Service 08/04/2016 Time of Evaluation 1102 Subjective Subjective: No Chest Pain, No shortness of breath, No Palpitations, No Dizziness Vitals Vitals Vital Signs Date Time Temp Pulse Resp B/P Pulse Ox O2 Delivery O2 Flow Rate FiO2 08/04/16 09:47 13 95 Nasal Cannula 2.0 08/04/16 09:37 73 08/04/16 07:00 98.4 141/75 98.4 Weight Weight [ ] Input and Output Intake and Output Intake and Output 08/04/16 07:00 Intake Total 960 ml Output Total 1000 ml Balance -40 ml Intake Oral 920 ml IV Total 40 ml Output Urine Total 1000 ml # Bowel Movements 1 Laboratory Labs Laboratory Tests Test 08/03/16 12:11 08/03/16 17:59 08/03/16 21:06 08/04/16 03:55 Glucose (Fingerstick) 216mg/dL (70-99) 114mg/dL (70-99) 116mg/dL (70-99) Sodium Level 142mmol/L (136-145) Potassium Level 4.5mmol/L (3.5-5.1) Chloride Level 104mmol/L (98-107) Carbon Dioxide Level 28mmol/L (21-32) Anion Gap 10 (6-14) Blood Urea Nitrogen 36mg/dL (8-26) Creatinine 2.4mg/dL (0.7-1.3) Estimated GFR (Cockcroft-Gault) 32.2 Glucose Level 123mg/dL (70-99) Calcium Level 8.7mg/dL (8.5-10.1) Phosphorus Level 3.7mg/dL (2.6-4.7) Magnesium Level 2.0mg/dL (1.8-2.4) Albumin 2.3g/dL (3.4-5.0) Test 08/04/16 03:58 08/04/16 07:39 08/04/16 08:40 White Blood Count 15.5x10^3/uL (4.0-11.0) Red Blood Count 4.08x10^6/uL (4.30-5.70) Hemoglobin 10.9g/dL (13.0-17.5) Hematocrit 33.9% (39.0-53.0) Mean Corpuscular Volume 83fL (79-100) Mean Corpuscular Hemoglobin 27pg (25-35) Mean Corpuscular Hemoglobin Concent 32g/dL (31-37) Red Cell Distribution Width 14.4% (11.5-14.5) Platelet Count 343x10^3/uL (140-400) Neutrophils (%) (Auto) 89% (31-73) Lymphocytes (%) (Auto) 4% (24-48) Monocytes (%) (Auto) 7% (0-9) Eosinophils (%) (Auto) 0% (0-3) Basophils (%) (Auto) 0% (0-3) Neutrophils # (Auto) 13.8x10^3uL (1.8-7.7) Lymphocytes # (Auto) 0.6x10^3/uL (1.0-4.8) Monocytes # (Auto) 1.1x10^3/uL (0.0-1.1) Eosinophils # (Auto) 0.0x10^3/uL (0.0-0.7) Basophils # (Auto) 0.0x10^3/uL (0.0-0.2) Glucose (Fingerstick) 119mg/dL (70-99) Prothrombin Time 15.8SEC (11.7-14.0) Prothromb Time International Ratio 1.3 (0.8-1.1) Review of Systems Cardiovascular: No chest pain Physical Exam HEENT: Neck Supple W Full Motion Chest: Symmetric LUNGS: Clear to Auscultation Heart: S1S2, RRR, other (tele: SR with PVC's ) Abdomen: Soft N/T Extremities: 2+ Dorsalis Pedis, No Edema Neurology: alert, oriented, follow commands Assessment Assessment 1. NSTEMI/ CAD s/p BMS to LCx secondary prevention including DAPT with ASA and Brilinta; convert to clopidogrel after 30 days of Brilinta (has scripts and discount coupon) Hold ANTOINETTE/ARB due to MIRYAM 2. acute CHF, likely systolic, LVEF 50% compensated. fluid management per neprology and HD 3. acute respiratory failure with AECOPD per pulm improved 4. MIRYAM with CKD on HD Permacath placed earlier today 5. Hyperlipidemia LDLS = 143 continue high dose statin HUMA GRIGSBY TOOLING MECHANIC Aug 04, 2016 11:02
[2016-08-04] MEDS: ASPIRIN ENTERIC COATED 81 MG TABLET.DR. PO SCH (11:20)
[2016-08-04] MEDS: METOPROLOL TART IMMED RELEASE 25 MG TABLET PO SCH ×2 (11:21→20:35)
[2016-08-04] MEDS: TICAGRELOR 90 MG TABLET. PO SCH ×2 (11:22→20:35)
[2016-08-04] MEDS: DOXYCYCLINE HYCLATE 100 MG TABLET PO SCH (11:22)
[2016-08-04] MEDS: DOXAZOSIN MESYLATE 4 MG TABLET PO SCH (11:22)
[2016-08-04] MEDS: IRON SUCROSE COMPLEX 200 MG in IV NORMAL SALINE 100ML 100 ML IV SCH (12:22)
--- NOTE | 2016-08-04 13:14 | PDOC ---
PULMONARY PROGRESS NOTES Subjective much better after HD Vitals Vital Signs Date Time Temp Pulse Resp B/P Pulse Ox O2 Delivery O2 Flow Rate FiO2 08/04/16 11:52 Room Air 08/04/16 11:22 78 141/72 08/04/16 11:00 97.9 20 91 97.9 08/04/16 09:47 2.0 General: Alert, No acute distress Lungs: Other (decrease bs) Cardiovascular: S1, S2 Abdomen: Soft Neuro Exam: Alert Extremities: No Edema Skin: Warm Labs Laboratory Tests Test 08/02/16 17:19 08/02/16 20:00 08/02/16 22:28 08/03/16 04:10 Glucose (Fingerstick) 154mg/dL (70-99) 122mg/dL (70-99) Hemoglobin 9.6g/dL (13.0-17.5) 10.1g/dL (13.0-17.5) Hematocrit 29.2% (39.0-53.0) 30.8% (39.0-53.0) White Blood Count 14.2x10^3/uL (4.0-11.0) Red Blood Count 3.72x10^6/uL (4.30-5.70) Mean Corpuscular Volume 83fL (79-100) Mean Corpuscular Hemoglobin 27pg (25-35) Mean Corpuscular Hemoglobin Concent 33g/dL (31-37) Red Cell Distribution Width 14.7% (11.5-14.5) Platelet Count 341x10^3/uL (140-400) Neutrophils (%) (Auto) 91% (31-73) Lymphocytes (%) (Auto) 2% (24-48) Monocytes (%) (Auto) 7% (0-9) Eosinophils (%) (Auto) 0% (0-3) Basophils (%) (Auto) 0% (0-3) Neutrophils # (Auto) 13.0x10^3uL (1.8-7.7) Lymphocytes # (Auto) 0.3x10^3/uL (1.0-4.8) Monocytes # (Auto) 0.9x10^3/uL (0.0-1.1) Eosinophils # (Auto) 0.0x10^3/uL (0.0-0.7) Basophils # (Auto) 0.0x10^3/uL (0.0-0.2) Heparin Anti-Xa Act, Unfractionated < 0.10IU/mL (0.30-0.70) Sodium Level 139mmol/L (136-145) Potassium Level 4.2mmol/L (3.5-5.1) Chloride Level 104mmol/L (98-107) Carbon Dioxide Level 25mmol/L (21-32) Anion Gap 10 (6-14) Blood Urea Nitrogen 33mg/dL (8-26) Creatinine 2.2mg/dL (0.7-1.3) Estimated GFR (Cockcroft-Gault) 35.6 Glucose Level 194mg/dL (70-99) Calcium Level 8.5mg/dL (8.5-10.1) Phosphorus Level 4.0mg/dL (2.6-4.7) Magnesium Level 1.9mg/dL (1.8-2.4) Albumin 2.2g/dL (3.4-5.0) Test 08/03/16 12:11 08/03/16 17:59 08/03/16 21:06 08/04/16 03:55 Glucose (Fingerstick) 216mg/dL (70-99) 114mg/dL (70-99) 116mg/dL (70-99) Sodium Level 142mmol/L (136-145) Potassium Level 4.5mmol/L (3.5-5.1) Chloride Level 104mmol/L (98-107) Carbon Dioxide Level 28mmol/L (21-32) Anion Gap 10 (6-14) Blood Urea Nitrogen 36mg/dL (8-26) Creatinine 2.4mg/dL (0.7-1.3) Estimated GFR (Cockcroft-Gault) 32.2 Glucose Level 123mg/dL (70-99) Calcium Level 8.7mg/dL (8.5-10.1) Phosphorus Level 3.7mg/dL (2.6-4.7) Magnesium Level 2.0mg/dL (1.8-2.4) Albumin 2.3g/dL (3.4-5.0) Test 08/04/16 03:58 08/04/16 07:39 08/04/16 08:40 08/04/16 10:57 White Blood Count 15.5x10^3/uL (4.0-11.0) Red Blood Count 4.08x10^6/uL (4.30-5.70) Hemoglobin 10.9g/dL (13.0-17.5) Hematocrit 33.9% (39.0-53.0) Mean Corpuscular Volume 83fL (79-100) Mean Corpuscular Hemoglobin 27pg (25-35) Mean Corpuscular Hemoglobin Concent 32g/dL (31-37) Red Cell Distribution Width 14.4% (11.5-14.5) Platelet Count 343x10^3/uL (140-400) Neutrophils (%) (Auto) 89% (31-73) Lymphocytes (%) (Auto) 4% (24-48) Monocytes (%) (Auto) 7% (0-9) Eosinophils (%) (Auto) 0% (0-3) Basophils (%) (Auto) 0% (0-3) Neutrophils # (Auto) 13.8x10^3uL (1.8-7.7) Lymphocytes # (Auto) 0.6x10^3/uL (1.0-4.8) Monocytes # (Auto) 1.1x10^3/uL (0.0-1.1) Eosinophils # (Auto) 0.0x10^3/uL (0.0-0.7) Basophils # (Auto) 0.0x10^3/uL (0.0-0.2) Glucose (Fingerstick) 119mg/dL (70-99) 118mg/dL (70-99) Prothrombin Time 15.8SEC (11.7-14.0) Prothromb Time International Ratio 1.3 (0.8-1.1) Laboratory Tests Test 08/03/16 17:59 08/03/16 21:06 08/04/16 03:55 08/04/16 03:58 Glucose (Fingerstick) 114mg/dL (70-99) 116mg/dL (70-99) Sodium Level 142mmol/L (136-145) Potassium Level 4.5mmol/L (3.5-5.1) Chloride Level 104mmol/L (98-107) Carbon Dioxide Level 28mmol/L (21-32) Anion Gap 10 (6-14) Blood Urea Nitrogen 36mg/dL (8-26) Creatinine 2.4mg/dL (0.7-1.3) Estimated GFR (Cockcroft-Gault) 32.2 Glucose Level 123mg/dL (70-99) Calcium Level 8.7mg/dL (8.5-10.1) Phosphorus Level 3.7mg/dL (2.6-4.7) Magnesium Level 2.0mg/dL (1.8-2.4) Albumin 2.3g/dL (3.4-5.0) White Blood Count 15.5x10^3/uL (4.0-11.0) Red Blood Count 4.08x10^6/uL (4.30-5.70) Hemoglobin 10.9g/dL (13.0-17.5) Hematocrit 33.9% (39.0-53.0) Mean Corpuscular Volume 83fL (79-100) Mean Corpuscular Hemoglobin 27pg (25-35) Mean Corpuscular Hemoglobin Concent 32g/dL (31-37) Red Cell Distribution Width 14.4% (11.5-14.5) Platelet Count 343x10^3/uL (140-400) Neutrophils (%) (Auto) 89% (31-73) Lymphocytes (%) (Auto) 4% (24-48) Monocytes (%) (Auto) 7% (0-9) Eosinophils (%) (Auto) 0% (0-3) Basophils (%) (Auto) 0% (0-3) Neutrophils # (Auto) 13.8x10^3uL (1.8-7.7) Lymphocytes # (Auto) 0.6x10^3/uL (1.0-4.8) Monocytes # (Auto) 1.1x10^3/uL (0.0-1.1) Eosinophils # (Auto) 0.0x10^3/uL (0.0-0.7) Basophils # (Auto) 0.0x10^3/uL (0.0-0.2) Test 08/04/16 07:39 08/04/16 08:40 08/04/16 10:57 Glucose (Fingerstick) 119mg/dL (70-99) 118mg/dL (70-99) Prothrombin Time 15.8SEC (11.7-14.0) Prothromb Time International Ratio 1.3 (0.8-1.1) Medications Active Scripts Medications Dose Route/Sig Days Date Category Aspirin Ec (Aspirin) 81 Mg Tablet.dr 81 Mg PO DAILY 07/29/16 Reported Amlodipine Besylate 10 Mg Tablet 10 Mg PO DAILY 07/28/16 Reported Percocet 5-325 Mg Tablet (Oxycodone/Acetaminophen) 1 Each Tablet 1 Tab PO PRN Q6HRS PRN 07/28/16 Reported Doxazosin Mesylate 4 Mg Tablet 1 Tab PO DAILY 07/28/16 Reported Tamsulosin Hcl 0.4 Mg Cap.er.24h 1 Cap PO DAILY 07/28/16 Reported Ondansetron Odt (Ondansetron) 4 Mg Tab.rapdis 1 Tab PO PRN Q8HRS PRN 07/28/16 Reported Famotidine 40 Mg Tablet 40 Mg PO HS 02/12/14 Reported Telmisartan 80 Mg Tablet 80 Mg PO 02/12/14 Reported Impression . 1. 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 superimposed CHF (cxr worse 07/31), sig improved 08/03 2. Chronic obstructive pulmonary disease with exacerbation. 3. Chronic atrial fibrillation. 4. Acute MIRYAM on chronic kidney disease. 5. Benign prostatic hyperplasia. 6. Hypertension. 7. Kidney stones 8. NON STEMI 9. s/p cath , Severe single-vessel coronary disease in the left circumflex artery. Mild to moderate disease in the LAD and right coronary artery. Successful bare metal stent placement in the left circumflex lesion decreasing a 95% lesion to 0%. Plan . 1. s/p HD, much improved. off BiPAP, off oxygen 2. continue with HD. f/u CXR much improved 3. taper steroids, 4. MIRYAM, suspect contrast induced 5. The patient instructed on the importance of discontinuing tobacco use 6. d/w RN 7. follow cardiology recommendations stable pulmonary status ZACKARY FARFAN MD Aug 04, 2016 13:14
--- NOTE | 2016-08-04 14:26 | RAD ---
Removal of right IJ temporary hemodialysis catheter Ultrasound and fluoro guided placement of right IJ tunneled hemodialysis catheter Indication: 76-year-old male with acute kidney injury on chronic kidney disease. He needs ongoing hemodialysis. Conversion from temporary to tunneled dialysis catheter has been requested by renal. Fluoro time: 0.5 minutes Kerma-Area Product: 1 Gycm2 Moderate sedation: 23 minutes moderate sedation was provided utilizing a total of 2 mg Versed and 100 mcg fentanyl, IV. The patient was appropriately monitored by a qualified independent observer throughout the time of moderate sedation. Antibiotic: A single dose of Ancef was administered within 1 hour of the procedure start time. Sterility: All elements of maximal sterile barrier technique, including the use of a cap, mask, sterile gown, sterile gloves, large sterile sheet, appropriate hand hygiene, and 2% chlorhexidine for cutaneous antisepsis (or acceptable alternative antiseptic per current guidelines) were utilized. Procedure: Informed consent was obtained from the patient. He was placed supine on the angiography table. Preliminary ultrasound examination of right neck revealed wide patency of right internal jugular vein, which was documented with a hard copy ultrasound image. The indwelling 14 Macanese 20 cm Schon temporary hemodialysis catheter was then easily removed utilizing gentle traction. Hemostasis was achieved with manual pressure over right internal jugular vein. Right neck and upper chest were then prepped and draped in the usual sterile fashion, utilizing all elements of maximal sterile barrier technique, as described above. Moderate sedation was provided with IV Versed and Fentanyl. 1 gram Ancef was given IV, prophylactically. Using aseptic technique and local anesthesia, a small skin incision was made lateral to right internal jugular vein, just above clavicle. Using aseptic technique, local anesthesia, and direct ultrasound guidance, a micropuncture needle was successfully introduced into right internal jugular vein. The micropuncture needle was then exchanged over a microguidewire for a micropuncture sheath, through which an Amplatz wire was advanced into IVC, under fluoroscopic control. A second small skin incision was then made along upper anterior aspect of right chest. A subcutaneous tunnel was then fashioned between the right chest and supraclavicular incisions. A 15.5 F 24 cm Dura Max dialysis catheter was pulled through the subcutaneous tunnel from inferior to superior, utilizing the tunneling device provided. The right IJ venostomy tract was then sequentially dilated and the 15.5 Macanese dialysis catheter was easily advanced centrally through a 16 Macanese peel-away sheath, and was positioned with its tip at the level of upper right atrium utilizing fluoroscopic guidance. This catheter was demonstrated to flush and aspirate normally, was packed, and was secured at the right chest exit site utilizing 2-0 Prolene and sterile dressing. The small supraclavicular incision was closed with 4-0 Vicryl, Steri-Strips, and sterile dressing. Patient tolerated the procedure well without apparent complication. Satisfactory position of the dialysis catheter was confirmed with a single fluoroscopic spot image. Impression: Successful, uneventful ultrasound and fluoro guided placement of right IJ 15.5 F 24 cm Dura Max tunneled hemodialysis catheter, following removal of right IJ 14 Macanese 20 cm Schon temporary hemodialysis catheter, as described.
[2016-08-04 15:00] VITALS: BP 126/74
[2016-08-04] MEDS: ATORVASTATIN CALCIUM 20 MG TABLET PO SCH (20:34)
[2016-08-04] MEDS: TAMSULOSIN 0.4 MG CAP.ER.24H. PO SCH (20:34)
[2016-08-04 20:35] VITALS: BP 128/74
[2016-08-04] MEDS: FAMOTIDINE 20 MG TABLET. PO SCH (20:35)
--- NOTE | 2016-08-07 11:32 | PDOC3 ---
IM DISCHARGE SUMMARY Date of Admission Date of Admission Date of Admission: Jul 28, 2016 at 19:29 Date of Discharge Date of Discharge 08/04/16 Primary Diagnosis Primary Diagnosis 1. Chest pain, acute non-ST elevation myocardial infarction with elevated troponin s/p bare metal stent L Cx08/02/16 2. AECOPD with undelrying bullous emphysema/ILD-fibrosis 3. Acute hypoxic respiratory failure with underlying COPD/ILD/ acute NSTEMI 4. 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 Benign prostatic hyperplasia. 6. Hypertension. 7. Kidney stone R intrarenal collect sx 6.3mm 8. steroid induced DM II with hyperglycemia 9. bilateral renal cyst 9, Afib chronic h/o 10. a/c systolic CHF POA EF 50% mod MR 11. acute bronchitis POA Problems: Consults Consults Samuel Edmonds MD, Dr., Dr. Procedures Procedures Ultrasound and fluoro guided right IJ temporary hemodialysis catheter Indication: 76-year-old male with acute kidney injury on chronic kidney disease. Temporary dialysis catheter insertion has been requested for hemodialysis. Fluoro time: 0.1 Kerma-Area Product: 1 Gycm2 Anesthesia: Local only Sterility: All elements of maximal sterile barrier technique, including the use of a cap, mask, sterile gown, sterile gloves, large sterile sheet, appropriate hand hygiene, and 2% chlorhexidine for cutaneous antisepsis (or acceptable alternative antiseptic per current guidelines) were utilized. Procedure: Informed consent was obtained from the patient. He was placed supine on the angiography table. Preliminary ultrasound examination of right neck revealed patency of right internal jugular vein, which was documented with a single hard copy ultrasound image. Right neck was then prepped and draped in the usual sterile fashion, utilizing all elements of maximal sterile barrier technique, as described above. Using aseptic technique, local anesthesia, direct ultrasound guidance, and the micropuncture system, successful percutaneous entry was achieved into right internal jugular vein. The right IJ venostomy tract was then dilated and a 14 Belgian 20cm Schon temporary hemodialysis catheter was easily advanced centrally over an angiographic guidewire, and was positioned with its tip at the level of upper right atrium utilizing fluoroscopic guidance. This catheter was documented to flush and aspirate normally, was packed, and was secured at the right neck exit site utilizing suture and sterile dressing. Patient tolerated the procedure well without apparent complication. Satisfactory position of the dialysis catheter was confirmed with a single fluoroscopic spot image. Impression: Successful, uneventful ultrasound and fluoro guided placement of right IJ 14 Belgian 20cm Schon temporary hemodialysis catheter, as described. DICTATED and SIGNED BY: TESFAYE DELANEY MD DATE: 08/02/16 0735 Removal of right IJ temporary hemodialysis catheter Ultrasound and fluoro guided placement of right IJ tunneled hemodialysis catheter Indication: 76-year-old male with acute kidney injury on chronic kidney disease. He needs ongoing hemodialysis. Conversion from temporary to tunneled dialysis catheter has been requested by renal. Fluoro time: 0.5 minutes Kerma-Area Product: 1 Gycm2 Moderate sedation: 23 minutes moderate sedation was provided utilizing a total of 2 mg Versed and 100 mcg fentanyl, IV. The patient was appropriately monitored by a qualified independent observer throughout the time of moderate sedation. Antibiotic: A single dose of Ancef was administered within 1 hour of the procedure start time. Sterility: All elements of maximal sterile barrier technique, including the use of a cap, mask, sterile gown, sterile gloves, large sterile sheet, appropriate hand hygiene, and 2% chlorhexidine for cutaneous antisepsis (or acceptable alternative antiseptic per current guidelines) were utilized. Procedure: Informed consent was obtained from the patient. He was placed supine on the angiography table. Preliminary ultrasound examination of right neck revealed wide patency of right internal jugular vein, which was documented with a hard copy ultrasound image. The indwelling 14 Belgian 20 cm Schon temporary hemodialysis catheter was then easily removed utilizing gentle traction. Hemostasis was achieved with manual pressure over right internal jugular vein. Right neck and upper chest were then prepped and draped in the usual sterile fashion, utilizing all elements of maximal sterile barrier technique, as described above. Moderate sedation was provided with IV Versed and Fentanyl. 1 gram Ancef was given IV, prophylactically. Using aseptic technique and local anesthesia, a small skin incision was made lateral to right internal jugular vein, just above clavicle. Using aseptic technique, local anesthesia, and direct ultrasound guidance, a micropuncture needle was successfully introduced into right internal jugular vein. The micropuncture needle was then exchanged over a microguidewire for a micropuncture sheath, through which an Amplatz wire was advanced into IVC, under fluoroscopic control. A second small skin incision was then made along upper anterior aspect of right chest. A subcutaneous tunnel was then fashioned between the right chest and supraclavicular incisions. A 15.5 F 24 cm Dura Max dialysis catheter was pulled through the subcutaneous tunnel from inferior to superior, utilizing the tunneling device provided. The right IJ venostomy tract was then sequentially dilated and the 15.5 Belgian dialysis catheter was easily advanced centrally through a 16 Belgian peel-away sheath, and was positioned with its tip at the level of upper right atrium utilizing fluoroscopic guidance. This catheter was demonstrated to flush and aspirate normally, was packed, and was secured at the right chest exit site utilizing 2-0 Prolene and sterile dressing. The small supraclavicular incision was closed with 4-0 Vicryl, Steri-Strips, and sterile dressing. Patient tolerated the procedure well without apparent complication. Satisfactory position of the dialysis catheter was confirmed with a single fluoroscopic spot image. Impression: Successful, uneventful ultrasound and fluoro guided placement of right IJ 15.5 F 24 cm Dura Max tunneled hemodialysis catheter, following removal of right IJ 14 Belgian 20 cm Schon temporary hemodialysis catheter, as described. DICTATED and SIGNED BY: TESFAYE DELANEY MD DATE: 08/04/[address] of the chest without contrast, 07/27/2016: History: Abnormal chest radiograph, perihilar nodule Noncontrast scans were obtained as requested. Comparison is made to a study from 07/28/2016. There are extensive emphysematous changes in the lungs. There are scattered linear and groundglass opacities in both lungs probably predominantly due to scarring. Interlobular septal thickening in the lung bases on the previous study which has largely resolved. This probably represented interstitial edema. No pulmonary mass is evident. No true pulmonary nodule is seen in the region of the resolving opacity near the right minor fissure seen on previous chest radiographs. Several calcified granulomata are present in the right lung. There appears to be a trace amount of left-sided pleural fluid, probably residual from the recent episode of congestive heart failure. A right jugular catheter extends to the level of the atriocaval junction. There is calcific plaquing of the aorta and coronary arteries. There are calcified mediastinal and right hilar lymph nodes compatible with old granulomatous disease. No definite noncalcified adenopathy is evident. Bilateral renal cysts are present. A small unchanged low-density lesion in the inferior aspect of the right lobe of liver may also be a cyst. There is now radiopaque material within the gallbladder compatible with vicarious excretion of previous IV contrast. This can be seen in patients with renal insufficiency or after large contrast loads. IMPRESSION: 1. Moderate emphysema with scattered pulmonary opacities which are probably predominantly due to scarring. 2. Resolution of previously seen interlobular septal thickening compatible with resolution of pulmonary edema. 3. Trace amount of residual left-sided pleural fluid. 4. Coronary artery disease. PQRS Compliance Statement: One or more of the following individualized dose reduction techniques were utilized for this examination: 1. Automated exposure control 2. Adjustment of the mA and/or kV according to patient size 3. Use of iterative reconstruction technique DICTATED and SIGNED BY: ILA MICHAEL MD DATE: 08/04/16 1032 APPROVED REPORT EXAM: Two-dimensional and M-mode echocardiogram with Doppler and color Doppler. Other Information Quality : Average Rhythm : NSR INDICATION Chest Pain 2D DIMENSIONS Left Atrium(2D) 4.0 (1.6-4.0cm) IVSd 1.1 (0.7-1.1cm) Aortic Root(2D) 3.0 (2.0-3.7cm) LVDd 5.7 (3.9-5.9cm) LVOT Diameter 2.2 (1.8-2.4cm) PWd 1.1 (0.7-1.1cm) LVDs 4.5 (2.5-4.0cm) FS (%) 21.2 % SV 67.5 ml Aortic Valve AoV Peak Bruce. 120.1cm/s AoV VTI 20.1cm AO Peak GR. 5.8mmHg LVOT VTI 16.04cm AO Mean GR. 4mmHg APOORVA (VTI) 3.10cm2 Mitral Valve MV E Velocity 80.0cm/s MV E Peak Gr. 123mmHg MV DECEL TIME 168ms MV A Velocity 38.2cm/s MV E Mean Gr. 2mmHg MV PHT 36ms E/A Ratio 2.1 MV A Duration 164ms MVA (PHT) 6.11cm2 TDI Lateral E' P. V 11.97cm/s Medial E' P. V 5.28cm/s E/Lateral E' 6.7 E/Medial E' 15.2 Tricuspid Valve TR P. Velocity 299cm/s RAP ESTIMATE 3mmHg TR Peak Gr. 36mmHg RVSP 39mmHg LEFT VENTRICLE The left ventricle is normal size. There is borderline to mild concentric left ventricular hypertrophy. Left ventricle systolic function is low normal. The Ejection Fraction is estimated at 50%. There is mild basal posterior hypokinesis. The left ventricular diastolic function and filling is normal for age. RIGHT VENTRICLE The right ventricle is normal size. The right ventricular systolic function is normal. ATRIA The left atrium size is normal. The right atrium size is normal. The interatrial septum is intact with no evidence for an atrial septal defect or patent foramen ovale as noted on 2-D or Doppler imaging. AORTIC VALVE The aortic valve is normal in structure and function. The aortic valve is trileaflet. Doppler and Color Flow revealed no significant aortic regurgitation. There is no significant aortic valvular stenosis. MITRAL VALVE The mitral valve is normal in structure. There is no mitral valve stenosis. Doppler and Color Flow revealed eccentric moderate mitral regurgitation. TRICUSPID VALVE The tricuspid valve is normal in structure and function. Doppler and Color Flow revealed mild to moderate tricuspid regurgitation. The PA pressure was estimated at 39 mmHg. There is no tricuspid valve stenosis. PULMONIC VALVE The pulmonic valve is not well visualized. Doppler and Color Flow revealed no pulmonic valvular regurgitation. There is no pulmonic valvular stenosis. GREAT VESSELS The aortic root is normal in size. The IVC is normal in size and collapses >50% with inspiration. PERICARDIAL EFFUSION There is no evidence of significant pericardial effusion. Critical Notification Date: 07/29/2016 Time: 09:04 Other Discipline : CATRACHITO Watts Critical Value: Yes <Conclusion> The left ventricle is normal size. Left ventricle systolic function is low normal. The Ejection Fraction is estimated at 50%. There is mild basal posterior hypokinesis. There is borderline to mild concentric left ventricular hypertrophy. There is no significant aortic valvular stenosis. Doppler and Color Flow revealed no significant aortic regurgitation. Doppler and Color Flow revealed eccentric moderate mitral regurgitation. Doppler and Color Flow revealed mild to moderate tricuspid regurgitation. The PA pressure was estimated at 39 mmHg. DICTATED and SIGNED BY: VENTURA GHOTRA MD DATE: 07/29/16 1253 APPROVED REPORT Procedures Left heart catheterization. Selective coronary angiogram. Bare metal stent placement to the left circumflex vessel. The patient is a 76-year-old male who was admitted to the hospital with a non- ST elevated myocardial infarction. He had coexisting problems of acute renal failure and respiratory failure. After these problems were treated, a cardiac catheterization was recommended. Risks and benefits were discussed with the patient. He agreed to proceed. After informed consent was obtained the patient was brought to the heart catheterization lab. The area of the right femoral artery was prepared in the usual manner with Betadine, sterile draping and local anesthetic. An 18-gauge needle was used to enter the right femoral artery, a wire placed and a 6 Belgian sheath placed over the wire. With the assistance of an angled wire, a 6 Belgian JL4 diagnostic catheter was advanced the ascending aorta. This was used to engage the left coronary system and sequential injections in various views were obtained. Using an exchange wire a 6 Belgian Jason right diagnostic catheter was advanced the ascending aorta. It was then used to engage the right coronary artery and sequential injections in various views were obtained. Review of the images showed a subtotal mid left circumflex lesion. We proceeded to revascularize this lesion. Angiomax as per the protocol was administered. A 6 Belgian XB 3.5 guide was advanced the ascending aorta. This was then used to engage the left system. The left circumflex lesion was a complex lesion initially a PT choice wire would not cross the lesion. It was then crossed with a Hi-Torque wire. Initial inflation was with a 3.0 x 15 Trek balloon with 2 inflations at 8 louisa for 20 seconds. A 3.5 x 18 MultiLink vision bare metal stent was then deployed with one inflation at 15 louisa for 15 seconds. There was some distal embolization after the stent inflation. This was treated with IC NTG and the patient also was given Aggrastat. This resolved approximately 10 minutes. Final injection showed 0% residual lesion. This system was removed from the patient. A pigtail catheter was then advanced the ascending aorta. It was then advanced to the left ventricle. Pressures were obtained. No left ventricular gram was performed. Pullback pressures were measured. The catheter was removed from the patient. Injection the sheath showed normal placement. The sheath was removed and sealed with an Angio-Seal product. The patient was moved to the holding area in stable condition. Findings. Hemodynamics. LV pressure of 122/30, aortic root pressure 120/68. Coronaries. Left main. The left main had no lesions and was a large vessel. Left anterior descending. The LAD was a moderate size vessel with normal distribution. It had a mid 15% lesion. Left circumflex. The left circumflex was a large dominant vessel. It had a greater than 95% lesion near the obtuse marginal 1 branch. Right coronary artery. The right coronary was a moderate size nondominant vessel. It had a proximal 35% lesion and a mid 30% lesion. <Conclusion> Severe single-vessel coronary disease in the left circumflex artery. Mild to moderate disease in the LAD and right coronary artery. Successful bare metal stent placement in the left circumflex lesion decreasing a 95% lesion to 0%. DICTATED and SIGNED BY: VENTURA GHOTRA MD DATE: 08/02/161423 Labs Labs Laboratory Tests Test 08/04/16 16:53 Glucose (Fingerstick) 132mg/dL (70-99) Brief hospital course Brief hospital course This 76 year old male who presented with acute NSTEMI was admitted. The following is a summary of his treatment: acute NSTEMI cardiology consult Max troponin 21.220 ECHO EF 50% neg CT PE or dissection venous doppler negative cardiac cath is planned PT-cardiac rehab ordered at discharge Heparin/NTG infusions CC 08/02/16- LAD 15%, LCx >95% stenosis near OM, bare metal stent placed reduced to 0%, RCA non dominant 35% and 30% stenosis Heparin gtt stopped 08/02 Brilinta 90mg bid 1st 24 hours per cardiology -required due to bare metal stent NTG gtt DC 08/03/16 acute respiratory failure pulmonary consult Desat 07/30 evening-tolerated BIPAP 30 min, Non rebreather Sat 6.-84% acute bronchitis-doxycycline since 07/30 AECOPD-Solumedrol 125mg IV q8hr since 07/30--Decrease to 62.5mg q 8hr 08/03, plan home with tapering steroids -Decrease tombg IV q12h 08/04-oral at discharge bullous emphysema/ILD ESR elevated -steroids cardio note wheezing w/? hold BB- CHF, has agreed to HD, will continue BB improved after dialysis CXR 08/03 - Right perihilar opacity resolved with a small residual nodule. ARF with CKD nephrology consult Admit BUN 27 08/04 36 / Cr 2.9 2.4 K 4.5 4.5 Na 142 08/01/16) PO4 7.2 3.7 Has agreed to dialysis, consent completed. Await order from nephrology Phoslo 1334mg tid 08/01/16 Perma cath pending-IR wanted Brilinta held x 24 hours prior to procedure, Cardiology -could not stop Brilinta until 24hour post stent placed A/C systolic CHF with EF 50% mod MR daily wt Admit wt 183# 08/04 173# I/O to begin dialysis -HD initiated 08/01 with temp HDC placed 08/01 +ARB stopped due to ARF/BB continued Continue HD out patient TTS hyperlipidemia LDL 142 on atorvastin anemia renal disease Admit Hgb 11.7 08/04 10.9 monitor Fe 25 TIBC 176 FeSo4 14 Ferritn 250 Venofer 200mg IV 3x/wk for 5 doses DVT/GI prophylaxis Hep gtt-stopped Brilinta post CC Pepcid DM steroid induced FSBS no ssi BS 114-216 leukocytosis steroid induced Admit WBC 8.9 08/04 15.5 For more details regarding the past history, family history, social history, surgical history and other details, please refer to History and Physical. The CT of the chest was negative for pneumonia. He is being discharged home. Please see the discharge orders and medications. Medications Medications reviewed and reconciled for discharge. Allergy Allergies Coded Allergies Type Severity Reaction Last Updated Verified No Known Drug Allergies 02/12/14 No Follow up in 3-5 days. DISPOSITION: Home Comments Discharge Management - 35 minutes. For other details please refer to discharge instructions LC RUSSELL APRN Aug 07, 2016 11:32
== END 2016-08-04 20:55 | disposition home or self-care (01) | DRG 248 ==
LOC: ER 17:50 → 1 WEST ICU 19:29 → CVICU 07-30 12:46
PROVIDERS: ADMIT Internal Medicine; ATTEND Internal Medicine
PROC: 5A09357 Assistance with Respiratory Ventilation, Less than 24 Consecutive Hours, Continuous Positive Airway Pressure (ICD-10-PCS; 2016-07-29)
PROC: 5A1D60Z (ICD-10-PCS; 2016-08-01)
PROC: 02703DZ Dilation of Coronary Artery, One Artery with Intraluminal Device, Percutaneous Approach (ICD-10-PCS; principal; 2016-08-02)
PROC: 4A023N7 Measurement of Cardiac Sampling and Pressure, Left Heart, Percutaneous Approach (ICD-10-PCS; 2016-08-02)
PROC: B2111ZZ Fluoroscopy of Multiple Coronary Arteries using Low Osmolar Contrast (ICD-10-PCS; 2016-08-02)
PROC: 02H633Z Insertion of Infusion Device into Right Atrium, Percutaneous Approach (ICD-10-PCS; 2016-08-02)
PROC: B2141ZZ Fluoroscopy of Right Heart using Low Osmolar Contrast (ICD-10-PCS; 2016-08-02)
PROC: B244YZZ Ultrasonography of Right Heart using Other Contrast (ICD-10-PCS; 2016-08-02)
PROC: 02PA33Z Removal of Infusion Device from Heart, Percutaneous Approach (ICD-10-PCS; 2016-08-04)
DX: I21.4 Non-ST elevation (NSTEMI) myocardial infarction (principal); I50.43 Acute on chronic combined systolic (congestive) and diastolic (congestive) heart failure; J96.21 Acute and chronic respiratory failure with hypoxia; N17.0 Acute kidney failure with tubular necrosis; I13.0 Hypertensive heart and chronic kidney disease with heart failure and stage 1 through stage 4 chronic kidney disease, or unspecified chronic kidney disease; J44.0 Chronic obstructive pulmonary disease with (acute) lower respiratory infection; J44.1 Chronic obstructive pulmonary disease with (acute) exacerbation; N18.4 Chronic kidney disease, stage 4 (severe); E09.9 Drug or chemical induced diabetes mellitus without complications; E78.5 Hyperlipidemia, unspecified; I48.2 Chronic atrial fibrillation; J20.9 Acute bronchitis, unspecified; J84.10 Pulmonary fibrosis, unspecified; K21.9 Gastro-esophageal reflux disease without esophagitis; N40.0 Benign prostatic hyperplasia without lower urinary tract symptoms; N28.1 Cyst of kidney, acquired; N20.0 Calculus of kidney; R04.0 Epistaxis; T38.0X5A Adverse effect of glucocorticoids and synthetic analogues, initial encounter; T50.8X5A Adverse effect of diagnostic agents, initial encounter; D64.9 Anemia, unspecified; D72.829 Elevated white blood cell count, unspecified; I25.10 Atherosclerotic heart disease of native coronary artery without angina pectoris; N14.1 Nephropathy induced by other drugs, medicaments and biological substances; Z87.891 Personal history of nicotine dependence; Z82.49 Family history of ischemic heart disease and other diseases of the circulatory system; Z95.5 Presence of coronary angioplasty implant and graft; Z79.82 Long term (current) use of aspirin; Z87.442 Personal history of urinary calculi; Z99.2 Dependence on renal dialysis
CPT/HCPCS: 36415; 36556; 36558; 36600; 71010; 71020; 71250; 71275; 76770; 76937; 77001; 80048; 80061; 80069; 81001; 82728; 82805; 82947; 83540; 83550; 83735; 83880; 84145; 84484; 85007; 85014; 85018; 85027; 85045; 85347; 85379; 85520; 85610; 85651; 85730; 86705; 86706; 87340; 87341; 87641; 92928; 93005; 93306; 93458; 93925; 94640; 94660; 94760; 96365; 96375; C1713; C1725; C1750; C1769; C1771; C1887; C1892; G0269; J0583; J0881; J1756; J1815; J1940; J2060; J2250; J2270; J2920; J2930; J3010; J3490; J7030; J7620; Q9967; 97116; 99285-25; J3246

== ENCOUNTER → 2016-08-29 | Outpatient (CLI) | payer MEDICARE, OTHER ==
[2016-08-04 20:35] VITALS: BP 128/74
[~2016-08-29] MED LIST changes: +AMLO10TA2 PO; +ASPI81TA9 PO; +ATOR20TA58 PO; +Calcium Acetate PO; +DOXA4TAB3 PO; +FAMO20TA5 PO; +METO25TA4 PO; +NITR0.4T SL; +ONDA4TAB12 PO; +OXYC-323 PO; +PRED-220 PO; +TAMS0.4C2 PO; +TICA90TA PO
--- NOTE | 2016-08-29 16:39 | RAD ---
APPROVED REPORT Patient Location : OUT-PATIENT Indications Lower Extremity Pain : Deep System Deep Venous Thrombosis present : No Deep Venous Reflux present : No Findings Francis scale images of the bilateral lower extremity greater and lesser saphenous veins including color Doppler and spectral images were obtained. The right great saphenous vein measures 6.2 mm and the le ft great saphenous vein measures 6.6 mm. The bilateral lesser and greater saphenous veins do not demo nstrate any evidence of reflux. Critical Notification Critical Value: No <Conclusion> Negative reflux study in the bilateral lower extremity greater and lesser saphenous veins.
--- NOTE | 2016-08-29 16:42 | RAD ---
APPROVED REPORT Bilateral Lower Extremity Venous Study for DVT Patient Location: OUT-PATIENT Indications Lower Extremity Pain: Vein Imaging (Right) CFV (R): Compressible SFJ (R): Compressible FEM (R): Compressible POP (R): Compressible DFV (R): Spontaneous PTV (R): Spontaneous GSV (R): Spontaneous Peroneals (R): Spontaneous Vein Imaging (Left) CFV (L): Compressible SFJ (L): Compressible FEM (L): Compressible POP (L): Compressible DFV (L): Spontaneous PTV (L): Spontaneous Peroneals (L): Spontaneous Doppler Evaluation (Right) CFV (R): Spontaneous POP (R):Spontaneous Doppler Evaluation (Left) CFV (L):Spontaneous POP (L):Spontaneous Findings Bilateral lower extremity deep venous structures were evaluated for thrombus. On redi scale images fr om the common femoral vein to the popliteal vein did appear to be compressible bilaterally on reid sc aaron images. Color Doppler and spectral images do not reveal any significant thrombus burden. Below-knee veins bilaterally were not well visualized. There is spontaneous flow noted in the below-k nee veins on color Doppler images. Critical Notification Critical Value: No <Conclusion> No evidence of deep venous thrombosis in the visualized veins of the bilateral lower extremities.
--- NOTE | 2016-08-29 16:44 | RAD ---
APPROVED REPORT Patient Location: OUT-PATIENT Indications Rest Pain: VELOCITY AND DOPPLER WAVEFORM ANALYSIS RIGHT cm/secWaveformSeverity LEFT c m/secWaveformSeverity Ext Iliac Art. 61.0BiphasicExt Iliac Art. 133.0Biphasic pCFA pCFA 83.0Biphasic dCFA 75.0BiphasicdCFA Prof Fem Art. 97.0BiphasicProf Fem Art. 63.0Biphasic Fem Art Prox. 85.0BiphasicFem Art Prox. 107.0Biphasic Fem Art Mid. 88.0BiphasicFem Art Mid. 98.0Biphasic Fem Art Dist. 73.0BiphasicFem Art Dist. 101.0Biphasic Pop Art(AK) 51.0BiphasicPop Art(AK) 69.0Biphasic CONCRETE WALL GRINDER OPERATOR Prox. 61.0BiphasicPTA Prox. 76.0Biphasic CONCRETE WALL GRINDER OPERATOR Dist. 70.0BiphasicPTA Dist. 75.0Biphasic Per Art Prox. 59.0BiphasicPer Art Prox. 68.0Biphasic LAUREN Prox. 72.0BiphasicATA Prox. 89.0Biphasic Findings Bilateral reid scale images of the lower extremity arterial vessels reveals mild atherosclerotic plaq ue. Color Doppler does not reveal any significant turbulence. Velocity profiles and spectral images d emonstrate biphasic waveforms without any evidence of high-grade stenosis. Critical Notification Critical Value: No <Conclusion> No evidence of high-grade stenosis in the bilateral lower extremity arterial vessels.
== END | disposition home or self-care (01) ==
LOC: US 13:41
PROVIDERS: ATTEND Internal Medicine Cardiovascular Disease
DX: M79.605 Pain in left leg (principal)
CPT/HCPCS: 93925; 93970

== ENCOUNTER → 2016-09-27 | Outpatient (CLI) | payer MEDICARE, OTHER ==
--- NOTE | 2016-09-27 11:51 | RAD ---
Indication shortness of breath. PA and lateral views of the chest were obtained. Comparison is made to the two-view examination 08/04/2016. There is mild unchanged cardiomegaly. Chronic background changes compatible with emphysema and/or fibrosis are seen appearing similar. No consolidated pneumonia is seen. Significant pleural fluid is not present on today's study. There is no pneumothorax. An acute finding or significant change compared to the previous plain film exam is not seen. IMPRESSION: Chronic changes. No acute finding. No significant change
== END | disposition home or self-care (01) ==
LOC: RAD 11:12
PROVIDERS: ATTEND Internal Medicine Cardiovascular Disease
DX: R06.02 Shortness of breath (principal)
CPT/HCPCS: 71020

== ENCOUNTER → 2016-10-20 | Outpatient (CLI) | payer MEDICARE ==
--- NOTE | 2016-10-20 15:38 | RAD ---
Chest, 2 views, 10/20/2016: History: Cough Comparison is made to a study from 09/27/2016. The heart is mildly enlarged. Emphysematous changes are present in the lungs. There are prominent pulmonary markings which are unchanged and are compatible with fibrosis. No superimposed acute infiltrate is seen. There is no evidence of pleural fluid. Moderate spurring is present in the spine. IMPRESSION: 1. Emphysema and fibrosis. 2. No significant change since 09/27/2016.
== END | disposition home or self-care (01) ==
LOC: RAD 15:07
PROVIDERS: ATTEND Internal Medicine Pulmonary Disease
DX: J43.9 Emphysema, unspecified (principal); J84.10 Pulmonary fibrosis, unspecified
CPT/HCPCS: 71020

== ENCOUNTER → 2016-10-27 | Outpatient (CLI) | payer MEDICARE, OTHER ==
--- NOTE | 2016-10-30 11:00 | RESP ---
DATE OF SERVICE: 10/27/2016 PFT NOTE ATTENDING PHYSICIAN: Dr. Gorman. The patient's FVC was 2.41, which is 70% predicted, FEV1 was 1.87, which is 73% predicted. FEV1/FVC ratio was normal. FEF 25-75, was 66% predicted. There was no response to bronchodilators. Lung volume showed a total lung capacity of 82% predicted, residual volume was 100% predicted. Diffusion capacity was severely reduced at 33% predicted. IMPRESSION: 1. Spirometry findings are suggestive of small airway dysfunction. 2. No response to bronchodilators. 3. Normal lung volumes. 4. Severely reduced diffusion capacity. ZACKARY FARFAN MD DR: JOSÉ MIGUEL/moise JOB#: [id number] / [id number] GAURAV Adames MD
== END | disposition home or self-care (01) ==
LOC: PF 09:38
PROVIDERS: ATTEND Internal Medicine Pulmonary Disease
DX: R06.02 Shortness of breath (principal)
CPT/HCPCS: 94060; 94729

== ENCOUNTER 2016-11-02 12:50 | Observation (INO) | payer MEDICARE, OTHER ==
[~2016-11-02] VITALS: Ht 170.2 cm; Wt 80.9 kg
[~2016-11-02 12:50] MED LIST changes: +ASPI-612 PO; -ASPI81TA9 PO
--- NOTE | 2016-11-02 12:56 | PHYS DOC ---
Past Medical History Past Medical History: A-Fib, GERD, Hypertension, Kidney Stone, Other Additional Past Medical Histor: chronic kidney disease Past Surgical History: Other Additional Past Surgical Histo: hernia repair, shoulder, foot Alcohol Use: None Drug Use: None Adult General Chief Complaint Chief Complaint: SHORTNESS OF BREATH [facility] HPI Patient is a 76 year old -[place] male who presents with worsening shortness of breath. He has been diagnosed with pulmonary fibrosis and emphysema according to his daughter. According to his daughter patient's been having generalized weakness we can hardly even lift shirts up to put him on a rack. He has had a mild productive cough that is unchanged for the last several weeks. He has had a heart attack with stents. He has stopped smoking since July. He denies any chest pain, nausea vomiting diarrhea. He states he feels generalized weak and short of breath with any exertion. Review of Systems Review of Systems Constitutional: Denies fever or chills [] Eyes: Denies change in visual acuity, redness, or eye pain [] HENT: Denies nasal congestion or sore throat [] Respiratory: Positive for cough and shortness of breath. Cardiovascular: No additional information not addressed in HPI [] GI: Denies abdominal pain, nausea, vomiting, bloody stools or diarrhea [] : Denies dysuria or hematuria [] Musculoskeletal: Denies back pain or joint pain [] Integument: Denies rash or skin lesions [] Neurologic: Denies headache, focal weakness or sensory changes [] Endocrine: Denies polyuria or polydipsia [] Allergies Allergies Allergies Coded Allergies Type Severity Reaction Last Updated Verified No Known Drug Allergies 02/12/14 No Physical Exam Physical Exam Constitutional: Well developed, well nourished, no acute distress, non-toxic appearance. [] HENT: Normocephalic, atraumatic, bilateral external ears normal, oropharynx moist, no oral exudates, nose normal. [] Eyes: PERRLA, EOMI, conjunctiva normal, no discharge. [] Neck: Normal range of motion, no tenderness, supple, no stridor. [] Cardiovascular:Heart rate regular rhythm, no murmur [] Lungs & Thorax: Bilateral breath sounds clear to auscultation [] Abdomen: Bowel sounds normal, soft, no tenderness, no masses, no pulsatile masses. [] Skin: Warm, dry, no erythema, no rash. [] Back: No tenderness, no CVA tenderness. [] Extremities: No tenderness, no cyanosis, no clubbing, ROM intact, no edema. [] Neurologic: Alert and oriented X 3, normal motor function, normal sensory function, no focal deficits noted. [] Psychologic: Affect normal, judgement normal, mood normal. [] Current Patient Data Vital Signs Vital Signs Date Time Temp Pulse Resp B/P (MAP) Pulse Ox O2 Delivery O2 Flow Rate FiO2 11/02/16 13:58 78 36 150/96 (114) 90 Nasal Cannula 2.0 11/02/16 12:55 98.2 98.2 Lab Values Laboratory Tests Test 11/02/16 13:19 11/02/16 14:05 White Blood Count 6.8 x10^3/uL (4.0-11.0) Red Blood Count 4.38 x10^6/uL (4.30-5.70) Hemoglobin 12.1 g/dL (13.0-17.5) L Hematocrit 37.5 % (39.0-53.0) L Mean Corpuscular Volume 86 fL (79-100) Mean Corpuscular Hemoglobin 28 pg (25-35) Mean Corpuscular Hemoglobin Concent 32 g/dL (31-37) Red Cell Distribution Width 17.0 % (11.5-14.5) H Platelet Count 249 x10^3/uL (140-400) Neutrophils (%) (Auto) 63 % (31-73) Lymphocytes (%) (Auto) 21 % (24-48) L Monocytes (%) (Auto) 10 % (0-9) H Eosinophils (%) (Auto) 5 % (0-3) H Basophils (%) (Auto) 1 % (0-3) Neutrophils # (Auto) 4.3 x10^3uL (1.8-7.7) Lymphocytes # (Auto) 1.5 x10^3/uL (1.0-4.8) Monocytes # (Auto) 0.7 x10^3/uL (0.0-1.1) Eosinophils # (Auto) 0.3 x10^3/uL (0.0-0.7) Basophils # (Auto) 0.1 x10^3/uL (0.0-0.2) Prothrombin Time 14.5 SEC (11.7-14.0) H Prothrombin Time INR 1.2 (0.8-1.1) H Sodium Level 148 mmol/L (136-145) H Potassium Level 3.5 mmol/L (3.5-5.1) Chloride Level 110 mmol/L (98-107) H Carbon Dioxide Level 28 mmol/L (21-32) Anion Gap 10 (6-14) Blood Urea Nitrogen 5 mg/dL (8-26) L Creatinine 1.2 mg/dL (0.7-1.3) Estimated GFR (Cockcroft-Gault) 71.6 Glucose Level 97 mg/dL (70-99) Calcium Level 9.6 mg/dL (8.5-10.1) Magnesium Level 1.9 mg/dL (1.8-2.4) Total Bilirubin 0.5 mg/dL (0.2-1.0) Direct Bilirubin 0.1 mg/dL (0.0-0.2) Aspartate Amino Transferase (AST) 29 U/L (15-37) Alanine Aminotransferase (ALT) 22 U/L (16-63) Alkaline Phosphatase 90 U/L (46-116) Creatine Kinase 346 U/L (39-308) H Creatine Kinase MB (Mass) 3.7 ng/mL (0.0-3.6) H Creatine Kinase MB Relative Index 1.1 % (0-4) Troponin I Quantitative 0.086 ng/mL (0.000-0.055) EW-Lht-W-Type Natriuretic Peptide 8255 pg/mL (0-124) H Total Protein 7.7 g/dL (6.4-8.2) Albumin 3.2 g/dL (3.4-5.0) L Lipase 190 U/L (73-393) O2 Saturation 91 % (92-99) L Arterial Blood pH 7.46 (7.35-7.45) H Arterial Blood pCO2 at Patient Temp 28 mmHg (35-46) L Arterial Blood pO2 at Patient Temp 64 mmHg (65-108) L Arterial Blood HCO3 20 mmol/L (21-28) L Arterial Blood Base Excess -3 mmol/L (-3-3) FiO2 36 Laboratory Tests 11/02/16 13:19 Laboratory Tests 11/02/16 13:19 EKG EKG EKG shows sinus rhythm with a rate of 87 bpm with occasional PVCs, right bundle branch morphology noted, right axis deviation, no ST elevations appreciated, QTC 508 ms, as interpreted by me. Radiology/Procedures Radiology/Procedures [facility] [address] [place] [address] IMAGING REPORT Signed PATIENT: RUKHSANA GOMEZ ACCOUNT: [id number] : 1940 LOCATION: ER AGE: 76 SEX: M EXAM STATUS: PRE ER ORD. PHYSICIAN: RUKHSANA DIAMOND MD REASON: soa PROCEDURE: PORTABLE CHEST 1V Indication shortness of breath. A single view of the chest was obtained. Comparison is made to a study 10/20/2016 There is mild cardiomegaly similar to the previous exam. There are pulmonary infiltrates most likely reflecting congestive heart failure. There may be a small right pleural effusion. IMPRESSION: Cardiomegaly, similar. Pulmonary infiltrates likely reflecting superimposed congestive heart failure DICTATED and SIGNED BY: LARRY DUMONT MD DATE: 11/02/16 1321 CC: RUKHSANA DIAMOND MD; SEGUNDO AMIN MD ~ Impressions: Dyspnea Elevated troponin Elevated BNP Course & Med Decision Making Course & Med Decision Making Pertinent Labs and Imaging studies reviewed. (See chart for details) Patient's labs and chest x-ray is consistent with pulmonary edema. We'll give 40 of IV Lasix and admit to Dr. Amin. I have placed a consult with cardiology. Patient's in stable condition at this time. Interim orders have been written. Dragon Disclaimer Dragon Disclaimer This electronic medical record was generated, in whole or in part, using a voice recognition dictation system. Departure Departure Referrals: SEGUNDO AMIN MD (PCP) RUKHSANA DIAMOND MD Nov 02, 2016 12:56
--- NOTE | 2016-11-02 13:28 | RAD ---
Indication shortness of breath. A single view of the chest was obtained. Comparison is made to a study 10/20/2016 There is mild cardiomegaly similar to the previous exam. There are pulmonary infiltrates most likely reflecting congestive heart failure. There may be a small right pleural effusion. IMPRESSION: Cardiomegaly, similar. Pulmonary infiltrates likely reflecting superimposed congestive heart failure
[2016-11-02 13:34] LABS: BASO # 0.1 x10^3/uL (0.0-0.2); BASO % 1 % (0-3); EOS % 5 % (0-3); HEMATOCRIT 37.5 % (39.0-53.0); HEMOGLOBIN 12.1 g/dL (13.0-17.5); LYMPH # 1.5 x10^3/uL (1.0-4.8); LYMPH % 21 % (24-48); MEAN CORPUSCULAR HEMOGLOBIN 28 pg (25-35); MEAN CORPUSCULAR HGB CONC 32 g/dL (31-37); MEAN CORPUSCULAR VOLUME 86 fL (79-100); MONO % 10 % (0-9); NEUT % 63 % (31-73); PLATELET COUNT 249 x10^3/uL (140-400); RED BLOOD COUNT 4.38 x10^6/uL (4.30-5.70); WHITE BLOOD COUNT 6.8 x10^3/uL (4.0-11.0)
[2016-11-02 13:43] LABS: INR 1.2 (0.8-1.1); PROTHROMBIN TIME PATIENT 14.5 SEC (11.7-14.0)
[2016-11-02 13:48] LABS: CALCIUM 9.6 mg/dL (8.5-10.1); CREATININE 1.2 mg/dL (0.7-1.3); GFR 71.6; POTASSIUM 3.5 mmol/L (3.5-5.1)
--- NOTE | 2016-11-02 13:48 | EKG ---
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
[2016-11-02 13:57] LABS: ALBUMIN 3.2 g/dL (3.4-5.0); DIRECT BILIRUBIN 0.1 mg/dL (0.0-0.2); MAGNESIUM 1.9 mg/dL (1.8-2.4); TOTAL BILIRUBIN 0.5 mg/dL (0.2-1.0); TOTAL PROTEIN 7.7 g/dL (6.4-8.2)
[2016-11-02 14:01] LABS: CKMB MASS 3.7 ng/mL (0.0-3.6)
[2016-11-02 15:14] LABS: HCO3 ABG 20 mmol/L (21-28); PCO2 ABG 28 mmHg (35-46); PH ABG 7.46 (7.35-7.45); PO2 ABG 64 mmHg (65-108); SAT O2 ABG 91 % (92-99)
[2016-11-02] MEDS ORDERED: FUROSEMIDE 40 MG/4 ML VIAL. IVP ONE (15:15)
[2016-11-02] MEDS ORDERED: ASPIRIN 325 MG TABLET PO ONE (15:15)
[2016-11-02 15:49] LABS: FIO2 ABG 36
[2016-11-02 15:53] LABS: BILIRUBIN,URINE NEGATIVE (NEG); GLUCOSE,URINE NEGATIVE (NEG); NITRITE,URINE NEGATIVE (NEG); PROTEIN,URINE NEGATIVE (NEG-TRACE); UROBILINOGEN,URINE 0.2 mg/dL (0.2 mg/dL)
[2016-11-02 16:17] LABS: BACTERIA,URINE 0 /HPF (0-FEW); SQUAMOUS EPITHELIAL CELL,UR OCC /LPF; WBC,URINE OCC /HPF (0-4)
[2016-11-02] MEDS ORDERED: CLOP75TA PO (17:20)
[2016-11-02] MEDS ORDERED: MIRT15TA3 PO (17:20)
[2016-11-02] MEDS ORDERED: OMEP20CA9 PO (17:20)
[2016-11-02] MEDS ORDERED: PROAIR HFA8.5 GM INH (17:20)
--- NOTE | 2016-11-02 17:42 | PDOC ---
PULMONARY PROGRESS NOTES Vitals Vital Signs Date Time Temp Pulse Resp B/P (MAP) Pulse Ox O2 Delivery O2 Flow Rate FiO2 11/02/16 15:28 78 29 171/105 (127) 97 Nasal Cannula 4.0 11/02/16 12:55 98.2 98.2 General: Alert, No acute distress Lungs: Other Cardiovascular: S1, S2 Abdomen: Soft Extremities: No Edema Labs Laboratory Tests Test 11/02/16 13:19 11/02/16 14:05 11/02/16 15:45 White Blood Count 6.8 x10^3/uL (4.0-11.0) Red Blood Count 4.38 x10^6/uL (4.30-5.70) Hemoglobin 12.1 g/dL (13.0-17.5) Hematocrit 37.5 % (39.0-53.0) Mean Corpuscular Volume 86 fL (79-100) Mean Corpuscular Hemoglobin 28 pg (25-35) Mean Corpuscular Hemoglobin Concent 32 g/dL (31-37) Red Cell Distribution Width 17.0 % (11.5-14.5) Platelet Count 249 x10^3/uL (140-400) Neutrophils (%) (Auto) 63 % (31-73) Lymphocytes (%) (Auto) 21 % (24-48) Monocytes (%) (Auto) 10 % (0-9) Eosinophils (%) (Auto) 5 % (0-3) Basophils (%) (Auto) 1 % (0-3) Neutrophils # (Auto) 4.3 x10^3uL (1.8-7.7) Lymphocytes # (Auto) 1.5 x10^3/uL (1.0-4.8) Monocytes # (Auto) 0.7 x10^3/uL (0.0-1.1) Eosinophils # (Auto) 0.3 x10^3/uL (0.0-0.7) Basophils # (Auto) 0.1 x10^3/uL (0.0-0.2) Prothrombin Time 14.5 SEC (11.7-14.0) Prothromb Time International Ratio 1.2 (0.8-1.1) Sodium Level 148 mmol/L (136-145) Potassium Level 3.5 mmol/L (3.5-5.1) Chloride Level 110 mmol/L (98-107) Carbon Dioxide Level 28 mmol/L (21-32) Anion Gap 10 (6-14) Blood Urea Nitrogen 5 mg/dL (8-26) Creatinine 1.2 mg/dL (0.7-1.3) Estimated GFR (Cockcroft-Gault) 71.6 Glucose Level 97 mg/dL (70-99) Calcium Level 9.6 mg/dL (8.5-10.1) Magnesium Level 1.9 mg/dL (1.8-2.4) Total Bilirubin 0.5 mg/dL (0.2-1.0) Direct Bilirubin 0.1 mg/dL (0.0-0.2) Aspartate Amino Transf (AST/SGOT) 29 U/L (15-37) Alanine Aminotransferase (ALT/SGPT) 22 U/L (16-63) Alkaline Phosphatase 90 U/L (46-116) Creatine Kinase 346 U/L (39-308) Creatine Kinase MB (Mass) 3.7 ng/mL (0.0-3.6) Creatine Kinase MB Relative Index 1.1 % (0-4) Troponin I Quantitative 0.086 ng/mL (0.000-0.055) LA-Vxl-B-Type Natriuretic Peptide 8255 pg/mL (0-124) Total Protein 7.7 g/dL (6.4-8.2) Albumin 3.2 g/dL (3.4-5.0) Lipase 190 U/L (73-393) O2 Saturation 91 % (92-99) Arterial Blood pH 7.46 (7.35-7.45) Arterial Blood pCO2 at Patient Temp 28 mmHg (35-46) Arterial Blood pO2 at Patient Temp 64 mmHg (65-108) Arterial Blood HCO3 20 mmol/L (21-28) Arterial Blood Base Excess -3 mmol/L (-3-3) FiO2 36 Urine Color Yellow Urine Clarity Clear Urine pH 7.0 Urine Specific [place] 1.010 Urine Protein Negative mg/dL (NEG-TRACE) Urine Glucose (UA) Negative mg/dL (NEG) Urine Ketones (Stick) Negative mg/dL (NEG) Urine Blood Large (NEG) Urine Nitrite Negative (NEG) Urine Bilirubin Negative (NEG) Urine Urobilinogen Dipstick 0.2 mg/dL (0.2 mg/dL) Urine Leukocyte Esterase Negative (NEG) Urine RBC 3-5 /HPF (0-2) Urine WBC Occ /HPF (0-4) Urine Squamous Epithelial Cells Occ /LPF Urine Bacteria 0 /HPF (0-FEW) Urine Hyaline Casts Occasional /HPF Urine Mucus Slight /LPF Laboratory Tests Test 11/02/16 13:19 11/02/16 14:05 11/02/16 15:45 White Blood Count 6.8 x10^3/uL (4.0-11.0) Red Blood Count 4.38 x10^6/uL (4.30-5.70) Hemoglobin 12.1 g/dL (13.0-17.5) Hematocrit 37.5 % (39.0-53.0) Mean Corpuscular Volume 86 fL (79-100) Mean Corpuscular Hemoglobin 28 pg (25-35) Mean Corpuscular Hemoglobin Concent 32 g/dL (31-37) Red Cell Distribution Width 17.0 % (11.5-14.5) Platelet Count 249 x10^3/uL (140-400) Neutrophils (%) (Auto) 63 % (31-73) Lymphocytes (%) (Auto) 21 % (24-48) Monocytes (%) (Auto) 10 % (0-9) Eosinophils (%) (Auto) 5 % (0-3) Basophils (%) (Auto) 1 % (0-3) Neutrophils # (Auto) 4.3 x10^3uL (1.8-7.7) Lymphocytes # (Auto) 1.5 x10^3/uL (1.0-4.8) Monocytes # (Auto) 0.7 x10^3/uL (0.0-1.1) Eosinophils # (Auto) 0.3 x10^3/uL (0.0-0.7) Basophils # (Auto) 0.1 x10^3/uL (0.0-0.2) Prothrombin Time 14.5 SEC (11.7-14.0) Prothromb Time International Ratio 1.2 (0.8-1.1) Sodium Level 148 mmol/L (136-145) Potassium Level 3.5 mmol/L (3.5-5.1) Chloride Level 110 mmol/L (98-107) Carbon Dioxide Level 28 mmol/L (21-32) Anion Gap 10 (6-14) Blood Urea Nitrogen 5 mg/dL (8-26) Creatinine 1.2 mg/dL (0.7-1.3) Estimated GFR (Cockcroft-Gault) 71.6 Glucose Level 97 mg/dL (70-99) Calcium Level 9.6 mg/dL (8.5-10.1) Magnesium Level 1.9 mg/dL (1.8-2.4) Total Bilirubin 0.5 mg/dL (0.2-1.0) Direct Bilirubin 0.1 mg/dL (0.0-0.2) Aspartate Amino Transf (AST/SGOT) 29 U/L (15-37) Alanine Aminotransferase (ALT/SGPT) 22 U/L (16-63) Alkaline Phosphatase 90 U/L (46-116) Creatine Kinase 346 U/L (39-308) Creatine Kinase MB (Mass) 3.7 ng/mL (0.0-3.6) Creatine Kinase MB Relative Index 1.1 % (0-4) Troponin I Quantitative 0.086 ng/mL (0.000-0.055) UH-Osz-T-Type Natriuretic Peptide 8255 pg/mL (0-124) Total Protein 7.7 g/dL (6.4-8.2) Albumin 3.2 g/dL (3.4-5.0) Lipase 190 U/L (73-393) O2 Saturation 91 % (92-99) Arterial Blood pH 7.46 (7.35-7.45) Arterial Blood pCO2 at Patient Temp 28 mmHg (35-46) Arterial Blood pO2 at Patient Temp 64 mmHg (65-108) Arterial Blood HCO3 20 mmol/L (21-28) Arterial Blood Base Excess -3 mmol/L (-3-3) FiO2 36 Urine Color Yellow Urine Clarity Clear Urine pH 7.0 Urine Specific [place] 1.010 Urine Protein Negative mg/dL (NEG-TRACE) Urine Glucose (UA) Negative mg/dL (NEG) Urine Ketones (Stick) Negative mg/dL (NEG) Urine Blood Large (NEG) Urine Nitrite Negative (NEG) Urine Bilirubin Negative (NEG) Urine Urobilinogen Dipstick 0.2 mg/dL (0.2 mg/dL) Urine Leukocyte Esterase Negative (NEG) Urine RBC 3-5 /HPF (0-2) Urine WBC Occ /HPF (0-4) Urine Squamous Epithelial Cells Occ /LPF Urine Bacteria 0 /HPF (0-FEW) Urine Hyaline Casts Occasional /HPF Urine Mucus Slight /LPF Medications Active Scripts Medications Dose Route/Sig Max Daily Dose Days Date Category Proair Hfa Inhaler (Albuterol Sulfate) 8.5 Gm Hfa.aer.ad 1 Puff INH PRN Q6HRS PRN 11/02/16 Reported Mirtazapine 15 Mg Tablet 1 Tab PO QHS 11/02/16 Reported Omeprazole 20 Mg Capsule.dr 20 Mg PO QHS 11/02/16 Reported Clopidogrel (Clopidogrel Bisulfate) 75 Mg Tablet 1 Tab PO DAILY 11/02/16 Reported Famotidine 20 Mg Tablet 20 Mg PO Q48H 08/04/16 Rx Nitrostat (Nitroglycerin) 0.4 Mg Tab.subl 0.4 Mg SL PRN Q5MIN PRN 08/04/16 Rx Metoprolol Tartrate 25 Mg Tablet 12.5 Mg PO BID 08/04/16 Rx Atorvastatin Calcium 20 Mg Tablet 20 Mg PO QHS 08/04/16 Rx Aspirin Ec (Aspirin) 81 Mg Tablet.dr 81 Mg PO DAILY 07/29/16 Reported Doxazosin Mesylate 4 Mg Tablet 1 Tab PO DAILY 07/28/16 Reported Impression . NOTE DICTATED ACUTE RESP FAILURE SEC TO HEART FAILURE CONTINUE DIURESE ANXIETY WILL ADD GAURAV WHYTE MD Nov 02, 2016 17:42
[2016-11-02 19:13] VITALS: BP 149/81
[2016-11-02] MEDS: LORazepam 0.5 MG TABLET PO SCH (20:53)
[2016-11-02 23:34] VITALS: BP 138/85
[2016-11-03 03:00] VITALS: BP 143/89
[2016-11-03 04:24] LABS: BASO # 0.1 x10^3/uL (0.0-0.2); BASO % 1 % (0-3); EOS % 8 % (0-3); HEMATOCRIT 36.1 % (39.0-53.0); HEMOGLOBIN 11.4 g/dL (13.0-17.5); LYMPH # 1.3 x10^3/uL (1.0-4.8); LYMPH % 20 % (24-48); MEAN CORPUSCULAR HEMOGLOBIN 27 pg (25-35); MEAN CORPUSCULAR HGB CONC 32 g/dL (31-37); MEAN CORPUSCULAR VOLUME 85 fL (79-100); MONO % 10 % (0-9); NEUT % 61 % (31-73); PLATELET COUNT 235 x10^3/uL (140-400); RED BLOOD COUNT 4.26 x10^6/uL (4.30-5.70); RED CELL DISTRIBUTION WIDTH 17.2 % (11.5-14.5); WHITE BLOOD COUNT 6.5 x10^3/uL (4.0-11.0)
[2016-11-03 04:27] LABS: CALCIUM 8.7 mg/dL (8.5-10.1); CREATININE 1.3 mg/dL (0.7-1.3); GFR 65.3; POTASSIUM 3.3 mmol/L (3.5-5.1)
--- NOTE | 2016-11-03 06:49 | CONS ---
DATE OF CONSULTATION: 11/02/2016 ATTENDING PHYSICIAN: Devon Amin DICTATING PHYSICIAN: Gaurav Ferrari MD REASON FOR CONSULTATION: The patient is seen in pulmonary consultation at the request of Dr. Amin for progressive dyspnea. HISTORY OF PRESENT ILLNESS: The patient is a 76-year-old well known to me from previous hospitalization and outpatient visit. He basically has underlying bullous emphysema involving both lungs. He also had enlarged hilar mediastinal lymph nodes. He was hospitalized back in July with acute myocardial infarction. He was ultimately discharged home. He has been following me in the office. He underwent a nocturnal desaturation study, which revealed periods of oxyhemoglobin desaturation. He was scheduled to undergo a sleep study. Over the last several days, the patient has been more short of breath. In fact, he has been short of breath to the point where he is afraid to leave the house. ____ a component of anxiety. He has been seen by Dr. Amin and recently started on Remeron. He denies fever, chills or night sweats. He is having some chest discomfort. PAST MEDICAL HISTORY: Bullous emphysema as indicated above, chronic AFib, gastroesophageal reflux, hypertension, kidney disease. PAST SURGICAL HISTORY: Hernia repair. REVIEW OF SYSTEMS: As indicated above, otherwise, a 10-point system was reviewed and negative. HOME MEDICATIONS: List was reviewed. Please see the MRAD. PHYSICAL EXAMINATION: VITAL SIGNS: The patient was on 2 liters of oxygen supplementation, saturation greater than 92%. HEENT: Eyes, the sclerae were nonicteric. NECK: Jugular venous distention was not elevated. No lymphadenopathy. CHEST: Full expansion. LUNGS: Adequate airway flow, no wheezes. CARDIOVASCULAR: Regular rate and rhythm with S1, S2, no S3. ABDOMEN: Soft, nontender, nondistended. EXTREMITIES: No clubbing, cyanosis or edema. NEUROLOGIC: The patient was awake, alert, following commands. A detailed neuro exam was not performed. IMAGING: Chest x-ray today, in comparison to the film of 10/20/2016 reveals some vascular congestion, cardiomegaly. IMPRESSION: 1. Acute respiratory failure secondary to acute systolic, diastolic heart failure. 2. Bullous emphysema. 3. Coronary artery disease with previous myocardial infarction. 4. Chronic renal failure. The patient has gone hemodialysis in the past. 5. Myofibrosis. 6. Clinical presentation compatible with obstructive sleep apnea. 7. Anxiety nonspecific. PLAN: 1. Recommend continued diuresis and oxygen supplementation. 2. No need for antibiotics. 3. The patient is scheduled for outpatient polysomnogram. 4. Initiate Ativan for anxiety. Dr. Amin, I do appreciate the privilege in sharing in the patient's care. GAURAV FERRARI MD DR: OSMAN/nts JOB#: [id number] / [id number]
[2016-11-03 07:45] VITALS: BP 140/84
[2016-11-03] MEDS ORDERED: NITROGLYCERIN SUBLINGUAL 0.4 MG BOTTLE OF 25. SL PRN (07:45)
--- NOTE | 2016-11-03 08:11 | PDOC1 ---
LC RUSSELL SENIOR BACK END JAVA DEVELOPER 11/03/16 0811: HISTORY AND PHYSICAL Chief Complaint Chief Complaint This 76 year old male has been admitted with a chief complaint of shortness of breath onset for one to two weeks with cough that was dry. He did have occaisional productive white sputum. He denied fever, chills, chest discomfort of any type, rapid HR or diaphoresis. He did note progressive weakness. He presented to the ED for evaluation. CXR was positive for heart failure. His Na 148, BUN 5, Cr 1.2, BNP 8255, Troponin 0.086 and CK with CK MD elevated - index negative. He was given Lasix 40mg IV and admitted with acute respiratory failure due to CHF to CVC. 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 Review of Symptoms Review of Symptoms A 14 point ROS was completed with the following noted as positive: Other systems reviewed and negative. Medications Current Medications Aspirin (Lionel Aspirin) 325 mg 1X ONCE PO Last administered on 11/02/16t 15:27 ; Start 11/02/16 at 15:15; Stop 11/02/16 at 15:16; Status DC Aspirin (Ecotrin) 81 mg DAILYWBKFT PO ; Start 11/03/16 at 08:00 Atorvastatin Calcium (Lipitor) 20 mg QHS PO ; Start 11/03/16 at 21:00 Clopidogrel Bisulfate (Plavix) 75 mg DAILYWBKFT PO ; Start 11/03/16 at 08:00 Doxazosin Mesylate (Cardura) 4 mg DAILY PO ; Start 11/03/16 at 09:00 Enoxaparin Sodium (Lovenox 40mg Syringe) 40 mg Q24H SQ ; Start 11/03/16 at 08:00 Famotidine (Pepcid) 20 mg Q48H PO ; Start 11/03/16 at 09:00 Furosemide (Lasix) 40 mg 1X ONCE IVP Last administered on 11/02/16 15:28; Start 11/02/16 at 15:15; Stop 11/02/16 at 15:16; Status DC Lorazepam (Ativan) 0.5 mg BID PO Last administered on 11/02/16 20:53; Start 11/02/16 at 21:00 Metoprolol Tartrate (Lopressor) 12.5 mg BID PO ; Start 11/03/16 at 09:00 Mirtazapine (Remeron) 15 mg QHS PO ; Start 11/03/16 at 21:00 Nitroglycerin (Nitrostat) 0.4 mg PRN Q5MIN PRN SL CHEST PAIN; Start 11/03/16 at 07:45 Pantoprazole Sodium (Protonix) 40 mg DAILYAC PO ; Start 11/03/16 at 08:00 Allergy Allergies Coded Allergies Type Severity Reaction Last Updated Verified No Known Drug Allergies 02/12/14 No Physical Exam Physical Exam General appearance - alert,well appearing, and in no distress and oriented to person, place, and time Mental Status - alert, oriented to person, place, and time, affect appropriate to mood Head - normal Chest - clear to auscultation, no wheezes, rales or rhonchi, symmetric air entry Heart - S1 and S2 normal Abdomen - soft, nontender, nondistended, no masses or organomegaly Neurological - alert and oriented Musculoskeletal - no muscular tenderness noted Extremities - no pedal edema Skin - warm and dry VTE Prophylaxis Ordered VTE Prophylaxis Devices: No VTE Pharmacological Prophylaxi: Yes Assessment Labs Laboratory Tests Test 11/02/16 13:19 11/02/16 14:05 11/02/16 15:45 11/02/16 20:20 White Blood Count 6.8 x10^3/uL (4.0-11.0) Red Blood Count 4.38 x10^6/uL (4.30-5.70) Hemoglobin 12.1 g/dL (13.0-17.5) Hematocrit 37.5 % (39.0-53.0) Mean Corpuscular Volume 86 fL (79-100) Mean Corpuscular Hemoglobin 28 pg (25-35) Mean Corpuscular Hemoglobin Concent 32 g/dL (31-37) Red Cell Distribution Width 17.0 % (11.5-14.5) Platelet Count 249 x10^3/uL (140-400) Neutrophils (%) (Auto) 63 % (31-73) Lymphocytes (%) (Auto) 21 % (24-48) Monocytes (%) (Auto) 10 % (0-9) Eosinophils (%) (Auto) 5 % (0-3) Basophils (%) (Auto) 1 % (0-3) Neutrophils # (Auto) 4.3 x10^3uL (1.8-7.7) Lymphocytes # (Auto) 1.5 x10^3/uL (1.0-4.8) Monocytes # (Auto) 0.7 x10^3/uL (0.0-1.1) Eosinophils # (Auto) 0.3 x10^3/uL (0.0-0.7) Basophils # (Auto) 0.1 x10^3/uL (0.0-0.2) Prothrombin Time 14.5 SEC (11.7-14.0) Prothromb Time International Ratio 1.2 (0.8-1.1) Sodium Level 148 mmol/L (136-145) Potassium Level 3.5 mmol/L (3.5-5.1) Chloride Level 110 mmol/L (98-107) Carbon Dioxide Level 28 mmol/L (21-32) Anion Gap 10 (6-14) Blood Urea Nitrogen 5 mg/dL (8-26) Creatinine 1.2 mg/dL (0.7-1.3) Estimated GFR (Cockcroft-Gault) 71.6 Glucose Level 97 mg/dL (70-99) Calcium Level 9.6 mg/dL (8.5-10.1) Magnesium Level 1.9 mg/dL (1.8-2.4) Total Bilirubin 0.5 mg/dL (0.2-1.0) Direct Bilirubin 0.1 mg/dL (0.0-0.2) Aspartate Amino Transf (AST/SGOT) 29 U/L (15-37) Alanine Aminotransferase (ALT/SGPT) 22 U/L (16-63) Alkaline Phosphatase 90 U/L (46-116) Creatine Kinase 346 U/L (39-308) Creatine Kinase MB (Mass) 3.7 ng/mL (0.0-3.6) Creatine Kinase MB Relative Index 1.1 % (0-4) Troponin I Quantitative 0.086 ng/mL (0.000-0.055) 0.104 ng/mL (0.000-0.055) FH-Rei-Y-Type Natriuretic Peptide 8255 pg/mL (0-124) Total Protein 7.7 g/dL (6.4-8.2) Albumin 3.2 g/dL (3.4-5.0) Lipase 190 U/L (73-393) O2 Saturation 91 % (92-99) Arterial Blood pH 7.46 (7.35-7.45) Arterial Blood pCO2 at Patient Temp 28 mmHg (35-46) Arterial Blood pO2 at Patient Temp 64 mmHg (65-108) Arterial Blood HCO3 20 mmol/L (21-28) Arterial Blood Base Excess -3 mmol/L (-3-3) FiO2 36 Urine Color Yellow Urine Clarity Clear Urine pH 7.0 Urine Specific [place] 1.010 Urine Protein Negative mg/dL (NEG-TRACE) Urine Glucose (UA) Negative mg/dL (NEG) Urine Ketones (Stick) Negative mg/dL (NEG) Urine Blood Large (NEG) Urine Nitrite Negative (NEG) Urine Bilirubin Negative (NEG) Urine Urobilinogen Dipstick 0.2 mg/dL (0.2 mg/dL) Urine Leukocyte Esterase Negative (NEG) Urine RBC 3-5 /HPF (0-2) Urine WBC Occ /HPF (0-4) Urine Squamous Epithelial Cells Occ /LPF Urine Bacteria 0 /HPF (0-FEW) Urine Hyaline Casts Occasional /HPF Urine Mucus Slight /LPF Test 11/03/16 03:00 White Blood Count 6.5 x10^3/uL (4.0-11.0) Red Blood Count 4.26 x10^6/uL (4.30-5.70) Hemoglobin 11.4 g/dL (13.0-17.5) Hematocrit 36.1 % (39.0-53.0) Mean Corpuscular Volume 85 fL (79-100) Mean Corpuscular Hemoglobin 27 pg (25-35) Mean Corpuscular Hemoglobin Concent 32 g/dL (31-37) Red Cell Distribution Width 17.2 % (11.5-14.5) Platelet Count 235 x10^3/uL (140-400) Neutrophils (%) (Auto) 61 % (31-73) Lymphocytes (%) (Auto) 20 % (24-48) Monocytes (%) (Auto) 10 % (0-9) Eosinophils (%) (Auto) 8 % (0-3) Basophils (%) (Auto) 1 % (0-3) Neutrophils # (Auto) 4.0 x10^3uL (1.8-7.7) Lymphocytes # (Auto) 1.3 x10^3/uL (1.0-4.8) Monocytes # (Auto) 0.6 x10^3/uL (0.0-1.1) Eosinophils # (Auto) 0.5 x10^3/uL (0.0-0.7) Basophils # (Auto) 0.1 x10^3/uL (0.0-0.2) Sodium Level 149 mmol/L (136-145) Potassium Level 3.3 mmol/L (3.5-5.1) Chloride Level 112 mmol/L (98-107) Carbon Dioxide Level 28 mmol/L (21-32) Anion Gap 9 (6-14) Blood Urea Nitrogen 10 mg/dL (8-26) Creatinine 1.3 mg/dL (0.7-1.3) Estimated GFR (Cockcroft-Gault) 65.3 Glucose Level 96 mg/dL (70-99) Calcium Level 8.7 mg/dL (8.5-10.1) Troponin I Quantitative 0.120 ng/mL (0.000-0.055) Laboratory Tests Test 11/02/16 13:19 11/02/16 14:05 11/02/16 15:45 11/02/16 20:20 White Blood Count 6.8 x10^3/uL (4.0-11.0) Red Blood Count 4.38 x10^6/uL (4.30-5.70) Hemoglobin 12.1 g/dL (13.0-17.5) Hematocrit 37.5 % (39.0-53.0) Mean Corpuscular Volume 86 fL (79-100) Mean Corpuscular Hemoglobin 28 pg (25-35) Mean Corpuscular Hemoglobin Concent 32 g/dL (31-37) Red Cell Distribution Width 17.0 % (11.5-14.5) Platelet Count 249 x10^3/uL (140-400) Neutrophils (%) (Auto) 63 % (31-73) Lymphocytes (%) (Auto) 21 % (24-48) Monocytes (%) (Auto) 10 % (0-9) Eosinophils (%) (Auto) 5 % (0-3) Basophils (%) (Auto) 1 % (0-3) Neutrophils # (Auto) 4.3 x10^3uL (1.8-7.7) Lymphocytes # (Auto) 1.5 x10^3/uL (1.0-4.8) Monocytes # (Auto) 0.7 x10^3/uL (0.0-1.1) Eosinophils # (Auto) 0.3 x10^3/uL (0.0-0.7) Basophils # (Auto) 0.1 x10^3/uL (0.0-0.2) Prothrombin Time 14.5 SEC (11.7-14.0) Prothromb Time International Ratio 1.2 (0.8-1.1) Sodium Level 148 mmol/L (136-145) Potassium Level 3.5 mmol/L (3.5-5.1) Chloride Level 110 mmol/L (98-107) Carbon Dioxide Level 28 mmol/L (21-32) Anion Gap 10 (6-14) Blood Urea Nitrogen 5 mg/dL (8-26) Creatinine 1.2 mg/dL (0.7-1.3) Estimated GFR (Cockcroft-Gault) 71.6 Glucose Level 97 mg/dL (70-99) Calcium Level 9.6 mg/dL (8.5-10.1) Magnesium Level 1.9 mg/dL (1.8-2.4) Total Bilirubin 0.5 mg/dL (0.2-1.0) Direct Bilirubin 0.1 mg/dL (0.0-0.2) Aspartate Amino Transf (AST/SGOT) 29 U/L (15-37) Alanine Aminotransferase (ALT/SGPT) 22 U/L (16-63) Alkaline Phosphatase 90 U/L (46-116) Creatine Kinase 346 U/L (39-308) Creatine Kinase MB (Mass) 3.7 ng/mL (0.0-3.6) Creatine Kinase MB Relative Index 1.1 % (0-4) Troponin I Quantitative 0.086 ng/mL (0.000-0.055) 0.104 ng/mL (0.000-0.055) IN-Nyi-D-Type Natriuretic Peptide 8255 pg/mL (0-124) Total Protein 7.7 g/dL (6.4-8.2) Albumin 3.2 g/dL (3.4-5.0) Lipase 190 U/L (73-393) O2 Saturation 91 % (92-99) Arterial Blood pH 7.46 (7.35-7.45) Arterial Blood pCO2 at Patient Temp 28 mmHg (35-46) Arterial Blood pO2 at Patient Temp 64 mmHg (65-108) Arterial Blood HCO3 20 mmol/L (21-28) Arterial Blood Base Excess -3 mmol/L (-3-3) FiO2 36 Urine Color Yellow Urine Clarity Clear Urine pH 7.0 Urine Specific [place] 1.010 Urine Protein Negative mg/dL (NEG-TRACE) Urine Glucose (UA) Negative mg/dL (NEG) Urine Ketones (Stick) Negative mg/dL (NEG) Urine Blood Large (NEG) Urine Nitrite Negative (NEG) Urine Bilirubin Negative (NEG) Urine Urobilinogen Dipstick 0.2 mg/dL (0.2 mg/dL) Urine Leukocyte Esterase Negative (NEG) Urine RBC 3-5 /HPF (0-2) Urine WBC Occ /HPF (0-4) Urine Squamous Epithelial Cells Occ /LPF Urine Bacteria 0 /HPF (0-FEW) Urine Hyaline Casts Occasional /HPF Urine Mucus Slight /LPF Test 11/03/16 03:00 White Blood Count 6.5 x10^3/uL (4.0-11.0) Red Blood Count 4.26 x10^6/uL (4.30-5.70) Hemoglobin 11.4 g/dL (13.0-17.5) Hematocrit 36.1 % (39.0-53.0) Mean Corpuscular Volume 85 fL (79-100) Mean Corpuscular Hemoglobin 27 pg (25-35) Mean Corpuscular Hemoglobin Concent 32 g/dL (31-37) Red Cell Distribution Width 17.2 % (11.5-14.5) Platelet Count 235 x10^3/uL (140-400) Neutrophils (%) (Auto) 61 % (31-73) Lymphocytes (%) (Auto) 20 % (24-48) Monocytes (%) (Auto) 10 % (0-9) Eosinophils (%) (Auto) 8 % (0-3) Basophils (%) (Auto) 1 % (0-3) Neutrophils # (Auto) 4.0 x10^3uL (1.8-7.7) Lymphocytes # (Auto) 1.3 x10^3/uL (1.0-4.8) Monocytes # (Auto) 0.6 x10^3/uL (0.0-1.1) Eosinophils # (Auto) 0.5 x10^3/uL (0.0-0.7) Basophils # (Auto) 0.1 x10^3/uL (0.0-0.2) Sodium Level 149 mmol/L (136-145) Potassium Level 3.3 mmol/L (3.5-5.1) Chloride Level 112 mmol/L (98-107) Carbon Dioxide Level 28 mmol/L (21-32) Anion Gap 9 (6-14) Blood Urea Nitrogen 10 mg/dL (8-26) Creatinine 1.3 mg/dL (0.7-1.3) Estimated GFR (Cockcroft-Gault) 65.3 Glucose Level 96 mg/dL (70-99) Calcium Level 8.7 mg/dL (8.5-10.1) Troponin I Quantitative 0.120 ng/mL (0.000-0.055) Plan Plan 1, Acute hypoxic respiratory failure due to A/C diastolic CHF EF 50% 2. A/C diastolic CHF with normal EF 3. COPD with h/o bullous emphysema bilateral, enlarged hilar mediastinal lymph nodes and mild ILD-myofibrosis 4. CKD II with CrCl>50 on admit 5. CAD with recent NSTEMI 07/2016 with BMS to LCx 08/12/16 6. Benign prostatic hyperplasia. 7. Hypertension. 8. Kidney stone R intrarenal collect sx 6.3mm with UA + hematuria this admit 9. bilateral renal cyst 10, Afib chronic h/o no anticoagulation 11. suspected sleep apnea with + nocturnal oximetry RA showing hypoxia 12. anemia CKD 13. severe weakness and debility 14. chronic moderate PCL malnutrition PLAN acute hypoxic respiratory failure -A/C diastolic CHF pulmonary consult cardiology consult ADmit BNP 8255 Admit wt 180.19 dailly weight strict IO Lasix 40mg IV ED Last ECHO EF 50% diastolic MR moderate, TR mild to moderate + pulmonary HTN CKD II/hypernatremia/hypokalemia ADmit BUN 5 10 Cr 1.2 1.3 Na 148 149 K 3.5 3.3 Replace K with 20 KCL po x 1 PAC per telemonitor follow lab Anemia CD Admit Hgb 12.1 11/03 11.4 monitor abnormal troponin h/o NSTEMI July 2015 EKG SR no acute changes troponin trending up 0.086-0.104-0.120 defer to cardiology CK 346 CKD 3.7 Index normal weakness/debility PT OT DVT/GI prophylaxis Lovenox PPI For more details regarding further plans, please refer to the orders. SEGUNDO STOCK MD 11/03/16 0847: HISTORY AND PHYSICAL Plan Plan Patient is advised to watch fluid and salt restriction. The patient was seen and examined by me. Chart reviewed and plan of care formulated. Discussed with, reviewed and agree with POLY OPERATOR's notes, plan of care and orders with modifications as necessary. For more details regarding further plans, please refer to the orders. LC RUSSELL APRN Nov 03, 2016 08:11 SEGUNDO STOCK MD Nov 03, 2016 08:47
[2016-11-03] MEDS ORDERED: POTASSIUM CHLORIDE 20 MEQ TABLET.ER. PO ONE ×2 (08:30→12:00)
[2016-11-03] MEDS ORDERED: FAMOTIDINE 20 MG TABLET. PO SCH (09:00)
[2016-11-03] MEDS: ASPIRIN ENTERIC COATED 81 MG TABLET.DR. PO SCH (09:18)
[2016-11-03] MEDS: DOXAZOSIN MESYLATE 4 MG TABLET. PO SCH (09:18)
[2016-11-03] MEDS: LORazepam 0.5 MG TABLET PO SCH ×2 (09:18→20:31)
[2016-11-03] MEDS: CLOPIDOGREL BISULFATE 75 MG TABLET PO SCH (09:19)
[2016-11-03] MEDS: METOPROLOL TART IMMED RELEASE 25 MG TABLET. PO SCH ×2 (09:19→20:31)
[2016-11-03] MEDS: PANTOPRAZOLE 40 MG TABLET.DR. PO SCH (09:19)
[2016-11-03] MEDS: ENOXAPARIN 40 MG/0.4 ML SYRINGE. SQ SCH (09:20)
--- NOTE | 2016-11-03 09:42 | ACF ---
Admit Criteria Forms Admit Criteria Forms Admit Criteria Forms HEART FAILURE: COMMON COMPLICATIONS (Place 'X' for any and all applicable criteria): Ongoing inpatient care may be indicated for heart failure with 1 or more of the following (1)(2)(3)(4)(5)(6)(7)(8): [ ]I. New-onset heart failure [ ]II. Acute cardiac ischemia causing or associated with failure [ ]III. Ongoing need for care for primary condition requiring frequent therapy adjustments because of changes in cardiac function (eg, drug dosage changes for drugs that are renally metabolized) [X]IV. Complications of heart failure, including 1 or more of the following: [ ]a) Hemodynamic instability [ ]b) Pericardial effusion [ ]c) Symptomatic pleural effusion [ ]d) Hypoxemia [ ]e) Tachypnea [X]f) Dyspnea [ ]g) Syncope [ ]h) Altered mental status [ ]i) Acute renal insufficiency that is severe (reduction of more than 50% in estimated glomerular filtration rate from baseline) or progressive reduction of more than 25% in estimated glomerular filtration rate from baseline, with creatinine continuing to rise) [ ]j) Debilitating anasarca (eg tissue breakdown with infection, inability to void due to edema) (E) [ ]k) Clinically significant metabolic abnormalities due to heart failure (eg, new-onset metabolic acidosis) Extended stay may be needed until ALL of the following are present (1)(3)(18)(41 )(55) [ ]a) Hemodynamic stability [ ]b) Stable and effective diuretic regimen established (or patient on stable dialysis regimen if in chronic renal failure) [ ]c) Volume status acceptable on oral medication [ ]d) Breathing comfortably at rest [ ]e) Saturation of arterial oxygen greater than 90% or at acceptable baseline [ ]f) Pulmonary edema absent or improved [ ]g) Peripheral or sacral edema absent or improved [ ]h) Renal function stable and manageable at a lower level of care [ ]i) Complications (eg, pleural effusion) resolved or manageable at a lower level of care [ ]g) Patient or caregiver has received written discharge instructions or educational material addressing activity level, diet, discharge medications, follow-up appointment, weight monitoring, and what to do if symptoms worsen.(25)(26) The original [employer] content created by [employer] [facility] [employer] has been revised. The portions of the content which have been revised are identified through the use of italic text, and [facility] has neither reviewed nor approved the modified material.All other unmodified content is copyright [facility]. Please see references footnoted in the original [facility] edition 2014 AMAIRANI POLANCO Nov 03, 2016 09:42
[2016-11-03 11:00] VITALS: BP 129/76
--- NOTE | 2016-11-03 11:09 | PDOC2 ---
CARDIAC CONSULT DATE OF CONSULT Date of Consult DATE: 11/03/16 TIME: 11:05 REASON FOR CONSULT Reason for Consult: CHF REFERRING PHYSICIAN Referring Physician: Dr. Srikanth Marie SOURCE Source: Chart review HISTORY OF PRESENT ILLNESS HISTORY OF PRESENT ILLNESS 76 year old male with at least a 2 week history of progressive dyspnea, weakness, and cough, Denies CP, pressure, palpitations and missed doses of DAPT. NT-proBNP of 8255 and IV furosemide given in ER. CXR demonstrates CHF. Troponin peaked at 0.12. EKG without acute changes - SR with APCs and RBBB. Reason for Visit: dyspnea PAST MEDICAL HISTORY Cardiovascular: AFIB, CAD (NSTEMI 07/2016 with BMS to left circ), CHF (systolic with LVEF of ~ 50%), HTN, Hyperlipidemia, Pulmonary hypertension (PA = 39 mm Hg) Pulmonary: COPD (pulmonary fibrosis) CENTRAL NERVOUS SYSTEM: Other (none) GI: GERD Renal/: Chronic renal insuff (stage II) PAST SURGICAL HISTORY Past Surgical History: Hernia Repair, Other ([facility] with BMS to circ - 07/2016) FAMILY HISTORY Family History: Heart Disease, Hypertension SOCIAL HISTORY Smoke: Quit (07/2016) ALCOHOL: none Drugs: None CURRENT MEDICATIONS CURRENT MEDICATIONS Current Medications Medications (Trade) Dose Ordered Sig/Prabha Route PRN Reason Start Time Stop Time Status Last Admin Dose Admin Furosemide (Lasix) 40 mg 1X ONCE IVP 11/02/16 15:15 11/02/16 15:16 DC 11/02/16 15:28 Aspirin (Lionel Aspirin) 325 mg 1X ONCE PO 11/02/16 15:15 11/02/16 15:16 DC 11/02/16 15:27 Lorazepam (Ativan) 0.5 mg BID PO 11/02/16 21:00 11/03/16 09:18 Aspirin (Ecotrin) 81 mg DAILYWBKFT PO 11/03/16 08:00 11/03/16 09:18 Clopidogrel Bisulfate (Plavix) 75 mg DAILYWBKFT PO 11/03/16 08:00 11/03/16 09:19 Doxazosin Mesylate (Cardura) 4 mg DAILY PO 11/03/16 09:00 11/03/16 09:18 Famotidine (Pepcid) 20 mg Q48H PO 11/03/16 09:00 11/03/16 09:19 Metoprolol Tartrate (Lopressor) 12.5 mg BID PO 11/03/16 09:00 11/03/16 09:19 Pantoprazole Sodium (Protonix) 40 mg DAILYAC PO 11/03/16 08:00 11/03/16 09:19 Enoxaparin Sodium (Lovenox 40mg Syringe) 40 mg Q24H SQ 11/03/16 08:00 11/03/16 09:20 Potassium Chloride (Klor-Con) 20 meq 1X ONCE PO 11/03/16 08:30 11/03/16 08:31 DC 11/03/16 09:19 ALLERGIES ALLERGIES: Coded Allergies: No Known Drug Allergies (Unverified , 02/12/14) ROS General: YES: Fatigue PSYCHOLOGICAL ROS: YES: Anxiety Eyes: No Blurry vision, No Decreased vision, No Double vision, No Dry eyes, No Excessive tearing, No Eye Pain, No Itchy Eyes, No Loss of vision, No Photophobia , No Scotomata, No Uses contacts, No Uses glasses, No Other HEENT: No: Heacaches, Visual Changes, Hearing change, Nasal congestion, Nasal discharge, Oral lesions, Sinus pain, Sore Throat, Epistaxis, Sneezing, Snoring, Tinnitus, Vertigo, Vocal changes, Other ALLERGY AND IMMUNOLOGY: No: Hives, Insect Bite Sensitivity, Itchy/Watery Eyes, Nasal Congestion, Post Nasal Drip, Seasonal Allergies, Other Hematological and Lymphatic: No: Bleeding Problems, Blood Clots, Blood Transfusions, Brusing, Night Sweats, Pallor, Swollen Lymph Nodes, Other ENDOCRINE: No: Breast Changes, Galactorrhea, Hair Pattern Changes, Hot Flashes , Malaise/lethargy, Mood Swings, Palpitations, Polydipsia/polyuria, Skin Changes , Temperature Intolerance, Unexpected Weight Changes, Other Respiratory: YES: Cough, Shortness of breath, SOB with excertion Cardiovascular: yes Edema, No Chest Pain, No Palpitations, No Orthopnea, No Paroxysmal Noc. Dyspnea, No Lt Headedness, No Other Gastrointestinal: No Nausea, No Vomiting, No Abdominal Pain, No Diarrhea, No Constipation, No Melena, No Hematochezia, No Other Genitourinary: No Dysuria, No Frequency, No Incontinence, No Hematuria, No Retention, No Discharge, No Urgency, No Pain, No Flank Pain, No Other Musculoskeletal: No Gait Disturbance, No Joint Pain, No Joint Stiffness, No Joint Swelling, No Muscle Pain, No Muscular Weakness, No Pain In:, No Swelling In:, No Other Neurological: No Behavorial Changes, No Bowel/Bladder ControlChng, No Confusion , No Dizziness, No Gait Disturbance, No Headaches, No Impaired Coord/balance, No Memory Loss, No Numbness/Tingling, No Seizures, No Speech Problems, No Tremors, No Visual Changes, No Weakness, No Other Skin: No Dry Skin, No Eczema, No Hair Changes, No Lumps, No Mole Changes, No Mottling, No Nail Changes, No Pruritus, No Rash, No Skin Lesion Changes, No Other, No Acne PHYSICAL EXAM General: Alert, Oriented X3 HEENT: Atraumatic, PERRLA Lungs: Other (posterior basilar crackles) Heart: Normal S1, Normal S2, Other (tele: SR with PACs; PAF) Abdomen: Normal bowel sounds, Soft Extremities: No edema Skin: No rashes Neuro: Normal speech Psych/Mental Status: Mental status NL, Mood NL MUSCULOSKELETAL: Osteoarthritic changes both hands VITALS VITALS Vital Signs Date Time Temp Pulse Resp B/P (MAP) Pulse Ox O2 Delivery O2 Flow Rate FiO2 11/03/16 09:19 77 140/84 11/03/16 07:45 98.1 18 95 Room Air 98.1 11/03/16 07:21 3.0 LABS Lab: Laboratory Tests Test 11/02/16 13:19 11/02/16 14:05 11/02/16 15:45 11/02/16 20:20 White Blood Count 6.8 x10^3/uL (4.0-11.0) Red Blood Count 4.38 x10^6/uL (4.30-5.70) Hemoglobin 12.1 g/dL (13.0-17.5) Hematocrit 37.5 % (39.0-53.0) Mean Corpuscular Volume 86 fL (79-100) Mean Corpuscular Hemoglobin 28 pg (25-35) Mean Corpuscular Hemoglobin Concent 32 g/dL (31-37) Red Cell Distribution Width 17.0 % (11.5-14.5) Platelet Count 249 x10^3/uL (140-400) Neutrophils (%) (Auto) 63 % (31-73) Lymphocytes (%) (Auto) 21 % (24-48) Monocytes (%) (Auto) 10 % (0-9) Eosinophils (%) (Auto) 5 % (0-3) Basophils (%) (Auto) 1 % (0-3) Neutrophils # (Auto) 4.3 x10^3uL (1.8-7.7) Lymphocytes # (Auto) 1.5 x10^3/uL (1.0-4.8) Monocytes # (Auto) 0.7 x10^3/uL (0.0-1.1) Eosinophils # (Auto) 0.3 x10^3/uL (0.0-0.7) Basophils # (Auto) 0.1 x10^3/uL (0.0-0.2) Prothrombin Time 14.5 SEC (11.7-14.0) Prothromb Time International Ratio 1.2 (0.8-1.1) Sodium Level 148 mmol/L (136-145) Potassium Level 3.5 mmol/L (3.5-5.1) Chloride Level 110 mmol/L (98-107) Carbon Dioxide Level 28 mmol/L (21-32) Anion Gap 10 (6-14) Blood Urea Nitrogen 5 mg/dL (8-26) Creatinine 1.2 mg/dL (0.7-1.3) Estimated GFR (Cockcroft-Gault) 71.6 Glucose Level 97 mg/dL (70-99) Calcium Level 9.6 mg/dL (8.5-10.1) Magnesium Level 1.9 mg/dL (1.8-2.4) Total Bilirubin 0.5 mg/dL (0.2-1.0) Direct Bilirubin 0.1 mg/dL (0.0-0.2) Aspartate Amino Transf (AST/SGOT) 29 U/L (15-37) Alanine Aminotransferase (ALT/SGPT) 22 U/L (16-63) Alkaline Phosphatase 90 U/L (46-116) Creatine Kinase 346 U/L (39-308) Creatine Kinase MB (Mass) 3.7 ng/mL (0.0-3.6) Creatine Kinase MB Relative Index 1.1 % (0-4) Troponin I Quantitative 0.086 ng/mL (0.000-0.055) 0.104 ng/mL (0.000-0.055) SU-Nol-B-Type Natriuretic Peptide 8255 pg/mL (0-124) Total Protein 7.7 g/dL (6.4-8.2) Albumin 3.2 g/dL (3.4-5.0) Lipase 190 U/L (73-393) O2 Saturation 91 % (92-99) Arterial Blood pH 7.46 (7.35-7.45) Arterial Blood pCO2 at Patient Temp 28 mmHg (35-46) Arterial Blood pO2 at Patient Temp 64 mmHg (65-108) Arterial Blood HCO3 20 mmol/L (21-28) Arterial Blood Base Excess -3 mmol/L (-3-3) FiO2 36 Urine Color Yellow Urine Clarity Clear Urine pH 7.0 Urine Specific [place] 1.010 Urine Protein Negative mg/dL (NEG-TRACE) Urine Glucose (UA) Negative mg/dL (NEG) Urine Ketones (Stick) Negative mg/dL (NEG) Urine Blood Large (NEG) Urine Nitrite Negative (NEG) Urine Bilirubin Negative (NEG) Urine Urobilinogen Dipstick 0.2 mg/dL (0.2 mg/dL) Urine Leukocyte Esterase Negative (NEG) Urine RBC 3-5 /HPF (0-2) Urine WBC Occ /HPF (0-4) Urine Squamous Epithelial Cells Occ /LPF Urine Bacteria 0 /HPF (0-FEW) Urine Hyaline Casts Occasional /HPF Urine Mucus Slight /LPF Test 11/03/16 03:00 White Blood Count 6.5 x10^3/uL (4.0-11.0) Red Blood Count 4.26 x10^6/uL (4.30-5.70) Hemoglobin 11.4 g/dL (13.0-17.5) Hematocrit 36.1 % (39.0-53.0) Mean Corpuscular Volume 85 fL (79-100) Mean Corpuscular Hemoglobin 27 pg (25-35) Mean Corpuscular Hemoglobin Concent 32 g/dL (31-37) Red Cell Distribution Width 17.2 % (11.5-14.5) Platelet Count 235 x10^3/uL (140-400) Neutrophils (%) (Auto) 61 % (31-73) Lymphocytes (%) (Auto) 20 % (24-48) Monocytes (%) (Auto) 10 % (0-9) Eosinophils (%) (Auto) 8 % (0-3) Basophils (%) (Auto) 1 % (0-3) Neutrophils # (Auto) 4.0 x10^3uL (1.8-7.7) Lymphocytes # (Auto) 1.3 x10^3/uL (1.0-4.8) Monocytes # (Auto) 0.6 x10^3/uL (0.0-1.1) Eosinophils # (Auto) 0.5 x10^3/uL (0.0-0.7) Basophils # (Auto) 0.1 x10^3/uL (0.0-0.2) Sodium Level 149 mmol/L (136-145) Potassium Level 3.3 mmol/L (3.5-5.1) Chloride Level 112 mmol/L (98-107) Carbon Dioxide Level 28 mmol/L (21-32) Anion Gap 9 (6-14) Blood Urea Nitrogen 10 mg/dL (8-26) Creatinine 1.3 mg/dL (0.7-1.3) Estimated GFR (Cockcroft-Gault) 65.3 Glucose Level 96 mg/dL (70-99) Calcium Level 8.7 mg/dL (8.5-10.1) Troponin I Quantitative 0.120 ng/mL (0.000-0.055) IMAGES IMAGES CXR: There is mild cardiomegaly similar to the previous exam. There are pulmonary infiltrates most likely reflecting congestive heart failure. There may be a small right pleural effusion. IMPRESSION: Cardiomegaly, similar. Pulmonary infiltrates likely reflecting superimposed congestive heart failure EKG EKG SR; PACs; RBBB ECHOCARDIOGRAM ECHOCARDIOGRAM 07/2016: TTE: The left ventricle is normal size. Left ventricle systolic function is low normal. The Ejection Fraction is estimated at 50%. There is mild basal posterior hypokinesis. There is borderline to mild concentric left ventricular hypertrophy. There is no significant aortic valvular stenosis. Doppler and Color Flow revealed no significant aortic regurgitation. Doppler and Color Flow revealed eccentric moderate mitral regurgitation. Doppler and Color Flow revealed mild to moderate tricuspid regurgitation. The PA pressure was estimated at 39 mmHg. HEART CATH HEART CATH 08/02/2016: Findings. Hemodynamics. LV pressure of 122/30, aortic root pressure 120/68. Coronaries. Left main. The left main had no lesions and was a large vessel. Left anterior descending. The LAD was a moderate size vessel with normal distribution. It had a mid 15% lesion. Left circumflex. The left circumflex was a large dominant vessel. It had a greater than 95% lesion near the obtuse marginal 1 branch. Right coronary artery. The right coronary was a moderate size nondominant vessel. It had a proximal 35% lesion and a mid 30% lesion. <Conclusion> Severe single-vessel coronary disease in the left circumflex artery. Mild to moderate disease in the LAD and right coronary artery. Successful bare metal stent placement in the left circumflex lesion decreasing a 95% lesion to 0%. ASSESSMENT/PLAN ASSESSMENT/PLAN 1. acute on chronic systolic CHF elevated NT-proBNP; posterior crackles on exam start BID furosemide 2. COPD/pulm fibrosis O2 per pulm 3. CAD with NSTEMI (lateral) > 30 days continue DAPT for BMS to circumflex also treated with BB and statin 4. HTN mildly elevated on admission control with meds 5. HLD continue statin therapy will recheck FLP as he has been treated with statins X 3 months 6. tobacco abuse quit 07/2016 after NSTEMI 7. PAF suspect not on OAC due to DAPT 8. CKD, II Problems: HUMA GRIGSBY MANAGER OF SELECTION AND ASSESSMENT Nov 03, 2016 11:09
[2016-11-03] MEDS: FUROSEMIDE 40 MG/4 ML VIAL. IVP SCH ×2 (12:38→18:27)
--- NOTE | 2016-11-03 12:48 | PDOC ---
PULMONARY PROGRESS NOTES Subjective pt feels better with Ativan Vitals Vital Signs Date Time Temp Pulse Resp B/P (MAP) Pulse Ox O2 Delivery O2 Flow Rate FiO2 11/03/16 11:00 98.0 82 20 129/76 (93) 98 Room Air 98.0 11/03/16 07:21 3.0 ROS: No Nausea, No Chest Pain, No Abdominal Pain, No Increase Cough General: Alert, No acute distress Lungs: Clear Cardiovascular: S1, S2 Abdomen: Soft Neuro Exam: Alert Extremities: No Edema Skin: Warm Labs Laboratory Tests Test 11/02/16 13:19 11/02/16 14:05 11/02/16 15:45 11/02/16 20:20 White Blood Count 6.8 x10^3/uL (4.0-11.0) Red Blood Count 4.38 x10^6/uL (4.30-5.70) Hemoglobin 12.1 g/dL (13.0-17.5) Hematocrit 37.5 % (39.0-53.0) Mean Corpuscular Volume 86 fL (79-100) Mean Corpuscular Hemoglobin 28 pg (25-35) Mean Corpuscular Hemoglobin Concent 32 g/dL (31-37) Red Cell Distribution Width 17.0 % (11.5-14.5) Platelet Count 249 x10^3/uL (140-400) Neutrophils (%) (Auto) 63 % (31-73) Lymphocytes (%) (Auto) 21 % (24-48) Monocytes (%) (Auto) 10 % (0-9) Eosinophils (%) (Auto) 5 % (0-3) Basophils (%) (Auto) 1 % (0-3) Neutrophils # (Auto) 4.3 x10^3uL (1.8-7.7) Lymphocytes # (Auto) 1.5 x10^3/uL (1.0-4.8) Monocytes # (Auto) 0.7 x10^3/uL (0.0-1.1) Eosinophils # (Auto) 0.3 x10^3/uL (0.0-0.7) Basophils # (Auto) 0.1 x10^3/uL (0.0-0.2) Prothrombin Time 14.5 SEC (11.7-14.0) Prothromb Time International Ratio 1.2 (0.8-1.1) Sodium Level 148 mmol/L (136-145) Potassium Level 3.5 mmol/L (3.5-5.1) Chloride Level 110 mmol/L (98-107) Carbon Dioxide Level 28 mmol/L (21-32) Anion Gap 10 (6-14) Blood Urea Nitrogen 5 mg/dL (8-26) Creatinine 1.2 mg/dL (0.7-1.3) Estimated GFR (Cockcroft-Gault) 71.6 Glucose Level 97 mg/dL (70-99) Calcium Level 9.6 mg/dL (8.5-10.1) Magnesium Level 1.9 mg/dL (1.8-2.4) Total Bilirubin 0.5 mg/dL (0.2-1.0) Direct Bilirubin 0.1 mg/dL (0.0-0.2) Aspartate Amino Transf (AST/SGOT) 29 U/L (15-37) Alanine Aminotransferase (ALT/SGPT) 22 U/L (16-63) Alkaline Phosphatase 90 U/L (46-116) Creatine Kinase 346 U/L (39-308) Creatine Kinase MB (Mass) 3.7 ng/mL (0.0-3.6) Creatine Kinase MB Relative Index 1.1 % (0-4) Troponin I Quantitative 0.086 ng/mL (0.000-0.055) 0.104 ng/mL (0.000-0.055) BA-Jfb-C-Type Natriuretic Peptide 8255 pg/mL (0-124) Total Protein 7.7 g/dL (6.4-8.2) Albumin 3.2 g/dL (3.4-5.0) Lipase 190 U/L (73-393) O2 Saturation 91 % (92-99) Arterial Blood pH 7.46 (7.35-7.45) Arterial Blood pCO2 at Patient Temp 28 mmHg (35-46) Arterial Blood pO2 at Patient Temp 64 mmHg (65-108) Arterial Blood HCO3 20 mmol/L (21-28) Arterial Blood Base Excess -3 mmol/L (-3-3) FiO2 36 Urine Color Yellow Urine Clarity Clear Urine pH 7.0 Urine Specific [place] 1.010 Urine Protein Negative mg/dL (NEG-TRACE) Urine Glucose (UA) Negative mg/dL (NEG) Urine Ketones (Stick) Negative mg/dL (NEG) Urine Blood Large (NEG) Urine Nitrite Negative (NEG) Urine Bilirubin Negative (NEG) Urine Urobilinogen Dipstick 0.2 mg/dL (0.2 mg/dL) Urine Leukocyte Esterase Negative (NEG) Urine RBC 3-5 /HPF (0-2) Urine WBC Occ /HPF (0-4) Urine Squamous Epithelial Cells Occ /LPF Urine Bacteria 0 /HPF (0-FEW) Urine Hyaline Casts Occasional /HPF Urine Mucus Slight /LPF Test 11/03/16 03:00 White Blood Count 6.5 x10^3/uL (4.0-11.0) Red Blood Count 4.26 x10^6/uL (4.30-5.70) Hemoglobin 11.4 g/dL (13.0-17.5) Hematocrit 36.1 % (39.0-53.0) Mean Corpuscular Volume 85 fL (79-100) Mean Corpuscular Hemoglobin 27 pg (25-35) Mean Corpuscular Hemoglobin Concent 32 g/dL (31-37) Red Cell Distribution Width 17.2 % (11.5-14.5) Platelet Count 235 x10^3/uL (140-400) Neutrophils (%) (Auto) 61 % (31-73) Lymphocytes (%) (Auto) 20 % (24-48) Monocytes (%) (Auto) 10 % (0-9) Eosinophils (%) (Auto) 8 % (0-3) Basophils (%) (Auto) 1 % (0-3) Neutrophils # (Auto) 4.0 x10^3uL (1.8-7.7) Lymphocytes # (Auto) 1.3 x10^3/uL (1.0-4.8) Monocytes # (Auto) 0.6 x10^3/uL (0.0-1.1) Eosinophils # (Auto) 0.5 x10^3/uL (0.0-0.7) Basophils # (Auto) 0.1 x10^3/uL (0.0-0.2) Sodium Level 149 mmol/L (136-145) Potassium Level 3.3 mmol/L (3.5-5.1) Chloride Level 112 mmol/L (98-107) Carbon Dioxide Level 28 mmol/L (21-32) Anion Gap 9 (6-14) Blood Urea Nitrogen 10 mg/dL (8-26) Creatinine 1.3 mg/dL (0.7-1.3) Estimated GFR (Cockcroft-Gault) 65.3 Glucose Level 96 mg/dL (70-99) Calcium Level 8.7 mg/dL (8.5-10.1) Magnesium Level 1.9 mg/dL (1.8-2.4) Troponin I Quantitative 0.120 ng/mL (0.000-0.055) Laboratory Tests Test 11/02/16 13:19 11/02/16 14:05 11/02/16 15:45 11/02/16 20:20 White Blood Count 6.8 x10^3/uL (4.0-11.0) Red Blood Count 4.38 x10^6/uL (4.30-5.70) Hemoglobin 12.1 g/dL (13.0-17.5) Hematocrit 37.5 % (39.0-53.0) Mean Corpuscular Volume 86 fL (79-100) Mean Corpuscular Hemoglobin 28 pg (25-35) Mean Corpuscular Hemoglobin Concent 32 g/dL (31-37) Red Cell Distribution Width 17.0 % (11.5-14.5) Platelet Count 249 x10^3/uL (140-400) Neutrophils (%) (Auto) 63 % (31-73) Lymphocytes (%) (Auto) 21 % (24-48) Monocytes (%) (Auto) 10 % (0-9) Eosinophils (%) (Auto) 5 % (0-3) Basophils (%) (Auto) 1 % (0-3) Neutrophils # (Auto) 4.3 x10^3uL (1.8-7.7) Lymphocytes # (Auto) 1.5 x10^3/uL (1.0-4.8) Monocytes # (Auto) 0.7 x10^3/uL (0.0-1.1) Eosinophils # (Auto) 0.3 x10^3/uL (0.0-0.7) Basophils # (Auto) 0.1 x10^3/uL (0.0-0.2) Prothrombin Time 14.5 SEC (11.7-14.0) Prothromb Time International Ratio 1.2 (0.8-1.1) Sodium Level 148 mmol/L (136-145) Potassium Level 3.5 mmol/L (3.5-5.1) Chloride Level 110 mmol/L (98-107) Carbon Dioxide Level 28 mmol/L (21-32) Anion Gap 10 (6-14) Blood Urea Nitrogen 5 mg/dL (8-26) Creatinine 1.2 mg/dL (0.7-1.3) Estimated GFR (Cockcroft-Gault) 71.6 Glucose Level 97 mg/dL (70-99) Calcium Level 9.6 mg/dL (8.5-10.1) Magnesium Level 1.9 mg/dL (1.8-2.4) Total Bilirubin 0.5 mg/dL (0.2-1.0) Direct Bilirubin 0.1 mg/dL (0.0-0.2) Aspartate Amino Transf (AST/SGOT) 29 U/L (15-37) Alanine Aminotransferase (ALT/SGPT) 22 U/L (16-63) Alkaline Phosphatase 90 U/L (46-116) Creatine Kinase 346 U/L (39-308) Creatine Kinase MB (Mass) 3.7 ng/mL (0.0-3.6) Creatine Kinase MB Relative Index 1.1 % (0-4) Troponin I Quantitative 0.086 ng/mL (0.000-0.055) 0.104 ng/mL (0.000-0.055) UX-Vlq-H-Type Natriuretic Peptide 8255 pg/mL (0-124) Total Protein 7.7 g/dL (6.4-8.2) Albumin 3.2 g/dL (3.4-5.0) Lipase 190 U/L (73-393) O2 Saturation 91 % (92-99) Arterial Blood pH 7.46 (7.35-7.45) Arterial Blood pCO2 at Patient Temp 28 mmHg (35-46) Arterial Blood pO2 at Patient Temp 64 mmHg (65-108) Arterial Blood HCO3 20 mmol/L (21-28) Arterial Blood Base Excess -3 mmol/L (-3-3) FiO2 36 Urine Color Yellow Urine Clarity Clear Urine pH 7.0 Urine Specific [place] 1.010 Urine Protein Negative mg/dL (NEG-TRACE) Urine Glucose (UA) Negative mg/dL (NEG) Urine Ketones (Stick) Negative mg/dL (NEG) Urine Blood Large (NEG) Urine Nitrite Negative (NEG) Urine Bilirubin Negative (NEG) Urine Urobilinogen Dipstick 0.2 mg/dL (0.2 mg/dL) Urine Leukocyte Esterase Negative (NEG) Urine RBC 3-5 /HPF (0-2) Urine WBC Occ /HPF (0-4) Urine Squamous Epithelial Cells Occ /LPF Urine Bacteria 0 /HPF (0-FEW) Urine Hyaline Casts Occasional /HPF Urine Mucus Slight /LPF Test 11/03/16 03:00 White Blood Count 6.5 x10^3/uL (4.0-11.0) Red Blood Count 4.26 x10^6/uL (4.30-5.70) Hemoglobin 11.4 g/dL (13.0-17.5) Hematocrit 36.1 % (39.0-53.0) Mean Corpuscular Volume 85 fL (79-100) Mean Corpuscular Hemoglobin 27 pg (25-35) Mean Corpuscular Hemoglobin Concent 32 g/dL (31-37) Red Cell Distribution Width 17.2 % (11.5-14.5) Platelet Count 235 x10^3/uL (140-400) Neutrophils (%) (Auto) 61 % (31-73) Lymphocytes (%) (Auto) 20 % (24-48) Monocytes (%) (Auto) 10 % (0-9) Eosinophils (%) (Auto) 8 % (0-3) Basophils (%) (Auto) 1 % (0-3) Neutrophils # (Auto) 4.0 x10^3uL (1.8-7.7) Lymphocytes # (Auto) 1.3 x10^3/uL (1.0-4.8) Monocytes # (Auto) 0.6 x10^3/uL (0.0-1.1) Eosinophils # (Auto) 0.5 x10^3/uL (0.0-0.7) Basophils # (Auto) 0.1 x10^3/uL (0.0-0.2) Sodium Level 149 mmol/L (136-145) Potassium Level 3.3 mmol/L (3.5-5.1) Chloride Level 112 mmol/L (98-107) Carbon Dioxide Level 28 mmol/L (21-32) Anion Gap 9 (6-14) Blood Urea Nitrogen 10 mg/dL (8-26) Creatinine 1.3 mg/dL (0.7-1.3) Estimated GFR (Cockcroft-Gault) 65.3 Glucose Level 96 mg/dL (70-99) Calcium Level 8.7 mg/dL (8.5-10.1) Magnesium Level 1.9 mg/dL (1.8-2.4) Troponin I Quantitative 0.120 ng/mL (0.000-0.055) Medications Active Scripts Medications Dose Route/Sig Max Daily Dose Days Date Category Proair Hfa Inhaler (Albuterol Sulfate) 8.5 Gm Hfa.aer.ad 1 Puff INH PRN Q6HRS PRN 11/02/16 Reported Mirtazapine 15 Mg Tablet 1 Tab PO QHS 11/02/16 Reported Omeprazole 20 Mg Capsule.dr 20 Mg PO QHS 11/02/16 Reported Clopidogrel (Clopidogrel Bisulfate) 75 Mg Tablet 1 Tab PO DAILY 11/02/16 Reported Famotidine 20 Mg Tablet 20 Mg PO Q48H 08/04/16 Rx Nitrostat (Nitroglycerin) 0.4 Mg Tab.subl 0.4 Mg SL PRN Q5MIN PRN 08/04/16 Rx Metoprolol Tartrate 25 Mg Tablet 12.5 Mg PO BID 08/04/16 Rx Atorvastatin Calcium 20 Mg Tablet 20 Mg PO QHS 08/04/16 Rx Aspirin Ec (Aspirin) 81 Mg Tablet.dr 81 Mg PO DAILY 07/29/16 Reported Doxazosin Mesylate 4 Mg Tablet 1 Tab PO DAILY 07/28/16 Reported Impression . 1. Acute respiratory failure secondary to acute systolic, diastolic heart failure. 2. Bullous emphysema/mild fibrosis 3. Coronary artery disease with previous myocardial infarction. 4. Chronic renal failure. The patient has gone hemodialysis in the past. 5. Myofibrosis. 6. Clinical presentation compatible with obstructive sleep apnea. 7. Anxiety nonspecific. Plan . 6 min walk I rec Ativan on schedule dose seem to help, some of SOA is anxiety induced 1. Recommend continued diuresis and oxygen supplementation. 2. No need for antibiotics. 3. The patient is scheduled for outpatient polysomnogram. 4. Initiate Ativan for anxiety. GAURAV FERRARI MD Nov 03, 2016 12:48
[2016-11-03 15:43] VITALS: BP 128/83
[2016-11-03 19:00] VITALS: BP 134/87
[2016-11-03] MEDS ORDERED: ATORVASTATIN CALCIUM 20 MG TABLET PO SCH (21:00)
[2016-11-03] MEDS ORDERED: MIRTAZAPINE 15 MG TABLET PO SCH (21:00)
[2016-11-03 23:06] VITALS: BP 116/80
[2016-11-04] MEDS ORDERED: ALBUTEROL SULFATE 2.5 MG/3 ML NEBU. NEB PRN (00:30)
[2016-11-04 03:00] VITALS: BP 136/83
[2016-11-04 03:49] LABS: BASO # 0.1 x10^3/uL (0.0-0.2); BASO % 1 % (0-3); EOS % 6 % (0-3); HEMATOCRIT 35.7 % (39.0-53.0); HEMOGLOBIN 11.3 g/dL (13.0-17.5); LYMPH # 1.6 x10^3/uL (1.0-4.8); LYMPH % 21 % (24-48); MEAN CORPUSCULAR HEMOGLOBIN 27 pg (25-35); MEAN CORPUSCULAR HGB CONC 32 g/dL (31-37); MEAN CORPUSCULAR VOLUME 85 fL (79-100); MONO % 10 % (0-9); NEUT % 62 % (31-73); PLATELET COUNT 228 x10^3/uL (140-400); RED BLOOD COUNT 4.22 x10^6/uL (4.30-5.70); RED CELL DISTRIBUTION WIDTH 17.1 % (11.5-14.5); WHITE BLOOD COUNT 7.6 x10^3/uL (4.0-11.0)
--- NOTE | 2016-11-04 04:56 | PDOC ---
LC RUSSELL ELEMENTARY ASSISTANT TEACHER 11/04/16 0456: IM PROGRESS NOTES- Subjective Subjective machines beeping, did not sleep well Objective Objective no distress Vitals Vital Signs Date Time Temp Pulse Resp B/P (MAP) Pulse Ox O2 Delivery O2 Flow Rate FiO2 11/04/16 03:00 98.4 79 20 136/83 (100) 96 Nasal Cannula 3.0 98.4 Input & Output Intake and Output 11/04/16 07:00 Intake Total 700 ml Output Total 2600 ml Balance -1900 ml Intake Oral 700 ml Output Urine Total 2600 ml Physical Exam Physical Exam General appearance - alert,well appearing, and in no distress Mental Status - alert, oriented to person, place, and time, affect appropriate to mood Head - normal Chest - clear to auscultation, no wheezes, rales or rhonchi, Heart - S1 and S2 normal with irregular beats Abdomen - soft, nontender, nondistended, BS + Neurological - no acute focal neurological deficits noted Musculoskeletal - no muscular tenderness noted Extremities - no pedal edema Skin - warm and dry Labs Laboratory Tests Test 11/02/16 13:19 11/02/16 14:05 11/02/16 15:45 11/02/16 20:20 White Blood Count 6.8 x10^3/uL (4.0-11.0) Red Blood Count 4.38 x10^6/uL (4.30-5.70) Hemoglobin 12.1 g/dL (13.0-17.5) Hematocrit 37.5 % (39.0-53.0) Mean Corpuscular Volume 86 fL (79-100) Mean Corpuscular Hemoglobin 28 pg (25-35) Mean Corpuscular Hemoglobin Concent 32 g/dL (31-37) Red Cell Distribution Width 17.0 % (11.5-14.5) Platelet Count 249 x10^3/uL (140-400) Neutrophils (%) (Auto) 63 % (31-73) Lymphocytes (%) (Auto) 21 % (24-48) Monocytes (%) (Auto) 10 % (0-9) Eosinophils (%) (Auto) 5 % (0-3) Basophils (%) (Auto) 1 % (0-3) Neutrophils # (Auto) 4.3 x10^3uL (1.8-7.7) Lymphocytes # (Auto) 1.5 x10^3/uL (1.0-4.8) Monocytes # (Auto) 0.7 x10^3/uL (0.0-1.1) Eosinophils # (Auto) 0.3 x10^3/uL (0.0-0.7) Basophils # (Auto) 0.1 x10^3/uL (0.0-0.2) Prothrombin Time 14.5 SEC (11.7-14.0) Prothromb Time International Ratio 1.2 (0.8-1.1) Sodium Level 148 mmol/L (136-145) Potassium Level 3.5 mmol/L (3.5-5.1) Chloride Level 110 mmol/L (98-107) Carbon Dioxide Level 28 mmol/L (21-32) Anion Gap 10 (6-14) Blood Urea Nitrogen 5 mg/dL (8-26) Creatinine 1.2 mg/dL (0.7-1.3) Estimated GFR (Cockcroft-Gault) 71.6 Glucose Level 97 mg/dL (70-99) Calcium Level 9.6 mg/dL (8.5-10.1) Magnesium Level 1.9 mg/dL (1.8-2.4) Total Bilirubin 0.5 mg/dL (0.2-1.0) Direct Bilirubin 0.1 mg/dL (0.0-0.2) Aspartate Amino Transf (AST/SGOT) 29 U/L (15-37) Alanine Aminotransferase (ALT/SGPT) 22 U/L (16-63) Alkaline Phosphatase 90 U/L (46-116) Creatine Kinase 346 U/L (39-308) Creatine Kinase MB (Mass) 3.7 ng/mL (0.0-3.6) Creatine Kinase MB Relative Index 1.1 % (0-4) Troponin I Quantitative 0.086 ng/mL (0.000-0.055) 0.104 ng/mL (0.000-0.055) TP-Tdk-R-Type Natriuretic Peptide 8255 pg/mL (0-124) Total Protein 7.7 g/dL (6.4-8.2) Albumin 3.2 g/dL (3.4-5.0) Lipase 190 U/L (73-393) O2 Saturation 91 % (92-99) Arterial Blood pH 7.46 (7.35-7.45) Arterial Blood pCO2 at Patient Temp 28 mmHg (35-46) Arterial Blood pO2 at Patient Temp 64 mmHg (65-108) Arterial Blood HCO3 20 mmol/L (21-28) Arterial Blood Base Excess -3 mmol/L (-3-3) FiO2 36 Urine Color Yellow Urine Clarity Clear Urine pH 7.0 Urine Specific [place] 1.010 Urine Protein Negative mg/dL (NEG-TRACE) Urine Glucose (UA) Negative mg/dL (NEG) Urine Ketones (Stick) Negative mg/dL (NEG) Urine Blood Large (NEG) Urine Nitrite Negative (NEG) Urine Bilirubin Negative (NEG) Urine Urobilinogen Dipstick 0.2 mg/dL (0.2 mg/dL) Urine Leukocyte Esterase Negative (NEG) Urine RBC 3-5 /HPF (0-2) Urine WBC Occ /HPF (0-4) Urine Squamous Epithelial Cells Occ /LPF Urine Bacteria 0 /HPF (0-FEW) Urine Hyaline Casts Occasional /HPF Urine Mucus Slight /LPF Test 11/03/16 03:00 11/04/16 03:00 White Blood Count 6.5 x10^3/uL (4.0-11.0) 7.6 x10^3/uL (4.0-11.0) Red Blood Count 4.26 x10^6/uL (4.30-5.70) 4.22 x10^6/uL (4.30-5.70) Hemoglobin 11.4 g/dL (13.0-17.5) 11.3 g/dL (13.0-17.5) Hematocrit 36.1 % (39.0-53.0) 35.7 % (39.0-53.0) Mean Corpuscular Volume 85 fL (79-100) 85 fL (79-100) Mean Corpuscular Hemoglobin 27 pg (25-35) 27 pg (25-35) Mean Corpuscular Hemoglobin Concent 32 g/dL (31-37) 32 g/dL (31-37) Red Cell Distribution Width 17.2 % (11.5-14.5) 17.1 % (11.5-14.5) Platelet Count 235 x10^3/uL (140-400) 228 x10^3/uL (140-400) Neutrophils (%) (Auto) 61 % (31-73) 62 % (31-73) Lymphocytes (%) (Auto) 20 % (24-48) 21 % (24-48) Monocytes (%) (Auto) 10 % (0-9) 10 % (0-9) Eosinophils (%) (Auto) 8 % (0-3) 6 % (0-3) Basophils (%) (Auto) 1 % (0-3) 1 % (0-3) Neutrophils # (Auto) 4.0 x10^3uL (1.8-7.7) 4.7 x10^3uL (1.8-7.7) Lymphocytes # (Auto) 1.3 x10^3/uL (1.0-4.8) 1.6 x10^3/uL (1.0-4.8) Monocytes # (Auto) 0.6 x10^3/uL (0.0-1.1) 0.8 x10^3/uL (0.0-1.1) Eosinophils # (Auto) 0.5 x10^3/uL (0.0-0.7) 0.4 x10^3/uL (0.0-0.7) Basophils # (Auto) 0.1 x10^3/uL (0.0-0.2) 0.1 x10^3/uL (0.0-0.2) Sodium Level 149 mmol/L (136-145) Potassium Level 3.3 mmol/L (3.5-5.1) Chloride Level 112 mmol/L (98-107) Carbon Dioxide Level 28 mmol/L (21-32) Anion Gap 9 (6-14) Blood Urea Nitrogen 10 mg/dL (8-26) Creatinine 1.3 mg/dL (0.7-1.3) Estimated GFR (Cockcroft-Gault) 65.3 Glucose Level 96 mg/dL (70-99) Calcium Level 8.7 mg/dL (8.5-10.1) Magnesium Level 1.9 mg/dL (1.8-2.4) Troponin I Quantitative 0.120 ng/mL (0.000-0.055) Laboratory Tests Test 11/04/16 03:00 White Blood Count 7.6 x10^3/uL (4.0-11.0) Red Blood Count 4.22 x10^6/uL (4.30-5.70) Hemoglobin 11.3 g/dL (13.0-17.5) Hematocrit 35.7 % (39.0-53.0) Mean Corpuscular Volume 85 fL (79-100) Mean Corpuscular Hemoglobin 27 pg (25-35) Mean Corpuscular Hemoglobin Concent 32 g/dL (31-37) Red Cell Distribution Width 17.1 % (11.5-14.5) Platelet Count 228 x10^3/uL (140-400) Neutrophils (%) (Auto) 62 % (31-73) Lymphocytes (%) (Auto) 21 % (24-48) Monocytes (%) (Auto) 10 % (0-9) Eosinophils (%) (Auto) 6 % (0-3) Basophils (%) (Auto) 1 % (0-3) Neutrophils # (Auto) 4.7 x10^3uL (1.8-7.7) Lymphocytes # (Auto) 1.6 x10^3/uL (1.0-4.8) Monocytes # (Auto) 0.8 x10^3/uL (0.0-1.1) Eosinophils # (Auto) 0.4 x10^3/uL (0.0-0.7) Basophils # (Auto) 0.1 x10^3/uL (0.0-0.2) Meds Current Medications Albuterol Sulfate (Ventolin Neb Soln) 2.5 mg PRN Q4HRS PRN NEB SHORTNESS OF BREATH Last administered on 11/04/16 00:38; Start 11/04/16 at 00:30 Aspirin (Ecotrin) 81 mg DAILYWBKFT PO Last administered on 11/03/16 09:18; Start 11/03/16 at 08:00 Atorvastatin Calcium (Lipitor) 20 mg QHS PO Last administered on 11/03/16 20:31 ; Start 11/03/16 at 21:00 Clopidogrel Bisulfate (Plavix) 75 mg DAILYWBKFT PO Last administered on 09:19; Start 11/03/16 at 08:00 Doxazosin Mesylate (Cardura) 4 mg DAILY PO Last administered on 11/03/16 09:18 ; Start 11/03/16 at 09:00 Enoxaparin Sodium (Lovenox 40mg Syringe) 40 mg Q24H SQ Last administered on 11/03 09:20; Start 11/03/16 at 08:00 Famotidine (Pepcid) 20 mg Q48H PO Last administered on 11/03/16 09:19; Start at 09:00 Furosemide (Lasix) 40 mg BID92 IVP Last administered on 11/03/16 18:27; Start 11/03/16 at 11:30 Metoprolol Tartrate (Lopressor) 12.5 mg BID PO Last administered on 11/03/16 20 :31; Start 11/03/16 at 09:00 Mirtazapine (Remeron) 15 mg QHS PO Last administered on 11/03/16 20:31; Start 11/03/16 at 21:00 Nitroglycerin (Nitrostat) 0.4 mg PRN Q5MIN PRN SL CHEST PAIN; Start 11/03/16 at 07:45 Pantoprazole Sodium (Protonix) 40 mg DAILYAC PO Last administered on 11/03/16 09:19; Start 11/03/16 at 08:00 Potassium Chloride (Klor-Con) 20 meq 1X ONCE PO Last administered on 11/03/16 09:19; Start 11/03/16 at 08:30; Stop 11/03/16 at 08:31; Status DC Potassium Chloride (Klor-Con) 40 meq 1X ONCE PO Last administered on 11/03/16 12:39; Start 11/03/16 at 12:00; Stop 11/03/16 at 12:01; Status DC Assessment Assessment 1, Acute hypoxic respiratory failure due to A/C diastolic CHF EF 50% 2. A/C systolic with low normal EF 50% 3. COPD with h/o bullous emphysema bilateral, enlarged hilar mediastinal lymph nodes and mild ILD-myofibrosis 4. CKD II with CrCl>50 on admit 5. CAD with recent NSTEMI 07/2016 with BMS to LCx 08/12/16 6. Benign prostatic hyperplasia. 7. Hypertension. 8. Kidney stone R intrarenal collect sx 6.3mm with UA + hematuria this admit 9. bilateral renal cyst 10, Afib chronic h/o no anticoagulation 11. suspected sleep apnea with + nocturnal oximetry RA showing hypoxia 12. anemia CKD 13. severe weakness and debility 14. chronic moderate PCL malnutrition 15. anxiety PLAN acute hypoxic respiratory failure -A/C systolic CHF pulmonary consult cardiology consult ADmit BNP 8255 Admit wt 180.19 11/04 pending daily weight strict IO Lasix 40mg IV ED Last ECHO EF low normal 50% systolic MR moderate, TR mild to moderate + pulmonary HTN Total Lasix since admit 120mg. UOP total since admit 3400cc (11/04 0500) wheezing last nock-albuterol treatments ordered-wheezing improved. 6 min walk pending prior to DC CKD II/hypernatremia/hypokalemia ADmit BUN 5 10 Cr 1.2 1.3 Na 148 149 K 3.5 3.3 Replace K with 20 KCL po x 1 in AM 11/03 PAC per telemonitor 11/03 with increasing PACs 11/04 follow lab 11/03 after 12N additional 40 mEq Anemia CD Admit Hgb 12.1 11.3 monitor abnormal troponin not MT, secondary to cardiac demand with CHF h/o NSTEMI July 2015 EKG SR no acute changes troponin trending up 0.086-0.104-0.120 defer to cardiology CK 346 CKD 3.7 Index normal weakness/debility PT OT DVT/GI prophylaxis Lovenox PPI anxiety Ativan PRN For more details regarding further plans, please refer to the orders. BMP 11/04 pending Discharge orders initiated. Lasix/KCL dose per cardiology Plan Plan For more details regarding further plans, please refer to the orders. SEGUNDO STOCK MD 11/04/16 0847: IM PROGRESS NOTES- Assessment Assessment Doing well.Lungs clear. Hypokalemia- replace. Discharge home with [facility]. Add Lasix 40 mg daily and kcl 20 meq daily. see in office in 5 days. The patient was seen and examined by me. Chart reviewed and plan of care formulated. Discussed with, reviewed and agree with CORROSION TECHNICIAN's notes, plan of care and orders with modifications as necessary. For more details regarding further plans, please refer to the orders. LC RUSSELL APRN Nov 04, 2016 04:56 SEGUNDO STOCK MD Nov 04, 2016 08:47
--- NOTE | 2016-11-04 04:58 | DISCH ---
DISCHARGE INSTRUCTIONS Condition on Discharge Condition on Discharge: Stable Activity After Discharge Activity Instructions for Disc: Activity as tolerated Diet after Discharge Diet after Discharge: Cardiac (low sodium/limit BBQ and pork ) Checks after Discharge Checks after discharge: Weigh Yourself Daily (contact Dr. Amin weight increase 2 pounds in 24 hours or 3 pounds in 48hours) Contacting the after DC Call your doctor for: Concerns you may have Follow-Up Follow up with: Dr. Amin Sunday next week. LC RUSSELL APRN Nov 04, 2016 04:58
[2016-11-04 06:11] LABS: CALCIUM 8.5 mg/dL (8.5-10.1); CREATININE 1.2 mg/dL (0.7-1.3); GFR 71.6; MAGNESIUM 1.9 mg/dL (1.8-2.4); POTASSIUM 3.2 mmol/L (3.5-5.1)
[2016-11-04 06:20] LABS: CHOLESTEROL/HDL RATIO 4.1
[2016-11-04 07:00] VITALS: BP 139/93
[2016-11-04] MEDS ORDERED: POTASSIUM CHLORIDE 20 MEQ TABLET.ER. PO ONE (08:30)
[2016-11-04] MEDS: LORazepam 0.5 MG TABLET PO SCH (08:40)
[2016-11-04] MEDS: DOXAZOSIN MESYLATE 4 MG TABLET. PO SCH (08:40)
[2016-11-04] MEDS: ASPIRIN ENTERIC COATED 81 MG TABLET.DR. PO SCH (08:40)
[2016-11-04] MEDS: PANTOPRAZOLE 40 MG TABLET.DR. PO SCH (08:40)
[2016-11-04] MEDS: CLOPIDOGREL BISULFATE 75 MG TABLET PO SCH (08:40)
[2016-11-04] MEDS: METOPROLOL TART IMMED RELEASE 25 MG TABLET. PO SCH (08:41)
[2016-11-04] MEDS: FUROSEMIDE 40 MG/4 ML VIAL. IVP SCH (08:41)
[2016-11-04] MEDS: ENOXAPARIN 40 MG/0.4 ML SYRINGE. SQ SCH (08:42)
--- NOTE | 2016-11-04 08:56 | PDOC ---
PULMONARY PROGRESS NOTES Subjective on 02, sob, cough better. no pain, has post nasal drip Vitals Vital Signs Date Time Temp Pulse Resp B/P (MAP) Pulse Ox O2 Delivery O2 Flow Rate FiO2 11/04/16 08:41 94 139/93 11/04/16 03:00 98.4 20 96 Nasal Cannula 3.0 98.4 ROS: No Nausea, No Chest Pain, No Abdominal Pain, No Increase Cough General: Alert, No acute distress HEENT: Other (nc at perrl, shallow oropharynx, nose clear) Lungs: Crackles Cardiovascular: S1, S2 Abdomen: Soft, Non-tender Neuro Exam: Alert, Oriented Extremities: No Edema Skin: Warm Labs Laboratory Tests Test 11/02/16 13:19 11/02/16 14:05 11/02/16 15:45 11/02/16 20:20 White Blood Count 6.8 x10^3/uL (4.0-11.0) Red Blood Count 4.38 x10^6/uL (4.30-5.70) Hemoglobin 12.1 g/dL (13.0-17.5) Hematocrit 37.5 % (39.0-53.0) Mean Corpuscular Volume 86 fL (79-100) Mean Corpuscular Hemoglobin 28 pg (25-35) Mean Corpuscular Hemoglobin Concent 32 g/dL (31-37) Red Cell Distribution Width 17.0 % (11.5-14.5) Platelet Count 249 x10^3/uL (140-400) Neutrophils (%) (Auto) 63 % (31-73) Lymphocytes (%) (Auto) 21 % (24-48) Monocytes (%) (Auto) 10 % (0-9) Eosinophils (%) (Auto) 5 % (0-3) Basophils (%) (Auto) 1 % (0-3) Neutrophils # (Auto) 4.3 x10^3uL (1.8-7.7) Lymphocytes # (Auto) 1.5 x10^3/uL (1.0-4.8) Monocytes # (Auto) 0.7 x10^3/uL (0.0-1.1) Eosinophils # (Auto) 0.3 x10^3/uL (0.0-0.7) Basophils # (Auto) 0.1 x10^3/uL (0.0-0.2) Prothrombin Time 14.5 SEC (11.7-14.0) Prothromb Time International Ratio 1.2 (0.8-1.1) Sodium Level 148 mmol/L (136-145) Potassium Level 3.5 mmol/L (3.5-5.1) Chloride Level 110 mmol/L (98-107) Carbon Dioxide Level 28 mmol/L (21-32) Anion Gap 10 (6-14) Blood Urea Nitrogen 5 mg/dL (8-26) Creatinine 1.2 mg/dL (0.7-1.3) Estimated GFR (Cockcroft-Gault) 71.6 Glucose Level 97 mg/dL (70-99) Calcium Level 9.6 mg/dL (8.5-10.1) Magnesium Level 1.9 mg/dL (1.8-2.4) Total Bilirubin 0.5 mg/dL (0.2-1.0) Direct Bilirubin 0.1 mg/dL (0.0-0.2) Aspartate Amino Transf (AST/SGOT) 29 U/L (15-37) Alanine Aminotransferase (ALT/SGPT) 22 U/L (16-63) Alkaline Phosphatase 90 U/L (46-116) Creatine Kinase 346 U/L (39-308) Creatine Kinase MB (Mass) 3.7 ng/mL (0.0-3.6) Creatine Kinase MB Relative Index 1.1 % (0-4) Troponin I Quantitative 0.086 ng/mL (0.000-0.055) 0.104 ng/mL (0.000-0.055) YZ-Ojg-N-Type Natriuretic Peptide 8255 pg/mL (0-124) Total Protein 7.7 g/dL (6.4-8.2) Albumin 3.2 g/dL (3.4-5.0) Lipase 190 U/L (73-393) O2 Saturation 91 % (92-99) Arterial Blood pH 7.46 (7.35-7.45) Arterial Blood pCO2 at Patient Temp 28 mmHg (35-46) Arterial Blood pO2 at Patient Temp 64 mmHg (65-108) Arterial Blood HCO3 20 mmol/L (21-28) Arterial Blood Base Excess -3 mmol/L (-3-3) FiO2 36 Urine Color Yellow Urine Clarity Clear Urine pH 7.0 Urine Specific [place] 1.010 Urine Protein Negative mg/dL (NEG-TRACE) Urine Glucose (UA) Negative mg/dL (NEG) Urine Ketones (Stick) Negative mg/dL (NEG) Urine Blood Large (NEG) Urine Nitrite Negative (NEG) Urine Bilirubin Negative (NEG) Urine Urobilinogen Dipstick 0.2 mg/dL (0.2 mg/dL) Urine Leukocyte Esterase Negative (NEG) Urine RBC 3-5 /HPF (0-2) Urine WBC Occ /HPF (0-4) Urine Squamous Epithelial Cells Occ /LPF Urine Bacteria 0 /HPF (0-FEW) Urine Hyaline Casts Occasional /HPF Urine Mucus Slight /LPF Test 11/03/16 03:00 11/04/16 03:00 White Blood Count 6.5 x10^3/uL (4.0-11.0) 7.6 x10^3/uL (4.0-11.0) Red Blood Count 4.26 x10^6/uL (4.30-5.70) 4.22 x10^6/uL (4.30-5.70) Hemoglobin 11.4 g/dL (13.0-17.5) 11.3 g/dL (13.0-17.5) Hematocrit 36.1 % (39.0-53.0) 35.7 % (39.0-53.0) Mean Corpuscular Volume 85 fL (79-100) 85 fL (79-100) Mean Corpuscular Hemoglobin 27 pg (25-35) 27 pg (25-35) Mean Corpuscular Hemoglobin Concent 32 g/dL (31-37) 32 g/dL (31-37) Red Cell Distribution Width 17.2 % (11.5-14.5) 17.1 % (11.5-14.5) Platelet Count 235 x10^3/uL (140-400) 228 x10^3/uL (140-400) Neutrophils (%) (Auto) 61 % (31-73) 62 % (31-73) Lymphocytes (%) (Auto) 20 % (24-48) 21 % (24-48) Monocytes (%) (Auto) 10 % (0-9) 10 % (0-9) Eosinophils (%) (Auto) 8 % (0-3) 6 % (0-3) Basophils (%) (Auto) 1 % (0-3) 1 % (0-3) Neutrophils # (Auto) 4.0 x10^3uL (1.8-7.7) 4.7 x10^3uL (1.8-7.7) Lymphocytes # (Auto) 1.3 x10^3/uL (1.0-4.8) 1.6 x10^3/uL (1.0-4.8) Monocytes # (Auto) 0.6 x10^3/uL (0.0-1.1) 0.8 x10^3/uL (0.0-1.1) Eosinophils # (Auto) 0.5 x10^3/uL (0.0-0.7) 0.4 x10^3/uL (0.0-0.7) Basophils # (Auto) 0.1 x10^3/uL (0.0-0.2) 0.1 x10^3/uL (0.0-0.2) Sodium Level 149 mmol/L (136-145) 146 mmol/L (136-145) Potassium Level 3.3 mmol/L (3.5-5.1) 3.2 mmol/L (3.5-5.1) Chloride Level 112 mmol/L (98-107) 109 mmol/L (98-107) Carbon Dioxide Level 28 mmol/L (21-32) 28 mmol/L (21-32) Anion Gap 9 (6-14) 9 (6-14) Blood Urea Nitrogen 10 mg/dL (8-26) 11 mg/dL (8-26) Creatinine 1.3 mg/dL (0.7-1.3) 1.2 mg/dL (0.7-1.3) Estimated GFR (Cockcroft-Gault) 65.3 71.6 Glucose Level 96 mg/dL (70-99) 99 mg/dL (70-99) Calcium Level 8.7 mg/dL (8.5-10.1) 8.5 mg/dL (8.5-10.1) Magnesium Level 1.9 mg/dL (1.8-2.4) 1.9 mg/dL (1.8-2.4) Troponin I Quantitative 0.120 ng/mL (0.000-0.055) Triglycerides Level 68 mg/dL (0-150) Cholesterol Level 119 mg/dL (0-200) LDL Cholesterol, Calculated 76 mg/dL (0-100) VLDL Cholesterol, Calculated 14 mg/dL (0-40) Non-HDL Cholesterol Calculated 90 mg/dL (0-129) HDL Cholesterol 29 mg/dL (40-60) Cholesterol/HDL Ratio 4.1 Laboratory Tests Test 11/04/16 03:00 White Blood Count 7.6 x10^3/uL (4.0-11.0) Red Blood Count 4.22 x10^6/uL (4.30-5.70) Hemoglobin 11.3 g/dL (13.0-17.5) Hematocrit 35.7 % (39.0-53.0) Mean Corpuscular Volume 85 fL (79-100) Mean Corpuscular Hemoglobin 27 pg (25-35) Mean Corpuscular Hemoglobin Concent 32 g/dL (31-37) Red Cell Distribution Width 17.1 % (11.5-14.5) Platelet Count 228 x10^3/uL (140-400) Neutrophils (%) (Auto) 62 % (31-73) Lymphocytes (%) (Auto) 21 % (24-48) Monocytes (%) (Auto) 10 % (0-9) Eosinophils (%) (Auto) 6 % (0-3) Basophils (%) (Auto) 1 % (0-3) Neutrophils # (Auto) 4.7 x10^3uL (1.8-7.7) Lymphocytes # (Auto) 1.6 x10^3/uL (1.0-4.8) Monocytes # (Auto) 0.8 x10^3/uL (0.0-1.1) Eosinophils # (Auto) 0.4 x10^3/uL (0.0-0.7) Basophils # (Auto) 0.1 x10^3/uL (0.0-0.2) Sodium Level 146 mmol/L (136-145) Potassium Level 3.2 mmol/L (3.5-5.1) Chloride Level 109 mmol/L (98-107) Carbon Dioxide Level 28 mmol/L (21-32) Anion Gap 9 (6-14) Blood Urea Nitrogen 11 mg/dL (8-26) Creatinine 1.2 mg/dL (0.7-1.3) Estimated GFR (Cockcroft-Gault) 71.6 Glucose Level 99 mg/dL (70-99) Calcium Level 8.5 mg/dL (8.5-10.1) Magnesium Level 1.9 mg/dL (1.8-2.4) Triglycerides Level 68 mg/dL (0-150) Cholesterol Level 119 mg/dL (0-200) LDL Cholesterol, Calculated 76 mg/dL (0-100) VLDL Cholesterol, Calculated 14 mg/dL (0-40) Non-HDL Cholesterol Calculated 90 mg/dL (0-129) HDL Cholesterol 29 mg/dL (40-60) Cholesterol/HDL Ratio 4.1 Medications Active Scripts Medications Dose Route/Sig Max Daily Dose Days Date Category Proair Hfa Inhaler (Albuterol Sulfate) 8.5 Gm Hfa.aer.ad 1 Puff INH PRN Q6HRS PRN 11/02/16 Reported Mirtazapine 15 Mg Tablet 1 Tab PO QHS 11/02/16 Reported Omeprazole 20 Mg Capsule.dr 20 Mg PO QHS 11/02/16 Reported Clopidogrel (Clopidogrel Bisulfate) 75 Mg Tablet 1 Tab PO DAILY 11/02/16 Reported Famotidine 20 Mg Tablet 20 Mg PO Q48H 08/04/16 Rx Nitrostat (Nitroglycerin) 0.4 Mg Tab.subl 0.4 Mg SL PRN Q5MIN PRN 08/04/16 Rx Metoprolol Tartrate 25 Mg Tablet 12.5 Mg PO BID 08/04/16 Rx Atorvastatin Calcium 20 Mg Tablet 20 Mg PO QHS 08/04/16 Rx Aspirin Ec (Aspirin) 81 Mg Tablet.dr 81 Mg PO DAILY 07/29/16 Reported Doxazosin Mesylate 4 Mg Tablet 1 Tab PO DAILY 07/28/16 Reported Impression . 1. Acute respiratory failure secondary to acute systolic, diastolic heart failure. 2. Bullous emphysema/mild fibrosis 3. Coronary artery disease with previous myocardial infarction. 4. Chronic renal failure. The patient has gone hemodialysis in the past. 5. Myofibrosis. 6. Clinical presentation compatible with obstructive sleep apnea. 7. Anxiety nonspecific. Plan . 1. Recommend continued diuresis and oxygen supplementation. 2. No need for antibiotics. 3. The patient is scheduled for outpatient polysomnogram. [facility] after psg 4. Initiate Ativan for anxiety. 5. bronchodilator 6. lovenox protonix for prophylaxis discussed w pt, rn PERRY SAUCEDO MD Nov 04, 2016 08:56
[2016-11-04 11:00] VITALS: BP 130/77
--- NOTE | 2016-11-04 11:14 | PDOC ---
CARDIO Progress Notes Date and Time Date of Service 11/04/16 Time of Evaluation 1040 Subjective Subjective: No Chest Pain, No shortness of breath, No Palpitations, Other ( performing 6-min walk ) Vitals Vitals Vital Signs Date Time Temp Pulse Resp B/P (MAP) Pulse Ox O2 Delivery O2 Flow Rate FiO2 11/04/16 08:41 94 139/93 11/04/16 08:00 Nasal Cannula 2.0 11/04/16 07:00 16 94 11/04/16 03:00 98.4 98.4 Weight Weight [ ] Input and Output Intake and Output Intake and Output 11/04/16 07:00 Intake Total 700 ml Output Total 2600 ml Balance -1900 ml Intake Oral 700 ml Output Urine Total 2600 ml Laboratory Labs Laboratory Tests Test 11/04/16 03:00 White Blood Count 7.6 x10^3/uL (4.0-11.0) Red Blood Count 4.22 x10^6/uL (4.30-5.70) Hemoglobin 11.3 g/dL (13.0-17.5) Hematocrit 35.7 % (39.0-53.0) Mean Corpuscular Volume 85 fL (79-100) Mean Corpuscular Hemoglobin 27 pg (25-35) Mean Corpuscular Hemoglobin Concent 32 g/dL (31-37) Red Cell Distribution Width 17.1 % (11.5-14.5) Platelet Count 228 x10^3/uL (140-400) Neutrophils (%) (Auto) 62 % (31-73) Lymphocytes (%) (Auto) 21 % (24-48) Monocytes (%) (Auto) 10 % (0-9) Eosinophils (%) (Auto) 6 % (0-3) Basophils (%) (Auto) 1 % (0-3) Neutrophils # (Auto) 4.7 x10^3uL (1.8-7.7) Lymphocytes # (Auto) 1.6 x10^3/uL (1.0-4.8) Monocytes # (Auto) 0.8 x10^3/uL (0.0-1.1) Eosinophils # (Auto) 0.4 x10^3/uL (0.0-0.7) Basophils # (Auto) 0.1 x10^3/uL (0.0-0.2) Sodium Level 146 mmol/L (136-145) Potassium Level 3.2 mmol/L (3.5-5.1) Chloride Level 109 mmol/L (98-107) Carbon Dioxide Level 28 mmol/L (21-32) Anion Gap 9 (6-14) Blood Urea Nitrogen 11 mg/dL (8-26) Creatinine 1.2 mg/dL (0.7-1.3) Estimated GFR (Cockcroft-Gault) 71.6 Glucose Level 99 mg/dL (70-99) Calcium Level 8.5 mg/dL (8.5-10.1) Magnesium Level 1.9 mg/dL (1.8-2.4) Triglycerides Level 68 mg/dL (0-150) Cholesterol Level 119 mg/dL (0-200) LDL Cholesterol, Calculated 76 mg/dL (0-100) VLDL Cholesterol, Calculated 14 mg/dL (0-40) Non-HDL Cholesterol Calculated 90 mg/dL (0-129) HDL Cholesterol 29 mg/dL (40-60) Cholesterol/HDL Ratio 4.1 Physical Exam HEENT: Neck Supple W Full Motion LUNGS: Other (diminished bases ) Heart: S1S2, murmurs (2/6 systolic murmur ), irregularly irregular (PAF), other (tele: SR with PACs; PAF) Extremities: Other (trace bilateral LE edema ) Neurology: alert, oriented, follow commands Assessment Assessment 1. acute on chronic systolic CHF improved with diuresis agree with daily furosemide upon discharge discussed 2Gm Na diet and 2000cc FR with patient patient to f/u in our office with Dr. Dawn in month 2. COPD/pulm fibrosis O2 per pulm 3. CAD with NSTEMI (lateral) > 30 days continue Plavix, will stop ASA due to increased risk of bleeding with OAC. continue medical management 4. HTN controlled with meds 5. HLD statin therapy 6. tobacco abuse quit 07/2016 after NSTEMI 7. PAF will stop ASA and start OAC for stroke prophylaxis 8. CKD, II May discharge from a CV standpoint and f/u in our office with Dr. Dawn in month MELQUIADES SOTO APRN Nov 04, 2016 11:14
[2016-11-04] MEDS ORDERED: APIX5TAB PO (12:24)
[2016-11-04] MEDS ORDERED: APIXABAN 5 MG TABLET. PO SCH (12:30)
== END 2016-11-04 14:15 | disposition home health service (06) ==
LOC: ER 12:50 → 2 NORTH 14:10
PROVIDERS: ADMIT Internal Medicine; ATTEND Internal Medicine
DX: J96.01 Acute respiratory failure with hypoxia (principal); I50.43 Acute on chronic combined systolic (congestive) and diastolic (congestive) heart failure; E46 Unspecified protein-calorie malnutrition; E78.5 Hyperlipidemia, unspecified; E87.6 Hypokalemia; F41.9 Anxiety disorder, unspecified; G47.33 Obstructive sleep apnea (adult) (pediatric); I13.0 Hypertensive heart and chronic kidney disease with heart failure and stage 1 through stage 4 chronic kidney disease, or unspecified chronic kidney disease; N18.2 Chronic kidney disease, stage 2 (mild); I21.4 Non-ST elevation (NSTEMI) myocardial infarction; I25.10 Atherosclerotic heart disease of native coronary artery without angina pectoris; I25.2 Old myocardial infarction; I27.2 Other secondary pulmonary hypertension; I34.0 Nonrheumatic mitral (valve) insufficiency; I45.10 Unspecified right bundle-branch block; I48.0 Paroxysmal atrial fibrillation; I48.2 Chronic atrial fibrillation; J44.9 Chronic obstructive pulmonary disease, unspecified; J84.10 Pulmonary fibrosis, unspecified; K21.9 Gastro-esophageal reflux disease without esophagitis; N20.0 Calculus of kidney; N28.1 Cyst of kidney, acquired; N40.0 Benign prostatic hyperplasia without lower urinary tract symptoms; Z72.0 Tobacco use; Z82.49 Family history of ischemic heart disease and other diseases of the circulatory system; Z87.442 Personal history of urinary calculi
CPT/HCPCS: 36415; 71010; 80048; 80061; 80076; 81001; 82553; 82805; 83690; 83735; 83880; 84484; 85027; 85610; 93005; 94250; 94640; 94760; 96372; 96374; 96376; 97161; 97165; 99285; G0378; G8978; G8979; G8987; G8988; G8990; J1650; J1940; G0379

== ENCOUNTER → 2016-12-11 | Outpatient (CLI) | payer MEDICARE, OTHER ==
[~2016-12-11] MED LIST changes: +APIX5TAB PO; +CLOP75TA PO; +MIRT15TA3 PO; +OMEP20CA9 PO; +PROAIR HFA8.5 GM INH
--- NOTE | 2016-12-15 20:00 | SLEEP ---
DATE OF STUDY: 12/11/2016 ATTENDING PHYSICIAN: Dr. Cinthya Amin. REFERRING PHYSICIAN: Dr. Gorman. The patient is 76-year-old, who weighs 172 pounds with a BMI of 27. The patient's [place] score was 3. Split night study was performed at [facility]. During the night study, the patient spent 439 minutes in bed and slept for 359 minutes with a sleep efficiency of 82%. Sleep latency was 20 minutes with a REM latency of 122 minutes. Overall, sleep architecture showed increased stage I and stage II sleep, absent slow wave and normal REM sleep. During the initial diagnostic portion of the study, the patient slept for 144 minutes. During this time, there were no central, mixed or obstructive apneas. There were 66 hypopneas. The patient's apnea-hypopnea index was 28 per hour. No supine sleep was seen. Spaces REM AHI was 12 per hour. Review of EKG monitoring revealed average heart rate of 69 beats per minute. It appeared to be a paced rhythm. The patient frequent PVCs throughout, but no sustained arrhythmias were observed. Review of nocturnal oximetry study revealed a mean oxygen saturation of 92% with the lowest of 79%. A 65% of time oxygen saturation remained between 80% and 89%. PLMs were seen at the index of 1 per hour and none caused EEG arousals. The patient met the criteria for CPAP initiation. It was started at 5 cm of water and titrated up to 20 cm of water. At the final pressure, the patient had 39 minutes of sleep. The patient had supine as well as a brief REM period was observed. The patient's AHI was reduced to 0 per hour. The patient's oxygen saturation did improve; however, it is still stayed in the mid 80s with the lowest of 84%. The patient used a medium size full face mask. I would recommend an outpatient oximetry study on the current CPAP pressure. IMPRESSION: 1. Moderate sleep apnea-hypopnea syndrome with an AHI of 28 per hour. 2. Nocturnal hypoxia secondary to obstructive sleep apnea, not completely resolved with CPAP. 3. No clinically significant PLMs. 4. Abnormal EKG as discussed above. RECOMMENDATIONS: 1. CPAP at 20 cm of water completely eliminated the patient's sleep apnea and should be used on a nightly basis. 2. The patient's nocturnal hypoxia did not completely resolve with therapeutic pressure and I would recommend repeating in nocturnal oximetry study while on therapeutic pressure as an outpatient to assess the need for supplemental oxygen. 3. Follow up in 4-6 weeks to assess compliance with CPAP and to document clinical improvement. 4. Weight loss is advised. 5. Avoid COMMUNICATIONS ENGINEERING TECHNICIAN depressants. 6. Caution regarding driving until symptoms of sleep apnea resolve with the use of CPAP. 7. The patient used a medium size full face mask. ZACKARY FARFAN MD DR: JOSÉ MIGUEL/moise JOB#: [id number] / [id number] SREEKANTH
== END | disposition home or self-care (01) ==
LOC: SLPLAB 18:32
PROVIDERS: ATTEND Internal Medicine Pulmonary Disease
DX: G47.33 Obstructive sleep apnea (adult) (pediatric) (principal)
CPT/HCPCS: 95810

== ENCOUNTER → 2018-02-19 | Day surgery (SDC) | payer MEDICARE, OTHER ==
[~2018-02-19] MED LIST changes: -AMLO10TA2 PO; +AMLO10TA6 PO; +IV RINGERS,LACTATED 1000ML 1,000 ML IV SCH; +LIDOCAINE 2% PF 2ML VIAL. ONE; +PROPOFOL 20 ML IV ONE; -TELM80TA5 PO; +TELM80TA8 PO
--- NOTE | 2018-02-19 11:11 | PDOC1 ---
HISTORY & PHYSICAL H&P Bernardo Muñoz Jr [id number] 1940 01/16/2018 11:00 AM 05/28 [place] [employer] [facility] OUR PATIENTS COME FIRST [address] [place] [address] Ph. [phone] Patient: Bernardo Muñoz Jr Date of : 1940 Date: 01/16/2018 11:00 AM Visit Type: Consult This 77 year old male presents for diarrhea. History of Present Illness: 1. diarrhea Bernardo Muñoz Jr is a 77 year old male who presents for evaluation of diarrhea. The problem is ongoing. The onset was chronic and the symptoms began 1 year ago. The severity is mild-moderate. It occurs 4 to 6 times a day. The patient describes it as loose and watery. There are no aggravating factors. There are no relieving factors. The pertinent history includes: Started after his [place] one year ago. Has also ARF at that time.. He has had no prior studies. 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 Gorman Depression diastolic dysfunction EF normal, no CHF diverticulosis ED GERD- Hammertoe surgery hyperlipidemia Hypertension Family History (Detailed) Relationship Family Member Name Age at Condition Onset Age Cause of Close relative 1/2 sister Y Cardiomyopathy Y Close relative 1/2 sister Cancer, colon N Father Stroke N Father Coronary artery disease N Mother Y Coronary artery disease Y Family History Comments Relationship Family Member Name Condition Comments Mother Coronary artery disease JN 11/03/2015 - [place] Social History: (Detailed) The patient is right-handed. Preferred language is Citizen Of [place]. MARITAL STATUS/FAMILY/SOCIAL SUPPORT Currently . CHILDREN Has children: 1 son(s). Tobacco use status: Ex-cigarette smoker. Smoking status: Former smoker. TOBACCO CESSATION INFORMATION Date Counseled By Order Status Description Code Tobacco Cessation Information 06/26/2016 Pratip Amin Tobacco cessation counseling completed Tobacco cessation counseling 09/07/2016 Pratip Amin Tobacco cessation counseling completed Tobacco cessation counseling TOBACCO/VAPING EXPOSURE No passive smoke exposure. ALCOHOL There is no history of alcohol use. CAFFEINE The patient uses caffeine: soda. LIFESTYLE Moderate activity level. Never exercises. DIET regular. HOME ENVIRONMENT/SAFETY The home has smoke detectors. Carbon monoxide detector at home. Uses seat belts. EXPERIENCE Patient has experience and currently is discharged. Medications (active prior to today) Medication Name Sig Description Start Date Stop Date Refilled Rx Elsewhere Vitamin B-12 1,000 mcg tablet take 1 tablet by oral route every day 11/04/2015 N Vitamin D3 2,000 unit tablet take 1 tab daily 11/04/2015 N Centrum Silver Ultra Men's 300 mcg-600 mcg-300 mcg tablet take 1 tab daily 11/03 N nitroglycerin 0.[address] 1 tablet by sublingual route at the 1st sign of attack; may repeat every 5 min until relief; if pain persists after 3 tablets in 15 min, prompt medical attention is recommended 08/07/2016 N CoQ-10 100 mg capsule take 1 cap daily 08/11/2016 N Dulera 200 mcg-5 mcg/actuation HFA aerosol inhaler inhale 1 puff by inhalation route 2 times every day in the morning and evening.Rinse mouth after use. 2016 N selenium 200 mcg tablet take one tab po qd // Y ProAir HFA 90 mcg/actuation aerosol inhaler inhale 2 puff by inhalation route every 6 hours needed // Y Tylenol Extra Strength 500 mg tablet 1 tablet by oral route every 6 hours as needed 01/09/2017 N Lexapro 5 mg tablet take 1 tablet by oral route every day 08/22/20172017 N amlodipine 5 mg tablet take 1 tablet by oral route every day 10/08/20172017 N Metoprolol Tartrate 25 Mg Tablet 12.5 MG PO BID 10/23/2017 10/23/2017 N Atorvastatin Calcium 20 Mg Tablet 20 MG PO QHS 11/12/2017 11/12/2017 N doxazosin 4 mg tablet TAKE 1 TABLET BY ORAL ROUTE EVERY DAY 11/12/20172017 N Lasix 40 mg tablet Take one tablet at 8am and 1 pm) 11/12/2017 11/12/2017 N Plavix 75 mg tablet TAKE 1 TABLET BY ORAL ROUTE EVERY DAY 11/20/2017 11/20/2017 N tamsulosin 0.4 mg capsule TAKE 1 CAPSULE BY ORAL ROUTE EVERY DAY 1/2 HOUR FOLLOWING THE SAME MEAL EACH DAY 01/03/2018 01/03/2018 N POTASSIUM CL 20MEQ ER TABLETS TAKE 1 TABLET BY MOUTH EVERY DAY WITH FOOD 201701/03/2018 N Eliquis 5 mg tablet TAKE 1 TABLET BY MOUTH 2 TIMES EVERY DAY 01/07/20182017 N Medication Reconciliation Medications reconciled today. Medication Reviewed Adherence Medication Name Sig Desc Elsewhere Status taking as directed Vitamin B-12 1,000 mcg tablet take 1 tablet by oral route every day N Verified taking as directed Vitamin D3 2,000 unit tablet take 1 tab daily N Verified taking as directed nitroglycerin 0.[address] 1 tablet by sublingual route at the 1st sign of attack; may repeat every 5 min until relief ; if pain persists after 3 tablets in 15 min, prompt medical attention is recommended N Verified taking as directed Centrum Silver Ultra Men's 300 mcg-600 mcg-300 mcg tablet take 1 tab daily N Verified taking as directed CoQ-10 100 mg capsule take 1 cap daily N Verified taking as directed Dulera 200 mcg-5 mcg/actuation HFA aerosol inhaler inhale 1 puff by inhalation route 2 times every day in the morning and evening.Rinse mouth after use. N Verified taking as directed selenium 200 mcg tablet take one tab po qd Y Verified taking as directed ProAir HFA 90 mcg/actuation aerosol inhaler inhale 2 puff by inhalation route every 6 hours needed Y Verified taking as directed Tylenol Extra Strength 500 mg tablet 1 tablet by oral route every 6 hours as needed N Verified taking as directed Lexapro 5 mg tablet take 1 tablet by oral route every day N Verified taking as directed amlodipine 5 mg tablet take 1 tablet by oral route every day N Verified taking as directed Metoprolol Tartrate 25 Mg Tablet 12.5 MG PO BID N Verified taking as directed Atorvastatin Calcium 20 Mg Tablet 20 MG PO QHS N Verified taking as directed Lasix 40 mg tablet Take one tablet at 8am and 1 pm) N Verified taking as directed doxazosin 4 mg tablet TAKE 1 TABLET BY ORAL ROUTE EVERY DAY N Verified taking as directed tamsulosin 0.4 mg capsule TAKE 1 CAPSULE BY ORAL ROUTE EVERY DAY 1/2 HOUR FOLLOWING THE SAME MEAL EACH DAY N Verified taking as directed Plavix 75 mg tablet TAKE 1 TABLET BY ORAL ROUTE EVERY DAY N Verified taking as directed Eliquis 5 mg tablet TAKE 1 TABLET BY MOUTH 2 TIMES EVERY DAY N Verified taking as directed POTASSIUM CL 20MEQ ER TABLETS TAKE 1 TABLET BY MOUTH EVERY DAY WITH FOOD N Verified Medications (Added, Continued or Stopped today) Start Date Medication Directions PRN Status PRN Reason Instruction Stop Date 10/08/2017 amlodipine 5 mg tablet take 1 tablet by oral route every day N 11/12/2017 Atorvastatin Calcium 20 Mg Tablet 20 MG PO QHS N 11/04/2015 Centrum Silver Ultra Men's 300 mcg-600 mcg-300 mcg tablet take 1 tab daily N 08/11/2016 CoQ-10 100 mg capsule take 1 cap daily N 11/12/2017 doxazosin 4 mg tablet TAKE 1 TABLET BY ORAL ROUTE EVERY DAY N 08/24/2016 Dulera 200 mcg-5 mcg/actuation HFA aerosol inhaler inhale 1 puff by inhalation route 2 times every day in the morning and evening.Rinse mouth after use. N sample 01/07/2018 Eliquis 5 mg tablet TAKE 1 TABLET BY MOUTH 2 TIMES EVERY DAY N 11/12/2017 Lasix 40 mg tablet Take one tablet at 8am and 1 pm) N 08/22/2017 Lexapro 5 mg tablet take 1 tablet by oral route every day N 10/23/2017 Metoprolol Tartrate 25 Mg Tablet 12.5 MG PO BID N 08/07/2016 nitroglycerin 0.[address] 1 tablet by sublingual route at the 1st sign of attack; may repeat every 5 min until relief; if pain persists after 3 tablets in 15 min, prompt medical attention is recommended Y 11/20/2017 Plavix 75 mg tablet TAKE 1 TABLET BY ORAL ROUTE EVERY DAY N 01/03/2018 POTASSIUM CL 20MEQ ER TABLETS TAKE 1 TABLET BY MOUTH EVERY DAY WITH FOOD N ProAir HFA 90 mcg/actuation aerosol inhaler inhale 2 puff by inhalation route every 6 hours needed N selenium 200 mcg tablet take one tab po qd N OTC 01/03/2018 tamsulosin 0.4 mg capsule TAKE 1 CAPSULE BY ORAL ROUTE EVERY DAY 1/2 HOUR FOLLOWING THE SAME MEAL EACH DAY N 01/09/2017 Tylenol Extra Strength 500 mg tablet 1 tablet by oral route every 6 hours as needed N 11/04/2015 Vitamin B-12 1,000 mcg tablet take 1 tablet by oral route every day N 11/04/2015 Vitamin D3 2,000 unit tablet take 1 tab daily N Allergies: Ingredient Reaction (Severity) Medication Name Comment NO KNOWN ALLERGIES ORDERS: Status Lab Order Time Frame Comments ordered CMP -today ordered CBC w/diff -today ordered TSH -today ordered follow-up visit 3 Months 3 Months ordered Lipid Panel -today ordered CPK -today ordered Hemoglobin A1c -today ordered follow-up visit 2 Months 2 Months ordered follow-up visit 2 Months 2 Months ordered CPK -today ordered CPK -today ordered Hemoglobin A1c -today ordered follow-up visit 3 Months 3 Months ordered follow-up visit 3 Months 3 Months ordered CMP -today ordered CBC w/diff -today ordered CBC w/diff -today ordered CMP -today ordered follow-up visit 2 Weeks 2 Weeks ordered follow-up visit 3 Weeks 3 Weeks ordered BMP -today ordered CBC w/diff -today ordered follow-up visit 4 Weeks 4 Weeks ordered CMP -today ordered CBC w/diff -today ordered follow-up visit 1 Month 1 Month ordered CBC w/diff -today ordered CMP -today ordered Magnesium Serum -today ordered follow-up visit 2 Weeks 2 Weeks ordered BMP -today ordered CBC w/diff -today ordered BNP -today ordered follow-up visit 2 Weeks 2 Weeks ordered Referrals: Sub[facility]LL[facility] CHF management. Evaluate and treat When contacting patient to schedule appt: will need to go to back door of home to be admitted. Thank you. ordered B-Type Natriuretic Peptide ordered BMP -today ordered Magnesium Serum -today ordered BNP -today ordered follow-up visit 4 Weeks 4 Weeks ordered follow-up visit 2 Weeks 2 Weeks ordered follow-up visit 4 Weeks 4 Weeks ordered BMP -today ordered Magnesium Serum -today ordered CMP -today ordered CBC w/diff -today ordered Magnesium -today ordered follow-up visit 1 Month 1 Month ordered CPK -today ordered follow-up visit 4 Weeks 4 Weeks ordered CBC w/diff -today ordered CMP -today ordered follow-up visit 4 Weeks 4 Weeks ordered follow-up visit 4 Weeks 4 Weeks ordered follow-up visit 4 Weeks 4 Weeks ordered follow-up visit 4 Weeks 4 Weeks ordered follow-up visit 4 Weeks 4 Weeks ordered CBC w/diff -today ordered CMP -today ordered BNP -today ordered follow-up visit 4 Weeks 4 Weeks ordered follow-up visit 4 Weeks 4 Weeks ordered follow-up visit 4 Weeks 4 Weeks ordered follow-up visit 4 Weeks 4 Weeks ordered follow-up visit 4 Weeks 4 Weeks ordered follow-up visit 4 Weeks 4 Weeks ordered follow-up visit 4 Weeks 4 Weeks ordered CBC w/diff -today ordered Lipid Panel -today ordered CMP -today ordered CPK -today ordered follow-up visit 2 Months 2 Months ordered follow-up visit 4 Weeks 4 Weeks ordered follow-up visit 2 Months 2 Months ordered Referrals: Surgery. Dr. Qureshi ordered CBC w/diff -today ordered CMP -today ordered Lipid Panel -today ordered CPK -today ordered follow-up visit 2 Months 2 Months ordered follow-up visit 2 Months 2 Months ordered follow-up visit 2 Months 2 Months System Neg/Pos Details Constitutional Negative Chills, Fever and Malaise. ENMT Negative Sore throat. Eyes Negative Double vision. Respiratory Negative Dyspnea and Wheezing. Cardio Negative Chest pain and Irregular heartbeat/palpitations. GI Positive See HPI. GI Negative See HPI. Negative Dysuria and Hematuria. Endocrine Negative Cold intolerance and Heat intolerance. Psych Negative Anxiety. Integumentary Negative Hives and Rash. MS Negative Joint pain. Ermias/Lymph Negative Easy bleeding and Easy bruising. Allergic/Immuno Negative Food allergies. Vital Signs Time BP mm/Hg Pulse /min Resp /min Temp F Ht ft Ht in Ht cm Wt lb Wt kg BMI kg/ m2 BSA m2 O2 Sat% 11:01 AM 140/80 71 16 97.4 5.0 7.00 170.18 195.80 88.813 30.67 2.05 90 Measured By Time Measured by 11:01 AM Sharon Swygert PHYSICAL EXAM: Exam Findings Details Constitutional Normal Well developed. Eyes Normal Conjunctiva - Right: Normal, Left: Normal. Sclera - Right: Normal, Left: Normal. Nasopharynx Normal Lips/teeth/gums - Normal. Neck Exam Normal Inspection - Normal. Thyroid gland - Normal. Respiratory Normal Inspection - Normal. Auscultation - Normal. Cardiovascular Normal Regular rate and rhythm. No murmurs, gallops, or rubs. Abdomen Normal Inspection - Normal. Anterior palpation - No guarding. No abdominal tenderness. No hepatic enlargement. No spleen enlargement. No hernia. No ascites. Skin Normal Inspection - Normal. Extremity Normal No edema. Psychiatric Normal Orientation - Oriented to time, place, person & situation. Appropriate mood and affect. Assessment/Plan # Detail Type Description 1. Assessment Diarrhea, unspecified type (R19.7). Impression Patient has significant co-morbid condition and therefore needs clearance from Cardiology for procedure. Patient also needs to be off Plavix and Eloquis 3 days before the test. Patient had history of ARF therefore should be given Golytely as the agent for bowel cleaning for colonoscopy.. Patient Plan schedule colonoscopy at [facility] once cardiac clearance with Dr. Arenas office is obtained with Golytely preparation. Active Patient Care Team Members Name Contact Agency Type Support Role Relationship Active Date Inactive Date Specialty Cinthya Amin MD Patient provider PCP Internal Med Provider: Alfie Amin MD 01/16/2018 11:45 AM Austin Veronica MD, Family Practice; Keven Gutiérrez MD Internal Medicine; Shruthi Avery MD, Internal Medicine; Cinthya Amin MD Internal Medicine; Alfie Amin MD, Gastroenterology; Salvador Vasquez MD, Rheumatology, J. JettJigar SINGH ------ 02/19/18 Patient seen and examined. No change in H&P. ALFIE AMIN MD Feb 19, 2018 11:11
[2018-02-19 11:26] VITALS: BP 180/89
--- NOTE | 2018-02-21 10:08 | PATHOLOGY ---
[place] Accession Number: [id number] . 01 Material submitted: . RANDOM COLON BIOPSY . 01 Clinician provided ICD-10: R19.7 . 01 Clinical history: . Diarrhea . 02 Diagnosis: Colonic mucosa, random colon biopsies: - No significant pathologic abnormalities. . ([facility]:mm; 02/20/18) [facility]/02/20/2018 . 02 Comment: Sections of the random colon biopsy reveal multiple segments of colonic mucosa. There is no evidence of a chronic destructive colitis, lymphocytic colitis, or collagenous colitis. . (JP:mml; 02/20/18) . 02 Electronically signed: . Devan Bruner MD, Pathologist NPI- [id number] . 01 Gross description: . Received in formalin labeled "Bernardo Muñoz Jr, random colon BX" are 3 pink tissue fragments each 0.3 cm which are entirely submitted as A1. (ANGELY; 02/19/2018) JBR/JBR . 02 Pathologist provided ICD-10: R19.7 . 02 CPT . 059076 Specimen Comment: A courtesy copy of this report has been sent to Specimen Comment: [phone], . Specimen Comment: Report sent to Specimen Comment: A duplicate report has been generated due to demographic updates. Performed at: 01 [facility] [address], [place] [id number] MD Ronnell Kruse MD Phone: [phone] Performed at: 02 [facility] [address] [place], [place] [id number] MD Devan Bruner MD Phone: [phone]
== END | disposition home or self-care (01) ==
LOC: SURG 09:45
PROVIDERS: ATTEND Internal Medicine Gastroenterology
DX: K52.9 Noninfective gastroenteritis and colitis, unspecified (principal); K57.30 Diverticulosis of large intestine without perforation or abscess without bleeding; G47.33 Obstructive sleep apnea (adult) (pediatric); I25.2 Old myocardial infarction; F41.9 Anxiety disorder, unspecified; I25.10 Atherosclerotic heart disease of native coronary artery without angina pectoris; N40.0 Benign prostatic hyperplasia without lower urinary tract symptoms; J44.9 Chronic obstructive pulmonary disease, unspecified; K21.9 Gastro-esophageal reflux disease without esophagitis; E78.5 Hyperlipidemia, unspecified; D64.9 Anemia, unspecified; I13.0 Hypertensive heart and chronic kidney disease with heart failure and stage 1 through stage 4 chronic kidney disease, or unspecified chronic kidney disease; N18.4 Chronic kidney disease, stage 4 (severe); I50.9 Heart failure, unspecified; Z99.2 Dependence on renal dialysis; Z79.899 Other long term (current) drug therapy; Z79.82 Long term (current) use of aspirin; Z72.0 Tobacco use; Z98.890 Other specified postprocedural states
CPT/HCPCS: 45380; 88305; J2001; J2704

== ENCOUNTER → 2018-03-29 | Outpatient (CLI) | payer MEDICARE, OTHER ==
[2018-02-19 11:26] VITALS: BP 180/89
[~2018-03-29] MED LIST changes: -IV RINGERS,LACTATED 1000ML 1,000 ML IV SCH; -LIDOCAINE 2% PF 2ML VIAL. ONE; -PROPOFOL 20 ML IV ONE
--- NOTE | 2018-03-29 16:35 | RAD ---
CT of the chest without contrast, 03/29/2018: HISTORY: Follow-up lung nodule Multidetector CT imaging was performed without contrast as requested. Comparison is made to a study from 08/04/2016. There are extensive emphysematous changes in the lungs. There are moderate scattered linear opacities compatible scarring. Granulomatous calcifications are present in the right upper lobe. No pulmonary mass or dense consolidation is seen. There is no evidence of pleural fluid. There is mild calcific plaquing of the thoracic aorta without evidence of aneurysm. A coronary artery stent and/or calcifications is present in the left circumflex coronary artery. Calcified mediastinal and right hilar lymph nodes are evident compatible with old granulomatous disease. No noncalcified mediastinal adenopathy is seen. There are numerous cysts in both kidneys. A small high density nodule arising from the posterior aspect of the right kidney is unchanged and is probably a hemorrhagic cyst. Moderate multilevel degenerative changes are present in the spine. IMPRESSION: 1. Extensive pulmonary emphysema and scarring. 2. No pulmonary mass is identified. 3. Old healed granulomatous disease in the chest. 4. Coronary artery disease. 5. Bilateral renal cysts. PQRS Compliance Statement: One or more of the following individualized dose reduction techniques were utilized for this examination: 1. Automated exposure control 2. Adjustment of the mA and/or kV according to patient size 3. Use of iterative reconstruction technique Electronically signed by: Ray Bliss MD (03/29/2018 4:31 PM) [facility]
== END | disposition home or self-care (01) ==
LOC: CT 13:17
PROVIDERS: ATTEND Internal Medicine Pulmonary Disease
DX: J43.8 Other emphysema (principal); I25.10 Atherosclerotic heart disease of native coronary artery without angina pectoris; N28.1 Cyst of kidney, acquired
CPT/HCPCS: 71250

== ENCOUNTER → 2019-03-05 | Outpatient (CLI) | payer MEDICARE, OTHER ==
[2018-02-19 11:26] VITALS: BP 180/89
[~2019-03-05] MED LIST changes: +ALBU2.5V8 INH; -AMLO10TA6 PO; +AMLO10TA8 PO; -NITR0.4T SL; +NITR0.4T24 SL; +OMEP20CA10 PO; -OMEP20CA9 PO; -OXYC-323 PO; +OXYC1TAB15 PO; -PROAIR HFA8.5 GM INH
--- NOTE | 2019-03-05 15:09 | CARD ---
MR#: [id number] Date of Study: 03/05/2019 Ordering Physician: VENTURA GHOTRA, Referring Physician: VENTURA GHOTRA, Tech: Genie Arrington APPROVED REPORT EXAM: Two-dimensional and M-mode echocardiogram with Doppler and color Doppler. Other Information Quality : GoodHR: 56bpm INDICATION Cardiac Disease: CAD RISK FACTORS Hyperlipidemia Diabetes 2D DIMENSIONS RVDd3.1 (2.9-3.5cm)Left Atrium(2D)4.6 (1.6-4.0cm) IVSd1.2 (0.7-1.1cm)Aortic Root(2D)3.0 (2.0-3.7cm) LVDd5.6 (3.9-5.9cm)LVOT Diameter2.3 (1.8-2.4cm) PWd1.2 (0.7-1.1cm)LVDs4.7 (2.5-4.0cm) FS (%) 15.6 %SV49.2 ml LVEF(%)32.6 (>50%) Aortic Valve AoV Peak Bruce.129.1cm/sAoV VTI27.2cm AO Peak GR.6.7mmHgLVOT Peak Bruce.96.6cm/s LVOT VTI 21.40cmAO Mean GR.3mmHg APOORVA (VMAX)2.20do2FOH (VTI)3.17cm2 Mitral Valve MV E Gnpybjuf80.7cm/sMV DECEL XPHN006zz MV A Hjgzqxnu64.9cm/sMV [id number] E/A Ratio0.5MVA (PHT)1.91cm2 TDI E/Lateral E'11.3E/Medial E'12.5 Pulmonary Valve PV Peak Snbuhtct215.0cm/sPV Peak Grad.5mmHg Tricuspid Valve TR P. Pbeusemt701cg/sRAP QQTCKHQD2xkNe TR Peak Gr.67mwMpHPKX26cvSx Pulmonary Vein S1 Cwnevcco21.9cm/sD2 Rlluiyfi37.7cm/s PVa [id number] LEFT VENTRICLE The left ventricle is normal size. There is mild concentric left ventricular hypertrophy. The left ve ntricular systolic function is low normal. The Ejection Fraction is 50%. Transmitral Doppler flow pat tern is Grade I-abnormal relaxation pattern. RIGHT VENTRICLE The right ventricle is borderline dilated. There is normal right ventricular wall thickness. The righ t ventricular systolic function is normal. ATRIA The left atrium is borderline dilated. The right atrium size is normal. The interatrial septum is int act with no evidence for an atrial septal defect or patent foramen ovale as noted on 2-D or Doppler i maging. AORTIC VALVE The aortic valve is thickened but opens well. Doppler and Color Flow revealed no significant aortic r egurgitation. There is no significant aortic valvular stenosis. MITRAL VALVE The mitral valve is normal in structure and function. There is no evidence of mitral valve prolapse. There is no mitral valve stenosis. Doppler and Color-flow revealed trace mitral regurgitation. TRICUSPID VALVE The tricuspid valve is normal in structure and function. Doppler and Color Flow revealed trace to mil d tricuspid regurgitation with an estimated PAP of 37 mmHg. There is no tricuspid valve prolapse or v egetation. There is no tricuspid valve stenosis. PULMONIC VALVE The pulmonic valve is not well visualized. Doppler and Color Flow revealed trace pulmonic valvular re gurgitation. GREAT VESSELS The aortic root is normal in size. The IVC is normal in size and collapses >50% with inspiration. PERICARDIAL EFFUSION There is no evidence of significant pericardial effusion. Critical Notification Critical Value: No <Conclusion> The left ventricular systolic function is low normal. The Ejection Fraction is 50%. Transmitral Doppler flow pattern is Grade I-abnormal relaxation pattern. Trace mitral regurgitation. Trace to mild tricuspid regurgitation with an estimated PAP of 37 mmHg. There is no evidence of significant pericardial effusion. Signed by : Gabo Cristina, Electronically Approved : 03/05/2019 15:08:48
--- NOTE | 2019-03-05 16:08 | RAD ---
MR#: [id number] Date of Study: 03/05/2019 Ordering Physician: VENTURA GHOTRA, Referring Physician: VENTURA GHOTRA, Tech: Brandon Mo MBA, RDMS, RVT, RDCS, RTR APPROVED REPORT Patient Location: OUT-PATIENT Indications Claudication: Rest Pain: VELOCITY AND DOPPLER WAVEFORM ANALYSIS RIGHT cm/secWaveformSeverity LEFT cm/secWaveform Severity dCFA 88.0BiphasicdCFA 109.0Biphasic Prof Fem Art. 69.0BiphasicProf Fem Art. 60.0Biphasic Fem Art Prox. 99.0BiphasicFem Art Prox. 122.0Biphasic Fem Art Mid. 101.0BiphasicFem Art Mid. 126.0Biphasic Fem Art Dist. 95.0BiphasicFem Art Dist. 87.0Biphasic Pop Art(Fossa) 75.0BiphasicPop Art(AK) 72.0Biphasic RN LIAISON Prox. 72.0BiphasicPTA Prox. 88.0Biphasic RN LIAISON Dist. 73.0BiphasicPTA Dist. 79.0Biphasic Per Art Mid. 30.0BiphasicPer Art Mid. 79.0Biphasic LAUREN Prox. 77.0BiphasicATA Prox. 82.0Biphasic DPA 70BiphasicDPA 70Biphasic Findings Lower extremity arterial Dopplers revealed mostly biphasic waveforms throughout the bilateral vessels . Grayscale images demonstrate mild diffuse irregularities without any focal high-grade stenosis There is three-vessel runoff bilaterally in the knees. Cannot rule out right peroneal artery diffuse disease versus diminutive vessel versus not well visualized. Critical Notification Critical Value: No <Conclusion> 1. No significant above knee disease. 2. Bilateral three-vessel runoff below the knee 3. Cannot rule out moderate right peroneal arterial disease. Signed by : Shiv Couch, Electronically Approved : 03/05/2019 16:07:43
== END | disposition home or self-care (01) ==
LOC: ECHO 13:19
PROVIDERS: ATTEND Internal Medicine Cardiovascular Disease
DX: I07.1 Rheumatic tricuspid insufficiency (principal); I25.10 Atherosclerotic heart disease of native coronary artery without angina pectoris
CPT/HCPCS: 93306; 93925

== ENCOUNTER → 2019-04-09 | Outpatient (CLI) | payer MEDICARE, OTHER ==
[2018-02-19 11:26] VITALS: BP 180/89
--- NOTE | 2019-04-09 17:06 | RAD ---
Examination: HAND BILAT 3V History: Polyarthralgia Comparison/Correlation: None Findings: 3 images of the right hand and 3 images of the left hand were obtained. Right hand Degenerative remodeling of the proximal third, and fifth proximal interphalangeal joints is noted with significant spurring. Mild degenerative changes otherwise are present involving interphalangeal joints. No fracture or bone destruction. Left hand Mild degenerative spurring about the proximal interphalangeal joints and second and third metacarpophalangeal joints identified. Osteochondroma suggested involving the distal radial metaphysis laterally. No cortical disruption. Impression: Degenerative changes apparently involving the right hand. No acute process. Electronically signed by: Deniz Ferrer MD (04/09/2019 5:03 PM) [facility]
== END | disposition home or self-care (01) ==
LOC: RAD 11:16
PROVIDERS: ATTEND Internal Medicine Rheumatology
DX: M19.041 Primary osteoarthritis, right hand (principal); M77.8 Other enthesopathies, not elsewhere classified
CPT/HCPCS: 73130

== ENCOUNTER → 2019-07-25 | Outpatient (CLI) | payer MEDICARE, OTHER ==
[2018-02-19 11:26] VITALS: BP 180/89
[~2019-07-25] MED LIST changes: -OMEP20CA10 PO; +OMEP20CA16 PO
--- NOTE | 2019-07-25 15:24 | RAD ---
CT LOW DOSE LUNG SCREENING Indication: Cancer screening Technique: Noncontrast CT imaging was performed of the chest as per low dose screening protocol, multiplanar reconstruction images submitted. One or more of the following individualized dose reduction techniques were utilized for this examination: 1. Automated exposure control 2. Adjustment of the mA and/or kV according to patient size 3. Use of iterative reconstruction technique. Comparison: March 29, 2018 Findings: There is again severe emphysema. No new suspicious pulmonary nodularity is identified. There is no pleural or pericardial fluid, pneumothorax, or infiltrate. There is again coronary calcification. Thoracic aortic caliber is stable. There is no new significant chest lymphadenopathy. There are some calcified right hilar and mediastinal nodes. There are hypodense foci of the visualized bilateral kidneys including large focus laterally on the left, density characteristics suggestive of cysts. There is also small somewhat hyperdense lesion posteriorly of the mid to superior right kidney about 1.1 cm, somewhat smaller than previous exam, likely a hemorrhagic or complex cyst. IMPRESSION: 1. There is no new suspicious pulmonary nodularity. Lung RADS category 1, low-dose CT in 12 months recommended. 2. There is again severe emphysema. 3. There is coronary calcification. 4. There are bilateral renal cysts, also what likely represents a hemorrhagic or complex cyst of the right kidney as seen previously. Electronically signed by: Eligio Ruiz MD (07/25/2019 3:21 PM) [id number]
== END ==
LOC: CT 09:41
PROVIDERS: ATTEND Internal Medicine Pulmonary Disease
DX: Z12.2 Encounter for screening for malignant neoplasm of respiratory organs (principal); J43.9 Emphysema, unspecified; N28.1 Cyst of kidney, acquired; Z87.891 Personal history of nicotine dependence
CPT/HCPCS: G0297

== ENCOUNTER → 2019-10-02 | Outpatient (CLI) | payer MEDICARE, OTHER ==
[2018-02-19 11:26] VITALS: BP 180/89
[~2019-10-02] MED LIST changes: +REGADENOSON 0.4 MG/5 ML DISP.SYRIN. IV ONE
--- NOTE | 2019-10-02 14:18 | RAD ---
MR#: [id number] Date of Study: 10/02/2019 Ordering Physician: VENTURA GHOTRA, Referring Physician: TREVIN GARCIA Tech: RT Reena Faustin) (N) APPROVED REPORT Test Type: Pharmacological Stress Nurse/Tech: RT Reena Faustin) (N) Test Indications: coronary artery disease Cardiac History: [place] Medications: see EHR Medical History: see EHR Resting ECG: sinus rhythm with PVC's Resting Heart Rate: 80 bpm Resting Blood Pressure: 136/66mmHg Pretest Chest Pain: None Nurse/Tech Notes Consent: The procedure was explained to the patient in lay terms. Informed consent was witnessed. Sidney eout was entered into [employer]. History and Stress Test performed by RT Reena Faustin) (N) Pharm. Details Pharmacologic stress testing was performed using 0.4mg per 5ml of regadenoson given intravenously ove r 7-10 seconds. POST EXERCISE Max HR: 93 bpm Max Blood Pressure: 129/62mmHg Blood Pressure response to exercise: Normal blood pressure response during stress. INTERPRETATION Stress EKG Conclusion: Frequent PAC's and PVC's. Imaging Protocol IMAGE PROTOCOL: Rest Tc-99m/stress Tc-99m 1 day Rest: Stress: Viability: Radiopharm.Tc99m SrkvuxglhQw69n Sestamibi Stds78hFt 34mCi Duration 15min. 10min. Img Date 10/02/2019 10/02/2019 Inj-Img Jyaw90akk. 60min. Rest Admin Site:IV - Right ForearmAdministrator:RT Reena Faustin)(N) Stress Admin Site: IV - Right ForearmAdministrator: GAVIN Marion STRESS DATA End Diast. Vol.157.0mlAv. Heart Rate54.0bpm End Syst. Vol.84.0mlCO Index BSA0.0L/min Myocardial Mjeq472.0gEject. Kyakaiii56.0% Stress Rates Pk. Fill Rate0.73EDV/secLVtime Pk. Fill 150.74msec Pk. Empty Rate2.02ESV/secLVtime Pk. Ldlpz937.05msec /3 Pk. Fill0.53EDV/sec Stress Scores Regional WT2.00Summed WT14.00 Regional WM0.00Summed WM10.00 LV Perfusion There is a large size mid to distal inferior and inferolateral defect on stress images suggestive of prior infarct. The mid to distal and apical segment of this infarct lesion appears to be mildly reve rsible suggestive of nico-infarct reversibility. Wall Motion Severe LV dysfunction. EF 40% LV Perf. Quant 17 Seg. SSS19.00 17 Seg. SRS11.00 17 Seg. SDS8.00 Stress Defect Extent (% LAD)16.90Rest Defect Extent (% LAD)1.90Rev. Defect Extent (% LAD)5.60 Stress Defect Extent (% LCX) 80.00Rest Defect Extent (% LCX)72.50Rev. Defect Extent (% LCX)10.00 Stress Defect Extent (% RCA)20.00Rest Defect Extent (% RCA)2.20Rev. Defect Extent (% RCA)13.30 Stress Defect Extent (% GOMEZ)35.70Rest Defect Extent (% GOMEZ)22.60Rev. Defect Extent (% GOMEZ)8.70 Other Information Quality:Average Risk Assessment: Moderate-High Risk Conclusion 1. Abnormal stress EKG with frequent PACs and PVCs 2. 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 3. Severe LV dysfunction. EF 40 to 45% 4. Moderate to high risk study. Signed by : Shiv Couch, Electronically Approved : 10/02/2019 14:17:48
== END | disposition home or self-care (01) ==
LOC: NM 09:45
PROVIDERS: ATTEND Internal Medicine Cardiovascular Disease
DX: I49.3 Ventricular premature depolarization (principal); I25.10 Atherosclerotic heart disease of native coronary artery without angina pectoris; I25.2 Old myocardial infarction
CPT/HCPCS: 78452; 93017; A9500; J2785

== ENCOUNTER → 2020-02-19 | Outpatient (CLI) | payer MEDICARE, OTHER ==
[2018-02-19 11:26] VITALS: BP 180/89
[~2020-02-19] MED LIST changes: -ASPI-612 PO; +ASPI-886 PO; -REGADENOSON 0.4 MG/5 ML DISP.SYRIN. IV ONE
[2020-02-19 11:16] LABS: BASO % 1 % (0-3); EOS # 0.1 x10^3/uL (0.0-0.7); EOS % 3 % (0-3); HEMATOCRIT 40.3 % (39.0-53.0); HEMOGLOBIN 13.3 g/dL (13.0-17.5); LYMPH # 1.5 x10^3/uL (1.0-4.8); LYMPH % 29 % (24-48); MEAN CORPUSCULAR HEMOGLOBIN 28 pg (25-35); MEAN CORPUSCULAR HGB CONC 33 g/dL (31-37); MEAN CORPUSCULAR VOLUME 85 fL (79-100); MONO # 0.6 x10^3/uL (0.0-1.1); MONO % 12 % (0-9); NEUT # 2.9 x10^3/uL (1.8-7.7); NEUT % 56 % (31-73); PLATELET COUNT 221 x10^3/uL (140-400); RED BLOOD COUNT 4.74 x10^6/uL (4.30-5.70); RED CELL DISTRIBUTION WIDTH 14.9 % (11.5-14.5); WHITE BLOOD COUNT 5.1 x10^3/uL (4.0-11.0)
[2020-02-19 11:29] LABS: CALCIUM 9.7 mg/dL (8.5-10.1); CREATININE 1.4 mg/dL (0.7-1.3); GFR 59.5; POTASSIUM 3.9 mmol/L (3.5-5.1)
[2020-02-19 11:34] LABS: ALBUMIN 3.6 g/dL (3.4-5.0); ALBUMIN/GLOBULIN RATIO 0.7 (1.0-1.7); TOTAL BILIRUBIN 0.3 mg/dL (0.2-1.0); TOTAL PROTEIN 8.6 g/dL (6.4-8.2)
[2020-02-20 13:13] LABS: KAPPA FREE 47.8 mg/L (3.3-19.4); KAPPA LAMBDA RATIO 1.11 (0.26-1.65); LAMBDA FREE 43.1 mg/L (5.7-26.3)
== END | disposition home or self-care (01) ==
LOC: ONCLAB 10:47
PROVIDERS: ATTEND Internal Medicine Hematology & Oncology
DX: D47.2 Monoclonal gammopathy (principal)
CPT/HCPCS: 36415; 80053; 82784; 83520; 84165; 85025; 86334

== ENCOUNTER → 2020-07-23 | Outpatient (CLI) | payer MEDICARE, OTHER ==
[2018-02-19 11:26] VITALS: BP 180/89
[~2020-07-23] MED LIST changes: +AMLO-187 PO; -AMLO10TA8 PO; +MIRT-7 PO; -MIRT15TA3 PO
--- NOTE | 2020-07-23 14:46 | RAD ---
CT THORAX WO HISTORY: Lung nodule COMPARISON: CT lung cancer screening 07/25/2019, CT chest 03/29/2018. TECHNIQUE: CT scan of the chest was performed without intravenous contrast. FINDINGS: The visualized thyroid gland is within normal limits. Redemonstrated calcified pretracheal lymph node and calcified right hilar lymph nodes. Shotty nonenlarged noncalcified mediastinal lymph nodes. Aorta is normal in caliber with mild atherosclerotic calcifications. The heart is normal in size without pericardial effusion. Moderate coronary artery calcifications wi th a coronary stent.. The central airways are patent. Severe paraseptal emphysematous change. Large right upper lobe subple ural bleb measuring 6 x 2.6 cm. A few calcified right upper lobe granulomas are redemonstrated. No si gnificant noncalcified pulmonary nodules. Images of the upper abdomen demonstrate bilateral renal cysts and old granulomatous disease of the sp neeraj. Degenerative changes are seen in the spine. IMPRESSION: 1. Severe emphysema. 2. Moderate coronary artery calcification status post stenting. 3. No significant noncalcified pulmonary nodules. If this was performed for lung cancer screening, ca tegorization as follows: LUNG RADS: Category 1: Negative. Follow up: Continue annual screening with LDCT in 12 months. Exposure: One or more of the following individualized dose reduction techniques were utilized for thi s examination: 1. Automated exposure control 2. Adjustment of the mA and/or kV according to patient size 3. Use of iterative reconstruction technique. Electronically signed by: Mehrdad Gomez MD (07/23/2020 2:44 PM) [facility]
== END ==
LOC: CT 10:59
PROVIDERS: ATTEND Internal Medicine Pulmonary Disease
DX: J43.9 Emphysema, unspecified (principal); R91.1 Solitary pulmonary nodule
CPT/HCPCS: 71250

== ENCOUNTER → 2020-08-18 | Outpatient (CLI) | payer MEDICARE, OTHER ==
[2018-02-19 11:26] VITALS: BP 180/89
[~2020-08-18] MED LIST changes: -MIRT-7 PO; +MIRT15TA3 PO
[2020-08-18 11:08] LABS: BASO # 0.1 x10^3/uL (0.0-0.2); BASO % 1 % (0-3); EOS # 0.2 x10^3/uL (0.0-0.7); EOS % 4 % (0-3); HEMATOCRIT 41.4 % (39.0-53.0); HEMOGLOBIN 13.7 g/dL (13.0-17.5); LYMPH # 1.4 x10^3/uL (1.0-4.8); LYMPH % 29 % (24-48); MEAN CORPUSCULAR HEMOGLOBIN 28 pg (25-35); MEAN CORPUSCULAR HGB CONC 33 g/dL (31-37); MEAN CORPUSCULAR VOLUME 84 fL (79-100); MONO # 0.6 x10^3/uL (0.0-1.1); MONO % 12 % (0-9); NEUT # 2.5 x10^3/uL (1.8-7.7); NEUT % 54 % (31-73); PLATELET COUNT 200 x10^3/uL (140-400); RED BLOOD COUNT 4.94 x10^6/uL (4.30-5.70); RED CELL DISTRIBUTION WIDTH 15.6 % (11.5-14.5); WHITE BLOOD COUNT 4.7 x10^3/uL (4.0-11.0)
[2020-08-18 11:15] LABS: CALCIUM 8.8 mg/dL (8.5-10.1); CREATININE 1.3 mg/dL (0.7-1.3); GFR 64.6; POTASSIUM 3.7 mmol/L (3.5-5.1)
[2020-08-18 11:20] LABS: ALBUMIN 3.3 g/dL (3.4-5.0); ALBUMIN/GLOBULIN RATIO 0.7 (1.0-1.7); TOTAL BILIRUBIN 0.3 mg/dL (0.2-1.0); TOTAL PROTEIN 8.3 g/dL (6.4-8.2)
[2020-08-19 17:15] LABS: KAPPA FREE 41.8 mg/L (3.3-19.4); KAPPA LAMBDA RATIO 1.05 (0.26-1.65); LAMBDA FREE 39.7 mg/L (5.7-26.3)
[2020-08-19 21:17] LABS: ALBUM 3.4 g/dL (2.9-4.4); ALPHA 1 0.2 g/dL (0.0-0.4); ALPHA 2 0.7 g/dL (0.4-1.0); BETA 1.1 g/dL (0.7-1.3); GAMMA 2.2 g/dL (0.4-1.8); PROTEIN TOTAL 7.7 g/dL (6.0-8.5); SPEP AG RATIO 0.8 (0.7-1.7)
== END ==
LOC: ONCLAB 10:48
PROVIDERS: ATTEND Internal Medicine Hematology & Oncology
DX: D47.2 Monoclonal gammopathy (principal)
CPT/HCPCS: 36415; 80053; 82784; 83520; 84165; 85025; 86334

== ENCOUNTER → 2021-02-18 | Outpatient (CLI) | payer MEDICARE, OTHER ==
[2018-02-19 11:26] VITALS: BP 180/89
[~2021-02-18] MED LIST changes: +MIRT-7 PO; -MIRT15TA3 PO
[2021-02-18 11:42] LABS: BASO % 1 % (0-3); EOS # 0.1 x10^3/uL (0.0-0.7); EOS % 3 % (0-3); HEMATOCRIT 40.2 % (39.0-53.0); HEMOGLOBIN 13.2 g/dL (13.0-17.5); LYMPH # 1.4 x10^3/uL (1.0-4.8); LYMPH % 28 % (24-48); MEAN CORPUSCULAR HEMOGLOBIN 29 pg (25-35); MEAN CORPUSCULAR HGB CONC 33 g/dL (31-37); MEAN CORPUSCULAR VOLUME 87 fL (79-100); MONO # 0.6 x10^3/uL (0.0-1.1); MONO % 12 % (0-9); NEUT % 58 % (31-73); PLATELET COUNT 207 x10^3/uL (140-400); RED BLOOD COUNT 4.62 x10^6/uL (4.30-5.70); RED CELL DISTRIBUTION WIDTH 15.2 % (11.5-14.5); WHITE BLOOD COUNT 5.2 x10^3/uL (4.0-11.0)
[2021-02-18 11:55] LABS: CALCIUM 9.4 mg/dL (8.5-10.1); CREATININE 1.4 mg/dL (0.7-1.3); GFR 59.3; POTASSIUM 4.1 mmol/L (3.5-5.1)
[2021-02-18 12:01] LABS: ALBUMIN 3.4 g/dL (3.4-5.0); ALBUMIN/GLOBULIN RATIO 0.7 (1.0-1.7); TOTAL BILIRUBIN 0.4 mg/dL (0.2-1.0); TOTAL PROTEIN 8.1 g/dL (6.4-8.2)
[2021-02-19 17:09] LABS: KAPPA FREE 52.3 mg/L (3.3-19.4); KAPPA LAMBDA RATIO 1.27 (0.26-1.65); LAMBDA FREE 41.2 mg/L (5.7-26.3)
[2021-02-21 15:12] LABS: COMMENT IMMUNOFIX SERUM Note: (.); IMMUNOGLOBULIN A 329 mg/dL (61-437); IMMUNOGLOBULIN G 1369 mg/dL (603-1613); IMMUNOGLOBULIN M 895 mg/dL (15-143)
[2021-02-21 16:11] LABS: ALBUM 3.5 g/dL (2.9-4.4); ALPHA 1 0.2 g/dL (0.0-0.4); ALPHA 2 0.8 g/dL (0.4-1.0); BETA 1.1 g/dL (0.7-1.3); PROTEIN TOTAL 7.6 g/dL (6.0-8.5); SPEP AG RATIO 0.9 (0.7-1.7)
== END ==
LOC: ONCLAB 10:51
PROVIDERS: ATTEND Internal Medicine Hematology & Oncology
DX: D47.2 Monoclonal gammopathy (principal)
CPT/HCPCS: 36415; 80053; 82784; 83520; 84165; 85025; 86334

== ENCOUNTER → 2021-04-05 | Outpatient (CLI) | payer MEDICARE, OTHER ==
[2018-02-19 11:26] VITALS: BP 180/89
--- NOTE | 2021-04-06 12:58 | CARD ---
MR#: [id number] Date of Study: 04/05/2021 Ordering Physician: SESAR LY, Referring Physician: SESAR LY, Tech: Alida Sheffield [facility] APPROVED REPORT EXAM: Two-dimensional and M-mode echocardiogram with Doppler and color Doppler. Other Information Quality : AverageHR: 50bpm Rhythm : NSR INDICATION Cardiac Disease: CAD RISK FACTORS Hypertension Obesity Hyperlipidemia Smoking 2D DIMENSIONS Left Atrium(2D)4.7 (1.6-4.0cm)IVSd1.1 (0.7-1.1cm) Aortic Root(2D)3.0 (2.0-3.7cm)LVDd5.8 (3.9-5.9cm) LVOT Diameter2.3 (1.8-2.4cm)PWd1.1 (0.7-1.1cm) LVDs4.6 (2.5-4.0cm)FS (%) 20.3 % SV67.6 ml Aortic Valve AoV Peak Bruce.122.2cm/sAoV VTI30.9cm AO Peak GR.6.0mmHgLVOT Peak Bruce.101.5cm/s AO Mean GR.3mmHgAVA (VMAX)3.50cm2 Mitral Valve MV E Vffzfhdl22.8cm/sMV DECEL HARH095vh MV A Pblmqaji88.7cm/sE/A Ratio0.7 Pulmonary Valve PV Peak Rwnqmvyl147.6cm/s Tricuspid Valve TR P. Azpqrcjk860si/sTR Peak Gr.31mmHg LEFT VENTRICLE The Left Ventricle is borderline dilated. There is borderline concentric left ventricular hypertrophy . The systolic function is mildly impaired. Estimated ejection fraction 40-45%. There is mild global hypokinesis of the left ventricle. Transmitral Doppler flow pattern is Grade I-abnormal relaxation pa ttern. RIGHT VENTRICLE The right ventricle is normal size. There is normal right ventricular wall thickness. The right ventr icular systolic function is normal. ATRIA The left atrium size is normal. The right atrium size is normal. The interatrial septum is intact wit h no evidence for an atrial septal defect or patent foramen ovale as noted on 2-D or Doppler imaging. AORTIC VALVE The aortic valve is normal in structure and function. Doppler and Color Flow revealed no significant aortic regurgitation. There is no significant aortic valvular stenosis. MITRAL VALVE The mitral valve is normal in structure and function. There is no evidence of mitral valve prolapse. There is no mitral valve stenosis. Doppler and Color-flow revealed mild mitral regurgitation. TRICUSPID VALVE The tricuspid valve is normal in structure and function. Doppler and Color Flow revealed mild tricusp id regurgitation. Estimated ejection fraction 32 mmHg. There is no tricuspid valve stenosis. PULMONIC VALVE The pulmonary valve is normal in structure and function. Doppler and Color Flow revealed trace pulmon ic valvular regurgitation. GREAT VESSELS The aortic root is normal in size. The ascending aorta is normal in size. The IVC is normal in size a nd collapses >50% with inspiration. PERICARDIAL EFFUSION There is no evidence of significant pericardial effusion. Critical Notification Critical Value: No <Conclusion> The Left Ventricle is borderline dilated. The systolic function is mildly impaired. Estimated ejection fraction 40-45%. There is mild global hypokinesis of the left ventricle. There is borderline concentric left ventricular hypertrophy. Doppler and Color Flow revealed no significant aortic regurgitation. There is no significant aortic valvular stenosis. Doppler and Color-flow revealed mild mitral regurgitation. Doppler and Color Flow revealed mild tricuspid regurgitation. Estimated ejection fraction 32 mmHg. Signed by : Sesar Ly MD Electronically Approved : 04/06/2021 12:58:18
== END ==
LOC: ECHO 12:33
PROVIDERS: ATTEND Internal Medicine Cardiovascular Disease
DX: I08.1 Rheumatic disorders of both mitral and tricuspid valves (principal); I25.10 Atherosclerotic heart disease of native coronary artery without angina pectoris
CPT/HCPCS: 93306

== ENCOUNTER → 2021-08-19 | Outpatient (CLI) | payer MEDICARE, OTHER ==
[2018-02-19 11:26] VITALS: BP 180/89
[~2021-08-19] MED LIST changes: -FENO134C PO; +FENO134C22 PO
[2021-08-19 11:37] LABS: BASO % 1 % (0-3); EOS # 0.2 x10^3/uL (0.0-0.7); EOS % 4 % (0-3); HEMOGLOBIN 13.2 g/dL (13.0-17.5); LYMPH # 1.5 x10^3/uL (1.0-4.8); LYMPH % 28 % (24-48); MEAN CORPUSCULAR HEMOGLOBIN 28 pg (25-35); MEAN CORPUSCULAR HGB CONC 32 g/dL (31-37); MEAN CORPUSCULAR VOLUME 86 fL (79-100); MONO # 0.6 x10^3/uL (0.0-1.1); MONO % 11 % (0-9); NEUT # 2.9 x10^3/uL (1.8-7.7); NEUT % 56 % (31-73); PLATELET COUNT 225 x10^3/uL (140-400); RED BLOOD COUNT 4.77 x10^6/uL (4.30-5.70); RED CELL DISTRIBUTION WIDTH 15.1 % (11.5-14.5); WHITE BLOOD COUNT 5.2 x10^3/uL (4.0-11.0)
[2021-08-19 11:58] LABS: CALCIUM 9.6 mg/dL (8.5-10.1); CREATININE 1.3 mg/dL (0.7-1.3); GFR 64.4; POTASSIUM 3.7 mmol/L (3.5-5.1)
[2021-08-19 12:04] LABS: ALBUMIN 3.6 g/dL (3.4-5.0); ALBUMIN/GLOBULIN RATIO 0.7 (1.0-1.7); TOTAL BILIRUBIN 0.2 mg/dL (0.2-1.0); TOTAL PROTEIN 8.9 g/dL (6.4-8.2)
[2021-08-20 14:18] LABS: KAPPA FREE 44.6 mg/L (3.3-19.4); LAMBDA FREE 40.7 mg/L (5.7-26.3)
[2021-08-22 16:16] LABS: COMMENT IMMUNOFIX SERUM Note: (.); IMMUNOGLOBULIN A 359 mg/dL (61-437); IMMUNOGLOBULIN G 1408 mg/dL (603-1613); IMMUNOGLOBULIN M 882 mg/dL (15-143)
[2021-08-22 17:27] LABS: ALBUM 3.3 g/dL (2.9-4.4); ALPHA 1 0.4 g/dL (0.0-0.4); ALPHA 2 0.9 g/dL (0.4-1.0); BETA 1.2 g/dL (0.7-1.3); GAMMA 2.3 g/dL (0.4-1.8); SPEP AG RATIO 0.7 (0.7-1.7)
== END ==
LOC: ONCLAB 11:16
PROVIDERS: ATTEND Internal Medicine Hematology & Oncology
DX: D47.2 Monoclonal gammopathy (principal)
CPT/HCPCS: 36415; 80053; 82784; 83520; 84165; 85025; 86334

== ENCOUNTER → 2021-09-28 | Outpatient (CLI) | payer MEDICARE, OTHER ==
[2018-02-19 11:26] VITALS: BP 180/89
--- NOTE | 2021-09-28 15:51 | CARD ---
MR#: [id number] Date of Study: 09/28/2021 Ordering Physician: VENTURA LY, Referring Physician: VENTURA LY, Tech: Chaka Salguero [facility] APPROVED REPORT EXAM: Two-dimensional and M-mode echocardiogram with Doppler and color Doppler. Other Information Quality : GoodLimitedTechnically LimitedExcellentGoodAverageFairPoorHR: 60bpm Rhythm : NSR INDICATION Cardiac Disease: CAD 2D DIMENSIONS Left Atrium(2D)4.8 (1.6-4.0cm)IVSd1.3 (0.7-1.1cm) Aortic Root(2D)2.9 (2.0-3.7cm)LVDd5.7 (3.9-5.9cm) LVOT Diameter2.0 (1.8-2.4cm)PWd1.2 (0.7-1.1cm) LVDs4.0 (2.5-4.0cm)FS (%) 38.2 % SV94.6 ml Aortic Valve AoV Peak Bruce.145.4cm/sAoV VTI31.8cm AO Peak GR.8.5mmHgLVOT Peak Bruce.83.6cm/s LVOT VTI 20.27cmAO Mean GR.5mmHg APOORVA (VMAX)1.71au5FJY (VTI)2.00cm2 Mitral Valve MV E Awgeidvo98.4cm/sMV DECEL WZTY132dg MV A Grkagodr889.6cm/sMV WFH44hj E/A Ratio0.6MVA (PHT)6.34cm2 TDI E/Lateral E'9.2E/Medial E'15.8 Pulmonary Valve PV Peak Kaoirbis025.8cm/sPV Peak Grad.5mmHg Tricuspid Valve TR P. Gapqwofe406ry/sTR Peak Gr.35mmHg Pulmonary Vein S1 Hzuxzjyl35.9cm/sD2 Sftisjkv31.2cm/s LEFT VENTRICLE The left ventricle is normal size. There is mild concentric left ventricular hypertrophy. The left ve ntricular systolic function is minimally decreased. LV ejection fraction is 46 to 50%. There is min imal inferior wall hypokinesis. Transmitral Doppler flow pattern is Grade I-abnormal relaxation patte rn. No left ventricle thrombus noted on this study. There is no ventricular septal defect visualized. There is no left ventricular aneurysm. There is no mass noted in the left ventricle. RIGHT VENTRICLE The right ventricle is normal size. There is normal right ventricular wall thickness. The right ventr icular systolic function is normal. ATRIA The left atrium is mild to moderately dilated. The right atrium size is normal. The interatrial septu m is intact with no evidence for an atrial septal defect or patent foramen ovale as noted on 2-D or D oppler imaging. AORTIC VALVE The aortic valve is mildly sclerotic. The aortic valve is tri-cuspid. Doppler and Color Flow revealed no significant aortic regurgitation. There is no significant aortic valvular stenosis. There is no a ortic valvular vegetation. MITRAL VALVE The mitral valve is thickened but opens well. There is no evidence of mitral valve prolapse. There is no mitral valve stenosis. Doppler and Color-flow revealed mild to moderate eccentric mitral regurgit ation. TRICUSPID VALVE The tricuspid valve is normal in structure and function. Doppler and Color Flow revealed mild tricusp id regurgitation. There is no tricuspid valve prolapse or vegetation. There is no tricuspid valve yvon nosis. PULMONIC VALVE The pulmonary valve is normal in structure and function. Doppler and Color Flow revealed no pulmonic valvular regurgitation. There is no pulmonic valvular stenosis. GREAT VESSELS The aortic root is normal in size. The ascending aorta is normal in size. The pulmonary artery is nor mal. The IVC is normal in size and collapses >50% with inspiration. PERICARDIAL EFFUSION There is no pleural effusion. There is no evidence of significant pericardial effusion. Critical Notification Critical Value: No <Conclusion> The left ventricle is normal size. The left ventricular systolic function is minimally decreased. LV ejection fraction is 46 to 50%. There is minimal inferior wall hypokinesis. There is mild concentric left ventricular hypertrophy. Doppler and Color Flow revealed no significant aortic regurgitation. There is no significant aortic valvular stenosis. Doppler and Color-flow revealed mild to moderate eccentric mitral regurgitation. Doppler and Color Flow revealed mild tricuspid regurgitation. Signed by : Ventura Ly MD Electronically Approved : 09/28/2021 15:50:28
== END ==
LOC: ECHO 14:17
PROVIDERS: ATTEND Internal Medicine Cardiovascular Disease
DX: I08.3 Combined rheumatic disorders of mitral, aortic and tricuspid valves (principal); I25.10 Atherosclerotic heart disease of native coronary artery without angina pectoris
CPT/HCPCS: 93306; C8929